=== PATIENT | female | born 1940 | race Caucasian/White ===

== ENCOUNTER 2019-09-30 22:01 | Emergency (ER) | payer MEDICARE, BC ==
[2019-09-30 22:10] VITALS: BP 148/83
[2019-09-30] MEDS ORDERED: Acetaminophen-Codeine 300-30mg TAB PO STA (22:20)
[2019-09-30] MEDS ORDERED: ACET/COD 300 MG/30 MG STARTER PACK 6 TAB BTL PO STA (22:20)
--- NOTE | 2019-09-30 22:51 | XR ---
EXAMINATION TYPE: XR elbow complete LT DATE OF EXAM: 09/30/2019 COMPARISON: NONE HISTORY: Elbow pain TECHNIQUE: 3 views FINDINGS: There is soft tissue swelling over the olecranon process. I see no fracture nor dislocation . There is no sign of elbow joint effusion. Joint spaces are fairly normal. IMPRESSION: Soft tissue swelling. No fracture seen.
--- NOTE | 2019-09-30 23:06 | ED ---
General Adult HPI - General Chief complaint: Extremity Problem,Nontraumatic Stated complaint: Elbow pain Time Seen by Provider: 09/30/19 22:12 Source: patient, RN notes reviewed, old records reviewed Mode of arrival: ambulatory Limitations: no limitations - History of Present Illness Initial comments: 78-year-old female patient presents to ED chief complaint of left elbow pains has been ongoing for approximate 4 days. Patient reports that she put stress on her elbow when she stands up from her wheelchair. Denies any fall or any trauma. Denies any fevers chills. Denies any other complaints. Systemic: Pt denies fatigue, fever/chills, rash. Pt denies weakness, night sweats, weight loss. Neuro: Pt denies headache, visual disturbances, syncope or pre-syncope. HEENT: Pt denies ocular discharge or irritation, otalgia, rhinorrhea, pharyngitis or notable lymphadenopathy. Cardiopulmonary: Pt denies chest pain, SOB, heart palpitations, dyspnea on e xertion. Abdominal/GI: Pt denies abdominal pain, n/v/d. : Pt denies dysuria, burning w/ urination, frequency/urgency. Denies new onset urinary or bowel incontinence. MSK: Pt denies myalgia, loss of strength or function in extremities. Neuro: Pt denies new onset weakness, paresthesias. - Related Data Home Medications Medication Instructions Recorded Confirmed Atenolol 100 mg PO DAILY 09/30/19 09/30/19 Naproxen Sodium [Aleve] 440 mg PO DAILY PRN 09/30/19 09/30/19 Omeprazole Magnesium [PriLOSEC OTC] 20 mg PO DAILY 09/30/19 09/30/19 Terazosin HCl 5 mg PO HS 09/30/19 09/30/19 Allergies Allergy/AdvReac Type Severity Reaction Status Date / Time Penicillins AdvReac Rash/Hives Verified 09/30/19 22:45 Review of Systems ROS Statement: Those systems with pertinent positive or pertinent negative responses have been documented in the HPI. ROS Other: All systems not noted in ROS Statement are negative. Past Medical History Past Medical History: Hypertension History of Any Multi-Drug Resistant Organisms: None Reported Past Surgical History: Appendectomy, Section, Cholecystectomy Past Psychological History: No Psychological Hx Reported Smoking Status: Never smoker Past Alcohol Use History: None Reported Past Drug Use History: None Reported General Exam - General Exam Comments Initial Comments: Constitutional: NAD, AOX3, Pt has pleasant affect. HEENT: NC/AT, trachea midline, neck supple, no lymphadenopathy. Posterior pharynx non erythematous, without exudates. External ears appear normal, without discharge. Mucous membranes moist. Eyes PERRLA, EOM intact. There is no scleral icterus. No pallor noted. Cardiopulmonary: RRR, no murmurs, rubs or gallops, no JVD noted. Lungs CTAB in anterior and posterior caicedo. No peripheral edema. Abdominal exam: Abdomen soft and non-distended. Abdomen non-tender to palpation in all 4 quadrants. Bowel sounds active in LLQ. No hepatosplenomegaly. No ecchymosis Neuro: CN II-XII grossly intact. No nuchal rigidity. No raccon eyes, no morley sign, no hemotympanum. No cervical spinal tenderness. MSK: Left elbow mildly tender to palpation. No swelling, erythema, warmth, skin changes. Neurovascularly intact. No posterior calf tenderness bilaterally, homans sign negative bilaterally. Posterior tibialis and radial pulse +2 bilaterally. Sensation intact in upper and lower extremities. Full active ROM in upper and lower extremities, 5/5 stregnth. Limitations: no limitations Course Vital Signs 09/30/19 22:05 Temperature 97.9 F Pulse Rate 54 L Respiratory 18 Rate Blood Pressure 148/83 O2 Sat by Pulse 96 Oximetry Medical Decision Making - Medical Decision Making 78-year-old female patient presents to ED chief complaint of left elbow pains has been ongoing for approximate 4 days. Patient reports that she put stress on her elbow when she stands up from her wheelchair. Denies any fall or any trauma. Denies any fevers chills. Denies any other complaints. Patient vital signs stable, afebrile. Physical exam displayeed: Left elbow mildly tender to palpation. No swelling, erythema, warmth, skin changes. Neurovascularly intact. Physical exam displayed a small amount of soft tissue swelling. No fracture seen. This elbow clinically does not appear infected. Patient pain well-controlled in ER. Discharged with primary care follow-up and return precautions. Case discussed with Dr. Huang. Disposition Clinical Impression: Elbow pain Disposition: HOME SELF-CARE Condition: Stable Instructions (If sedation given, give patient instructions): Elbow Sprain (ED), Arthralgia (ED) Additional Instructions: Patient to adhere to previously discussed treatment plan and will take medication(s) as directed. Patient to follow up with PCP in 1-2 days. Patient to return to ED if symptoms do not improve. Return to ER if condition worsens. Monitor for redness, warmth, decreased range of motion. Is patient prescribed a controlled substance at d/c from ED?: No Referrals: Nonstaff,Physician [Primary Care Provider] - 1-2 days
[2019-09-30 23:26] VITALS: PULSE 63; RESP 15; TEMP 97.3
== END 2019-09-30 23:18 | disposition home or self-care (01) ==
LOC: EC 22:01
DX: M25.522 Pain in left elbow (principal); I10 Essential (primary) hypertension; Z88.0 Allergy status to penicillin; Z79.899 Other long term (current) drug therapy
CPT/HCPCS: 99284

== ENCOUNTER 2020-01-17 18:47 | Emergency (ER) | payer MEDICARE, BC ==
[2020-01-17 20:35] LABS: Basophils % (A) 0 %; Eosinophils # (A) 0.3 k/uL (0-0.7); Eosinophils % (A) 2 %; HCT 37.5 % (34.0-46.0); HGB 11.9 gm/dL (11.4-16.0); Lymphocytes # (A) 1.2 k/uL (1.0-4.8); Lymphocytes % (A) 9 %; MCH 27.9 pg (25.0-35.0); MCHC 31.7 g/dL (31.0-37.0); MCV 88.1 fL (80.0-100.0); Mean Platelet Volume 8.7; Monocytes # (A) 0.6 k/uL (0-1.0); Monocytes % (A) 4 %; Neutrophils # (A) 10.6 k/uL (1.3-7.7); Neutrophils % (A) 83 %; Platelet Count 222 k/uL (150-450); RBC 4.26 m/uL (3.80-5.40); RDW 15.5 % (11.5-15.5); WBC 12.8 k/uL (3.8-10.6)
--- NOTE | 2020-01-17 20:36 | US ---
EXAMINATION TYPE: US venous doppler duplex LE RT DATE OF EXAM: 01/17/2020 8:21 PM COMPARISON: NONE CLINICAL HISTORY: groin pain. Groin pain x 6.5 hours. Bilateral leg edema. No hx of DVT. Patient does not take blood thinners. SIDE PERFORMED: Right TECHNIQUE: The lower extremity deep venous system is examined utilizing real time linear array sonog tadeo with graded compression, doppler sonography and color-flow sonography. VESSELS IMAGED: Common Femoral Vein Deep Femoral Vein Greater Saphenous Vein * Femoral Vein Popliteal Vein Small Saphenous Vein * Proximal Calf Veins (* superficial vessels) Right Leg: Exam very limited due to large patient body habitus. EIV and proximal calf veins not visu alized. Cannot image popliteal vein in sagittal view due to body habitus. Vessels imaged appear to co mpress and show color flow. Cannot visualize left CFV; left proximal femoral vein shows color flow. IMPRESSION: No evidence of deep vein thrombosis in the right leg.
[2020-01-17 20:45] LABS: ALT 15 U/L (4-34); AST 21 U/L (14-36); African American GFR (CKD) >90 (>60 ml/min/1.73 sqM); Albumin 3.3 g/dL (3.5-5.0); Alkaline Phosphatase 136 U/L (38-126); Anion Gap 8 mmol/L; Blood Urea Nitrogen 18 mg/dL (7-17); Calcium 9.5 mg/dL (8.4-10.2); Carbon Dioxide 27 mmol/L (22-30); Chloride 101 mmol/L (98-107); Glucose 217 mg/dL (74-99); Non-African American GFR(CKD) 87 (>60 ml/min/1.73 sqM); Potassium 4.2 mmol/L (3.5-5.1); Sodium 136 mmol/L (137-145); Total Bilirubin 0.4 mg/dL (0.2-1.3); Total Protein 5.9 g/dL (6.3-8.2)
--- NOTE | 2020-01-17 21:22 | XR ---
EXAMINATION TYPE: XR chest 2V DATE OF EXAM: 01/17/2020 COMPARISON: NONE HISTORY: Leg swelling TECHNIQUE: 2 views FINDINGS: There is no heart failure nor confluent pneumonic infiltrate. Costophrenic angles are clear . Bony thorax is intact. Thoracic aorta is atheromatous. IMPRESSION: No active cardiopulmonary disease. Normal heart.
--- NOTE | 2020-01-17 21:23 | XR ---
EXAMINATION TYPE: XR Hip Complete RT DATE OF EXAM: 01/17/2020 COMPARISON: NONE HISTORY: Hip pain TECHNIQUE: 2 views FINDINGS: I see no fracture nor dislocation. Joint spaces are normal. There is no sign of hip dysplas ia. IMPRESSION: Negative right hip exam.
--- NOTE | 2020-01-17 22:30 | ED ---
Extremity Problem HPI - General Chief complaint: Extremity Problem,Nontraumatic Stated complaint: Rt Leg Pain Time Seen by Provider: 01/17/20 19:01 Source: patient, EMS Mode of arrival: EMS Limitations: physical limitation - History of Present Illness Initial comments: Pleasant, well appearing 79-year-old female presenting for right hip and groin pain since @2PM. Patient states that she try to get off the toilet and she had a right hip groin pain this was around 2 PM. Patient states that she was knees that are [id number] also feel like her knee locked out she denies dislocation she denies any knee pain. 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 Ptietn denies chest pain, SOB. Patient states that since she has been sleeping in the chair she has noted bilateral leg swelling. Patient denies unilateral leg swelling or history of DVT. Patient denies any numbness tingling or loss of sensation, coolness or pallor of the extremity. Denies fevers. Patient denies any abdominal pain or pain or falls. When patient cannot ambulate well family gave patient Tylenol No. 3 and called EMS for transportation to the emergency department. Patient states upon arrival she had no pain, and "feels fine now" no complaints. - Related Data Home Medications Medication Instructions Recorded Confirmed Atenolol 100 mg PO DAILY 09/30/19 09/30/19 Cyclobenzaprine [Flexeril] 10 mg PO TID PRN 09/30/19 09/30/19 Naproxen Sodium [Aleve] 440 mg PO DAILY PRN 09/30/19 09/30/19 Omeprazole Magnesium [PriLOSEC OTC] 20 mg PO DAILY 09/30/19 09/30/19 Terazosin HCl 5 mg PO HS 09/30/19 09/30/19 Previous Rx's Medication Instructions Recorded Cephalexin [Keflex] 500 mg PO Q6HR 7 Days #28 cap 01/17/20 Sulfamethox-Tmp 800-160Mg [Bactrim 1 tab PO Q12HR 7 Days #14 tab 01/17/20 DS 800-160 mg] Allergies Allergy/AdvReac Type Severity Reaction Status Date / Time Penicillins AdvReac Rash/Hives Verified 01/17/20 19:05 Review of Systems ROS Statement: Those systems with pertinent positive or pertinent negative responses have been documented in the HPI. ROS Other: All systems not noted in ROS Statement are negative. Past Medical History Past Medical History: Hypertension History of Any Multi-Drug Resistant Organisms: None Reported Past Surgical History: Appendectomy, Section, Cholecystectomy Past Psychological History: No Psychological Hx Reported Smoking Status: Never smoker Past Alcohol Use History: None Reported Past Drug Use History: None Reported General Exam - General Exam Comments Initial Comments: General: The patient is awake and alert, in no distress Eye: +3 mm pupils are equal, round and reactive to light, extra-ocular movements are intact. No nystagmus. There is normal conjunctiva bilaterally. No signs of icterus. Ears, nose, mouth and throat: There are moist mucous membranes and no oral lesions. Neck: The neck is supple, there is no tenderness or JVD. Cardiovascular: There is a regular rate and rhythm. No murmur, rub or gallop is appreciated. Respiratory: Lungs are clear to auscultation, respirations are non-labored, br eath sounds are equal. No wheezes, stridor, rales, or rhonchi. Gastrointestinal: Soft, non-distended, non-tender abdomen without masses or organomegaly noted. There is no rebound or guarding present. Musculoskeletal: Normal ROM, no tenderness. Strength 5/5 grossly. Sensation intact. Radial and DP pulses equal bilaterally 2+. Neurological: A&O x 3. CN II-XII intact grossly, There are no obvious motor or sensory deficits. Coordination appears grossly intact. Speech is normal. Skin: Skin is warm and dry and no rashes or lesions are noted. bilateral leg swelling, no pitting edema. Groin inspected after lifting pannus, tehre is no rashes, no palpable hernia, no pain to palpation +2 femoral. Mild anterior right leg swelling warmth, surrounding small break in skin. Psychiatric: Cooperative, appropriate mood & affect, normal judgment. Limitations: physical limitation Course Vital Signs 01/17/20 01/17/20 01/17/20 18:58 19:34 23:55 Temperature 97.3 F L 97.7 F Pulse Rate 82 86 94 Respiratory 16 17 18 Rate Blood Pressure 164/71 147/66 136/68 O2 Sat by Pulse 94 L 96 96 Oximetry Medical Decision Making - Medical Decision Making 79-year-old female presenting today for chief complaint of right hip pain patien t was unable to get up from the toilet patient states she feels this is due to her having bilateral bad knees. Patient states she has had bilateral leg swelling since she has been sleeping in a chair for the past 2-3 months. Patient has no pitting edema however bilateral lower extremity swelling. Patient is mild hypoalbuminemia on laboratory studies. As well as mild leukocytosis. Patient on physical examination had a very mild right lower leg anterior cellulitis no crepitus to palpation. No recent antibiotic use. Patient states this was not one of her main complaints. Patient neurovascularly intact, No obvious DVT on US, no unilateral leg swelling. BNP WNL. CXR no vascular congestion. VS stable patient appears well. Ptietn afebrile does not appears toxic. X-ray hip revealed no acute abnormalities. Discussed admission for inability to ambulate and cellulitis with attending we contacted admitting provider Dr. Thompson who recommended discharge. Patient family beside as well as patient are agreeable to admission [facility] strict return parameters. Transferred home via EMS. - Lab Data Result diagrams: 01/17/20 19:52 01/17/20 19:52 Lab Results 01/17/20 01/17/20 01/17/20 Range/Units 19:52 19:52 19:52 WBC 12.8 H (3.8-10.6) k/uL RBC 4.26 (3.80-5.40) m/uL Hgb 11.9 (11.4-16.0) gm/dL Hct 37.5 (34.0-46.0) % MCV 88.1 (80.0-100.0) fL MCH 27.9 (25.0-35.0) pg MCHC 31.7 (31.0-37.0) g/dL RDW 15.5 (11.5-15.5) % Plt Count 222 (150-450) k/uL Neutrophils % 83 % Lymphocytes % 9 % Monocytes % 4 % Eosinophils % 2 % Basophils % 0 % Neutrophils # 10.6 H (1.3-7.7) k/uL Lymphocytes # 1.2 (1.0-4.8) k/uL Monocytes # 0.6 (0-1.0) k/uL Eosinophils # 0.3 (0-0.7) k/uL Basophils # 0.0 (0-0.2) k/uL Sodium 136 L (137-145) mmol/L Potassium 4.2 (3.5-5.1) mmol/L Chloride 101 (98-107) mmol/L Carbon Dioxide 27 (22-30) mmol/L Anion Gap 8 mmol/L BUN 18 H (7-17) mg/dL Creatinine 0.60 (0.52-1.04) mg/dL Est GFR (CKD-EPI)AfAm >90 (>60 ml/min/1.73 sqM) Est GFR (CKD-EPI)NonAf 87 (>60 ml/min/1.73 sqM) Glucose 217 H (74-99) mg/dL Calcium 9.5 (8.4-10.2) mg/dL Total Bilirubin 0.4 (0.2-1.3) mg/dL AST 21 (14-36) U/L ALT 15 (4-34) U/L Alkaline Phosphatase 136 H (38-126) U/L NT-Pro-B Natriuret Pep 182 pg/mL Total Protein 5.9 L (6.3-8.2) g/dL Albumin 3.3 L (3.5-5.0) g/dL Urine Color Urine Appearance (Clear) Urine pH (5.0-8.0) Ur Specific [place] (1.001-1.035) Urine Protein (Negative) Urine Glucose (UA) (Negative) Urine Ketones (Negative) Urine Blood (Negative) Urine Nitrite (Negative) Urine Bilirubin (Negative) Urine Urobilinogen (<2.0) mg/dL Ur Leukocyte Esterase (Negative) Urine RBC (0-5) /hpf Urine WBC (0-5) /hpf Ur Squamous Epith Cells (0-4) /hpf Urine Bacteria (None) /hpf Urine Mucus (None) /hpf 01/17/20 Range/Units 22:05 WBC (3.8-10.6) k/uL RBC (3.80-5.40) m/uL Hgb (11.4-16.0) gm/dL Hct (34.0-46.0) % MCV (80.0-100.0) fL MCH (25.0-35.0) pg MCHC (31.0-37.0) g/dL RDW (11.5-15.5) % Plt Count (150-450) k/uL Neutrophils % % Lymphocytes % % Monocytes % % Eosinophils % % Basophils % % Neutrophils # (1.3-7.7) k/uL Lymphocytes # (1.0-4.8) k/uL Monocytes # (0-1.0) k/uL Eosinophils # (0-0.7) k/uL Basophils # (0-0.2) k/uL Sodium (137-145) mmol/L Potassium (3.5-5.1) mmol/L Chloride (98-107) mmol/L Carbon Dioxide (22-30) mmol/L Anion Gap mmol/L BUN (7-17) mg/dL Creatinine (0.52-1.04) mg/dL Est GFR (CKD-EPI)AfAm (>60 ml/min/1.73 sqM) Est GFR (CKD-EPI)NonAf (>60 ml/min/1.73 sqM) Glucose (74-99) mg/dL Calcium (8.4-10.2) mg/dL Total Bilirubin (0.2-1.3) mg/dL AST (14-36) U/L ALT (4-34) U/L Alkaline Phosphatase (38-126) U/L NT-Pro-B Natriuret Pep pg/mL Total Protein (6.3-8.2) g/dL Albumin (3.5-5.0) g/dL Urine Color Yellow Urine Appearance Slightly Cloudy H (Clear) Urine pH 6.0 (5.0-8.0) Ur Specific [place] 1.010 (1.001-1.035) Urine Protein Negative (Negative) Urine Glucose (UA) Negative (Negative) Urine Ketones Negative (Negative) Urine Blood Negative (Negative) Urine Nitrite Negative (Negative) Urine Bilirubin Negative (Negative) Urine Urobilinogen 0.2 (<2.0) mg/dL Ur Leukocyte Esterase Negative (Negative) Urine RBC 2 (0-5) /hpf Urine WBC 3 (0-5) /hpf Ur Squamous Epith Cells 1 (0-4) /hpf Urine Bacteria Few H (None) /hpf Urine Mucus Rare H (None) /hpf Disposition Clinical Impression: Right leg pain, Chronic pain of right knee, Cellulitis, Leg swelling Disposition: HOME SELF-CARE Condition: Good Instructions (If sedation given, give patient instructions): Cellulitis (ED), Leg Edema (ED), Hip Pain (ED) Additional Instructions: Please use medication as discussed. Please follow-up with family doctor in the next 2 days. Please return to emergency room if the symptoms increase or worsen or for any other concerns, fevers, increasing redness.. Prescriptions: Sulfamethox-Tmp 800-160Mg [Bactrim DS 800-160 mg] 1 tab PO Q12HR 7 Days #14 tab Cephalexin [Keflex] 500 mg PO Q6HR 7 Days #28 cap Is patient prescribed a controlled substance at d/c from ED?: No Referrals: Nonstaff,Physician [Primary Care Provider] - 1-2 days Time of Disposition: 23:01
[2020-01-17 22:49] LABS: Bacteria,Urine Few /hpf; Mucus,Urine Rare /hpf; RBC,Urine 2 /hpf (0-5); Squamous Epithelial Cell,Urine 1 /hpf (0-4); WBC,Urine 3 /hpf (0-5)
[2020-01-17 22:51] LABS: Appearance,Urine Slightly Cloudy (Clear); Bilirubin,Urine Negative (Negative); Blood,Urine Negative (Negative); Color,Urine Yellow; Glucose,Urine (UA) Negative (Negative); Ketones,Urine Negative (Negative); Protein,Urine Negative (Negative); Urobilinogen,Urine 0.2 mg/dL (<2.0)
[2020-01-17 22:52] LABS: Leukocyte Esterase,Urine Negative (Negative); Nitrite,Urine Negative (Negative)
[2020-01-17] MEDS ORDERED: cefTRIAXone IN SWFI 1,000 MG/10 ML SYRINGE IVP STA (23:39)
[2020-01-17 23:57] VITALS: BP 136/68; PULSE 94; RESP 18; TEMP 97.7
== END 2020-01-17 23:55 | disposition home or self-care (01) ==
LOC: EC 18:47
DX: L03.115 Cellulitis of right lower limb (principal); G89.29 Other chronic pain; M25.561 Pain in right knee; E88.09 Other disorders of plasma-protein metabolism, not elsewhere classified; D72.829 Elevated white blood cell count, unspecified; M17.0 Bilateral primary osteoarthritis of knee; M25.551 Pain in right hip; M79.89 Other specified soft tissue disorders; I10 Essential (primary) hypertension; R10.31 Right lower quadrant pain; Z88.0 Allergy status to penicillin; Z79.899 Other long term (current) drug therapy; Z90.49 Acquired absence of other specified parts of digestive tract; Z53.8 Procedure and treatment not carried out for other reasons
CPT/HCPCS: 36415; 83880; 80053; 85025; 81001; 73502; 71046; 93971; 99284; 96374; J0696

== ENCOUNTER 2020-03-06 13:47 | Inpatient (IN) | payer MEDICARE, BC ==
[2020-03-06] MEDS ORDERED: SODIUM CHLORIDE 0.9% 500 ML 500 ML IV STA (14:01)
[2020-03-06] MEDS ORDERED: SODIUM CHLORIDE 0.9% 1,000 ML IV STA (14:01)
--- NOTE | 2020-03-06 14:41 | XR ---
EXAMINATION TYPE: XR chest 1V portable DATE OF EXAM: 03/06/2020 COMPARISON: 01/17/2020 INDICATION: Dyspnea TECHNIQUE: Single frontal view of the chest is obtained. FINDINGS: The heart size is normal. The pulmonary vasculature is prominent. Infiltrate is through the right mid and lower lung field. Correlate for volume overload and early pul monary edema. Right lower lobe infiltrate with pneumonia is considered less likely. IMPRESSION: 1. Diffuse increased pulmonary vascular markings more focal in the right lower lobe. Correlate for vo lume overload.
[2020-03-06 14:45] LABS: Anisocytosis Slight; Basophils % (A) 0 %; Eosinophils % (A) 0 %; HCT 34.6 % (34.0-46.0); HGB 10.8 gm/dL (11.4-16.0); Hypochromasia Slight; Lymphocytes % (A) 6 %; MCH 27.7 pg (25.0-35.0); MCHC 31.3 g/dL (31.0-37.0); MCV 88.4 fL (80.0-100.0); Mean Platelet Volume 9.4; Monocytes # (A) 0.6 k/uL (0-1.0); Monocytes % (A) 4 %; Neutrophils # (A) 13.6 k/uL (1.3-7.7); Neutrophils % (A) 88 %; Platelet Count 152 k/uL (150-450); RBC 3.92 m/uL (3.80-5.40); RDW 17.1 % (11.5-15.5); WBC 15.4 k/uL (3.8-10.6)
[2020-03-06 14:54] LABS: ALT 21 U/L (4-34); AST 23 U/L (14-36); African American GFR (CKD) >90 (>60 ml/min/1.73 sqM); Albumin 3.3 g/dL (3.5-5.0); Alkaline Phosphatase 101 U/L (38-126); Anion Gap 7 mmol/L; Blood Urea Nitrogen 23 mg/dL (7-17); Calcium 8.7 mg/dL (8.4-10.2); Carbon Dioxide 26 mmol/L (22-30); Chloride 89 mmol/L (98-107); Creatine Kinase 61 U/L (30-135); Glucose 224 mg/dL (74-99); Magnesium 2.1 mg/dL (1.6-2.3); Non-African American GFR(CKD) 85 (>60 ml/min/1.73 sqM); Potassium 5.3 mmol/L (3.5-5.1); Sodium 122 mmol/L (137-145); Total Bilirubin 0.6 mg/dL (0.2-1.3); Total Protein 5.9 g/dL (6.3-8.2)
[2020-03-06 14:55] LABS: INR 1.1 (<1.2); Partial Thromboplastin Time 23.6 sec (22.0-30.0); Prothrombin Time 11.5 sec (9.0-12.0)
--- NOTE | 2020-03-06 15:05 | ED ---
SOB HPI - General Chief Complaint: Shortness of Breath Stated Complaint: MARSHA Time Seen by Provider: 03/06/20 14:01 Source: patient, EMS, RN notes reviewed, old records reviewed Mode of arrival: EMS Limitations: no limitations - History of Present Illness Initial Comments: This is a 79-year-old female who was brought in by EMS because of some shortness of breath or cough for last several days patient had been on antibiotics without relief. No reports of fevers chills nausea vomiting sweats. No reports of other infectious exposures. No chest pain reported the patient is reported have lower extremity edema. The patient himself is a poor historian MD Complaint: shortness of breath, cough - Related Data Home Medications Medication Instructions Recorded Confirmed Atenolol 100 mg PO DAILY 09/30/19 03/06/20 Terazosin HCl 5 mg PO HS@1900 09/30/19 03/06/20 Albuterol Inhaler [Ventolin Hfa 2 puff INHALATION RT-QID PRN 03/06/20 03/06/20 Inhaler] Albuterol Nebulized [Ventolin 2.5 mg INHALATION RT-QID 03/06/20 03/06/20 Nebulized] Aspirin EC [Ecotrin Low Dose] 81 mg PO DAILY 03/06/20 03/06/20 Multivitamins, Thera [Multivitamin 1 tab PO DAILY 03/06/20 03/06/20 (formulary)] Naproxen Sodium [Aleve] 440 mg PO BID 03/06/20 03/06/20 Omeprazole Magnesium [PriLOSEC OTC] 20 mg PO DAILY 03/06/20 03/06/20 Vitamin E Acetate [Vitamin E] 200 unit PO DAILY 03/06/20 03/06/20 methylPREDNISolone [Medrol Dose See Taper PO DIRECTED 03/06/20 03/06/20 Pack] Allergies Allergy/AdvReac Type Severity Reaction Status Date / Time Penicillins AdvReac Rash/Hives Verified 03/06/20 16:31 Review of Systems ROS Statement: Those systems with pertinent positive or pertinent negative responses have been documented in the HPI. ROS Other: All systems not noted in ROS Statement are negative. Past Medical History Past Medical History: Hypertension History of Any Multi-Drug Resistant Organisms: None Reported Past Surgical History: Appendectomy, Section, Cholecystectomy Past Psychological History: No Psychological Hx Reported Smoking Status: Never smoker Past Alcohol Use History: None Reported Past Drug Use History: None Reported General Exam - General Exam Comments Initial Comments: This is a well-developed obese female who is awake and alert but somewhat lethargic Limitations: no limitations General appearance: alert, in no apparent distress Head exam: Present: atraumatic, normocephalic, normal inspection Eye exam: Present: normal appearance, PERRL, EOMI. Absent: scleral icterus, conjunctival injection, periorbital swelling ENT exam: Present: mucous membranes dry Neck exam: Present: normal inspection, full ROM, other (No stridor JVD or bru its). Absent: tenderness, meningismus, lymphadenopathy Respiratory exam: Present: decreased breath sounds. Absent: respiratory distress, wheezes, rales, rhonchi, stridor Cardiovascular Exam: Present: bradycardia, normal heart sounds. Absent: systo lic murmur, diastolic murmur, rubs, gallop, clicks GI/Abdominal exam: Present: soft, normal bowel sounds. Absent: distended, tenderness, guarding, rebound, rigid Extremities exam: Present: full ROM, normal capillary refill, pedal edema, other (Stasis changes). Absent: tenderness, joint swelling, calf tenderness Back exam: Present: normal inspection Neurological exam: Present: alert, oriented X3, CN II-XII intact Psychiatric exam: Present: normal affect, normal mood Skin exam: Present: warm, dry, intact, normal color. Absent: rash Course Vital Signs 03/06/20 03/06/20 03/06/20 13:51 14:30 15:09 Temperature 96.0 F L Pulse Rate 35 L 33 L 40 L Respiratory 18 18 22 Rate Blood Pressure 141/84 97/72 118/88 O2 Sat by Pulse 98 95 93 L Oximetry 03/06/20 16:00 Temperature Pulse Rate 48 L Respiratory 18 Rate Blood Pressure 100/52 O2 Sat by Pulse 95 Oximetry - Reevaluation(s) Reevaluation #1: 03/06/20 17:15 I did reevaluate the patient on multiple occasions. Patient did have a declining her blood pressure or pulse rate remained the same. Aeration for beta saray toxicity. Reevaluation #2: 03/06/20 17:16 I did discuss the case with both Dr. KASSANDRA Esquivel and Dr. Castañeda. Patient be admitted ICU placed on a dopamine drip at 5 mics. Mild dehydration. Also for the pneumonia vancomycin and Levaquin. Procedures - Central Line Placement Right IJ Consent Obtained: emergent situation Patient Placed on Monitor/Pulse Ox: Yes MD Prep: mask, gown, gloves, other (P PE) Central Line Prep: Povidone-Iodine 1%, sterile drapes applied Local Anesthesia Used: Lidocaine 1% Ultrasound Used for Placement: Yes Central Line Lumen Inserted: triple Bloods Obtained for Lab: No (RA drawn) Central Line Position: good blood return, all ports aspirated, flushed, capped, sutured in place with 3-0 nylon Dressing Applied: Tegaderm Post Procedure X-Ray: tip of catheter in good position Patient Tolerated Procedure: well Complications: none Medical Decision Making - Medical Decision Making I did discuss the case with multiple physicians including Dr. Elsi Castañeda and Dr. Esquivel. Central venous access is obtained to the right internal jugular. Patient maintained her pressure and pulse on the current regimen. - Lab Data Result diagrams: 03/06/20 14:15 03/06/20 14:15 Lab Results 03/06/20 03/06/20 03/06/20 Range/Units 14:15 14:15 14:15 WBC 15.4 H (3.8-10.6) k/uL RBC 3.92 (3.80-5.40) m/uL Hgb 10.8 L (11.4-16.0) gm/dL Hct 34.6 (34.0-46.0) % MCV 88.4 (80.0-100.0) fL MCH 27.7 (25.0-35.0) pg MCHC 31.3 (31.0-37.0) g/dL RDW 17.1 H (11.5-15.5) % Plt Count 152 (150-450) k/uL Neutrophils % 88 % Lymphocytes % 6 % Monocytes % 4 % Eosinophils % 0 % Basophils % 0 % Neutrophils # 13.6 H (1.3-7.7) k/uL Lymphocytes # 1.0 (1.0-4.8) k/uL Monocytes # 0.6 (0-1.0) k/uL Eosinophils # 0.0 (0-0.7) k/uL Basophils # 0.0 (0-0.2) k/uL Hypochromasia Slight Anisocytosis Slight PT 11.5 (9.0-12.0) sec INR 1.1 (<1.2) APTT 23.6 (22.0-30.0) sec Sodium 122 L (137-145) mmol/L Potassium 5.3 H (3.5-5.1) mmol/L Chloride 89 L (98-107) mmol/L Carbon Dioxide 26 (22-30) mmol/L Anion Gap 7 mmol/L BUN 23 H (7-17) mg/dL Creatinine 0.63 (0.52-1.04) mg/dL Est GFR (CKD-EPI)AfAm >90 (>60 ml/min/1.73 sqM) Est GFR (CKD-EPI)NonAf 85 (>60 ml/min/1.73 sqM) Glucose 224 H (74-99) mg/dL Plasma Lactic Acid Guido (0.7-2.0) mmol/L Calcium 8.7 (8.4-10.2) mg/dL Magnesium 2.1 (1.6-2.3) mg/dL Total Bilirubin 0.6 (0.2-1.3) mg/dL AST 23 (14-36) U/L ALT 21 (4-34) U/L Alkaline Phosphatase 101 (38-126) U/L Creatine Kinase 61 (30-135) U/L Troponin I (0.000-0.034) ng/mL NT-Pro-B Natriuret Pep pg/mL Total Protein 5.9 L (6.3-8.2) g/dL Albumin 3.3 L (3.5-5.0) g/dL TSH (0.465-4.680) mIU/L Coronavirus (PCR) (Not Detectd) Influenza Type A RNA (Not Detectd) Influenza Type B (PCR) (Not Detectd) 03/06/20 03/06/20 03/06/20 Range/Units 14:15 14:15 14:15 WBC (3.8-10.6) k/uL RBC (3.80-5.40) m/uL Hgb (11.4-16.0) gm/dL Hct (34.0-46.0) % MCV (80.0-100.0) fL MCH (25.0-35.0) pg MCHC (31.0-37.0) g/dL RDW (11.5-15.5) % Plt Count (150-450) k/uL Neutrophils % % Lymphocytes % % Monocytes % % Eosinophils % % Basophils % % Neutrophils # (1.3-7.7) k/uL Lymphocytes # (1.0-4.8) k/uL Monocytes # (0-1.0) k/uL Eosinophils # (0-0.7) k/uL Basophils # (0-0.2) k/uL Hypochromasia Anisocytosis PT (9.0-12.0) sec INR (<1.2) APTT (22.0-30.0) sec Sodium (137-145) mmol/L Potassium (3.5-5.1) mmol/L Chloride (98-107) mmol/L Carbon Dioxide (22-30) mmol/L Anion Gap mmol/L BUN (7-17) mg/dL Creatinine (0.52-1.04) mg/dL Est GFR (CKD-EPI)AfAm (>60 ml/min/1.73 sqM) Est GFR (CKD-EPI)NonAf (>60 ml/min/1.73 sqM) Glucose (74-99) mg/dL Plasma Lactic Acid Guido 1.5 (0.7-2.0) mmol/L Calcium (8.4-10.2) mg/dL Magnesium (1.6-2.3) mg/dL Total Bilirubin (0.2-1.3) mg/dL AST (14-36) U/L ALT (4-34) U/L Alkaline Phosphatase (38-126) U/L Creatine Kinase (30-135) U/L Troponin I <0.012 (0.000-0.034) ng/mL NT-Pro-B Natriuret Pep 747 pg/mL Total Protein (6.3-8.2) g/dL Albumin (3.5-5.0) g/dL TSH (0.465-4.680) mIU/L Coronavirus (PCR) (Not Detectd) Influenza Type A RNA (Not Detectd) Influenza Type B (PCR) (Not Detectd) 03/06/20 03/06/20 Range/Units 14:15 15:40 WBC (3.8-10.6) k/uL RBC (3.80-5.40) m/uL Hgb (11.4-16.0) gm/dL Hct (34.0-46.0) % MCV (80.0-100.0) fL MCH (25.0-35.0) pg MCHC (31.0-37.0) g/dL RDW (11.5-15.5) % Plt Count (150-450) k/uL Neutrophils % % Lymphocytes % % Monocytes % % Eosinophils % % Basophils % % Neutrophils # (1.3-7.7) k/uL Lymphocytes # (1.0-4.8) k/uL Monocytes # (0-1.0) k/uL Eosinophils # (0-0.7) k/uL Basophils # (0-0.2) k/uL Hypochromasia Anisocytosis PT (9.0-12.0) sec INR (<1.2) APTT (22.0-30.0) sec Sodium (137-145) mmol/L Potassium (3.5-5.1) mmol/L Chloride (98-107) mmol/L Carbon Dioxide (22-30) mmol/L Anion Gap mmol/L BUN (7-17) mg/dL Creatinine (0.52-1.04) mg/dL Est GFR (CKD-EPI)AfAm (>60 ml/min/1.73 sqM) Est GFR (CKD-EPI)NonAf (>60 ml/min/1.73 sqM) Glucose (74-99) mg/dL Plasma Lactic Acid Guido (0.7-2.0) mmol/L Calcium (8.4-10.2) mg/dL Magnesium (1.6-2.3) mg/dL Total Bilirubin (0.2-1.3) mg/dL AST (14-36) U/L ALT (4-34) U/L Alkaline Phosphatase (38-126) U/L Creatine Kinase (30-135) U/L Troponin I (0.000-0.034) ng/mL NT-Pro-B Natriuret Pep pg/mL Total Protein (6.3-8.2) g/dL Albumin (3.5-5.0) g/dL TSH 3.570 (0.465-4.680) mIU/L Coronavirus (PCR) Not Detected (Not Detectd) Influenza Type A RNA Not Detected (Not Detectd) Influenza Type B (PCR) Not Detected (Not Detectd) - EKG Data -: EKG Interpreted by Me (Junctional bradycardia rate of 36 QRS 82 QT since QTC 590/462 low-voltage Q) - Radiology Data Radiology results: report reviewed (I did review the imaging and report evidence of right lower lobe infiltrate evidence of pulmonary vascular congestion), image reviewed Critical Care Time Critical Care Time: Yes Critical Care Time: 49 minutes of critical care time which includes initial presentation with history physical labs x-rays multiple reevaluation of the patient. PPE was used by me on all examinations. Says include discussion with paramedics. Limited information was available. Discussed with multiple physicians review of old charting was available admission orders and documentation of the above Disposition Clinical Impression: Right lower lobe pneumonia, Bradycardia, Beta saray toxicity, Morbid obesity Disposition: ADMITTED IP TO THIS [facility] Condition: Fair Referrals: Nonstaff,Physician [Primary Care Provider] - 1-2 days
[2020-03-06] MEDS ORDERED: ATROPINE SULFATE 0.1 MG/ML 10ML SYRINGE IV STA (15:33)
[2020-03-06] MEDS ORDERED: DOPamine DRIP 800 MG in DEXTROSE/WATER 1 250ML.BAG IV ONE (15:45)
[2020-03-06] MEDS ORDERED: cefTRIAXone IN SWFI 1,000 MG/10 ML SYRINGE IVP STA (16:09)
[2020-03-06] MEDS ORDERED: ACETAMINOPHEN TAB 325 MG TAB PO PRN (17:20)
[2020-03-06] MEDS ORDERED: NALOXONE 0.4 MG/ML 1 ML VIAL IV PRN (17:20)
[2020-03-06] MEDS ORDERED: LEVOFLOXACIN 750MG-D5W PMX 750 MG in DEXTROSE/WATER 1 150ML.BAG IVPB STA (17:25)
[2020-03-06] MEDS ORDERED: VANCOMYCIN IV PER PHARMACY 1 EACH MISC MISCELLANE PRN (17:25)
--- NOTE | 2020-03-06 17:38 | XR ---
EXAMINATION TYPE: XR chest 1V [facility] DATE OF EXAM: 03/06/2020 COMPARISON: 03/06/2020, earlier today HISTORY: 79 year-old female line placement TECHNIQUE: Single frontal view of the chest is obtained. FINDINGS: Right CVC tip seen extending to the right atrium. Distal aspect is not seen due to the degree of unde rpenetration. Heart moderately enlarged. Patchy and confluent airspace opacity perihilar regions and mid and lower lungs, right greater than left. Suspect underlying effusions as well. IMPRESSION: 1. Underpenetrated exam. Distal aspect of the right-sided CVC not well seen but it appears to enter t he right atrium. 2. Otherwise, continued cardiomegaly and minimal lower lung airspace disease, right greater than left , possible pulmonary edema or multifocal pneumonia. Clinically correlate.
[2020-03-06 18:54] LABS: ABG Base Excess -1.5 mmol/L; ABG HCO3 27 mmol/L (21-25); ABG PCO2 70 mmHg (35-45); ABG PO2 79 mmHg (83-108); ABG TCO2 29 mmol/L (19-24); Allen Test Performed? Yes
[2020-03-06 18:56] LABS: Glucose,Whole Blood 211 mg/dL (75-99)
[2020-03-06] MEDS ORDERED: VANCOMYCIN 2,500 MG in SODIUM CHLORIDE 0.9% 500 ML 500 ML IVPB ONE (19:00)
[2020-03-06] MEDS ORDERED: SUCCINYLCHOLINE CHLORIDE VIAL 200 MG/10 ML VIAL IV ONE (19:11)
[2020-03-06] MEDS ORDERED: PROPOFOL 10 MG/ML 20 ML VIAL IV ONE (19:11)
[2020-03-06] MEDS: SODIUM CHLORIDE 0.9% 1,000 ML IV SCH (19:22)
[2020-03-06] MEDS: PROPOFOL 1,000 MG in EMPTY BAG 1 BAG IV SCH ×2 (19:30→20:15)
--- NOTE | 2020-03-06 19:47 | XR ---
EXAMINATION TYPE: XR chest 1V portable DATE OF EXAM: 03/06/2020 Comparison: 03/06/2020 Clinical History: 79-year-old female Tube placement Findings: ET tube is satisfactory, tip just below the level of the clavicular heads. The exam is underpenetrate d due to large patient body habitus and the distal aspect of the NG tube is not seen. It appears to e xtend below the hemidiaphragm. Right IJ CVC tip within the right atrium. Heart remains enlarged with diffuse interstitial opacity and right greater the left mid and lower lung opacities. Impression: 1. Satisfactory ET tube. 2. Underpenetrated exam. Distal aspect of the NG tube is not well delineated. Suspect that it crosses below the diaphragm. 3. Otherwise, stable exam with right greater than left mid and lower lung consolidation and diffuse i nterstitial density,, likely pulmonary edema.
[2020-03-06 19:50] LABS: ABG Base Excess -1.8 mmol/L; ABG HCO3 26 mmol/L (21-25); ABG Oxygen Saturation 96.3 % (94-97); ABG PCO2 64 mmHg (35-45); ABG PH 7.22 (7.35-7.45); ABG PO2 121 mmHg (83-108); ABG TCO2 28 mmol/L (19-24); Allen Test Performed? Yes
[2020-03-06 19:53] LABS: ABG PH 7.19 (7.35-7.45)
[2020-03-06] MEDS: DOXAZOSIN 4 MG TAB PO SCH (20:13)
[2020-03-06] MEDS: ALBUTEROL HFA INHALER INHALATION PRN (20:20)
[2020-03-06] MEDS ORDERED: NAPROXEN 250 MG TAB PO SCH (21:00)
[2020-03-06] MEDS ORDERED: ENOXAPARIN 100 MG/ML SYRINGE SQ STA (21:38)
[2020-03-06] MEDS: NOREPINEPHRINE 8 MG in SODIUM CHLORIDE 0.9% 250 ML IV SCH (21:38)
[2020-03-06] MEDS: CHLORHEXIDINE GLUCONATE 15 ML CUP MUCOUS MEM SCH (22:06)
[2020-03-06 22:33] LABS: Appearance,Urine Clear (Clear); Bilirubin,Urine Negative (Negative); Blood,Urine Moderate (Negative); Color,Urine Colorless; Glucose,Urine (UA) Negative (Negative); Hyaline Casts,Urine 1 /lpf (0-2); Ketones,Urine Negative (Negative); Leukocyte Esterase,Urine Negative (Negative); Nitrite,Urine Negative (Negative); Protein,Urine Negative (Negative); RBC,Urine 1 /hpf (0-5); Specific Gravity,Urine 1.002 (1.001-1.035); Urobilinogen,Urine <2.0 mg/dL (<2.0); WBC,Urine <1 /hpf (0-5)
[2020-03-06 22:54] LABS: Creatinine,Urine Random 4.1 mg/dL
[2020-03-07 00:08] LABS: Glucose,Whole Blood 138 mg/dL (75-99)
[2020-03-07] MEDS: INSULIN ASPART (NovoLOG) 100 UNIT/ML VIAL SQ SCH ×4 (00:13→17:11)
[2020-03-07] MEDS: NOREPINEPHRINE 8 MG in SODIUM CHLORIDE 0.9% 250 ML IV SCH ×2 (00:34→13:37)
[2020-03-07] MEDS: PROPOFOL 1,000 MG in EMPTY BAG 1 BAG IV SCH ×8 (00:49→21:44)
[2020-03-07 04:32] LABS: Anisocytosis Slight; Basophils % (A) 0 %; Eosinophils # (A) 0.1 k/uL (0-0.7); Eosinophils % (A) 0 %; HCT 35.4 % (34.0-46.0); HGB 11.2 gm/dL (11.4-16.0); Hypochromasia Slight; Lymphocytes # (A) 1.1 k/uL (1.0-4.8); Lymphocytes % (A) 7 %; MCH 27.6 pg (25.0-35.0); MCHC 31.6 g/dL (31.0-37.0); MCV 87.2 fL (80.0-100.0); Mean Platelet Volume 8.7; Monocytes # (A) 0.9 k/uL (0-1.0); Monocytes % (A) 5 %; Neutrophils % (A) 86 %; Platelet Count 198 k/uL (150-450); RBC 4.06 m/uL (3.80-5.40); RDW 17.1 % (11.5-15.5); WBC 16.2 k/uL (3.8-10.6)
[2020-03-07 04:42] LABS: African American GFR (CKD) >90 (>60 ml/min/1.73 sqM); Anion Gap 6 mmol/L; Blood Urea Nitrogen 21 mg/dL (7-17); Calcium 8.8 mg/dL (8.4-10.2); Carbon Dioxide 26 mmol/L (22-30); Chloride 95 mmol/L (98-107); Glucose 114 mg/dL (74-99); Non-African American GFR(CKD) 84 (>60 ml/min/1.73 sqM); Potassium 4.8 mmol/L (3.5-5.1); Sodium 127 mmol/L (137-145)
[2020-03-07] MEDS ORDERED: DOPamine DRIP 800 MG in WATER FOR INJECTION 1 250ML.BAG IV SCH (05:00)
[2020-03-07 06:03] LABS: Glucose,Whole Blood 123 mg/dL (75-99)
[2020-03-07] MEDS: DOPamine DRIP 800 MG in WATER FOR INJECTION 1 250ML.BAG IV SCH (07:04)
[2020-03-07 08:00] LABS: ABG Base Excess 1.7 mmol/L; ABG HCO3 26 mmol/L (21-25); ABG Oxygen Saturation 96.5 % (94-97); ABG PCO2 38 mmHg (35-45); ABG PH 7.45 (7.35-7.45); ABG PO2 101 mmHg (83-108); ABG TCO2 27 mmol/L (19-24)
[2020-03-07 08:02] LABS: Allen Test Performed? no
--- NOTE | 2020-03-07 08:02 | XR ---
EXAMINATION TYPE: XR chest 1V portable DATE OF EXAM: 03/07/2020 COMPARISON: 40 07/18/2020 INDICATION: Tube placement TECHNIQUE: Single frontal view of the chest is obtained. FINDINGS: The heart size is normal. The pulmonary vasculature is slightly prominent. There is mild increased lung markings greater into the right lower lobe. Overall, findings are improv ing over the interval Endotracheal tube and nasogastric tube are stable in position. Right central venous catheter is stabl e with the tip in the right atrium. IMPRESSION: 1. Improving bilateral lung infiltrates. 2. Lines and catheters discussed above.
[2020-03-07] MEDS: ALBUTEROL HFA INHALER INHALATION PRN ×3 (08:07→15:35)
[2020-03-07] MEDS: MULTIVITAMINS, THERA 1 EACH TAB PO SCH (08:22)
[2020-03-07] MEDS: PANTOPRAZOLE 40 MG TABLET PO SCH (08:22)
[2020-03-07] MEDS: CHLORHEXIDINE GLUCONATE 15 ML CUP MUCOUS MEM SCH ×2 (08:22→20:29)
[2020-03-07] MEDS: ASPIRIN 81 MG PO SCH (08:22)
[2020-03-07] MEDS: FUROSEMIDE 10 MG/ML 4 ML VIAL IV SCH ×2 (08:23→17:10)
--- NOTE | 2020-03-07 08:37 | CONS ---
CONSULTATION REASON FOR CONSULTATION: Bradycardia. Mrs. Aria Carrillo is an 79-year-old lady who came through the emergency room. Apparently she was brought in by EMS with shortness of breath and cough for a few days, was on antibiotics and steroids without much relief. After arrival, she was found to be bradycardic in the high 30s and low 40s with underlying atrial fibrillation. She also complained of some lower extremity edema. She had no chest pain, but had extreme weakness. She has a history of hypertension and COPD, uses inhalers, takes atenolol 100 mg daily and terazosin 5 mg daily. After the discussion with me, I suggested a dopamine drip, hospitalization in the ICU and also a septic workup. After patient came to the ICU, she became very acidotic, had difficulty breathing and was then intubated. She is now on a ventilator. She is assisting the vent minimally. Her heart rates are in the mid 50s, atrial fib is the rhythm, which is probably new. She may have had what seems to be an upper respiratory tract infection/bronchitis or pneumonia which progressively worsened. Her initial tests for COVID and influenza A and B are negative. She is on a ventilator at this time. PAST MEDICAL HISTORY: Hypertension, history of cholecystectomy, COPD. ALLERGIES: PENICILLIN. MEDICATIONS: Medications include Aleve, omeprazole, vitamin supplements, Medrol Dosepak, recent course of antibiotics, details unclear, atenolol 100 mg daily, terazosin 5 mg daily, aspirin 81 mg daily. Patient is currently on antibiotics, IV fluids and also on some Levophed. Her septic workup so far has not revealed any significant abnormalities. I have initiated dopamine at 5 mcg and now I decreased it to 3 mcg. Patient's serology was negative for coronavirus, influenza A and B. PHYSICAL EXAMINATION: On examination, blood pressure is about 120/60, pulse rate is 54, irregular. HEENT: Unremarkable. Fundus was not examined. NECK: Supple. I cannot appreciate JVD. Heart exam reveals S1, S2 with irregular rate and rhythm, short systolic murmur. Lungs reveal ventilated assisted breath sounds. Abdomen is soft. Lower extremities reveal 1+ edema, diminished pulses. Central nervous system assessment was not performed. LABORATORY DATA: Laboratory data suggests that the white count is elevated, but this could also be due to the steroids. Her renal function is normal. Sodium is low. TSH level is normal. Blood cultures are not back yet. IMPRESSION: 1. Bradycardia, atrial fibrillation probably influenced by 100 mg of atenolol and some underlying sick sinus syndrome as well. 2. Rule out sepsis. 3. Respiratory failure with possible hypercapnia and acidosis on a ventilator. 4. Cannot exclude some diastolic heart failure. RECOMMENDATIONS: I am recommending that we decrease the dopamine to 3 mcg and wean off the Levophed when possible. Urine output is very good. I am recommending an echocardiogram to assess LV function. Septic workup is in progress. No aggressive intervention from a cardiac standpoint is advised. We will await the findings on echo. Thank you very much for the consult. MMODL / IJN: [id number] /
[2020-03-07] MEDS: LEVOFLOXACIN 500MG-D5W PMX 500 MG in DEXTROSE/WATER 1 100ML.BAG IVPB SCH (09:47)
[2020-03-07] MEDS: VITAMIN E ACETATE 200 UNIT PO SCH (10:32)
--- NOTE | 2020-03-07 11:07 | P.HPIM ---
History of Present Illness 79-year-old female came present in with complaints of shortness of breath and cough for patient doesn't have any fevers. I'm unable to get any history from the patient most of the history is often from the nursing staff and medical records. Patient doesn't appear to have any history of congestive heart failure I don't have any echocardiogram available echocardiogram was ordered yesterday. Patient came in bradycardic found to have a junctional rhythm and patient is on atenolol which was discontinued she was significantly hypotensive and bradycardic atenolol was discontinued patient was started on dopamine. Patient was started on IV fluids yesterday. Patient chest x-ray also looks like pulmonary edema can be secondary to decrease exposure because of her morbid obesity. Patient later went into respiratory failure what appears to be mostly hypercapnic respiratory failure from a her obesity and obesity hypoventilation syndrome. Patient may have a competent of bronchitis patient the was started on levofloxacin is also on vancomycin although suspicion for severe sepsis is low patient is being tested for covid 19 possibility of that is low as well. Patient was subsequently intubated. Patient has diminished breath sounds no significant wheezing. Patient's BNP is not elevated I'm unable to assess JVD as patient is isolated because of Covid 19. Patient is presently on norepinephrine as well which is being weaned off at this time. Patient was started on IV Lasix by pulmonology. Review of Systems Unable to obtain due to her clinical condition Past Medical History Past Medical History: Hypertension History of Any Multi-Drug Resistant Organisms: None Reported Past Surgical History: Appendectomy, Section, Cholecystectomy Past Psychological History: No Psychological Hx Reported Smoking Status: Never smoker Past Alcohol Use History: None Reported Past Drug Use History: None Reported Medications and Allergies Home Medications Medication Instructions Recorded Confirmed Type Atenolol 100 mg PO DAILY 09/30/19 03/06/20 History Terazosin HCl 5 mg PO HS@1900 09/30/19 03/06/20 History Albuterol Inhaler [Ventolin Hfa 2 puff INHALATION RT-QID PRN 03/06/20 03/06/20 History Inhaler] Albuterol Nebulized [Ventolin 2.5 mg INHALATION RT-QID 03/06/20 03/06/20 History Nebulized] Aspirin EC [Ecotrin Low Dose] 81 mg PO DAILY 03/06/20 03/06/20 History Multivitamins, Thera [Multivitamin 1 tab PO DAILY 03/06/20 03/06/20 History (formulary)] Naproxen Sodium [Aleve] 440 mg PO BID 03/06/20 03/06/20 History Omeprazole Magnesium [PriLOSEC OTC] 20 mg PO DAILY 03/06/20 03/06/20 History Vitamin E Acetate [Vitamin E] 200 unit PO DAILY 03/06/20 03/06/20 History methylPREDNISolone [Medrol Dose See Taper PO DIRECTED 03/06/20 03/06/20 History Pack] Allergies Allergy/AdvReac Type Severity Reaction Status Date / Time Penicillins AdvReac Rash/Hives Verified 03/06/20 16:31 Physical Exam Vitals: Vital Signs Temp Pulse Resp BP Pulse Ox 03/07/20 08:45 48 L 26 H 120/57 96 03/07/20 08:30 55 L 20 141/82 96 03/07/20 08:15 55 L 20 120/59 95 03/07/20 08:00 98.8 F 48 L 20 114/50 95 03/07/20 07:45 46 L 20 109/56 95 03/07/20 07:30 43 L 20 103/58 95 03/07/20 07:15 48 L 20 104/52 95 03/07/20 07:00 51 L 26 H 121/59 95 03/07/20 06:45 47 L 26 H 113/52 95 03/07/20 06:30 46 L 26 H 109/58 95 03/07/20 06:15 45 L 26 H 120/47 94 L 03/07/20 06:00 56 L 26 H 130/59 94 L 03/07/20 05:45 48 L 26 H 118/52 96 03/07/20 05:30 43 L 26 H 115/53 95 03/07/20 05:15 48 L 26 H 118/45 95 03/07/20 05:00 39 L 26 H 100/44 95 03/07/20 04:45 46 L 26 H 100/44 95 03/07/20 04:30 45 L 26 H 105/50 95 03/07/20 04:15 52 L 26 H 93 L 03/07/20 04:00 98.5 F 50 L 26 H 110/52 95 03/07/20 03:00 56 L 26 H 110/53 97 03/07/20 02:00 39 L 26 H 122/71 96 03/07/20 01:00 47 L 26 H 100/48 96 03/07/20 00:00 96.1 F L 52 L 26 H 96 03/06/20 23:00 65 26 H 101/57 94 L 03/06/20 22:00 55 L 26 H 132/92 92 L 03/06/20 21:00 51 L 26 H 130/73 93 L 03/06/20 20:10 48 L 8 L 127/76 94 L 03/06/20 20:00 61 16 95 03/06/20 19:50 73 20 128/89 92 L 03/06/20 19:40 62 20 127/77 97 03/06/20 19:30 62 20 99 03/06/20 19:20 64 20 113/64 98 03/06/20 19:10 52 L 20 84/61 94 L 03/06/20 19:00 48 L 11 L 99/55 87 L 03/06/20 18:50 52 L 17 103/59 92 L 03/06/20 17:30 96.8 F L 52 L 16 100/60 95 03/06/20 16:00 48 L 18 100/52 95 03/06/20 15:09 40 L 22 118/88 93 L 03/06/20 14:30 33 L 18 97/72 95 03/06/20 13:51 96.0 F L 35 L 18 141/84 98 Intake and Output 03/06/20 03/07/20 03/07/20 22:59 06:59 14:59 Intake Total 656.124 772.648 200.557 Output Total 700 1875 350 Balance -43.876 -1102.352 -149.443 Intake: IV 650 400 50 Sodium Chloride 0.9% 1, 150 400 50 000 ml @ 50 mls/hr IV . Q20H [facility] Rx#:[id number] Vancomycin 2,500 mg In 500 Sodium Chloride 0.9% 500 ml 500 ml @ 167 mls/hr IVPB Q18H [facility] Rx#: [id number] Intake, IV Titration 6.124 372.648 150.557 Amount Norepinephrine 8 mg In 76.714 50.557 Sodium Chloride 0.9% 250 ml @ 0.05 MCG/KG/MIN 13. 166 mls/hr IV .[id number] [facility] Rx#:[id number] Propofol 1,000 mg In 6.124 295.934 100 Empty Bag 1 bag @ Titrate IV .Q0M [facility] Rx#: [id number] Output: Urine 700 1875 350 Other: Voiding Method Indwelling Catheter Indwelling Catheter Indwelling Catheter Weight 136.078 kg 172 kg 172 kg ABP, PAP, CO, CI - Last 8 Hours Arterial Blood Pressure 112/49 Arterial Blood Pressure 98/44 Arterial Blood Pressure 145/63 Arterial Blood Pressure 105/46 Arterial Blood Pressure 103/47 Arterial Blood Pressure 96/43 Arterial Blood Pressure 100/43 Arterial Blood Pressure 101/44 Arterial Blood Pressure 124/53 Arterial Blood Pressure 117/54 Arterial Blood Pressure 115/48 Arterial Blood Pressure 121/51 Arterial Blood Pressure 134/59 Arterial Blood Pressure 115/51 Arterial Blood Pressure 123/50 Arterial Blood Pressure 118/53 Arterial Blood Pressure 107/42 Arterial Blood Pressure 97/63 Arterial Blood Pressure 129/61 Arterial Blood Pressure 105/43 Arterial Blood Pressure 114/49 PHYSICAL EXAMINATION: GENERAL: Intubated sedated morbidly obese HEENT: Pupils are round and equally reacting to light. EOMI. No scleral icterus. No conjunctival pallor. Normocephalic, atraumatic. No pharyngeal erythema. No thyromegaly. CARDIOVASCULAR: S1 and S2 present. No murmurs, rubs, or gallops. PULMONARY: Diminished breath sounds bilaterally ABDOMEN: Soft, nontender, nondistended, normoactive bowel sounds. No palpable organomegaly. MUSCULOSKELETAL: No joint swelling or deformity. EXTREMITIES: No cyanosis, clubbing, or pedal edema. NEUROLOGICAL: Patient is sedated at this time SKIN: No rashes. Note: Because of COVID 19 isolation, some of the history and physical exam findings or indirect and obtained from nursing staff, and other physician examinations to avoid unnecessary contact with the patient. Results CBC & Chem 7: 03/07/20 04:25 03/07/20 04:25 Labs: Abnormal Lab Results - Last 24 Hours (Table) 03/06/20 03/06/20 03/06/20 Range/Units 14:15 14:15 18:46 WBC 15.4 H (3.8-10.6) k/uL Hgb 10.8 L (11.4-16.0) gm/dL RDW 17.1 H (11.5-15.5) % Neutrophils # 13.6 H (1.3-7.7) k/uL ABG pH (7.35-7.45) ABG pCO2 (35-45) mmHg ABG pO2 (83-108) mmHg ABG HCO3 (21-25) mmol/L ABG Total CO2 (19-24) mmol/L ABG O2 Saturation (94-97) % Sodium 122 L (137-145) mmol/L Potassium 5.3 H (3.5-5.1) mmol/L Chloride 89 L (98-107) mmol/L BUN 23 H (7-17) mg/dL Glucose 224 H (74-99) mg/dL POC Glucose (mg/dL) 211 H (75-99) mg/dL Osmolality (280-301) mosm/kg Total Protein 5.9 L (6.3-8.2) g/dL Albumin 3.3 L (3.5-5.0) g/dL Urine Blood (Negative) 03/06/20 03/06/20 03/06/20 Range/Units 18:50 19:46 22:00 WBC (3.8-10.6) k/uL Hgb (11.4-16.0) gm/dL RDW (11.5-15.5) % Neutrophils # (1.3-7.7) k/uL ABG pH 7.19 L* 7.22 L (7.35-7.45) ABG pCO2 70 H 64 H (35-45) mmHg ABG pO2 79 L 121 H (83-108) mmHg ABG HCO3 27 H 26 H (21-25) mmol/L ABG Total CO2 29 H 28 H (19-24) mmol/L ABG O2 Saturation 92.0 L (94-97) % Sodium (137-145) mmol/L Potassium (3.5-5.1) mmol/L Chloride (98-107) mmol/L BUN (7-17) mg/dL Glucose (74-99) mg/dL POC Glucose (mg/dL) (75-99) mg/dL Osmolality (280-301) mosm/kg Total Protein (6.3-8.2) g/dL Albumin (3.5-5.0) g/dL Urine Blood Moderate H (Negative) 03/07/20 03/07/20 03/07/20 Range/Units 00:07 04:25 04:25 WBC 16.2 H (3.8-10.6) k/uL Hgb 11.2 L (11.4-16.0) gm/dL RDW 17.1 H (11.5-15.5) % Neutrophils # 14.0 H (1.3-7.7) k/uL ABG pH (7.35-7.45) ABG pCO2 (35-45) mmHg ABG pO2 (83-108) mmHg ABG HCO3 (21-25) mmol/L ABG Total CO2 (19-24) mmol/L ABG O2 Saturation (94-97) % Sodium 127 L (137-145) mmol/L Potassium (3.5-5.1) mmol/L Chloride 95 L (98-107) mmol/L BUN 21 H (7-17) mg/dL Glucose 114 H (74-99) mg/dL POC Glucose (mg/dL) 138 H (75-99) mg/dL Osmolality (280-301) mosm/kg Total Protein (6.3-8.2) g/dL Albumin (3.5-5.0) g/dL Urine Blood (Negative) 03/07/20 03/07/20 03/07/20 Range/Units 04:25 06:01 07:54 WBC (3.8-10.6) k/uL Hgb (11.4-16.0) gm/dL RDW (11.5-15.5) % Neutrophils # (1.3-7.7) k/uL ABG pH (7.35-7.45) ABG pCO2 (35-45) mmHg ABG pO2 (83-108) mmHg ABG HCO3 26 H (21-25) mmol/L ABG Total CO2 27 H (19-24) mmol/L ABG O2 Saturation (94-97) % Sodium (137-145) mmol/L Potassium (3.5-5.1) mmol/L Chloride (98-107) mmol/L BUN (7-17) mg/dL Glucose (74-99) mg/dL POC Glucose (mg/dL) 123 H (75-99) mg/dL Osmolality 276 L (280-301) mosm/kg Total Protein (6.3-8.2) g/dL Albumin (3.5-5.0) g/dL Urine Blood (Negative) Thrombosis Risk Factor Assmnt - Choose All That Apply Any of the Below Risk Factors Present?: Yes Each Factor Represents 1 point: Medical pt on bed rest, Obesity (BMI >25), Serious lung disease incl. pneumonia (< 1month) Other Risk Factors: Yes Each Risk Factor Represents 2 Points: Central venous access, Patient confined to bed Each Risk Factor Represents 3 Points: Age 75 years or older Thrombosis Risk Factor Assessment Total Risk Factor Score: 10 Thrombosis Risk Factor Assessment Level: High Risk Assessment and Plan Plan: -Acute hypercapnic as well as hypoxic respiratory failure: Most probably patient has some bronchitis associated with morbid obesity and obesity hypoventilation syndrome contributing to her symptoms my suspicion that patient has severe CHF exacerbation is low suspicion for pneumonia is low and suspicion for covid 19 is low. Continue with present antibiotics, respiratory support inhalational treatments. Patient is on ventilatory support -Shock: Medication-induced hypotension patient the is on not dopamine and Levophed, norepinephrine is being weaned off at this time. -Bradycardia: Secondary to atenolol which was held and patient is on dopamine drip at this time echocardiogram will be obtained for suspicion for CHF exacerbation is low her BNP is only 700 but cannot completely rule out diastolic dysfunction because of which are continuing Lasix at this time -Hyponatremia unsure whether patient has hypovolemic or hypovolemic hyponatremia continue with present management we'll recheck the serum sodium tomorrow, patient's sodium is presently 127 compared to 122 on admission -Possible tracheal bronchitis -Hypertension presently hypotensive and if his medications are being held
[2020-03-07 11:49] LABS: Glucose,Whole Blood 153 mg/dL (75-99)
[2020-03-07] MEDS: VANCOMYCIN 2,500 MG in SODIUM CHLORIDE 0.9% 500 ML 500 ML IVPB SCH (12:02)
--- NOTE | 2020-03-07 13:04 | P.CNPUL ---
History of Present Illness Consult date: 03/07/20 Requesting physician: Krissy Calzada Reason for consult: pneumonia, other (Acute hypoxic and hypercapnic respiratory failure) Chief complaint: Mental status change and confusion. History of present illness: This is an 79-year-old female who was brought into the ER yesterday with confusion, mental status change, shortness of breath for the last several days. Apparently the patient was extremely confused and debilitated upon arrival to the ER, and no history could be obtained by anyone. Patient was noted to be short of breath, she was noted to be bradycardic with a junctional rhythm, and she was hypotensive as soon as she arrived to the ER. She was evaluated by Dr. Adan Lynn, he placed a central line and the patient, and she was placed on dopamine. I specifically asked the ER physician whether the patient needs to be intubated and he felt that she looked fine from the pulmonary perspective. He was more concerned about the fact that the patient was bradycardic and hypotens trudy requiring dopamine, norepinephrine, and she required a central line placement. I accepted the patient to be admitted to the ICU, and I was made aware that her chest x-ray showed right lower lobe pneumonia. Of course as far as the patient arrived to the ICU, the nurse taking care of the patient called me right away and she felt that the patient is in impending respiratory failure. ABG on a nonrebreather mask showed a pO2 of 121 pCO2 of 64 pH of 7.22, and the patient was unresponsive to any stimuli. I recommended immediate intubation. Follow-up ABG this morning showed a pO2 of 101 pCO2 of 38 pH of 7.45. Chest x-ray showed evidence of pulmonary edema, underlying right lower lobe pneumonia is not entirely ruled out. Patient was tested for coronal virus and it came back negative PCR. Patient was also noted to have leukocytosis with WBC count of 16.2. And she was noted to be hyponatremic on admission with a sodium of 122 but follow-up sodium this morning is 127. Patient did receive fluid boluses apparently in the ER, and now I'm recommending the diuretics. Chest x-ray showed prominence of the pulmonary vasculature, and the right lower lobe consolidation. With bilateral effusions. Her BNP level was 747, unremarkable Review of Systems ROS unobtainable: due to endotracheal tube, due to mental status Past Medical History Past Medical History: Hypertension History of Any Multi-Drug Resistant Organisms: None Reported Past Surgical History: Appendectomy, Section, Cholecystectomy Past Psychological History: No Psychological Hx Reported Smoking Status: Never smoker Past Alcohol Use History: None Reported Past Drug Use History: None Reported Medications and Allergies Home Medications Medication Instructions Recorded Confirmed Type Atenolol 100 mg PO DAILY 09/30/19 03/06/20 History Terazosin HCl 5 mg PO HS@1900 09/30/19 03/06/20 History Albuterol Inhaler [Ventolin Hfa 2 puff INHALATION RT-QID PRN 03/06/20 03/06/20 History Inhaler] Albuterol Nebulized [Ventolin 2.5 mg INHALATION RT-QID 03/06/20 03/06/20 History Nebulized] Aspirin EC [Ecotrin Low Dose] 81 mg PO DAILY 03/06/20 03/06/20 History Multivitamins, Thera [Multivitamin 1 tab PO DAILY 03/06/20 03/06/20 History (formulary)] Naproxen Sodium [Aleve] 440 mg PO BID 03/06/20 03/06/20 History Omeprazole Magnesium [PriLOSEC OTC] 20 mg PO DAILY 03/06/20 03/06/20 History Vitamin E Acetate [Vitamin E] 200 unit PO DAILY 03/06/20 03/06/20 History methylPREDNISolone [Medrol Dose See Taper PO DIRECTED 03/06/20 03/06/20 History Pack] Allergies Allergy/AdvReac Type Severity Reaction Status Date / Time Penicillins AdvReac Rash/Hives Verified 03/06/20 16:31 Physical Exam Vitals: Vital Signs Temp Pulse Resp BP Pulse Ox 03/07/20 12:15 49 L 26 H 114/57 95 03/07/20 12:00 97.9 F 55 L 26 H 102/45 96 03/07/20 11:45 54 L 26 H 105/54 95 03/07/20 11:30 58 L 26 H 103/52 95 03/07/20 11:15 52 L 26 H 96/44 95 03/07/20 11:00 53 L 27 H 97/50 96 03/07/20 10:45 50 L 26 H 101/44 95 03/07/20 10:30 53 L 26 H 112/55 96 03/07/20 10:15 47 L 26 H 111/61 95 03/07/20 10:00 52 L 26 H 109/60 95 03/07/20 09:45 56 L 26 H 108/59 95 03/07/20 09:30 53 L 26 H 109/55 94 L 03/07/20 09:15 52 L 26 H 113/61 95 03/07/20 09:00 50 L 26 H 119/58 95 03/07/20 08:45 48 L 26 H 120/57 96 03/07/20 08:30 55 L 20 141/82 96 03/07/20 08:15 55 L 20 120/59 95 03/07/20 08:00 98.8 F 48 L 20 114/50 95 03/07/20 07:45 46 L 20 109/56 95 03/07/20 07:30 43 L 20 103/58 95 03/07/20 07:15 48 L 20 104/52 95 03/07/20 07:00 51 L 26 H 121/59 95 03/07/20 06:45 47 L 26 H 113/52 95 03/07/20 06:30 46 L 26 H 109/58 95 03/07/20 06:15 45 L 26 H 120/47 94 L 03/07/20 06:00 56 L 26 H 130/59 94 L 03/07/20 05:45 48 L 26 H 118/52 96 03/07/20 05:30 43 L 26 H 115/53 95 03/07/20 05:15 48 L 26 H 118/45 95 03/07/20 05:00 39 L 26 H 100/44 95 03/07/20 04:45 46 L 26 H 100/44 95 03/07/20 04:30 45 L 26 H 105/50 95 03/07/20 04:15 52 L 26 H 93 L 03/07/20 04:00 98.5 F 50 L 26 H 110/52 95 03/07/20 03:00 56 L 26 H 110/53 97 03/07/20 02:00 39 L 26 H 122/71 96 03/07/20 01:00 47 L 26 H 100/48 96 03/07/20 00:00 96.1 F L 52 L 26 H 96 03/06/20 23:00 65 26 H 101/57 94 L 03/06/20 22:00 55 L 26 H 132/92 92 L 03/06/20 21:00 51 L 26 H 130/73 93 L 03/06/20 20:10 48 L 8 L 127/76 94 L 03/06/20 20:00 61 16 95 03/06/20 19:50 73 20 128/89 92 L 03/06/20 19:40 62 20 127/77 97 03/06/20 19:30 62 20 99 03/06/20 19:20 64 20 113/64 98 03/06/20 19:10 52 L 20 84/61 94 L 03/06/20 19:00 48 L 11 L 99/55 87 L 03/06/20 18:50 52 L 17 103/59 92 L 03/06/20 17:30 96.8 F L 52 L 16 100/60 95 03/06/20 16:00 48 L 18 100/52 95 03/06/20 15:09 40 L 22 118/88 93 L 03/06/20 14:30 33 L 18 97/72 95 03/06/20 13:51 96.0 F L 35 L 18 141/84 98 Intake and Output 03/06/20 03/07/20 03/07/20 22:59 06:59 14:59 Intake Total 656.124 051.488 5628.827 Output Total 700 1875 2525 Balance -43.876 -1102.352 -1276.173 Intake: IV 650 400 800 Sodium Chloride 0.9% 1, 150 400 300 000 ml @ 50 mls/hr IV . Q20H [facility] Rx#:[id number] Vancomycin 2,500 mg In 500 500 Sodium Chloride 0.9% 500 ml 500 ml @ 167 mls/hr IVPB Q18H [facility] Rx#: [id number] Intake, IV Titration 6.124 372.648 388.827 Amount DOPamine DRIP 800 mg In 38.270 Water For Injection 1 250ml.bag @ 3 MCG/KG/MIN 7.654 mls/hr IV .Q24H [facility] Rx#:[id number] Levofloxacin 500Mg-D5w 100 Pmx 500 mg In Dextrose/ Water 1 100ml.bag @ 100 mls/hr IVPB Q24HR [facility] Rx# :[id number] Norepinephrine 8 mg In 76.714 50.557 Sodium Chloride 0.9% 250 ml @ 0.05 MCG/KG/MIN 13. 166 mls/hr IV .[id number] [facility] Rx#:[id number] Propofol 1,000 mg In 6.124 295.934 200 Empty Bag 1 bag @ Titrate IV .Q0M [facility] Rx#: [id number] Other 60 Output: Urine 700 3805 2525 Other: Voiding Method Indwelling Catheter Indwelling Catheter Indwelling Catheter Weight 136.078 kg 172 kg 172 kg ABP, PAP, CO, CI - Last 8 Hours Arterial Blood Pressure 102/45 Arterial Blood Pressure 112/51 Arterial Blood Pressure 107/46 Arterial Blood Pressure 109/50 Arterial Blood Pressure 104/44 Arterial Blood Pressure 105/45 Arterial Blood Pressure 101/45 Arterial Blood Pressure 100/46 Arterial Blood Pressure 97/45 Arterial Blood Pressure 101/48 Arterial Blood Pressure 63/60 Arterial Blood Pressure 78/70 Arterial Blood Pressure 102/46 Arterial Blood Pressure 109/50 Arterial Blood Pressure 112/49 Arterial Blood Pressure 98/44 Arterial Blood Pressure 145/63 Arterial Blood Pressure 105/46 Arterial Blood Pressure 103/47 Arterial Blood Pressure 96/43 Arterial Blood Pressure 100/43 Arterial Blood Pressure 101/44 Arterial Blood Pressure 124/53 Arterial Blood Pressure 117/54 Arterial Blood Pressure 115/48 Arterial Blood Pressure 121/51 Arterial Blood Pressure 134/59 Arterial Blood Pressure 115/51 Arterial Blood Pressure 123/50 Arterial Blood Pressure 118/53 Physical Exam: Revealed an 79-year-old female morbidly obese, on mechanical ventilation. Head: Atraumatic, normocephalic. Endotracheal tube and orogastric tube are intact. HEENT:[Neck is supple.] [No neck masses.] [No thyromegaly.] [No JVD.] PERRLA, EOMI, no icterus, moist mucous membranes. Right internal jugular central line is noted. Chest: [Symmetrical chest expansion, diminished breath sound bilaterally, crackles and rhonchi also noted bilaterally.] Cardiac Exam: [Bradycardic, irregular rhythm, 2/6 systolic murmur thought the precordium. Abdomen: Morbidly obese, significant abdominal wall edema is noted. No tenderness, no rebound, no guarding. Extremities: [No clubbing, diminished pulses bilaterally, and 2+ bipedal edema.. Neurological Exam: Cannot be assessed, patient is sedated, on propofol at 50 mcg/kg/m. Psychiatric: Could not be assessed. Skin: No rashes. Results - Laboratory Findings CBC and BMP: 03/07/20 04:25 03/07/20 04:25 ABG ABG pH 7.45 (7.35-7.45) 03/07/20 07:54 ABG pCO2 38 mmHg (35-45) 03/07/20 07:54 ABG pO2 101 mmHg (83-108) 03/07/20 07:54 ABG O2 Saturation 96.5 % (94-97) 03/07/20 07:54 PT/INR, D-dimer PT 11.5 sec (9.0-12.0) 03/06/20 14:15 INR 1.1 (<1.2) 03/06/20 14:15 Abnormal lab findings: Abnormal Labs 03/06/20 03/06/20 03/06/20 14:15 14:15 18:46 WBC 15.4 H Hgb 10.8 L RDW 17.1 H Neutrophils # 13.6 H ABG pH ABG pCO2 ABG pO2 ABG HCO3 ABG Total CO2 ABG O2 Saturation Sodium 122 L Potassium 5.3 H Chloride 89 L BUN 23 H Glucose 224 H POC Glucose (mg/dL) 211 H Osmolality Total Protein 5.9 L Albumin 3.3 L Urine Blood 03/06/20 03/06/20 03/06/20 18:50 19:46 22:00 WBC Hgb RDW Neutrophils # ABG pH 7.19 L* 7.22 L ABG pCO2 70 H 64 H ABG pO2 79 L 121 H ABG HCO3 27 H 26 H ABG Total CO2 29 H 28 H ABG O2 Saturation 92.0 L Sodium Potassium Chloride BUN Glucose POC Glucose (mg/dL) Osmolality Total Protein Albumin Urine Blood Moderate H 03/07/20 03/07/20 03/07/20 00:07 04:25 04:25 WBC 16.2 H Hgb 11.2 L RDW 17.1 H Neutrophils # 14.0 H ABG pH ABG pCO2 ABG pO2 ABG HCO3 ABG Total CO2 ABG O2 Saturation Sodium 127 L Potassium Chloride 95 L BUN 21 H Glucose 114 H POC Glucose (mg/dL) 138 H Osmolality Total Protein Albumin Urine Blood 03/07/20 03/07/20 03/07/20 04:25 06:01 07:54 WBC Hgb RDW Neutrophils # ABG pH ABG pCO2 ABG pO2 ABG HCO3 26 H ABG Total CO2 27 H ABG O2 Saturation Sodium Potassium Chloride BUN Glucose POC Glucose (mg/dL) 123 H Osmolality 276 L Total Protein Albumin Urine Blood 03/07/20 11:47 WBC Hgb RDW Neutrophils # ABG pH ABG pCO2 ABG pO2 ABG HCO3 ABG Total CO2 ABG O2 Saturation Sodium Potassium Chloride BUN Glucose POC Glucose (mg/dL) 153 H Osmolality Total Protein Albumin Urine Blood - Diagnostic Findings Chest x-ray: image reviewed (As noted in HPI) Assessment and Plan Assessment: Impression: Acute hypoxic and hypercapnic respiratory failure Acute right lower lobe pneumonia, likely healthcare acquired pneumonia. Sepsis and septic shock is strongly suspected. Secondary to pneumonia. Obesity/hypoventilation syndrome. Acute diastolic congestive heart failure Bradycardia, atrial fibrillation, being addressed by cardiology. Morbid obesity. History of hypertension. History of underlying COPD. History of GERD. Negative for covid 19 pneumonitis. Recommendation: Continue ventilatory support. Patient is presently on assist control rate of 26 FiO2 is 60% tidal volume is 400 and PEEP was increased to 10. FiO2 was decreased to 50%. Continue antibiotics, patient is on Levaquin and vancomycin empirically. Continue and titrate norepinephrine accordingly to maintain a mean arterial pressure of 65 or higher. Cut down IV fluid to 50 mL per hour. Gentle diuresis since the patient was given fluid boluses earlier. And now she may have some component of diastolic congestive heart failure. Continue dopamine for profound bradycardia on presentation. Monitor CVP and adjust fluids accordingly. Discontinue Naprosyn. Start enteral feeding via orogastric tube. We'll continue to follow. GI and DVT prophylaxis. Obviously the patient is critically ill. Critical care time is 45 minutes. Time with Patient: Greater than 30
--- NOTE | 2020-03-07 14:04 | ECHOF ---
Referral Reason:possible CHF MEASUREMENTS -------- HEIGHT: 162.6 cm WEIGHT: 171.9 kg BP: RVIDd: 3.3 cm (< 3.3) IVSd: 1.4 cm (0.6 - 1.1) LVIDd: 4.6 cm (3.9 - 5.3) LVPWd: 1.1 cm (0.6 - 1.1) IVSs: 1.8 cm LVIDs: 2.0 cm LVPWs: 1.7 cm Ao Diam: 3.3 cm (2.0 - 3.7) AV Cusp: 1.4 cm (1.5 - 2.6) LA Diam: 4.3 cm (2.7 - 3.8) MV EXCURSION: 13.601 mm (> 18.000) MV EF SLOPE: 141 mm/s (70 - 150) EPSS: 0.6 cm MV E Ronald: 0.90 m/s MV DecT: 192 ms MV A Ronald: 0.26 m/s MV E/A Ratio: 3.44 AV maxP.40 mmHg AV meanP.95 mmHg RAP: 5.00 mmHg RVSP: 23.65 mmHg FINDINGS -------- Sinus rhythm. This was a technically difficult study with suboptimal views. The left ventricular size is normal. There is mild concentric left ventricular hypertrophy. Overa ll left ventricular systolic function is normal with, an EF between 55 - 60 %. The right ventricle is mildly enlarged. The left atrium is mildly dilated. The right atrial size is normal. Lumason used There is mild aortic valve sclerosis. There is mild aortic stenosis present. Peak/mean gradient a cross the Aortic Valve is 24.40mmHg / 12.95mmHg. Mild mitral annular calcification present. Mild mitral regurgitation is present. The tricuspid valve appears structurally normal. Mild tricuspid regurgitation present. Right vent ricular systolic pressure is normal at < 35 mmHg. The pulmonic valve was not well visualized. Trace/mild (physiologic) pulmonic regurgitation. The aortic root size is normal. IVC Not well visulized. There is no pericardial effusion. CONCLUSIONS -------- 1. This was a technically difficult study with suboptimal views. 2. There is mild concentric left ventricular hypertrophy. 3. Overall left ventricular systolic function is normal with, an EF between 55 - 60 %. 4. The right ventricle is mildly enlarged. 5. The left atrium is mildly dilated. 6. Lumason used 7. There is mild aortic valve sclerosis. 8. There is mild aortic stenosis present. 9. Peak/mean gradient across the Aortic Valve is 24.40mmHg / 12.95mmHg. 10. Mild mitral annular calcification present. 11. Mild mitral regurgitation is present. 12. Mild tricuspid regurgitation present. 13. Trace/mild (physiologic) pulmonic regurgitation. DIRECTOR OF OUTPATIENT SERVICES: Patricia Gibbs RDCS
[2020-03-07 16:36] LABS: Glucose,Whole Blood 135 mg/dL (75-99)
[2020-03-07] MEDS: HEPARIN SODIUM,PORCINE 5,000 UNIT/ML 1 ML VIAL SQ SCH (17:10)
[2020-03-07] MEDS: DOXAZOSIN 4 MG TAB PO SCH (18:34)
[2020-03-07] MEDS: SODIUM CHLORIDE 0.9% 1,000 ML IV SCH (19:21)
[2020-03-08] MEDS: INSULIN ASPART (NovoLOG) 100 UNIT/ML VIAL SQ SCH ×5 (00:17→23:41)
[2020-03-08] MEDS: PROPOFOL 1,000 MG in EMPTY BAG 1 BAG IV SCH ×10 (00:17→22:12)
[2020-03-08] MEDS: HEPARIN SODIUM,PORCINE 5,000 UNIT/ML 1 ML VIAL SQ SCH ×4 (00:18→23:40)
[2020-03-08] MEDS: FUROSEMIDE 10 MG/ML 4 ML VIAL IV SCH ×4 (00:19→23:42)
[2020-03-08 05:13] LABS: Anisocytosis Slight; Basophils % (A) 0 %; Eosinophils % (A) 0 %; HCT 36.5 % (34.0-46.0); HGB 11.6 gm/dL (11.4-16.0); Hypochromasia Slight; Lymphocytes % (A) 8 %; MCH 27.6 pg (25.0-35.0); MCHC 31.8 g/dL (31.0-37.0); Mean Platelet Volume 8.9; Monocytes # (A) 0.8 k/uL (0-1.0); Monocytes % (A) 7 %; Neutrophils # (A) 10.6 k/uL (1.3-7.7); Neutrophils % (A) 83 %; Platelet Count 192 k/uL (150-450); RDW 17.5 % (11.5-15.5); WBC 12.8 k/uL (3.8-10.6)
[2020-03-08 05:27] LABS: African American GFR (CKD) >90 (>60 ml/min/1.73 sqM); Anion Gap 5 mmol/L; Blood Urea Nitrogen 19 mg/dL (7-17); Calcium 8.8 mg/dL (8.4-10.2); Carbon Dioxide 31 mmol/L (22-30); Chloride 99 mmol/L (98-107); Glucose 97 mg/dL (74-99); Non-African American GFR(CKD) 83 (>60 ml/min/1.73 sqM); Potassium 3.4 mmol/L (3.5-5.1); Sodium 135 mmol/L (137-145)
[2020-03-08] MEDS ORDERED: Potassium Replacement Protocol 1 EACH MISC MISCELLANE PRN (05:56)
[2020-03-08] MEDS: VANCOMYCIN 2,500 MG in SODIUM CHLORIDE 0.9% 500 ML 500 ML IVPB SCH (06:02)
[2020-03-08] MEDS: POTASSIUM BICARBONATE/CIT AC 20 MEQ TABLET.EFF NG-TUBE SCH ×4 (06:03→22:20)
[2020-03-08 06:22] LABS: Glucose,Whole Blood 99 mg/dL (75-99)
--- NOTE | 2020-03-08 06:52 | XR ---
EXAMINATION TYPE: XR chest 1V portable DATE OF EXAM: 03/08/2020 CLINICAL HISTORY: Difficulty breathing progress study. TECHNIQUE: Single AP portable semiupright view of the chest is obtained. COMPARISON: Chest x-ray from one day earlier and older studies. FINDINGS: Stable endotracheal and orogastric tubes along with right internal jugular central venous catheter. Cardiac silhouette size stable and mildly enlarged with central vascular congestion and bib asilar opacities silhouetting both hemidiaphragms. Osseous structures are intact. Suboptimal study du e to portable technique and patient's large body habitus. Atherosclerotic aorta are again seen. IMPRESSION: Correlate for CHF exacerbation and there is cardiomegaly with central vascular congestion and probable small bilateral pleural effusions. Associated bibasilar atelectasis and/or infiltrate i s seen. No significant change from most recent x-ray.
[2020-03-08 06:54] LABS: Glucose,Whole Blood 115 mg/dL (75-99)
[2020-03-08] MEDS: ALBUTEROL HFA INHALER INHALATION PRN ×4 (07:21→19:19)
[2020-03-08 07:27] LABS: ABG HCO3 32 mmol/L (21-25); ABG Oxygen Saturation 96.7 % (94-97); ABG PCO2 42 mmHg (35-45); ABG PH 7.48 (7.35-7.45); ABG PO2 112 mmHg (83-108); ABG TCO2 33 mmol/L (19-24)
[2020-03-08 07:58] LABS: Allen Test Performed? no
--- NOTE | 2020-03-08 08:47 | PN ---
PROGRESS NOTE Mrs. Carrillo is in atrial fib slow ventricular rate. This lady has respiratory failure. She is on a vent at this time. I did not do a detailed evaluation. Blood pressure is acceptable. Patient is on Levophed. Heart rate is in the mid 40s, atrial fib. I would recommend that we continue to avoid rate lowering agents. No other aggressive intervention. If the patient deteriorates in any way from a cardiac standpoint, we will be happy to re-evaluate the patient. Thank you very much for the consult. [id number] / IJN: [id number] /
[2020-03-08] MEDS: DOPamine DRIP 800 MG in WATER FOR INJECTION 1 250ML.BAG IV SCH ×2 (09:18→13:19)
[2020-03-08] MEDS: PANTOPRAZOLE 40 MG TABLET PO SCH (09:19)
[2020-03-08] MEDS: MULTIVITAMINS, THERA 1 EACH TAB PO SCH (09:19)
[2020-03-08] MEDS: CHLORHEXIDINE GLUCONATE 15 ML CUP MUCOUS MEM SCH ×2 (09:19→19:50)
[2020-03-08] MEDS: ASPIRIN 81 MG PO SCH (09:20)
[2020-03-08] MEDS: LEVOFLOXACIN 500MG-D5W PMX 500 MG in DEXTROSE/WATER 1 100ML.BAG IVPB SCH (09:21)
[2020-03-08] MEDS: VITAMIN E ACETATE 200 UNIT PO SCH (09:48)
--- NOTE | 2020-03-08 11:24 | P.PN ---
Subjective 79-year-old female came present in with complaints of shortness of breath and cough for patient doesn't have any fevers. I'm unable to get any history from the patient most of the history is often from the nursing staff and medical records. Patient doesn't appear to have any history of congestive heart failure I don't have any echocardiogram available echocardiogram was ordered yesterday. Patient came in bradycardic found to have a junctional rhythm and patient is on atenolol which was discontinued she was significantly hypotensive and bra dycardic atenolol was discontinued patient was started on dopamine. Patient was started on IV fluids yesterday. Patient chest x-ray also looks like pulmonary edema can be secondary to decrease exposure because of her morbid obesity. Patient later went into respiratory failure what appears to be mostly hypercapnic respiratory failure from a her obesity and obesity hypoventilation syndrome. Patient may have a competent of bronchitis patient the was started on levofloxacin is also on vancomycin although suspicion for severe sepsis is low patient is being tested for covid 19 possibility of that is low as well. Patient was subsequently intubated. Patient has diminished breath sounds no significant wheezing. Patient's BNP is not elevated I'm unable to assess JVD as patient is isolated because of Covid 19. Patient is presently on norepinephrine as well which is being weaned off at this time. Patient was started on IV Lasix by pulmonology. 03/08/2020 Patient remains on the ventilatory support remains on not to pressors but her labs appear to have been improving patient serum sodium improved with Lasix appears to have some diastolic dysfunction. Patient is also being treated for right lower lobe pneumonia because of the infiltrate in the right lower lung bases. Patient is being treated like healthcare associated pneumonia. Patient is presently on vancomycin and levofloxacin. Patient remains to have significant pulmonary vascular congestion bilateral pleural effusions Review of systems: Unable to obtain because of her clinical condition All inpatient medications were reviewed and appropriate changes in these medications as dictated in the interval history and assessment and plan. Objective - Vital Signs Vital signs: Vital Signs Temp 97.7 F 03/08/20 08:00 Pulse 55 L 03/08/20 09:45 Resp 21 03/08/20 09:45 BP 111/57 03/07/20 14:45 Pulse Ox 96 03/08/20 09:45 Intake & Output 03/07/20 03/08/20 03/08/20 18:59 06:59 18:59 Intake Total 4414.842 0964.874 1170.564 Output Total 5325 6650 750 Balance -3333.321 -4990.126 420.564 Weight 172 kg 160.2 kg Intake: IV 1100 833 669 Normal Saline Pressure 66 18 Bag Sodium Chloride 0.9% 1, 600 600 150 000 ml @ 50 mls/hr IV . Q20H JEF Rx#:[id number] Vancomycin 2,500 mg In 500 167 501 Sodium Chloride 0.9% 500 ml 500 ml @ 167 mls/hr IVPB Q18H JEF Rx#: [id number] Intake, IV Titration 781.679 486.874 401.564 Amount DOPamine DRIP 800 mg In 84.194 7.654 200.79 Water For Injection 1 250ml.bag @ 3 MCG/KG/MIN 7.654 mls/hr IV .Q24H JEF Rx#:[id number] Levofloxacin 500Mg-D5w 100 100 Pmx 500 mg In Dextrose/ Water 1 100ml.bag @ 100 mls/hr IVPB Q24HR JEF Rx# :[id number] Norepinephrine 8 mg In 98.829 179.22 Sodium Chloride 0.9% 250 ml @ 0.05 MCG/KG/MIN 13. 166 mls/hr IV .[id number] JEF Rx#:[id number] Propofol 1,000 mg In 498.656 300 100.774 Empty Bag 1 bag @ Titrate IV .Q0M JEF Rx#: [id number] Tube Feeding 20 220 70 Other 90 120 30 Output: Urine 5325 6650 750 Other: Voiding Method Indwelling Catheter Indwelling Catheter ABP, PAP, CO, CI - Last Documented Arterial Blood Pressure 117/49 - Exam PHYSICAL EXAMINATION: GENERAL: Intubated sedated morbidly obese HEENT: Pupils are round and equally reacting to light. EOMI. No scleral icterus. No conjunctival pallor. Normocephalic, atraumatic. No pharyngeal erythema. No thyromegaly. CARDIOVASCULAR: S1 and S2 present. No murmurs, rubs, or gallops. PULMONARY: Diminished breath sounds bilaterally ABDOMEN: Soft, nontender, nondistended, normoactive bowel sounds. No palpable organomegaly. MUSCULOSKELETAL: No joint swelling or deformity. EXTREMITIES: No cyanosis, clubbing, or pedal edema. NEUROLOGICAL: Patient is sedated at this time SKIN: No rashes. - Labs CBC & Chem 7: 03/08/20 05:00 03/08/20 05:00 Labs: Abnormal Lab Results - Last 24 Hours (Table) 03/07/20 03/07/20 03/08/20 Range/Units 11:47 16:35 05:00 WBC 12.8 H (3.8-10.6) k/uL RDW 17.5 H (11.5-15.5) % Neutrophils # 10.6 H (1.3-7.7) k/uL ABG pH (7.35-7.45) ABG pO2 (83-108) mmHg ABG HCO3 (21-25) mmol/L ABG Total CO2 (19-24) mmol/L Sodium (137-145) mmol/L Potassium (3.5-5.1) mmol/L Carbon Dioxide (22-30) mmol/L BUN (7-17) mg/dL POC Glucose (mg/dL) 153 H 135 H (75-99) mg/dL 03/08/20 03/08/20 03/08/20 Range/Units 05:00 06:33 07:21 WBC (3.8-10.6) k/uL RDW (11.5-15.5) % Neutrophils # (1.3-7.7) k/uL ABG pH 7.48 H (7.35-7.45) ABG pO2 112 H (83-108) mmHg ABG HCO3 32 H (21-25) mmol/L ABG Total CO2 33 H (19-24) mmol/L Sodium 135 L (137-145) mmol/L Potassium 3.4 L (3.5-5.1) mmol/L Carbon Dioxide 31 H (22-30) mmol/L BUN 19 H (7-17) mg/dL POC Glucose (mg/dL) 115 H (75-99) mg/dL Microbiology - Last 24 Hours (Table) 03/06/20 14:40 Blood Culture - Preliminary Blood No Growth after 24 hours Assessment and Plan Plan: -Acute hypercapnic as well as hypoxic respiratory failure: Most probably patient has severe bronchitis bronchitis associated with morbid obesity and obesity hypoventilation syndrome contributing to her symptoms my suspicion that patient has severe CHF exacerbation patient is being treated for right lower lobe pneumonia as per pulmonology but my suspicion is low for that, low and suspicion for covid 19 is low. Continue with present antibiotics, respiratory support inhalational treatments. Patient is on ventilatory support -Shock: Medication-induced hypotension patient the is on not dopamine and Levophed, norepinephrine is being weaned off at this time. -Bradycardia: Secondary to atenolol which was held and patient is on dopamine drip at this time echocardiogram will be obtained for suspicion for CHF exacerbation is low her BNP is only 700 but cannot completely rule out diastolic dysfunction because of which are continuing Lasix at this time -Hyponatremia hypervolemic hyponatremia improving with Lasix probably secondary to chronic diastolic dysfunction with acute exacerbation -Chronic diastolic dysfunction with acute exacerbation: Continue with Lasix. Echocardiogram showed normal ejection fraction -Possible tracheal bronchitis -Hypertension presently hypotensive and if his medications are being held
[2020-03-08 12:10] LABS: Glucose,Whole Blood 138 mg/dL (75-99)
--- NOTE | 2020-03-08 12:45 | P.PN ---
Subjective Progress Note Date: 03/08/20 Principal diagnosis: Acute hypoxic and hypercapnic respiratory failure secondary to right lower lobe pneumonia and septic shock This is an 79-year-old female who was brought into the ER yesterday with confusion, mental status change, shortness of breath for the last several days. Apparently the patient was extremely confused and debilitated upon arrival to the ER, and no history could be obtained by anyone. Patient was noted to be short of breath, she was noted to be bradycardic with a junctional rhythm, and she was hypotensive as soon as she arrived to the ER. She was evaluated by Dr. Adan Lynn, he placed a central line and the patient, and she was placed on dopamine. I specifically asked the ER physician whether the patient needs to be intubated and he felt that she looked fine from the pulmonary perspective. He was more concerned about the fact that the patient was bradycardic and hypotensive requiring dopamine, norepinephrine, and she required a central line placement. I accepted the patient to be admitted to the ICU, and I was made aware that her chest x-ray showed right lower lobe pneumonia. Of course as far as the patient arrived to the ICU, the nurse taking care of the patient called me right away and she felt that the patient is in impending respiratory failure. ABG on a nonrebreather mask showed a pO2 of 121 pCO2 of 64 pH of 7.22, and the patient was unresponsive to any stimuli. I recommended immediate intubation. Follow-up ABG this morning showed a pO2 of 101 pCO2 of 38 pH of 7.45. Chest x-ray showed evidence of pulmonary edema, underlying right lower lobe pneumonia is not entirely ruled out. Patient was tested for coronal virus and it came back negative PCR. Patient was also noted to have leukocytosis with WBC count of 16.2. And she was noted to be hyponatremic on admission with a sodium of 122 but follow-up sodium this morning is 127. Patient did receive fluid boluses apparently in the ER, and now I'm recommending the diuretics. Chest x-ray showed prominence of the pulmonary vasculature, and the right lower lobe consolidation. With bilateral effusions. Her BNP level was 747, unremarkable Patient was reevaluated today on 03/08/20, patient remains intubated and mechanically ventilated. Her ventilator settings are assist control rate of 26 FiO2 of 50% PEEP of 10 and tidal volume is 400. Peak airway pressure is 29 rectal pressure is 20. Patient is on multiple drips including dopamine at 3 mcg/kg/m, and I increased it to 5 mcg/kg/m. She was on norepinephrine which I will discontinue presently at 0.05 mcg/kg/m. A is also on the prevent at 45 mcg/kg/m. No other drips. Patient remains on antibiotics in the form of vancomycin and Levaquin. Enteral feeding is well tolerated. Chest x-ray showed evidence of central vascular congestion, and possibly small bilateral pleural effusions with bibasilar atelectasis, slight improvement noted compared to admission chest x-ray. Continues to have significant consolidation in the right lower lobe ABG today showed a pO2 of 112 pCO2 of 42 pH of 7.48. Basic metabolic profile is normal potassium is 3.4. CBC is relatively normal. Coronal virus screening was negative on admission. BNP level was basically normal on admission. Patient is sedated, and seems to be in no distress. Objective - Vital Signs Vital signs: Vital Signs Temp 97.7 F 03/08/20 08:00 Pulse 55 L 03/08/20 09:45 Resp 21 03/08/20 09:45 BP 111/57 03/07/20 14:45 Pulse Ox 96 03/08/20 09:45 Intake & Output 03/07/20 03/08/20 03/08/20 18:59 06:59 18:59 Intake Total 2389.091 5427.874 1458.564 Output Total 5325 6650 2790 Balance -3333.321 -4990.126 -1331.436 Weight 172 kg 160.2 kg Intake: IV 1100 833 837 Normal Saline Pressure 66 36 Bag Sodium Chloride 0.9% 1, 600 600 300 000 ml @ 50 mls/hr IV . Q20H JEF Rx#:[id number] Vancomycin 2,500 mg In 500 167 501 Sodium Chloride 0.9% 500 ml 500 ml @ 167 mls/hr IVPB Q18H JEF Rx#: [id number] Intake, IV Titration 781.679 486.874 401.564 Amount DOPamine DRIP 800 mg In 84.194 7.654 200.79 Water For Injection 1 250ml.bag @ 3 MCG/KG/MIN 7.654 mls/hr IV .Q24H JEF Rx#:[id number] Levofloxacin 500Mg-D5w 100 100 Pmx 500 mg In Dextrose/ Water 1 100ml.bag @ 100 mls/hr IVPB Q24HR JEF Rx# :[id number] Norepinephrine 8 mg In 98.829 179.22 Sodium Chloride 0.9% 250 ml @ 0.05 MCG/KG/MIN 13. 166 mls/hr IV .[id number] JEF Rx#:[id number] Propofol 1,000 mg In 498.656 300 100.774 Empty Bag 1 bag @ Titrate IV .Q0M JEF Rx#: [id number] Tube Feeding 20 220 160 Other 90 120 60 Output: Urine 5325 6650 2790 Other: Voiding Method Indwelling Catheter Indwelling Catheter ABP, PAP, CO, CI - Last Documented Arterial Blood Pressure 117/49 - Exam Physical Exam: Revealed an 79-year-old female morbidly obese, on mechanical ventilation. Head: Atraumatic, normocephalic. Endotracheal tube and orogastric tube are intact. HEENT:[Neck is supple.] [No neck masses.] [No thyromegaly.] [No JVD.] PERRLA, EOMI, no icterus, moist mucous membranes. Right internal jugular central line is noted. Chest: [Symmetrical chest expansion, diminished breath sound bilaterally, crackles and rhonchi also noted bilaterally.] Cardiac Exam: [Bradycardic, irregular rhythm, 2/6 systolic murmur thought the precordium. Abdomen: Morbidly obese, significant abdominal wall edema is noted. No tenderness, no rebound, no guarding. Extremities: [No clubbing, diminished pulses bilaterally, and 2+ bipedal edema.. Neurological Exam: Cannot be assessed, patient is sedated, on propofol at 50 mcg/kg/m. Psychiatric: Could not be assessed. Skin: No rashes. - Labs CBC & Chem 7: 03/08/20 05:00 03/08/20 12:05 Labs: Abnormal Lab Results - Last 24 Hours (Table) 03/07/20 03/08/20 03/08/20 Range/Units 16:35 05:00 05:00 WBC 12.8 H (3.8-10.6) k/uL RDW 17.5 H (11.5-15.5) % Neutrophils # 10.6 H (1.3-7.7) k/uL ABG pH (7.35-7.45) ABG pO2 (83-108) mmHg ABG HCO3 (21-25) mmol/L ABG Total CO2 (19-24) mmol/L Sodium 135 L (137-145) mmol/L Potassium 3.4 L (3.5-5.1) mmol/L Carbon Dioxide 31 H (22-30) mmol/L BUN 19 H (7-17) mg/dL POC Glucose (mg/dL) 135 H (75-99) mg/dL 03/08/20 03/08/20 03/08/20 Range/Units 06:33 07:21 12:08 WBC (3.8-10.6) k/uL RDW (11.5-15.5) % Neutrophils # (1.3-7.7) k/uL ABG pH 7.48 H (7.35-7.45) ABG pO2 112 H (83-108) mmHg ABG HCO3 32 H (21-25) mmol/L ABG Total CO2 33 H (19-24) mmol/L Sodium (137-145) mmol/L Potassium (3.5-5.1) mmol/L Carbon Dioxide (22-30) mmol/L BUN (7-17) mg/dL POC Glucose (mg/dL) 115 H 138 H (75-99) mg/dL Microbiology - Last 24 Hours (Table) 03/06/20 14:40 Blood Culture - Preliminary Blood No Growth after 24 hours Assessment and Plan Assessment: Impression: Acute hypoxic and hypercapnic respiratory failure Acute right lower lobe pneumonia, likely healthcare acquired pneumonia. Sepsis and septic shock is strongly suspected. Secondary to pneumonia. Requiring norepinephrine which I will likely discontinue today. Obesity/hypoventilation syndrome. Acute diastolic congestive heart failure Bradycardia, atrial fibrillation, being addressed by cardiology. Morbid obesity. History of hypertension. History of underlying COPD. History of GERD. Negative for covid 19 pneumonitis. Recommendation: Continue ventilatory support. FiO2 was decreased down to 45%. Continue antibiotics, patient is on Levaquin and vancomycin empirically. Cultures so far are nondiagnostic including blood cultures. Continue and titrate norepinephrine, possibly discontinue today, and continue dopamine. Conservative IV fluid management Gentle diuresis since the patient was given fluid boluses earlier. And now she may have some component of diastolic congestive heart failure. Continue Lasix. Continue dopamine for profound bradycardia on presentation. Increase dose to 5 mcg/kg/m. Monitor CVP and adjust fluids accordingly. Continue enteral feeding and hopefully reach goal We'll continue to follow. GI and DVT prophylaxis. Remains critically ill, critical care time is 35 minutes Time with Patient: Greater than 30
[2020-03-08] MEDS: POTASSIUM CHLORIDE ER 20 MEQ TAB.ER PO SCH ×3 (15:01→17:59)
[2020-03-08 17:50] LABS: Glucose,Whole Blood 137 mg/dL (75-99)
[2020-03-08] MEDS: SODIUM CHLORIDE 0.9% 1,000 ML IV SCH (19:01)
[2020-03-08] MEDS: NOREPINEPHRINE 8 MG in SODIUM CHLORIDE 0.9% 250 ML IV SCH (19:48)
[2020-03-08] MEDS ORDERED: VANCOMYCIN TROUGH DUE 1 EACH MISC MISCELLANE ONE (23:00)
[2020-03-08 23:35] LABS: Glucose,Whole Blood 165 mg/dL (75-99)
[2020-03-09] MEDS: VANCOMYCIN 2,500 MG in SODIUM CHLORIDE 0.9% 500 ML 500 ML IVPB SCH (00:11)
[2020-03-09] MEDS: PROPOFOL 1,000 MG in EMPTY BAG 1 BAG IV SCH ×10 (01:25→23:48)
[2020-03-09 05:16] LABS: Anisocytosis Slight; Basophils % (A) 0 %; Eosinophils % (A) 0 %; HCT 37.2 % (34.0-46.0); HGB 11.8 gm/dL (11.4-16.0); Hypochromasia Slight; Lymphocytes # (A) 0.9 k/uL (1.0-4.8); Lymphocytes % (A) 9 %; MCH 27.6 pg (25.0-35.0); MCHC 31.8 g/dL (31.0-37.0); MCV 86.9 fL (80.0-100.0); Monocytes # (A) 0.6 k/uL (0-1.0); Monocytes % (A) 6 %; Neutrophils # (A) 8.8 k/uL (1.3-7.7); Neutrophils % (A) 83 %; Platelet Count 164 k/uL (150-450); RBC 4.28 m/uL (3.80-5.40); RDW 17.5 % (11.5-15.5); WBC 10.6 k/uL (3.8-10.6)
[2020-03-09 05:24] LABS: African American GFR (CKD) >90 (>60 ml/min/1.73 sqM); Anion Gap 3 mmol/L; Blood Urea Nitrogen 17 mg/dL (7-17); Calcium 8.6 mg/dL (8.4-10.2); Carbon Dioxide 34 mmol/L (22-30); Chloride 98 mmol/L (98-107); Glucose 166 mg/dL (74-99); Non-African American GFR(CKD) 85 (>60 ml/min/1.73 sqM); Potassium 3.6 mmol/L (3.5-5.1); Sodium 135 mmol/L (137-145)
[2020-03-09 05:48] LABS: Glucose,Whole Blood 179 mg/dL (75-99)
[2020-03-09] MEDS: INSULIN ASPART (NovoLOG) 100 UNIT/ML VIAL SQ SCH ×3 (05:53→18:24)
[2020-03-09 05:54] LABS: Glucose,Whole Blood 155 mg/dL (75-99)
[2020-03-09] MEDS: SODIUM CHLORIDE 0.9% 1,000 ML IV SCH (05:55)
[2020-03-09] MEDS ORDERED: POTASSIUM BICARBONATE/CIT AC 20 MEQ TABLET.EFF NG-TUBE SCH ×2 (06:00→14:00)
--- NOTE | 2020-03-09 06:55 | XR ---
EXAMINATION TYPE: XR chest 1V portable DATE OF EXAM: 03/09/2020 HISTORY: Tube placement. REFERENCE: Previous study dated 03/08/2020. FINDINGS: The patient is ET tube and NG tube remain in place. ET tube has advanced and is now approxi mately 2.4 cm from the mark. There is worsening bibasilar airspace disease. There are worsening effusions. Heart size is obscured. There is mild vascular congestion. IMPRESSION: 1. ADVANCEMENT OF THE PATIENT IS ET TUBE. IT IS NOW 2.4 CM IN THE MARK. 2. CONTINUING BIBASILAR AIRSPACE DISEASE AND BILATERAL EFFUSIONS.
[2020-03-09 06:56] LABS: ABG Base Excess 12.4 mmol/L; ABG HCO3 35 mmol/L (21-25); ABG PCO2 44 mmHg (35-45); ABG PH 7.51 (7.35-7.45); ABG PO2 109 mmHg (83-108); ABG TCO2 37 mmol/L (19-24)
[2020-03-09] MEDS: ALBUTEROL HFA INHALER INHALATION PRN ×3 (07:32→20:02)
[2020-03-09] MEDS: DOPamine DRIP 800 MG in WATER FOR INJECTION 1 250ML.BAG IV SCH (09:00)
[2020-03-09] MEDS: FUROSEMIDE 10 MG/ML 4 ML VIAL IV SCH ×3 (09:01→23:46)
[2020-03-09] MEDS: HEPARIN SODIUM,PORCINE 5,000 UNIT/ML 1 ML VIAL SQ SCH ×3 (09:02→23:46)
[2020-03-09] MEDS: LEVOFLOXACIN 500MG-D5W PMX 500 MG in DEXTROSE/WATER 1 100ML.BAG IVPB SCH (09:03)
[2020-03-09] MEDS: ASPIRIN 81 MG PO SCH (09:04)
[2020-03-09] MEDS: MULTIVITAMINS, THERA 1 EACH TAB PO SCH (09:04)
[2020-03-09] MEDS: CHLORHEXIDINE GLUCONATE 15 ML CUP MUCOUS MEM SCH ×2 (09:04→20:22)
[2020-03-09] MEDS: PANTOPRAZOLE 40 MG TABLET PO SCH (09:04)
[2020-03-09] MEDS: VITAMIN E ACETATE 200 UNIT PO SCH (09:06)
[2020-03-09] MEDS: 0.9% NACL WITH KCL 40 MEQ/L 1,000 ML IV SCH (11:25)
[2020-03-09 11:39] LABS: Glucose,Whole Blood 169 mg/dL (75-99)
--- NOTE | 2020-03-09 12:53 | P.PN ---
Subjective Progress Note Date: 03/09/20 Principal diagnosis: Acute hypoxic and hypercapnic respiratory failure secondary to right lower lobe pneumonia and septic shock This is an 79-year-old female who was brought into the ER yesterday with confusion, mental status change, shortness of breath for the last several days. Apparently the patient was extremely confused and debilitated upon arrival to the ER, and no history could be obtained by anyone. Patient was noted to be short of breath, she was noted to be bradycardic with a junctional rhythm, and she was hypotensive as soon as she arrived to the ER. She was evaluated by Dr. Adan Lynn, he placed a central line and the patient, and she was placed on dopamine. I specifically asked the ER physician whether the patient needs to be intubated and he felt that she looked fine from the pulmonary perspective. He was more concerned about the fact that the patient was bradycardic and hypotensive requiring dopamine, norepinephrine, and she required a central line placement. I accepted the patient to be admitted to the ICU, and I was made aware that her chest x-ray showed right lower lobe pneumonia. Of course as far as the patient arrived to the ICU, the nurse taking care of the patient called me right away and she felt that the patient is in impending respiratory failure. ABG on a nonrebreather mask showed a pO2 of 121 pCO2 of 64 pH of 7.22, and the patient was unresponsive to any stimuli. I recommended immediate intubation. Follow-up ABG this morning showed a pO2 of 101 pCO2 of 38 pH of 7.45. Chest x-ray showed evidence of pulmonary edema, underlying right lower lobe pneumonia is not entirely ruled out. Patient was tested for coronal virus and it came back negative PCR. Patient was also noted to have leukocytosis with WBC count of 16.2. And she was noted to be hyponatremic on admission with a sodium of 122 but follow-up sodium this morning is 127. Patient did receive fluid boluses apparently in the ER, and now I'm recommending the diuretics. Chest x-ray showed prominence of the pulmonary vasculature, and the right lower lobe consolidation. With bilateral effusions. Her BNP level was 747, unremarkable Patient was reevaluated today on 03/08/20, patient remains intubated and mechanically ventilated. Her ventilator settings are assist control rate of 26 FiO2 of 50% PEEP of 10 and tidal volume is 400. Peak airway pressure is 29 rectal pressure is 20. Patient is on multiple drips including dopamine at 3 mcg/kg/m, and I increased it to 5 mcg/kg/m. She was on norepinephrine which I will discontinue presently at 0.05 mcg/kg/m. A is also on the prevent at 45 mcg/kg/m. No other drips. Patient remains on antibiotics in the form of vancomycin and Levaquin. Enteral feeding is well tolerated. Chest x-ray showed evidence of central vascular congestion, and possibly small bilateral pleural effusions with bibasilar atelectasis, slight improvement noted compared to admission chest x-ray. Continues to have significant consolidation in the right lower lobe ABG today showed a pO2 of 112 pCO2 of 42 pH of 7.48. Basic metabolic profile is normal potassium is 3.4. CBC is relatively normal. Coronal virus screening was negative on admission. BNP level was basically normal on admission. Patient is sedated, and seems to be in no distress. Reevaluated today on 03/09/20, remains in the ICU, on mechanical ventilation. Her chest x-ray is showing some improvement in her right lower lobe consolidation. And overall improvement in her fluid status. Patient remains on Lasix at 40 mg IV push every 8 hours. Chest x-ray is showing improvement in her ABG today showed a pO2 of 109 pCO2 of 44 pH of 7.51 and this is on 45% FiO2 and PEEP of 10. Her ventilator settings are assist control rate of 26 tidal volume is 400 FiO2 is 40% and PEEP is 10. Patient remains on dopamine at 5 mcg/kg/m, remains on propofol at 40 mcg/kg/m, and she is not requiring any pressors at present except dopamine. And it is mostly a renal perfusion dose. Her IV fluids remains at 50 mL per hour, and 40 mEq potassium was added to the IV fluid. Patient came back negative for covid 19.blood cultures so far are negative in the last 48 hours.WBC count today 10.6,basic metabolic profile is basically normal.and ABG was noted. Already. Objective - Vital Signs Vital signs: Vital Signs Temp 97.8 F 03/09/20 08:00 Pulse 78 03/09/20 11:45 Resp 26 H 03/09/20 11:45 BP 99/50 03/09/20 11:45 Pulse Ox 98 03/09/20 11:45 Intake & Output 03/08/20 03/09/20 03/09/20 18:59 06:59 18:59 Intake Total 2290.189 2491.370 1027.091 Output Total 5890 3700 1150 Balance -3599.811 -1208.630 -122.909 Weight 157.2 kg 157.2 kg Intake: IV 1173 1173 255 Normal Saline Pressure 72 72 30 Bag Sodium Chloride 0.9% 1, 600 600 225 000 ml @ 50 mls/hr IV . Q20H [facility] Rx#:[id number] Vancomycin 2,500 mg In 501 501 Sodium Chloride 0.9% 500 ml 500 ml @ 167 mls/hr IVPB Q18H [facility]EF Rx#: [id number] Intake, IV Titration 667.189 498.370 480.091 Amount 0.9% NaCl with KCl 40 Meq 25 /l 1,000 ml @ 50 mls/hr IV .Q20H [facility] Rx#: [id number] DOPamine DRIP 800 mg In 252.031 250 Water For Injection 1 250ml.bag @ 3 MCG/KG/MIN 7.654 mls/hr IV .Q24H [facility] Rx#:[id number] Levofloxacin 500Mg-D5w 100 100 Pmx 500 mg In Dextrose/ Water 1 100ml.bag @ 100 mls/hr IVPB Q24HR [facility] Rx# :[id number] Norepinephrine 8 mg In 78.780 43.488 Sodium Chloride 0.9% 250 ml @ 0.05 MCG/KG/MIN 13. 166 mls/hr IV .[id number] [facility]EF Rx#:[id number] Propofol 1,000 mg In 236.378 454.882 105.091 Empty Bag 1 bag @ Titrate IV .Q0M JEF Rx#: [id number] Tube Feeding 360 700 262 Other 90 120 30 Output: Urine 5890 3700 1150 Other: Voiding Method Indwelling Catheter Indwelling Catheter Indwelling Catheter ABP, PAP, CO, CI - Last Documented Arterial Blood Pressure 130/62 - Exam Physical Exam: Revealed an 79-year-old female morbidly obese, on mechanical ventilation. Head: Atraumatic, normocephalic. Endotracheal tube and orogastric tube are intact. HEENT:[Neck is supple.] [No neck masses.] [No thyromegaly.] [No JVD.] PERRLA, EOMI, no icterus, moist mucous membranes. Right internal jugular central line is noted. Chest: [Symmetrical chest expansion, diminished breath sound bilaterally, crackles and rhonchi also noted bilaterally.] Cardiac Exam: [Bradycardic, irregular rhythm, 2/6 systolic murmur thought the precordium. Abdomen: Morbidly obese, significant abdominal wall edema is noted. No tenderness, no rebound, no guarding. Extremities: [No clubbing, diminished pulses bilaterally, and 2+ bipedal edema.. Neurological Exam: Cannot be assessed, patient is sedated, on propofol at 40 mcg/kg/m. Psychiatric: Could not be assessed. Skin: No rashes. - Labs CBC & Chem 7: 03/09/20 05:05 03/09/20 11:35 Labs: Abnormal Lab Results - Last 24 Hours (Table) 03/08/20 03/08/20 03/09/20 Range/Units 17:49 23:33 05:05 RDW 17.5 H (11.5-15.5) % Neutrophils # 8.8 H (1.3-7.7) k/uL Lymphocytes # 0.9 L (1.0-4.8) k/uL ABG pH (7.35-7.45) ABG pO2 (83-108) mmHg ABG HCO3 (21-25) mmol/L ABG Total CO2 (19-24) mmol/L Sodium (137-145) mmol/L Carbon Dioxide (22-30) mmol/L Glucose (74-99) mg/dL POC Glucose (mg/dL) 137 H 165 H (75-99) mg/dL 03/09/20 03/09/20 03/09/20 Range/Units 05:05 05:47 05:53 RDW (11.5-15.5) % Neutrophils # (1.3-7.7) k/uL Lymphocytes # (1.0-4.8) k/uL ABG pH (7.35-7.45) ABG pO2 (83-108) mmHg ABG HCO3 (21-25) mmol/L ABG Total CO2 (19-24) mmol/L Sodium 135 L (137-145) mmol/L Carbon Dioxide 34 H (22-30) mmol/L Glucose 166 H (74-99) mg/dL POC Glucose (mg/dL) 179 H 155 H (75-99) mg/dL 03/09/20 03/09/20 Range/Units 06:50 11:37 RDW (11.5-15.5) % Neutrophils # (1.3-7.7) k/uL Lymphocytes # (1.0-4.8) k/uL ABG pH 7.51 H (7.35-7.45) ABG pO2 109 H (83-108) mmHg ABG HCO3 35 H (21-25) mmol/L ABG Total CO2 37 H (19-24) mmol/L Sodium (137-145) mmol/L Carbon Dioxide (22-30) mmol/L Glucose (74-99) mg/dL POC Glucose (mg/dL) 169 H (75-99) mg/dL Microbiology - Last 24 Hours (Table) 03/06/20 14:40 Blood Culture - Preliminary Blood No Growth after 48 hours Assessment and Plan Assessment: Impression: Acute hypoxic and hypercapnic respiratory failure Acute right lower lobe pneumonia, likely healthcare acquired pneumonia. Sepsis and septic shock is strongly suspected. Secondary to pneumonia. off norepinephrine. Obesity/hypoventilation syndrome. Acute diastolic congestive heart failure Bradycardia, atrial fibrillation, being addressed by cardiology. Morbid obesity. History of hypertension. History of underlying COPD. History of GERD. Negative for covid 19 pneumonitis. Recommendation: Continue ventilatory support. FiO2 was decreased down to 40%, PEEP remains at 10 for now. Continue antibiotics, patient is on Levaquin and vancomycin empirically. Cultures so far are nondiagnostic including blood cultures. continue dopamine at 5 mcg/kg/m Conservative IV fluid management continue diuretics. continue to monitor CVP. Continue enteral feeding We'll continue to follow. GI and DVT prophylaxis. Remains critically ill, critical care time is 32 minutes Time with Patient: Greater than 30
[2020-03-09 18:05] LABS: Glucose,Whole Blood 193 mg/dL (75-99)
[2020-03-09] MEDS: SENNOSIDES 8.6 MG TAB PO SCH (20:22)
[2020-03-09] MEDS: DOCUSATE ORAL SOLN 100 MG/10 ML CUP PO SCH (20:22)
[2020-03-09] MEDS: VANCOMYCIN 2,250 MG in SODIUM CHLORIDE 0.9% 500 ML 500 ML IVPB SCH (23:45)
[2020-03-10] MEDS: DOPamine DRIP 800 MG in WATER FOR INJECTION 1 250ML.BAG IV SCH (00:27)
[2020-03-10 00:48] LABS: Glucose,Whole Blood 160 mg/dL (75-99)
[2020-03-10] MEDS: INSULIN ASPART (NovoLOG) 100 UNIT/ML VIAL SQ SCH ×4 (00:50→17:36)
[2020-03-10] MEDS: NOREPINEPHRINE 8 MG in SODIUM CHLORIDE 0.9% 250 ML IV SCH ×2 (02:18→03:34)
[2020-03-10] MEDS: 0.9% NACL WITH KCL 40 MEQ/L 1,000 ML IV SCH ×2 (04:56→23:55)
[2020-03-10] MEDS: PROPOFOL 1,000 MG in EMPTY BAG 1 BAG IV SCH ×3 (04:56→08:59)
[2020-03-10 04:58] LABS: Anisocytosis Slight; Basophils % (A) 0 %; Eosinophils # (A) 0.1 k/uL (0-0.7); Eosinophils % (A) 1 %; HCT 34.8 % (34.0-46.0); HGB 11.1 gm/dL (11.4-16.0); Hypochromasia Moderate; Lymphocytes # (A) 1.1 k/uL (1.0-4.8); Lymphocytes % (A) 11 %; MCH 27.8 pg (25.0-35.0); MCV 86.8 fL (80.0-100.0); Mean Platelet Volume 8.9; Monocytes # (A) 0.6 k/uL (0-1.0); Monocytes % (A) 6 %; Neutrophils # (A) 8.2 k/uL (1.3-7.7); Neutrophils % (A) 80 %; Platelet Count 174 k/uL (150-450); RBC 4.01 m/uL (3.80-5.40); RDW 17.3 % (11.5-15.5); WBC 10.3 k/uL (3.8-10.6)
[2020-03-10 05:09] LABS: African American GFR (CKD) >90 (>60 ml/min/1.73 sqM); Anion Gap 4 mmol/L; Blood Urea Nitrogen 18 mg/dL (7-17); Calcium 8.4 mg/dL (8.4-10.2); Carbon Dioxide 32 mmol/L (22-30); Chloride 98 mmol/L (98-107); Glucose 157 mg/dL (74-99); Non-African American GFR(CKD) 86 (>60 ml/min/1.73 sqM); Sodium 134 mmol/L (137-145)
[2020-03-10 06:00] LABS: Glucose,Whole Blood 145 mg/dL (75-99)
--- NOTE | 2020-03-10 06:48 | CDI ---
Documentation Clarification Form Date: 03/10/2020 06:31:26 AM From: Gabriela Wong RN, CCDS Admit Date: 03/06/2020 05:20:00 PM Patient Name: Aria Carrillo Visit Number: [id number] ATTENTION: The Clinical Documentation Specialists (CDI) and [facility] Coding Staff appreciate your assistance in clarifying documentation. Please respond to the clarification below the line at the bottom and electronically sign. The CDI & [facility] Coding staff will review the response and follow-up if needed. Please note: Queries are made part of the Legal Health Record. If you have any questions, please contact the author of this message via ITS. Dr. Edgar Castañeda Healthcare associated Pneumonia was documented in your notes and requires further specificity. History/Risk Factors: Morbid Obesity, Confusion and debilitation and lethargy on admission Clinical Indicators: 03/07- 03/09 Pulmonary Progress note: "Acute hypoxic and hypercapnic respiratory failure Acute right lower lobe pneumonia, likely healthcare acquired pneumonia." 03/08 H&P and Attending Progress Notes: "Acute hypercapnic as well as hypoxic respiratory failure: Most probably patient has severe bronchitis bronchitis associated with morbid obesity and obesity hypoventilation syndrome contributing to her symptoms my suspicion that patient has severe CHF exacerbation patient is being treated for right lower lobe pneumonia as per pulmonology but my suspicion is low for that, low and suspicion for Covid 19 is low." 03/10/20214 Vital signs: HR 84, RR 26, B/P 108/50, Spo2 97% on 45% FIO2 MV 03/06 - 03/10 WBC: 15.4/16.2/12.8/10.6/10.3 03/06 - 03/10 Left shift: 13.6/14/10.6/8.8/8.2 03/09 CXR: "CONTINUING BIBASILAR AIRSPACE DISEASE AND BILATERAL EFFUSIONS." 03/09 Pulmonary Lung/Breathing assessment: Chest: [Symmetrical chest expansion, diminished breath sound bilaterally, crackles and rhonchi also noted bilaterally." Treatment: Antibiotics: Vanco 2,250 mg IVP Q 24 hrs, Levaquin 500 mg IVPB Q 24 hrs O2: 3L NC to Venti mask to Mechanical Vent current FIO2 has been weaned down to Breathing TX: Ventolin HFA 2 Puffs INH QID In order to capture the severity of condition, please clarify if the condition signifies and you are treating for: Aspiration Pneumonia, identify if: Due to solids or liquids Bacterial Pneumonia, specify causal organism (if known) Gram Negative Pneumonia Due to Strep ?Due to Staph ?Due to E. coli ?Other bacteria (please specify) Other, please specify Unable to determine (Last Revision: February 2018) MTDD
--- NOTE | 2020-03-10 06:57 | XR ---
EXAMINATION TYPE: XR chest 1V portable DATE OF EXAM: 03/10/2020 HISTORY: Tube placement. REFERENCE: Previous study dated 03/09/2020. FINDINGS: The patient's ET tube and NG tube remain in place, unchanged in appearance. There is worsening bibasilar airspace disease. There are small, bilateral effusions. Heart size upper limits of normal. IMPRESSION: WORSENING BIBASILAR AIRSPACE DISEASE.
--- NOTE | 2020-03-10 07:29 | CDI ---
Documentation Clarification Form Date: 03/10/2020 06:49:54 AM From: Gabriela Wong RN, CCDS Admit Date: 03/06/2020 05:20:00 PM Patient Name: Aria Carrillo Visit Number: [id number] ATTENTION: The Clinical Documentation Specialists (CDI) and [facility] Coding Staff appreciate your assistance in clarifying documentation. Please respond to the clarification below the line at the bottom and electronically sign. The CDI & [facility] Coding staff will review the response and follow-up if needed. Please note: Queries are made part of the Legal Health Record. If you have any questions, please contact the author of this message via ITS. Dr. Edgar Castañeda Altered Mental Status was documented in the Consult and progress notes and requires further specificity. History/Risk Factors: Patient was confused and lethargic upon admission and unable to provide Hx. Currently sedated and on Mechanical ventilation Clinical Indicators: 03/07-03/09 Pulmonary Consult and Progress Note: "Mental status change and confusion. History of present illness: This is an 79-year-old female who was brought into the ER yesterday with confusion, mental status change, shortness of breath for the last several days. Acute hypoxic and hypercapnic respiratory failure. Acute right lower lobe pneumonia, likely healthcare acquired pneumonia. Sepsis and septic shock is strongly suspected, secondary to pneumonia. Obesity/hypoventilation syndrome. Acute diastolic congestive heart failure Bradycardia, atrial fibrillation, being addressed by cardiology." 03/06-03/10 Labs: WBC 10.8/11.2/11.6/11.8/11.1, Neutrophils 13.6/14/10.6/8.8/8.2, NA+ 122/127/135, Glucose 224/114/97/166/157 03/06 CXR:"Diffuse increased pulmonary vascular markings more focal in the right lower lobe. Correlate for volume overload." Treatment: 03/06 1L 0.9% NS IVF Bolus IV Vanco 2,250gm IVPB Q 24 hrs Levaquin 500 mg IVPB Q 24 hrs Lasix 40 mg IVP Q 8 hrs 0.9% NS w/ 40meq KCL @ 50 cc/ hr Levophed Gtt titrate for B/P In your professional opinion, please clarify the etiology of the Altered Mental Status, if known. Metabolic Encephalopathy (specify Underlying Medical Illness) Other condition (please specify) Unable to determine (Last Revision: February 2018) MTDD
[2020-03-10 08:04] LABS: ABG Base Excess 11.5 mmol/L; ABG HCO3 35 mmol/L (21-25); ABG Oxygen Saturation 97.4 % (94-97); ABG PCO2 47 mmHg (35-45); ABG PH 7.48 (7.35-7.45); ABG PO2 122 mmHg (83-108); ABG TCO2 36 mmol/L (19-24); Allen Test Performed? Yes
[2020-03-10] MEDS: DOCUSATE ORAL SOLN 100 MG/10 ML CUP PO SCH ×2 (08:56→21:46)
[2020-03-10] MEDS: LEVOFLOXACIN 500MG-D5W PMX 500 MG in DEXTROSE/WATER 1 100ML.BAG IVPB SCH (08:56)
[2020-03-10] MEDS: ASPIRIN 81 MG PO SCH (08:57)
[2020-03-10] MEDS: FUROSEMIDE 10 MG/ML 4 ML VIAL IV SCH ×3 (08:57→23:52)
[2020-03-10] MEDS: MULTIVITAMINS, THERA 1 EACH TAB PO SCH (08:57)
[2020-03-10] MEDS: SENNOSIDES 8.6 MG TAB PO SCH ×2 (08:57→21:46)
[2020-03-10] MEDS: HEPARIN SODIUM,PORCINE 5,000 UNIT/ML 1 ML VIAL SQ SCH ×3 (08:57→23:52)
[2020-03-10] MEDS: CHLORHEXIDINE GLUCONATE 15 ML CUP MUCOUS MEM SCH (08:57)
[2020-03-10] MEDS: PANTOPRAZOLE 40 MG TABLET PO SCH (08:57)
[2020-03-10] MEDS: VITAMIN E ACETATE 200 UNIT PO SCH (09:00)
[2020-03-10 11:45] LABS: Glucose,Whole Blood 172 mg/dL (75-99)
[2020-03-10 11:48] LABS: ABG Base Excess 11.4 mmol/L; ABG HCO3 35 mmol/L (21-25); ABG Oxygen Saturation 96.1 % (94-97); ABG PCO2 46 mmHg (35-45); ABG PH 7.49 (7.35-7.45); ABG PO2 93 mmHg (83-108); ABG TCO2 36 mmol/L (19-24); Allen Test Performed? Yes
--- NOTE | 2020-03-10 12:21 | P.PN ---
Subjective Progress Note Date: 03/10/20 Principal diagnosis: Acute hypoxic and hypercapnic respiratory failure secondary to right lower lobe pneumonia and septic shock This is an 79-year-old female who was brought into the ER yesterday with confusion, mental status change, shortness of breath for the last several days. Apparently the patient was extremely confused and debilitated upon arrival to the ER, and no history could be obtained by anyone. Patient was noted to be short of breath, she was noted to be bradycardic with a junctional rhythm, and she was hypotensive as soon as she arrived to the ER. She was evaluated by Dr. Adan Lynn, he placed a central line and the patient, and she was placed on dopamine. I specifically asked the ER physician whether the patient needs to be intubated and he felt that she looked fine from the pulmonary perspective. He was more concerned about the fact that the patient was bradycardic and hypotensive requiring dopamine, norepinephrine, and she required a central line placement. I accepted the patient to be admitted to the ICU, and I was made aware that her chest x-ray showed right lower lobe pneumonia. Of course as far as the patient arrived to the ICU, the nurse taking care of the patient called me right away and she felt that the patient is in impending respiratory failure. ABG on a nonrebreather mask showed a pO2 of 121 pCO2 of 64 pH of 7.22, and the patient was unresponsive to any stimuli. I recommended immediate intubation. Follow-up ABG this morning showed a pO2 of 101 pCO2 of 38 pH of 7.45. Chest x-ray showed evidence of pulmonary edema, underlying right lower lobe pneumonia is not entirely ruled out. Patient was tested for coronal virus and it came back negative PCR. Patient was also noted to have leukocytosis with WBC count of 16.2. And she was noted to be hyponatremic on admission with a sodium of 122 but follow-up sodium this morning is 127. Patient did receive fluid boluses apparently in the ER, and now I'm recommending the diuretics. Chest x-ray showed prominence of the pulmonary vasculature, and the right lower lobe consolidation. With bilateral effusions. Her BNP level was 747, unremarkable Patient was reevaluated today on 03/08/20, patient remains intubated and mechanically ventilated. Her ventilator settings are assist control rate of 26 FiO2 of 50% PEEP of 10 and tidal volume is 400. Peak airway pressure is 29 rectal pressure is 20. Patient is on multiple drips including dopamine at 3 mcg/kg/m, and I increased it to 5 mcg/kg/m. She was on norepinephrine which I will discontinue presently at 0.05 mcg/kg/m. A is also on the prevent at 45 mcg/kg/m. No other drips. Patient remains on antibiotics in the form of vancomycin and Levaquin. Enteral feeding is well tolerated. Chest x-ray showed evidence of central vascular congestion, and possibly small bilateral pleural effusions with bibasilar atelectasis, slight improvement noted compared to admission chest x-ray. Continues to have significant consolidation in the right lower lobe ABG today showed a pO2 of 112 pCO2 of 42 pH of 7.48. Basic metabolic profile is normal potassium is 3.4. CBC is relatively normal. Coronal virus screening was negative on admission. BNP level was basically normal on admission. Patient is sedated, and seems to be in no distress. Reevaluated today on 03/09/20, remains in the ICU, on mechanical ventilation. Her chest x-ray is showing some improvement in her right lower lobe consolidation. And overall improvement in her fluid status. Patient remains on Lasix at 40 mg IV push every 8 hours. Chest x-ray is showing improvement in her ABG today showed a pO2 of 109 pCO2 of 44 pH of 7.51 and this is on 45% FiO2 and PEEP of 10. Her ventilator settings are assist control rate of 26 tidal volume is 400 FiO2 is 40% and PEEP is 10. Patient remains on dopamine at 5 mcg/kg/m, remains on propofol at 40 mcg/kg/m, and she is not requiring any pressors at present except dopamine. And it is mostly a renal perfusion dose. Her IV fluids remains at 50 mL per hour, and 40 mEq potassium was added to the IV fluid. Patient came back negative for covid 19.blood cultures so far are negative in the last 48 hours.WBC count today 10.6,basic metabolic profile is basically normal.and ABG was noted. Already. Reevaluated today on 03/10/20, patient remains in the ICU, on mechanical ventilation, sedated with propofol and she remains on dopamine which I cut it down to 2.5 mcg/kg/m. Chest x-ray is showing improvement in her overall pneumonic process and her fluid status seems to be improving her ABG is showing improvement with a pO2 of 122 pCO2 of 47 pH of 7.48. Her ventilator settings at present are assist control rate of 26 tidal volume is 400 FiO2 is 45% and I cut it down to 35%, PEEP is at 10. CVP is at 12, patient has been diuresing significantly over the last few days, and she is -4 L since admission. CBC is relatively normal. Basic metabolic profile is relatively normal. Patient was given a trial of sedation interruption, proceeded to weaning trial with pressure support and CPAP. ABG on CPAP showed a pO2 of 93 pCO2 of 46 and pH of 7.49. Hence we'll likely recommend extubating the patient to a nasal cannula, and to maintain BiPAP at bedside. Objective - Vital Signs Vital signs: Vital Signs Temp 98.4 F 03/10/20 08:00 Pulse 100 03/10/20 10:00 Resp 13 03/10/20 10:00 BP 99/50 03/09/20 11:45 Pulse Ox 96 03/10/20 12:00 Intake & Output 03/09/20 03/10/20 03/10/20 18:59 06:59 18:59 Intake Total 2093.295 2735.386 600.839 Output Total 4050 4950 350 Balance -1956.705 -2214.614 250.839 Weight 157.2 kg 148.7 kg 148.7 kg Intake: IV 437 1273 272 0.9% NaCl with KCl 40 Meq 550 150 /l 1,000 ml @ 50 mls/hr IV .Q20H [facility] Rx#: [id number] Levofloxacin 500Mg-D5w 100 Pmx 500 mg In Dextrose/ Water 1 100ml.bag @ 100 mls/hr IVPB Q24HR [facility] Rx# :[id number] Normal Saline Pressure 72 72 12 Bag Sodium Chloride 0.9% 1, 365 150 10 000 ml @ 50 mls/hr IV . Q20H [facility] Rx#:[id number] Vancomycin 2,500 mg In 501 Sodium Chloride 0.9% 500 ml 500 ml @ 167 mls/hr IVPB Q18H [facility] Rx#: [id number] Intake, IV Titration 933.295 524.386 139.839 Amount 0.9% NaCl with KCl 40 Meq 375 50 /l 1,000 ml @ 50 mls/hr IV .Q20H [facility] Rx#: [id number] DOPamine DRIP 800 mg In 250 255.652 33.593 Water For Injection 1 250ml.bag @ 3 MCG/KG/MIN 7.654 mls/hr IV .Q24H [facility] Rx#:[id number] Levofloxacin 500Mg-D5w 100 Pmx 500 mg In Dextrose/ Water 1 100ml.bag @ 100 mls/hr IVPB Q24HR [facility] Rx# :[id number] Norepinephrine 8 mg In 16.105 Sodium Chloride 0.9% 250 ml @ 0.05 MCG/KG/MIN 13. 166 mls/hr IV .[id number] [facility] Rx#:[id number] Propofol 1,000 mg In 208.295 202.629 106.246 Empty Bag 1 bag @ Titrate IV .Q0M [facility] Rx#: [id number] Tube Feeding 633 848 159 Other 90 90 30 Output: Urine 4050 4950 350 Other: Voiding Method Indwelling Catheter Indwelling Catheter Indwelling Catheter ABP, PAP, CO, CI - Last Documented Arterial Blood Pressure 103/49 - Exam Physical Exam: Revealed an 79-year-old female morbidly obese, on mechanical ventilation. Head: Atraumatic, normocephalic. Endotracheal tube and orogastric tube are intact. HEENT:[Neck is supple.] [No neck masses.] [No thyromegaly.] [No JVD.] PERRLA, EOMI, no icterus, moist mucous membranes. Right internal jugular central line is noted. Chest: [Symmetrical chest expansion, diminished breath sound bilaterally, crackles and rhonchi also noted bilaterally.] Cardiac Exam: [Bradycardic, irregular rhythm, 2/6 systolic murmur thought the precordium. Abdomen: Morbidly obese, significant abdominal wall edema is noted. No tenderness, no rebound, no guarding. Extremities: [No clubbing, diminished pulses bilaterally, and 2+ bipedal edema.. Neurological Exam: Cannot be assessed, patient is sedated, Psychiatric: Could not be assessed. Skin: No rashes. - Labs CBC & Chem 7: 03/10/20 04:45 03/10/20 04:45 Labs: Abnormal Lab Results - Last 24 Hours (Table) 03/09/20 03/10/20 03/10/20 Range/Units 18:03 00:47 04:45 Hgb 11.1 L (11.4-16.0) gm/dL RDW 17.3 H (11.5-15.5) % Neutrophils # 8.2 H (1.3-7.7) k/uL ABG pH (7.35-7.45) ABG pCO2 (35-45) mmHg ABG pO2 (83-108) mmHg ABG HCO3 (21-25) mmol/L ABG Total CO2 (19-24) mmol/L ABG O2 Saturation (94-97) % Sodium (137-145) mmol/L Carbon Dioxide (22-30) mmol/L BUN (7-17) mg/dL Glucose (74-99) mg/dL POC Glucose (mg/dL) 193 H 160 H (75-99) mg/dL 03/10/20 03/10/20 03/10/20 Range/Units 04:45 05:58 08:02 Hgb (11.4-16.0) gm/dL RDW (11.5-15.5) % Neutrophils # (1.3-7.7) k/uL ABG pH 7.48 H (7.35-7.45) ABG pCO2 47 H (35-45) mmHg ABG pO2 122 H (83-108) mmHg ABG HCO3 35 H (21-25) mmol/L ABG Total CO2 36 H (19-24) mmol/L ABG O2 Saturation 97.4 H (94-97) % Sodium 134 L (137-145) mmol/L Carbon Dioxide 32 H (22-30) mmol/L BUN 18 H (7-17) mg/dL Glucose 157 H (74-99) mg/dL POC Glucose (mg/dL) 145 H (75-99) mg/dL 03/10/20 03/10/20 Range/Units 11:36 11:43 Hgb (11.4-16.0) gm/dL RDW (11.5-15.5) % Neutrophils # (1.3-7.7) k/uL ABG pH 7.49 H (7.35-7.45) ABG pCO2 46 H (35-45) mmHg ABG pO2 (83-108) mmHg ABG HCO3 35 H (21-25) mmol/L ABG Total CO2 36 H (19-24) mmol/L ABG O2 Saturation (94-97) % Sodium (137-145) mmol/L Carbon Dioxide (22-30) mmol/L BUN (7-17) mg/dL Glucose (74-99) mg/dL POC Glucose (mg/dL) 172 H (75-99) mg/dL Microbiology - Last 24 Hours (Table) 03/06/20 14:40 Blood Culture - Preliminary Blood No Growth after 72 hours Assessment and Plan Assessment: Impression: Acute hypoxic and hypercapnic respiratory failure Acute right lower lobe pneumonia, exact etiology of the pneumonia is not clear, could be aspiration, could be healthcare acquired pneumonia, could be community- acquired pneumonia, I cannot be certain. And it is unknown. And definitely cannot tell if this is aspiration of solids or liquids could be either or. If it is truly aspiration pneumonia. Cultures of blood have been nondiagnostic. Sepsis and septic shock is strongly suspected. Resolved.. Obesity/hypoventilation syndrome., If the patient is to be extubated, she will need BiPAP at bedside. Acute diastolic congestive heart failure is strongly suspected, patient improved mostly with diuretics. Bradycardia, atrial fibrillation, remains on dopamine at 2.5 mcg/kg/m, and I may discontinue dopamine in the next 24 hours. Patient is off norepinephrine. Morbid obesity. History of hypertension. History of underlying COPD. History of GERD. Negative for covid 19 pneumonitis. Recommendation: Continue ventilatory support. May consider a trial of weaning with a pressure support and CPAP and determine whether the patient could be extubated today. Continue empiric antibiotics. continue dopamine, the dose was cut down to 2.5 mcg/kg/m, was mostly given for profound bradycardia on presentation. Conservative IV fluid management continue diuretics. continue to monitor CVP. Continue enteral feeding We'll continue to follow. GI and DVT prophylaxis. Remains critically ill, critical care time is 34 minutes Time with Patient: Greater than 30
[2020-03-10 17:22] LABS: Glucose,Whole Blood 138 mg/dL (75-99)
--- NOTE | 2020-03-10 23:14 | P.PN ---
Subjective Progress Note Date: 03/09/20 Principal diagnosis: Acute hypoxic respiratory failure Ms. Carrillo is a 79-year-old female with a past medical history of hypertension brought into the hospital by EMS secondary to shortness of breath after she was on antibiotics at home without relief. In the ER patient was extremely confused and debilitated, found to be bradycardic and hypotensive. Patient was started on dopamine and norepinephrine after placement of central line. And she was transferred to ICU. In the ICU patient went into respiratory failure for which she had to be intubated. Chest x-ray was positive for right lower lobe pneumonia. Patient's labs at the time of admission showed leukocytosis with white count of 15.4, sodium at 122, potassium 5.3. Creatinine was 0.63. She w as checked for coronavirus, influenza a and B that have been negative. Patient's blood culture from 03/06/2020- so far. On 03/09/2020 -patient is in the ICU. She is intubated and mechanically ventilat ed. Patient's norepinephrine was discontinued yesterday and she has maintaining her blood pressure without pressor support. She continues to be on vancomycin and levofloxacin. Patient's labs from this morning white count of 10.6 hemoglobin 11.8. Sodium improved to 135. Potassium at 3.7 and creatinine is stable at 0.63. Patient's chest x-ray from this morning showing by basilar airspace disease and bilateral effusions that is slightly worsening. Active Medications Acetaminophen (Tylenol Tab) 650 mg PO Q4HR PRN PRN Reason: Fever and/or Mild Pain Albuterol Sulfate (Ventolin Hfa Inhaler) 2 puff INHALATION RT-QID PRN PRN Reason: Shortness Of Breath Last Admin: 03/09/20 15:28 Dose: 2 puff Documented by: Aspirin (Aspirin) 81 mg PO DAILY [facility] Last Admin: 03/09/20 09:04 Dose: 81 mg Documented by: Chlorhexidine Gluconate (Peridex) 15 ml MUCOUS MEM BID [facility] Last Admin: 03/09/20 09:04 Dose: 15 ml Documented by: Docusate Sodium (Colace Oral Soln) 100 mg PO BID [facility] Furosemide (Lasix) 40 mg IV Q8HR [facility] Last Admin: 03/09/20 16:35 Dose: 40 mg Documented by: Heparin Sodium (Porcine) (Heparin) 5,000 unit SQ Q8HR [facility] Last Admin: 03/09/20 16:33 Dose: 5,000 unit Documented by: Norepinephrine Bitartrate 8 mg (/ Sodium Chloride) 258 mls @ 13.166 mls/hr IV .[id number] [facility]; Protocol Last Titration: 03/09/20 06:40 Dose: 0 mcg/kg/min, 0 mls/hr Documented by: Propofol 1,000 mg/ IV Solution 100 mls @ 0 mls/hr IV .Q0M [facility]; Protocol Last Admin: 03/09/20 16:42 Dose: 40 mcg/kg/min, 38.448 mls/hr Documented by: Dopamine HCl/Dextrose 800 mg/ (IV Solution) 250 mls @ 7.654 mls/hr IV .Q24H [facility] Last Admin: 03/09/20 09:00 Dose: 5 mcg/kg/min, 12.757 mls/hr Documented by: Levofloxacin 500 mg/ IV (Solution) 100 mls @ 100 mls/hr IVPB Q24HR [facility] Last Admin: 03/09/20 09:03 Dose: 100 mls/hr Documented by: Vancomycin HCl 2,250 mg/ (Sodium Chloride) 500 mls @ 167 mls/hr IVPB Q24H [facility] Potassium Chloride/Sodium Chloride (Ns-Kcl 40 Meq/L Iv Solution) 1,000 mls @ 50 mls/hr IV .Q20H [facility] Last Admin: 03/09/20 11:25 Dose: 50 mls/hr Documented by: Insulin Aspart (Novolog) 0 unit SQ Q6H [facility]; Protocol Last Admin: 03/09/20 12:21 Dose: 2 unit Documented by: Miscellaneous Information (Potassium Per Protocol) 1 each MISCELLANE DAILY PRN; Protocol PRN Reason: Per Protocol Multivitamins (Theragran) 1 each PO DAILY [facility] Last Admin: 03/09/20 09:04 Dose: 1 each Documented by: Naloxone HCl (Narcan) 0.2 mg IV Q2M PRN PRN Reason: Opioid Reversal Non-Formulary Medication (Vitamin E Acetate [Vitamin E]) 200 unit PO DAILY [facility] Last Admin: 03/09/20 09:06 Dose: Not Given Documented by: Pantoprazole Sodium (Protonix) 40 mg PO DAILY [facility] Last Admin: 03/09/20 09:04 Dose: 40 mg Documented by: Rik (Senokot) 8.6 mg PO BID [facility] Objective - Vital Signs Vital signs: Vital Signs Temp 97.8 F 03/09/20 08:00 Pulse 78 03/09/20 11:45 Resp 26 H 03/09/20 11:45 BP 99/50 03/09/20 11:45 Pulse Ox 98 03/09/20 11:45 Intake & Output 03/08/20 03/09/20 03/09/20 18:59 06:59 18:59 Intake Total 2290.189 2491.370 1027.091 Output Total 5890 3700 1150 Balance -3599.811 -1208.630 -122.909 Weight 157.2 kg 157.2 kg Intake: IV 1173 1173 255 Normal Saline Pressure 72 72 30 Bag Sodium Chloride 0.9% 1, 600 600 225 000 ml @ 50 mls/hr IV . Q20H [facility] Rx#:[id number] Vancomycin 2,500 mg In 501 501 Sodium Chloride 0.9% 500 ml 500 ml @ 167 mls/hr IVPB Q18H [facility] Rx#: [id number] Intake, IV Titration 667.189 498.370 480.091 Amount 0.9% NaCl with KCl 40 Meq 25 /l 1,000 ml @ 50 mls/hr IV .Q20H [facility] Rx#: [id number] DOPamine DRIP 800 mg In 252.031 250 Water For Injection 1 250ml.bag @ 3 MCG/KG/MIN 7.654 mls/hr IV .Q24H [facility] Rx#:[id number] Levofloxacin 500Mg-D5w 100 100 Pmx 500 mg In Dextrose/ Water 1 100ml.bag @ 100 mls/hr IVPB Q24HR [facility] Rx# :[id number] Norepinephrine 8 mg In 78.780 43.488 Sodium Chloride 0.9% 250 ml @ 0.05 MCG/KG/MIN 13. 166 mls/hr IV .[id number] [facility] Rx#:[id number] Propofol 1,000 mg In 236.378 454.882 105.091 Empty Bag 1 bag @ Titrate IV .Q0M [facility] Rx#: [id number] Tube Feeding 360 700 262 Other 90 120 30 Output: Urine 5890 3700 1150 Other: Voiding Method Indwelling Catheter Indwelling Catheter Indwelling Catheter ABP, PAP, CO, CI - Last Documented Arterial Blood Pressure 130/62 - Exam PHYSICAL EXAMINATION: GENERAL: Elderly female intubated sedated. She is morbidly obese HEENT: ET tube and OG tube in place. CARDIOVASCULAR: Bradycardia. +Systolic murmur PULMONARY: Diminished breath sounds bilaterally along with crackles the bases bilaterally ABDOMEN: Soft. Thick abdominal wall with edema. MUSCULOSKELETAL: No joint swelling or deformity. EXTREMITIES: Pitting pedal edema bilaterally NEUROLOGICAL: Patient is sedated at this time Note: Because of COVID 19 isolation, some of the history and physical exam findings are indirect and obtained from nursing staff, and other physician examinations to avoid unnecessary contact with the patient. - Labs CBC & Chem 7: 03/09/20 05:05 03/09/20 18:10 Labs: Abnormal Lab Results - Last 24 Hours (Table) 03/08/20 03/08/20 03/09/20 Range/Units 17:49 23:33 05:05 RDW 17.5 H (11.5-15.5) % Neutrophils # 8.8 H (1.3-7.7) k/uL Lymphocytes # 0.9 L (1.0-4.8) k/uL ABG pH (7.35-7.45) ABG pO2 (83-108) mmHg ABG HCO3 (21-25) mmol/L ABG Total CO2 (19-24) mmol/L Sodium (137-145) mmol/L Carbon Dioxide (22-30) mmol/L Glucose (74-99) mg/dL POC Glucose (mg/dL) 137 H 165 H (75-99) mg/dL 03/09/20 03/09/20 03/09/20 Range/Units 05:05 05:47 05:53 RDW (11.5-15.5) % Neutrophils # (1.3-7.7) k/uL Lymphocytes # (1.0-4.8) k/uL ABG pH (7.35-7.45) ABG pO2 (83-108) mmHg ABG HCO3 (21-25) mmol/L ABG Total CO2 (19-24) mmol/L Sodium 135 L (137-145) mmol/L Carbon Dioxide 34 H (22-30) mmol/L Glucose 166 H (74-99) mg/dL POC Glucose (mg/dL) 179 H 155 H (75-99) mg/dL 03/09/20 03/09/20 Range/Units 06:50 11:37 RDW (11.5-15.5) % Neutrophils # (1.3-7.7) k/uL Lymphocytes # (1.0-4.8) k/uL ABG pH 7.51 H (7.35-7.45) ABG pO2 109 H (83-108) mmHg ABG HCO3 35 H (21-25) mmol/L ABG Total CO2 37 H (19-24) mmol/L Sodium (137-145) mmol/L Carbon Dioxide (22-30) mmol/L Glucose (74-99) mg/dL POC Glucose (mg/dL) 169 H (75-99) mg/dL Microbiology - Last 24 Hours (Table) 03/06/20 14:40 Blood Culture - Preliminary Blood No Growth after 48 hours Assessment and Plan Assessment: ASSESSMENT Acute hypoxic hypercapnic respiratory failure Right lower lobe pneumonia-differentials healthcare acquired pneumonia, Covid 19 pneumonia Bradycardia Acute diastolic congestive heart failure Septic shock Hypovolemic hyponatremia Morbid obesity History of GERD History of hypertension PLAN: Patient to be continued on mechanical ventilation. Continue antibiotics in the form of vancomycin and levofloxacin. Patient has been tested negative for coronavirus. Please avoid all beta-blockers as the patient is still bradycardic. Patient sodium is trending up and today it is at 135. We will continue with IV Lasix. Continue with GI DVT prophylaxis. Overall prognosis is guarded. Further recommendations to follow depending on the progress of the patient.
--- NOTE | 2020-03-10 23:14 | P.PN ---
Subjective Progress Note Date: 03/10/20 Principal diagnosis: Acute hypoxic respiratory failure Ms. Carrillo is a 79-year-old female with a past medical history of hypertension brought into the hospital by EMS secondary to shortness of breath after she was on antibiotics at home without relief. In the ER patient was extremely confused and debilitated, found to be bradycardic and hypotensive. Patient was started on dopamine and norepinephrine after placement of central line. And she was transferred to ICU. In the ICU patient went into respiratory failure for which she had to be intubated. Chest x-ray was positive for right lower lobe pneumonia. Patient's labs at the time of admission showed leukocytosis with white count of 15.4, sodium at 122, potassium 5.3. Creatinine was 0.63. She wa s checked for coronavirus, influenza a and B that have been negative. Patient's blood culture from 03/06/2020- so far. On 03/09/2020 -patient is in the ICU. She is intubated and mechanically ventilated. Patient's norepinephrine was discontinued yesterday and she has maintaining her blood pressure without pressor support. She continues to be on vancomycin and levofloxacin. Patient's labs from this morning white count of 10.6 hemoglobin 11.8. Sodium improved to 135. Potassium at 3.7 and creatinine is stable at 0.63. Patient's chest x-ray from this morning showing by basilar airspace disease and bilateral effusions that is slightly worsening. On 03/10/2020 - patient has been successfully extubated. But she still remains in the ICU. As per the nursing staff report patient was having generalized weakness and feels fatigued. She still continues to be on 10 L of oxygen saturating around 95%. Her blood pressure has been running around 1 teens by 40s to 50s. She has been continued on levofloxacin and Zosyn. Active Medications Acetaminophen (Tylenol Tab) 650 mg PO Q4HR PRN PRN Reason: Fever and/or Mild Pain Albuterol Sulfate (Ventolin Hfa Inhaler) 2 puff INHALATION RT-QID PRN PRN Reason: Shortness Of Breath Last Admin: 03/09/20 20:02 Dose: 2 puff Documented by: Aspirin (Aspirin) 81 mg PO DAILY [facility] Last Admin: 03/10/20 08:57 Dose: 81 mg Documented by: Docusate Sodium (Colace Oral Soln) 100 mg PO BID [facility] Last Admin: 03/10/20 08:56 Dose: 100 mg Documented by: Furosemide (Lasix) 40 mg IV Q8HR [facility] Last Admin: 03/10/20 15:33 Dose: 40 mg Documented by: Heparin Sodium (Porcine) (Heparin) 5,000 unit SQ Q8HR [facility] Last Admin: 03/10/20 15:33 Dose: 5,000 unit Documented by: Norepinephrine Bitartrate 8 mg (/ Sodium Chloride) 258 mls @ 13.166 mls/hr IV .[id number] [facility]; Protocol Last Titration: 03/10/20 06:57 Dose: 0 mcg/kg/min, 0 mls/hr Documented by: Dopamine HCl/Dextrose 800 mg/ (IV Solution) 250 mls @ 7.654 mls/hr IV .Q24H [facility] Last Infusion: 03/10/20 16:15 Dose: 2.5 mcg/kg/min, 6.379 mls/hr Documented by: Levofloxacin 500 mg/ IV (Solution) 100 mls @ 100 mls/hr IVPB Q24HR [facility] Last Admin: 03/10/20 08:56 Dose: 100 mls/hr Documented by: Vancomycin HCl 2,250 mg/ (Sodium Chloride) 500 mls @ 167 mls/hr IVPB Q24H [facility] Last Admin: 03/09/20 23:45 Dose: 167 mls/hr Documented by: Potassium Chloride/Sodium Chloride (Ns-Kcl 40 Meq/L Iv Solution) 1,000 mls @ 50 mls/hr IV .Q20H [facility] Last Admin: 03/10/20 04:56 Dose: 50 mls/hr Documented by: Insulin Aspart (Novolog) 0 unit SQ Q6H [facility]; Protocol Last Admin: 03/10/20 17:36 Dose: Not Given Documented by: Miscellaneous Information (Potassium Per Protocol) 1 each MISCELLANE DAILY PRN; Protocol PRN Reason: Per Protocol Multivitamins (Theragran) 1 each PO DAILY [facility] Last Admin: 03/10/20 08:57 Dose: 1 each Documented by: Naloxone HCl (Narcan) 0.2 mg IV Q2M PRN PRN Reason: Opioid Reversal Pantoprazole Sodium (Protonix) 40 mg PO DAILY [facility] Last Admin: 03/10/20 08:57 Dose: 40 mg Documented by: Rik Winnot) 8.6 mg PO BID [facility] Last Admin: 03/10/20 08:57 Dose: 8.6 mg Documented by: Objective - Vital Signs Vital signs: Vital Signs Temp 98.2 F 03/10/20 12:00 Pulse 88 03/10/20 13:30 Resp 17 03/10/20 13:30 BP 99/50 03/09/20 11:45 Pulse Ox 96 03/10/20 13:30 Intake & Output 03/09/20 03/10/20 03/10/20 18:59 06:59 18:59 Intake Total 2093.295 2735.386 600.839 Output Total 4050 4950 350 Balance -0716.705 -2214.614 250.839 Weight 157.2 kg 148.7 kg 148.7 kg Intake: IV 437 1273 272 0.9% NaCl with KCl 40 Meq 550 150 /l 1,000 ml @ 50 mls/hr IV .Q20H [facility] Rx#: [id number] Levofloxacin 500Mg-D5w 100 Pmx 500 mg In Dextrose/ Water 1 100ml.bag @ 100 mls/hr IVPB Q24HR [facility] Rx# :[id number] Normal Saline Pressure 72 72 12 Bag Sodium Chloride 0.9% 1, 365 150 10 000 ml @ 50 mls/hr IV . Q20H [facility] Rx#:[id number] Vancomycin 2,500 mg In 501 Sodium Chloride 0.9% 500 ml 500 ml @ 167 mls/hr IVPB Q18H [facility] Rx#: [id number] Intake, IV Titration 933.295 524.386 139.839 Amount 0.9% NaCl with KCl 40 Meq 375 50 /l 1,000 ml @ 50 mls/hr IV .Q20H [facility] Rx#: [id number] DOPamine DRIP 800 mg In 250 255.652 33.593 Water For Injection 1 250ml.bag @ 3 MCG/KG/MIN 7.654 mls/hr IV .Q24H [facility] Rx#:[id number] Levofloxacin 500Mg-D5w 100 Pmx 500 mg In Dextrose/ Water 1 100ml.bag @ 100 mls/hr IVPB Q24HR [facility] Rx# :[id number] Norepinephrine 8 mg In 16.105 Sodium Chloride 0.9% 250 ml @ 0.05 MCG/KG/MIN 13. 166 mls/hr IV .[id number] [facility] Rx#:[id number] Propofol 1,000 mg In 208.295 202.629 106.246 Empty Bag 1 bag @ Titrate IV .Q0M [facility] Rx#: [id number] Tube Feeding 633 848 159 Other 90 90 30 Output: Urine 4050 4950 350 Other: Voiding Method Indwelling Catheter Indwelling Catheter Indwelling Catheter ABP, PAP, CO, CI - Last Documented Arterial Blood Pressure 106/48 - Exam PHYSICAL EXAM : GENERAL: Elderly female intubated sedated. She is morbidly obese HEENT: ET tube and OG tube in place. CARDIOVASCULAR: Bradycardia. +Systolic murmur PULMONARY: Diminished breath sounds bilaterally along with crackles the bases bilaterally ABDOMEN: Soft. Thick abdominal wall with edema. MUSCULOSKELETAL: No joint swelling or deformity. EXTREMITIES: Pitting pedal edema bilaterally NEUROLOGICAL: Patient is sedated at this time Note: Because of [place] [id number] isolation, some of the history and physical exam findings are indirect and obtained from nursing staff, and other physician examinations to avoid unnecessary contact with the patient. - Labs CBC & Chem 7: 03/10/20 04:45 03/10/20 04:45 Labs: Abnormal Lab Results - Last 24 Hours (Table) 03/09/20 03/10/20 03/10/20 Range/Units 18:03 00:47 04:45 Hgb 11.1 L (11.4-16.0) gm/dL RDW 17.3 H (11.5-15.5) % Neutrophils # 8.2 H (1.3-7.7) k/uL ABG pH (7.35-7.45) ABG pCO2 (35-45) mmHg ABG pO2 (83-108) mmHg ABG HCO3 (21-25) mmol/L ABG Total CO2 (19-24) mmol/L ABG O2 Saturation (94-97) % Sodium (137-145) mmol/L Carbon Dioxide (22-30) mmol/L BUN (7-17) mg/dL Glucose (74-99) mg/dL POC Glucose (mg/dL) 193 H 160 H (75-99) mg/dL 03/10/20 03/10/20 03/10/20 Range/Units 04:45 05:58 08:02 Hgb (11.4-16.0) gm/dL RDW (11.5-15.5) % Neutrophils # (1.3-7.7) k/uL ABG pH 7.48 H (7.35-7.45) ABG pCO2 47 H (35-45) mmHg ABG pO2 122 H (83-108) mmHg ABG HCO3 35 H (21-25) mmol/L ABG Total CO2 36 H (19-24) mmol/L ABG O2 Saturation 97.4 H (94-97) % Sodium 134 L (137-145) mmol/L Carbon Dioxide 32 H (22-30) mmol/L BUN 18 H (7-17) mg/dL Glucose 157 H (74-99) mg/dL POC Glucose (mg/dL) 145 H (75-99) mg/dL 03/10/20 03/10/20 Range/Units 11:36 11:43 Hgb (11.4-16.0) gm/dL RDW (11.5-15.5) % Neutrophils # (1.3-7.7) k/uL ABG pH 7.49 H (7.35-7.45) ABG pCO2 46 H (35-45) mmHg ABG pO2 (83-108) mmHg ABG HCO3 35 H (21-25) mmol/L ABG Total CO2 36 H (19-24) mmol/L ABG O2 Saturation (94-97) % Sodium (137-145) mmol/L Carbon Dioxide (22-30) mmol/L BUN (7-17) mg/dL Glucose (74-99) mg/dL POC Glucose (mg/dL) 172 H (75-99) mg/dL Microbiology - Last 24 Hours (Table) 03/06/20 14:40 Blood Culture - Preliminary Blood No Growth after 72 hours Assessment and Plan Assessment: ASSESSMENT Acute hypoxic hypercapnic respiratory failure - s/p extubation today Right lower lobe pneumonia-differentials healthcare acquired pneumonia, Covid 19 pneumonia Bradycardia Acute diastolic congestive heart failure Septic shock Hypovolemic hyponatremia Morbid obesity History of GERD History of hypertension PLAN: Patient has been successfully extubated. She still remains on 2 L of oxygen via nasal cannula saturating around 95%. To avoid all beta blockers as the patient is still bradycardic. Patient's labs reviewed and CBC within acceptable limits no new changes. Electrolytes are also within normal limits. Antibiotics in the form of vancomycin and levofloxacin. Patient had significant urinary output, will be continuing IV Lasix. Overall prognosis is guarded. Further recommendations to follow depending on the progress of the patient.
[2020-03-10] MEDS: VANCOMYCIN 2,250 MG in SODIUM CHLORIDE 0.9% 500 ML 500 ML IVPB SCH (23:52)
[2020-03-11 00:30] LABS: Glucose,Whole Blood 130 mg/dL (75-99)
[2020-03-11] MEDS: INSULIN ASPART (NovoLOG) 100 UNIT/ML VIAL SQ SCH ×4 (00:55→18:38)
[2020-03-11] MEDS: DOPamine DRIP 800 MG in WATER FOR INJECTION 1 250ML.BAG IV SCH (04:09)
[2020-03-11 04:41] LABS: Anisocytosis Slight; Basophils % (A) 0 %; Eosinophils # (A) 0.1 k/uL (0-0.7); Eosinophils % (A) 1 %; HCT 35.1 % (34.0-46.0); HGB 10.8 gm/dL (11.4-16.0); Hypochromasia Moderate; Lymphocytes # (A) 1.1 k/uL (1.0-4.8); Lymphocytes % (A) 9 %; MCH 26.9 pg (25.0-35.0); MCHC 30.7 g/dL (31.0-37.0); MCV 87.6 fL (80.0-100.0); Mean Platelet Volume 10.2; Monocytes # (A) 0.6 k/uL (0-1.0); Monocytes % (A) 5 %; Neutrophils # (A) 9.9 k/uL (1.3-7.7); Neutrophils % (A) 82 %; Platelet Count 147 k/uL (150-450); RDW 17.2 % (11.5-15.5); WBC 12.1 k/uL (3.8-10.6)
[2020-03-11 04:51] LABS: African American GFR (CKD) >90 (>60 ml/min/1.73 sqM); Anion Gap 4 mmol/L; Blood Urea Nitrogen 16 mg/dL (7-17); Calcium 8.6 mg/dL (8.4-10.2); Carbon Dioxide 34 mmol/L (22-30); Chloride 99 mmol/L (98-107); Glucose 131 mg/dL (74-99); Non-African American GFR(CKD) 83 (>60 ml/min/1.73 sqM); Potassium 3.7 mmol/L (3.5-5.1); Sodium 137 mmol/L (137-145)
[2020-03-11] MEDS ORDERED: POTASSIUM CHLORIDE 20 MEQ in WATER FOR INJECTION 1 100ML.BAG IVPB ONE (06:00)
[2020-03-11 06:25] LABS: Glucose,Whole Blood 131 mg/dL (75-99)
--- NOTE | 2020-03-11 07:33 | XR ---
EXAMINATION TYPE: XR chest 1V portable DATE OF EXAM: 03/11/2020 HISTORY: Shortness of breath. COMPARISON: None. TECHNIQUE: Single view of the chest is submitted. FINDINGS: Endotracheal tube and NG tube have been removed. Right IJ central venous line unchanged in position. Pulmonary venous congestion with perihilar and basilar infiltrates and/or atelectasis and pleural eff usions persist. Underlying infiltrates of other etiology not excluded. Correlate clinically and progr ess studies are advised. The heart is stable. Hilar and mediastinal structures are within normal limits. Degenerative changes are seen of the dorsal spine. IMPRESSION: 1. Pulmonary venous congestion with perihilar and basilar infiltrates and/or atelectasis and pleural effusions persist. Underlying infiltrates of other etiology not excluded. Correlate clinically and p rogress studies are advised.
[2020-03-11] MEDS: LEVOFLOXACIN 500MG-D5W PMX 500 MG in DEXTROSE/WATER 1 100ML.BAG IVPB SCH (08:14)
[2020-03-11] MEDS: SENNOSIDES 8.6 MG TAB PO SCH ×2 (08:15→19:50)
[2020-03-11] MEDS: DOCUSATE ORAL SOLN 100 MG/10 ML CUP PO SCH ×2 (08:15→19:50)
[2020-03-11] MEDS: MULTIVITAMINS, THERA 1 EACH TAB PO SCH (08:15)
[2020-03-11] MEDS: FUROSEMIDE 10 MG/ML 4 ML VIAL IV SCH ×3 (08:15→23:31)
[2020-03-11] MEDS: HEPARIN SODIUM,PORCINE 5,000 UNIT/ML 1 ML VIAL SQ SCH ×3 (08:15→23:31)
[2020-03-11] MEDS: ASPIRIN 81 MG PO SCH (08:15)
[2020-03-11] MEDS: PANTOPRAZOLE 40 MG TABLET PO SCH (08:15)
--- NOTE | 2020-03-11 09:18 | CDI ---
Documentation Clarification Form 2nd Request Date: 03/10/2020 06:31:26 AM From: Gabriela Wnog RN, CCDS Admit Date: 03/06/2020 05:20:00 PM Patient Name: Aria Carrillo Visit Number: [id number] ATTENTION: The Clinical Documentation Specialists (CDI) and [facility] Coding Staff appreciate your assistance in clarifying documentation. Please respond to the clarification below the line at the bottom and electronically sign. The CDI & [facility] Coding staff will review the response and follow-up if needed. Please note: Queries are made part of the Legal Health Record. If you have any questions, please contact the author of this message via ITS. Dr. Edgar Castañeda Healthcare associated Pneumonia was documented in your notes and requires further specificity. History/Risk Factors: Morbid Obesity, Confusion and debilitation and lethargy on admission Clinical Indicators: 03/07- 03/09 Pulmonary Progress note: "Acute hypoxic and hypercapnic respiratory failure Acute right lower lobe pneumonia, likely healthcare acquired pneumonia." 03/08 H&P and Attending Progress Notes: "Acute hypercapnic as well as hypoxic respiratory failure: Most probably patient has severe bronchitis bronchitis associated with morbid obesity and obesity hypoventilation syndrome contributing to her symptoms my suspicion that patient has severe CHF exacerbation patient is being treated for right lower lobe pneumonia as per pulmonology but my suspicion is low for that, low and suspicion for Covid 19 is low." 03/10/20214 Vital signs: HR 84, RR 26, B/P 108/50, Spo2 97% on 45% FIO2 MV 03/06 - 03/10 WBC: 15.4/16.2/12.8/10.6/10.3 03/06 - 03/10 Left shift: 13.6/14/10.6/8.8/8.2 03/09 CXR: "CONTINUING BIBASILAR AIRSPACE DISEASE AND BILATERAL EFFUSIONS." 03/09 Pulmonary Lung/Breathing assessment: Chest: [Symmetrical chest expansion, diminished breath sound bilaterally, crackles and rhonchi also noted bilaterally." Treatment: Antibiotics: Vanco 2,250 mg IVP Q 24 hrs, Levaquin 500 mg IVPB Q 24 hrs O2: 3L NC to Venti mask to Mechanical Vent current FIO2 has been weaned down to Breathing TX: Ventolin HFA 2 Puffs INH QID In order to capture the severity of condition, please clarify if the condition signifies and you are treating for: Aspiration Pneumonia, identify if: Due to solids or liquids Bacterial Pneumonia, specify causal organism (if known) Gram Negative Pneumonia Due to Strep Due to Staph Due to E. coli Other bacteria (please specify) Other, please specify Unable to determine (Last Revision: February 2018) MTDD
--- NOTE | 2020-03-11 09:19 | CDI ---
Documentation Clarification Form 2nd Request Date: 03/10/2020 06:49:54 AM From: Gabriela Wong RN, CCDS Admit Date: 03/06/2020 05:20:00 PM Patient Name: Aria Carrillo Visit Number: [id number] ATTENTION: The Clinical Documentation Specialists (CDI) and [facility] Coding Staff appreciate your assistance in clarifying documentation. Please respond to the clarification below the line at the bottom and electronically sign. The CDI & [facility] Coding staff will review the response and follow-up if needed. Please note: Queries are made part of the Legal Health Record. If you have any questions, please contact the author of this message via ITS. Dr. Edgar Castañeda Altered Mental Status was documented in the Consult and progress notes and requires further specificity. History/Risk Factors: Patient was confused and lethargic upon admission and unable to provide Hx. Currently sedated and on Mechanical ventilation Clinical Indicators: 03/07-03/09 Pulmonary Consult and Progress Note: "Mental status change and confusion. History of present illness: This is an 79-year-old female who was brought into the ER yesterday with confusion, mental status change, shortness of breath for the last several days. Acute hypoxic and hypercapnic respiratory failure. Acute right lower lobe pneumonia, likely healthcare acquired pneumonia. Sepsis and septic shock is strongly suspected, secondary to pneumonia. Obesity/hypoventilation syndrome. Acute diastolic congestive heart failure Bradycardia, atrial fibrillation, being addressed by cardiology." 03/06-03/10 Labs: WBC 10.8/11.2/11.6/11.8/11.1, Neutrophils 13.6/14/10.6/8.8/8.2, NA+ 122/127/135, Glucose 224/114/97/166/157 03/06 CXR:"Diffuse increased pulmonary vascular markings more focal in the right lower lobe. Correlate for volume overload." Treatment: 03/06 1L 0.9% NS IVF Bolus IV Vanco 2,250gm IVPB Q 24 hrs Levaquin 500 mg IVPB Q 24 hrs Lasix 40 mg IVP Q 8 hrs 0.9% NS w/ 40meq KCL @ 50 cc/ hr Levophed Gtt titrate for B/P In your professional opinion, please clarify the etiology of the Altered Mental Status, if known. Metabolic Encephalopathy (specify Underlying Medical Illness) Other condition (please specify) Unable to determine (Last Revision: February 2018) MTDD
[2020-03-11 11:43] LABS: Glucose,Whole Blood 123 mg/dL (75-99)
--- NOTE | 2020-03-11 13:17 | P.PN ---
Subjective Progress Note Date: 03/11/20 On 03/11/2020 patient seen in follow-up in the intensive care unit, she is awake, but confused, generally weak, she was extubated yesterday on 03/10/2020 and she is currently on 3 L of oxygen with a pulse ox of 94%, hemodynamically stable, she is afebrile. Today's chest x-ray was reviewed showing pulmonary venous congestion with perihilar and basilar infiltrates and atelectasis and pleural effusions. Blood culture showed no growth, no sputum culture was sent, urinalysis was negative for any sediment infection, coronavirus was not detected, influenza screen was negative, patient was treated with a combination of levaquin and vancomycin for possibility of underlying infection, however the source is not clear, although there is a possibility of pulmonary infection. His blood work has been reviewed showing white blood cell, 12.1, hemoglobin of 10.8, serum sodium is 137, potassium is 3.7, chloride is 99, CO2 34, B1 of 16 creatinine was 0.69. Patient remains on dopamine which was initially started for bradycardia and hypotension, patient is currently with a heart rate in the 80s and 90s, dopamine remains in place down to 3 mics per kilo per minute, and patient is on IV Lasix of 40 mg every 8 hours. Objective - Vital Signs Vital signs: Vital Signs Temp 97.6 F 03/11/20 04:00 Pulse 92 03/11/20 12:00 Resp 15 03/11/20 12:00 BP 99/50 03/09/20 11:45 Pulse Ox 94 L 03/11/20 12:00 Intake & Output 03/10/20 03/11/20 03/11/20 18:59 06:59 18:59 Intake Total 8565.474 8212.827 272.006 Output Total 3200 4000 2850 Balance -6202.261 -3562.173 -6877.994 Weight 148.7 kg 149.6 kg Intake: IV 749 1170 156 0.9% NaCl with KCl 40 Meq 600 600 150 /l 1,000 ml @ 50 mls/hr IV .Q20H [facility] Rx#: [id number] Levofloxacin 500Mg-D5w 100 Pmx 500 mg In Dextrose/ Water 1 100ml.bag @ 100 mls/hr IVPB Q24HR [facility] Rx# :[id number] Normal Saline Pressure 39 69 6 Bag Sodium Chloride 0.9% 1, 10 000 ml @ 50 mls/hr IV . Q20H [facility] Rx#:[id number] Vancomycin 2,250 mg In 501 Sodium Chloride 0.9% 500 ml 500 ml @ 167 mls/hr IVPB Q24H [facility] Rx#: [id number] Intake, IV Titration 189.739 87.827 116.006 Amount DOPamine DRIP 800 mg In 83.344 87.827 16.006 Water For Injection 1 250ml.bag @ 3 MCG/KG/MIN 7.654 mls/hr IV .Q24H [facility] Rx#:[id number] Levofloxacin 500Mg-D5w 100 Pmx 500 mg In Dextrose/ Water 1 100ml.bag @ 100 mls/hr IVPB Q24HR [facility] Rx# :[id number] Propofol 1,000 mg In 106.395 Empty Bag 1 bag @ Titrate IV .Q0M [facility] Rx#: [id number] Tube Feeding 159 Other 30 Output: Urine 3200 4000 2850 Other: Voiding Method Indwelling Catheter Indwelling Catheter Indwelling Catheter ABP, PAP, CO, CI - Last Documented Arterial Blood Pressure 110/54 - Exam GENERAL EXAM: Alert, generally weak, and confused, white female, on 3 L of oxygen comfortable in no apparent distress. HEAD: Normocephalic/atraumatic. EYES: Normal reaction of pupils, equal size. Conjunctiva pink, sclera white. NOSE: Clear with pink turbinates. THROAT: No erythema or exudates. NECK: No masses, no JVD, no thyroid enlargement, no adenopathy. CHEST: No chest wall deformity. Symmetrical expansion. LUNGS: Equal air entry with bibasilar crackles, but no wheezes CVS: Regular rate and rhythm, normal S1 and S2, no gallops, positive systolic murmur ABDOMEN: Soft, nontender. No hepatosplenomegaly, normal bowel sounds, no guarding or rigidity. EXTREMITIES: No clubbing, no edema, no cyanosis, 2+ pulses and upper and lower extremities. MUSCULOSKELETAL: Muscle strength and tone normal. SPINE: No scoliosis or deformity SKIN: No rashes CENTRAL NERVOUS SYSTEM: Alert and oriented -1. No focal deficits, tone is normal in all 4 extremities. PSYCHIATRIC: Alert and oriented -1. Appropriate affect. Intact judgment and insight. - Labs CBC & Chem 7: 03/11/20 04:30 03/11/20 04:30 Labs: Abnormal Lab Results - Last 24 Hours (Table) 03/10/20 03/11/20 03/11/20 Range/Units 17:20 00:28 04:30 WBC 12.1 H (3.8-10.6) k/uL Hgb 10.8 L (11.4-16.0) gm/dL MCHC 30.7 L (31.0-37.0) g/dL RDW 17.2 H (11.5-15.5) % Plt Count 147 L (150-450) k/uL Neutrophils # 9.9 H (1.3-7.7) k/uL Carbon Dioxide (22-30) mmol/L Glucose (74-99) mg/dL POC Glucose (mg/dL) 138 H 130 H (75-99) mg/dL 03/11/20 03/11/20 03/11/20 Range/Units 04:30 06:23 11:42 WBC (3.8-10.6) k/uL Hgb (11.4-16.0) gm/dL MCHC (31.0-37.0) g/dL RDW (11.5-15.5) % Plt Count (150-450) k/uL Neutrophils # (1.3-7.7) k/uL Carbon Dioxide 34 H (22-30) mmol/L Glucose 131 H (74-99) mg/dL POC Glucose (mg/dL) 131 H 123 H (75-99) mg/dL Microbiology - Last 24 Hours (Table) 03/06/20 14:40 Blood Culture - Preliminary Blood No Growth after 96 hours Assessment and Plan Plan: Assessment: Acute hypoxic and hypercapnic respiratory failure, requiring intubation on 03/06/2020, and patient was successfully extubated on 03/10/2020 Acute right lower lobe pneumonia, exact etiology of the pneumonia is not clear, could be aspiration, could be healthcare acquired pneumonia, could be community- acquired pneumonia, I cannot be certain. And it is unknown. And definitely cannot tell if this is aspiration of solids or liquids could be either or. If it is truly aspiration pneumonia. Cultures of blood have been nondiagnostic. Sepsis and septic shock is strongly suspected. Resolved.. Obesity/hypoventilation syndrome., If the patient is to be extubated, she will need BiPAP at bedside. Acute diastolic congestive heart failure is strongly suspected, patient improved mostly with diuretics. Bradycardia, atrial fibrillation, remains on dopamine at 2.5 mcg/kg/m, and I may discontinue dopamine in the next 24 hours. Patient is off norepinephrine. Morbid obesity. History of hypertension. History of underlying COPD. History of GERD. Negative for covid 19 pneumonitis. Plan: Continue current antibiotics, vancomycin has been discontinued, patient continues on Levaquin, blood cultures have shown no growth, vital signs are s table, patient is afebrile, remains on small dose of dopamine. Continue with the diuretics, today's chest x-ray has been reviewed still showing means of fluid volume overload. Acute intake and output, daily labs, electrolytes and renal profile, follow-up chest x-ray in the morning, increase activity as tolerated, maintain aspiration precautions I performed a history & physical examination of the patient and discussed their management with my nurse practitioner, Joana Rodríguez. I reviewed the nurse practitioner's note and agree with the documented findings and plan of care. Lung sounds are positive for diminished breath sounds with bibasilar crackles. The findings and the impression was discussed with the patient. I attest to the documentation by the nurse practitioner. Time with Patient: Less than 30
[2020-03-11 17:22] LABS: Glucose,Whole Blood 156 mg/dL (75-99)
--- NOTE | 2020-03-11 20:12 | P.PN ---
Subjective Progress Note Date: 03/11/20 Principal diagnosis: Acute hypoxic respiratory failure Ms. Carrillo is a 79-year-old female with a past medical history of hypertension brought into the hospital by EMS secondary to shortness of breath after she was on antibiotics at home without relief. In the ER patient was extremely confused and debilitated, found to be bradycardic and hypotensive. Patient was started on dopamine and norepinephrine after placement of central line. And she was transferred to ICU. In the ICU patient went into respiratory failure for which she had to be intubated. Chest x-ray was positive for right lower lobe pneumonia. Patient's labs at the time of admission showed leukocytosis with white count of 15.4, sodium at 122, potassium 5.3. Creatinine was 0.63. She wa s checked for coronavirus, influenza a and B that have been negative. Patient's blood culture from 03/06/2020- so far. On 03/09/2020 -patient is in the ICU. She is intubated and mechanically ventilated. Patient's norepinephrine was discontinued yesterday and she has maintaining her blood pressure without pressor support. She continues to be on vancomycin and levofloxacin. Patient's labs from this morning white count of 10.6 hemoglobin 11.8. Sodium improved to 135. Potassium at 3.7 and creatinine is stable at 0.63. Patient's chest x-ray from this morning showing by basilar airspace disease and bilateral effusions that is slightly worsening. On 03/10/2020 - patient has been successfully extubated. But she still remains in the ICU. As per the nursing staff report patient was having generalized weakness and feels fatigued. She still continues to be on 10 L of oxygen saturating around 95%. Her blood pressure has been running around 1 teens by 40s to 50s. She has been continued on levofloxacin and Zosyn. On 03/11/2020 - Patient has been successfully extubated yesterday. She is on 3 L of oxygen via nasal cannula and saturating in low 90s. Patient's vitals are reviewed and the blood pressure is within normal limits. Chest x-ray showing pulmonary venous congestion with perihilar and basilar infiltrates and atelectasis along with mild pleural effusion. Blood cultures have been negative so far. Patient's labs have been reviewed. As per the nursing staff report, patient has been having a lot of urinary output. She has a Strauss's catheter in place. Active Medications Acetaminophen (Tylenol Tab) 650 mg PO Q4HR PRN PRN Reason: Fever and/or Mild Pain Albuterol Sulfate (Ventolin Hfa Inhaler) 2 puff INHALATION RT-QID PRN PRN Reason: Shortness Of Breath Last Admin: 03/09/20 20:02 Dose: 2 puff Documented by: Aspirin (Aspirin) 81 mg PO DAILY [facility] Last Admin: 03/11/20 08:15 Dose: 81 mg Documented by: Docusate Sodium (Colace Oral Soln) 100 mg PO BID [facility] Last Admin: 03/11/20 19:50 Dose: 100 mg Documented by: Furosemide (Lasix) 40 mg IV Q8HR [facility] Last Admin: 03/11/20 16:49 Dose: 40 mg Documented by: Heparin Sodium (Porcine) (Heparin) 5,000 unit SQ Q8HR [facility] Last Admin: 03/11/20 16:49 Dose: 5,000 unit Documented by: Dopamine HCl/Dextrose 800 mg/ (IV Solution) 250 mls @ 7.654 mls/hr IV .Q24H [facility] Last Infusion: 03/11/20 16:00 Dose: 0 mcg/kg/min, 0 mls/hr Documented by: Levofloxacin 500 mg/ IV (Solution) 100 mls @ 100 mls/hr IVPB Q24HR [facility] Stop: 03/14/20 09:01 Last Admin: 03/11/20 08:14 Dose: 100 mls/hr Documented by: Potassium Chloride/Sodium Chloride (Ns-Kcl 40 Meq/L Iv Solution) 1,000 mls @ 50 mls/hr IV .Q20H [facility] Last Admin: 03/10/20 23:55 Dose: 50 mls/hr Documented by: Insulin Aspart (Novolog) 0 unit SQ Q6H [facility]; Protocol Last Admin: 03/11/20 18:38 Dose: 2 unit Documented by: Miscellaneous Information (Potassium Per Protocol) 1 each MISCELLANE DAILY PRN; Protocol PRN Reason: Per Protocol Multivitamins (Theragran) 1 each PO DAILY [facility] Last Admin: 03/11/20 08:15 Dose: 1 each Documented by: Naloxone HCl (Narcan) 0.2 mg IV Q2M PRN PRN Reason: Opioid Reversal Pantoprazole Sodium (Protonix) 40 mg PO DAILY [facility] Last Admin: 03/11/20 08:15 Dose: 40 mg Documented by: Rik (Javedokot) 8.6 mg PO BID [facility] Last Admin: 03/11/20 19:50 Dose: 8.6 mg Documented by: Objective - Vital Signs Vital signs: Vital Signs Temp 98.3 F 03/11/20 16:30 Pulse 79 03/11/20 19:00 Resp 16 03/11/20 19:00 BP 133/75 03/11/20 19:00 Pulse Ox 95 03/11/20 19:00 Intake & Output 03/11/20 03/11/20 03/12/20 06:59 18:59 06:59 Intake Total 1257.827 376.599 50 Output Total 4000 4350 Balance -2742.173 -3973.401 50 Weight 149.6 kg Intake: IV 1170 256 50 0.9% NaCl with KCl 40 Meq 600 250 50 /l 1,000 ml @ 50 mls/hr IV .Q20H [facility] Rx#: [id number] Normal Saline Pressure 69 6 Bag Vancomycin 2,250 mg In 501 Sodium Chloride 0.9% 500 ml 500 ml @ 167 mls/hr IVPB Q24H [facility] Rx#: [id number] Intake, IV Titration 87.827 120.599 Amount DOPamine DRIP 800 mg In 87.827 20.599 Water For Injection 1 250ml.bag @ 3 MCG/KG/MIN 7.654 mls/hr IV .Q24H [facility] Rx#:[id number] Levofloxacin 500Mg-D5w 100 Pmx 500 mg In Dextrose/ Water 1 100ml.bag @ 100 mls/hr IVPB Q24HR [facility] Rx# :[id number] Output: Urine 4000 4350 Other: Voiding Method Indwelling Catheter Indwelling Catheter ABP, PAP, CO, CI - Last Documented Arterial Blood Pressure 130/58 - Exam PHYSICAL EXAM : GENERAL: She is morbidly obese sitting up in a chair by the bed side. HEENT: ET tube and OG tube in place. CARDIOVASCULAR: Bradycardia. +Systolic murmur PULMONARY: Diminished breath sounds bilaterally along with crackles the bases bilaterally ABDOMEN: Soft. Thick abdominal wall with edema. MUSCULOSKELETAL: No joint swelling or deformity. EXTREMITIES: Pitting pedal edema bilaterally Note: Because of COVID 19 isolation, some of the history and physical exam findings are indirect and obtained from nursing staff, and other physician examinations to avoid unnecessary contact with the patient. - Labs CBC & Chem 7: 03/11/20 04:30 03/11/20 04:30 Labs: Abnormal Lab Results - Last 24 Hours (Table) 03/11/20 03/11/20 03/11/20 Range/Units 00:28 04:30 04:30 WBC 12.1 H (3.8-10.6) k/uL Hgb 10.8 L (11.4-16.0) gm/dL MCHC 30.7 L (31.0-37.0) g/dL RDW 17.2 H (11.5-15.5) % Plt Count 147 L (150-450) k/uL Neutrophils # 9.9 H (1.3-7.7) k/uL Carbon Dioxide 34 H (22-30) mmol/L Glucose 131 H (74-99) mg/dL POC Glucose (mg/dL) 130 H (75-99) mg/dL 03/11/20 03/11/20 03/11/20 Range/Units 06:23 11:42 17:21 WBC (3.8-10.6) k/uL Hgb (11.4-16.0) gm/dL MCHC (31.0-37.0) g/dL RDW (11.5-15.5) % Plt Count (150-450) k/uL Neutrophils # (1.3-7.7) k/uL Carbon Dioxide (22-30) mmol/L Glucose (74-99) mg/dL POC Glucose (mg/dL) 131 H 123 H 156 H (75-99) mg/dL Microbiology - Last 24 Hours (Table) 03/06/20 14:40 Blood Culture - Preliminary Blood No Growth after 120 hours Assessment and Plan Assessment: ASSESSMENT Acute hypoxic hypercapnic respiratory failure - s/p extubation yesterday Right lower lobe pneumonia-differentials healthcare acquired pneumonia, Covid 19 pneumonia Bradycardia Acute diastolic congestive heart failure Septic shock Hypovolemic hyponatremia Morbid obesity History of GERD History of hypertension PLAN: Patient has been successfully extubated yesterday . She still remains on 3 L of oxygen via nasal cannula saturating around 95%. To avoid all beta blockers as the patient is still bradycardic. Antibiotics in the form of vancomycin and levofloxacin. Patient had significant urinary output, will be continuing IV Lasix. Overall prognosis is guarded. Further recommendations to follow depending on the progress of the patient.
[2020-03-11] MEDS: 0.9% NACL WITH KCL 40 MEQ/L 1,000 ML IV SCH (22:43)
[2020-03-11 23:38] LABS: Glucose,Whole Blood 131 mg/dL (75-99)
[2020-03-12] MEDS: INSULIN ASPART (NovoLOG) 100 UNIT/ML VIAL SQ SCH ×4 (02:59→17:34)
[2020-03-12 04:36] LABS: Anisocytosis Slight; Basophils % (A) 0 %; Eosinophils # (A) 0.1 k/uL (0-0.7); Eosinophils % (A) 0 %; HCT 35.2 % (34.0-46.0); HGB 10.8 gm/dL (11.4-16.0); Hypochromasia Moderate; Lymphocytes # (A) 1.2 k/uL (1.0-4.8); Lymphocytes % (A) 11 %; MCH 26.9 pg (25.0-35.0); MCHC 30.5 g/dL (31.0-37.0); MCV 88.1 fL (80.0-100.0); Mean Platelet Volume 8.3; Monocytes # (A) 0.8 k/uL (0-1.0); Monocytes % (A) 8 %; Neutrophils # (A) 7.8 k/uL (1.3-7.7); Neutrophils % (A) 76 %; Platelet Count 150 k/uL (150-450); RDW 16.9 % (11.5-15.5); WBC 10.3 k/uL (3.8-10.6)
[2020-03-12 04:53] LABS: Calcium 9.1 mg/dL (8.4-10.2); Potassium 3.7 mmol/L (3.5-5.1)
[2020-03-12] MEDS ORDERED: POTASSIUM CHLORIDE 20 MEQ in WATER FOR INJECTION 1 100ML.BAG IVPB STA (05:41)
[2020-03-12 06:03] LABS: Glucose,Whole Blood 108 mg/dL (75-99)
--- NOTE | 2020-03-12 07:14 | XR ---
EXAMINATION TYPE: XR chest 1V portable DATE OF EXAM: 03/12/2020 COMPARISON: 03/11/2020 HISTORY: Shortness of breath FINDINGS: There are bilateral pleural effusions with cardiomegaly and bibasilar infiltrate. There is a diffuse interstitial pattern. Central line stable tip overlying the right atrium. Atherosclerotic change aor ta. No sizable pneumothorax. Lung apices not included on the exam. Prominence of the hilum bilaterall y, underlying mass or adenopathy in the differential diagnosis. IMPRESSION: 1. Correlate for CHF otherwise consider pneumonia. Bilateral hilar enlargement stable.
[2020-03-12] MEDS: HEPARIN SODIUM,PORCINE 5,000 UNIT/ML 1 ML VIAL SQ SCH ×2 (09:16→17:24)
[2020-03-12] MEDS: ASPIRIN 81 MG PO SCH (09:16)
[2020-03-12] MEDS: PANTOPRAZOLE 40 MG TABLET PO SCH (09:16)
[2020-03-12] MEDS: FUROSEMIDE 10 MG/ML 4 ML VIAL IV SCH ×2 (09:16→17:23)
[2020-03-12] MEDS: SENNOSIDES 8.6 MG TAB PO SCH ×2 (09:16→20:16)
[2020-03-12] MEDS: MULTIVITAMINS, THERA 1 EACH TAB PO SCH (09:16)
[2020-03-12] MEDS: DOCUSATE ORAL SOLN 100 MG/10 ML CUP PO SCH ×3 (09:17→20:25)
[2020-03-12] MEDS: LEVOFLOXACIN 500MG-D5W PMX 500 MG in DEXTROSE/WATER 1 100ML.BAG IVPB SCH (09:24)
--- NOTE | 2020-03-12 12:14 | P.PN ---
Subjective Progress Note Date: 03/12/20 On 03/11/2020 patient seen in follow-up in the intensive care unit, she is awake, but confused, generally weak, she was extubated yesterday on 03/10/2020 and she is currently on 3 L of oxygen with a pulse ox of 94%, hemodynamically stable, she is afebrile. Today's chest x-ray was reviewed showing pulmonary venous congestion with perihilar and basilar infiltrates and atelectasis and pleural effusions. Blood culture showed no growth, no sputum culture was sent, urinalysis was negative for any sediment infection, coronavirus was not detected, influenza screen was negative, patient was treated with a combination of levaquin and vancomycin for possibility of underlying infection, however the source is not clear, although there is a possibility of pulmonary infection. His blood work has been reviewed showing white blood cell, 12.1, hemoglobin of 10.8, serum sodium is 137, potassium is 3.7, chloride is 99, CO2 34, B1 of 16 creatinine was 0.69. Patient remains on dopamine which was initially started for bradycardia and hypotension, patient is currently with a heart rate in the 80s and 90s, dopamine remains in place down to 3 mics per kilo per minute, and patient is on IV Lasix of 40 mg every 8 hours. On 03/12/2020 patient seen in follow-up in the intensive care unit, she is resting in bed, she is currently on 5 L of oxygen, and her pulse oximetry 94%, hemodynamically she is stable, afebrile, she does have an extremely weak cough, and there is audible congestion. Patient has been nothing by mouth in view of possibility of aspiration, and she is supposed to be reevaluated by speech t herapy today. Yesterday patient apparently was aphonic, and quite weak, with a week congested cough. She may need modified barium swallow, but according to the speech therapy her voice quality is stronger on today's exam, however the recommendations to keep the patient nothing by mouth right now. Today's follow- up chest x-ray shows bilateral hilar enlargement and diffuse interstitial prominence. He remains on IV Lasix at 40 mg every 8 hours, and she has produced copious amounts of urine, and she is in -7100 mL fluid balance over the last 24 hours. Fluid volume status is improving, she is breathing easier, maintenance IV fluids are 0.9 normal saline with 40 of potassium chloride at a rate of 50 ML per hour which we can cut back to 10 ML per hour or Hep-Lock the patient, dopamine has been off since 1599 yesterday. Objective - Vital Signs Vital signs: Vital Signs Temp 97.6 F 03/12/20 12:00 Pulse 81 03/12/20 12:00 Resp 26 H 03/12/20 12:00 BP 106/55 03/12/20 12:00 Pulse Ox 94 L 03/12/20 12:00 Intake & Output 03/11/20 03/12/20 03/12/20 18:59 06:59 18:59 Intake Total 376.599 616 296 Output Total 4350 3750 2220 Balance -3973.401 -6902 -9231 Weight 143 kg 143 kg Intake: IV 256 616 296 0.9% NaCl with KCl 40 Meq 250 550 260 /l 1,000 ml @ 50 mls/hr IV .Q20H [facility] Rx#: [id number] Normal Saline Pressure 6 66 36 Bag Intake, IV Titration 120.599 Amount DOPamine DRIP 800 mg In 20.599 Water For Injection 1 250ml.bag @ 3 MCG/KG/MIN 7.654 mls/hr IV .Q24H [facility] Rx#:[id number] Levofloxacin 500Mg-D5w 100 Pmx 500 mg In Dextrose/ Water 1 100ml.bag @ 100 mls/hr IVPB Q24HR [facility] Rx# :[id number] Output: Urine 4350 3750 2220 Other: Voiding Method Indwelling Catheter Indwelling Catheter Indwelling Catheter ABP, PAP, CO, CI - Last Documented Arterial Blood Pressure 118/61 - Exam GENERAL EXAM: Alert, generally weak, and confused, white female, on 5 L of oxygen comfortable in no apparent distress. Patient has a weak congested cough HEAD: Normocephalic/atraumatic. EYES: Normal reaction of pupils, equal size. Conjunctiva pink, sclera white. NOSE: Clear with pink turbinates. THROAT: No erythema or exudates. NECK: No masses, no JVD, no thyroid enlargement, no adenopathy. CHEST: No chest wall deformity. Symmetrical expansion. LUNGS: Equal air entry with bibasilar crackles, but no wheezes CVS: Regular rate and rhythm, normal S1 and S2, no gallops, positive systolic murmur ABDOMEN: Soft, nontender. No hepatosplenomegaly, normal bowel sounds, no guarding or rigidity. EXTREMITIES: No clubbing, no edema, no cyanosis, 2+ pulses and upper and lower extremities. MUSCULOSKELETAL: Muscle strength and tone normal. SPINE: No scoliosis or deformity SKIN: No rashes CENTRAL NERVOUS SYSTEM: Alert and oriented -1. No focal deficits, tone is normal in all 4 extremities. PSYCHIATRIC: Alert and oriented -1. Appropriate affect. Intact judgment and insight. - Labs CBC & Chem 7: 03/12/20 03:55 03/12/20 03:55 Labs: Abnormal Lab Results - Last 24 Hours (Table) 03/11/20 03/11/20 03/12/20 Range/Units 17:21 23:36 03:55 Hgb 10.8 L (11.4-16.0) gm/dL MCHC 30.5 L (31.0-37.0) g/dL RDW 16.9 H (11.5-15.5) % Neutrophils # 7.8 H (1.3-7.7) k/uL Carbon Dioxide (22-30) mmol/L Glucose (74-99) mg/dL POC Glucose (mg/dL) 156 H 131 H (75-99) mg/dL 03/12/20 03/12/20 Range/Units 03:55 06:02 Hgb (11.4-16.0) gm/dL MCHC (31.0-37.0) g/dL RDW (11.5-15.5) % Neutrophils # (1.3-7.7) k/uL Carbon Dioxide 33 H (22-30) mmol/L Glucose 119 H (74-99) mg/dL POC Glucose (mg/dL) 108 H (75-99) mg/dL Microbiology - Last 24 Hours (Table) 03/06/20 14:40 Blood Culture - Preliminary Blood No Growth after 120 hours Assessment and Plan Plan: Assessment: #1. Acute hypoxic and hypercapnic respiratory failure, requiring intubation on 03/06/2020, and patient was successfully extubated on 03/10/2020 #2. Acute right lower lobe pneumonia, exact etiology of the pneumonia is not clear, could be aspiration, could be healthcare acquired pneumonia, could be community-acquired pneumonia, I cannot be certain. And it is unknown. And definitely cannot tell if this is aspiration of solids or liquids could be either or. If it is truly aspiration pneumonia. Cultures of blood have been nondiagnostic. #3. Sepsis and septic shock is strongly suspected. Resolved. #4. Obesity/hypoventilation syndrome. #5. Acute diastolic congestive heart failure is strongly suspected, patient imp roved mostly with diuretics. #6. Bradycardia, atrial fibrillation, remains on dopamine at 2.5 mcg/kg/m, and I may discontinue dopamine in the next 24 hours. Patient is off norepinephrine. #7. Morbid obesity. #8. History of hypertension. #9. History of underlying COPD. #10. History of GERD. #11. Negative for covid 19 pneumonitis. Plan: Continue current antibiotics, patient has been reevaluated by speech therapy for dysphonia, and possibility of aspiration. Her voice: He is stronger today however she still remains a risk for silent aspiration, she may need modified barium swallow in another 24 hours. Maintain aspiration precautions, keep patient nothing by mouth, cut back to IV fluids to 10 ML per hour, continue with IV diuretics for another 24 hours, repeat electrolytes and renal profile in the morning, follow-up chest x-ray, dopamine has been weaned off, and patient is no longer bradycardic, she's been afebrile. Head of bed up 30, GI and DVT prophylaxis. A continued to be monitored in the intensive care unit, will follow I performed a history & physical examination of the patient and discussed their management with my nurse practitioner, Joana Rodríguez. I reviewed the nurse practitioner's note and agree with the documented findings and plan of care. Lung sounds are positive for diminished breath sounds with bibasilar crackles. The findings and the impression was discussed with the patient. I attest to the documentation by the nurse practitioner. Time with Patient: Less than 30
[2020-03-12 12:17] LABS: Glucose,Whole Blood 145 mg/dL (75-99)
[2020-03-12 12:36] LABS: Glucose,Whole Blood 150 mg/dL (75-99)
[2020-03-12 17:33] LABS: Glucose,Whole Blood 125 mg/dL (75-99)
--- NOTE | 2020-03-12 17:48 | P.PN ---
Subjective Ms. Carrillo is a 79-year-old female with a past medical history of hypertension brought into the hospital by EMS secondary to shortness of breath after she was on antibiotics at home without relief. In the ER patient was extremely confused and debilitated, found to be bradycardic and hypotensive. Patient was started on dopamine and norepinephrine after placement of central line. And she was transferred to ICU. In the ICU patient went into respiratory failure for which she had to be intubated. Chest x-ray was positive for right lower lobe pneumonia. Patient's labs at the time of admission showed leukocytosis with white count of 15.4, sodium at 122, potassium 5.3. Creatinine was 0.63. She was checked for coronavirus, influenza a and B that have been negative. Patient's blood culture from 03/06/2020- so far. On 03/09/2020 -patient is in the ICU. She is intubated and mechanically ventilated. Patient's norepinephrine was discontinued yesterday and she has maintaining her blood pressure without pressor support. She continues to be on vancomycin and levofloxacin. Patient's labs from this morning white count of 10.6 hemoglobin 11.8. Sodium improved to 135. Potassium at 3.7 and creatinine is stable at 0.63. Patient's chest x-ray from this morning showing by basilar airspace disease and bilateral effusions that is slightly worsening. On 03/10/2020 - patient has been successfully extubated. But she still remains in the ICU. As per the nursing staff report patient was having generalized weakness and feels fatigued. She still continues to be on 10 L of oxygen saturating around 95%. Her blood pressure has been running around 1 teens by 40s to 50s. She has been continued on levofloxacin and Zosyn. On 03/11/2020 - Patient has been successfully extubated yesterday. She is on 3 L of oxygen via nasal cannula and saturating in low 90s. Patient's vitals are reviewed and the blood pressure is within normal limits. Chest x-ray showing pulmonary venous congestion with perihilar and basilar infiltrates and atelectas is along with mild pleural effusion. Blood cultures have been negative so far. Patient's labs have been reviewed. As per the nursing staff report, patient has been having a lot of urinary output. She has a Strauss's catheter in place. 03/12/2020 Patient remains in the ICU, she was admitted on 03/07/24 hypotension and bradycardia, sewn after that she was placed on pressors and found to have septic shock secondary to right pneumonia, mostly community acquired pneumonia with superimposed acute diastolic heart failure. Patient was recently extubated and currently she is saturating at 90 on BiPAP with oxygen via nasal cannula She has atrial fibrillation with bradycardia which is resolved and her dopamine drip was stopped now. She is lying in bed, quite not in respiratory distress. The so vitals are stable. And lassitude and CBC, BMP were unremarkable Patient is planned to have a swallow evaluation Review of systems CONSTITUTIONAL: No fever, no malaise, no fatigue. HEENT: No recent visual problems or hearing problems. Denied any sore throat. GASTROINTESTINAL: No diarrhea, no nausea, no vomiting, no abdominal pain. Normoactive bowel sounds. NEUROLOGICAL: No headaches, no weakness, no numbness. HEMATOLOGICAL: Denies any bleeding or petechiae. GENITOURINARY: Denies any burning micturition, frequency, or urgency. MUSCULOSKELETAL/RHEUMATOLOGICAL: Denies any joint pain, swelling, or any muscle pain. ENDOCRINE: Denies any polyuria or polydipsia. Active Medications Generic Name Dose Route Start Last Admin Trade Name Freq PRN Reason Stop Dose Admin Acetaminophen 650 mg 03/06/20 17:20 Tylenol Tab PO Q4HR PRN Fever and/or Mild Pain Albuterol Sulfate 2 puff 03/06/20 17:26 03/09/20 20:02 Ventolin Hfa Inhaler INHALATION 2 puff RT-QID PRN Administration Shortness Of Breath Aspirin 81 mg 03/07/20 09:00 03/12/20 09:16 Aspirin PO 81 mg DAILY JEF Administration Docusate Sodium 100 mg 03/09/20 21:00 03/12/20 09:17 Colace Oral Soln PO 100 mg BID JEF Administration Furosemide 40 mg 03/07/20 08:00 03/12/20 17:23 Lasix IV 40 mg Q8HR JEF Administration Heparin Sodium (Porcine) 5,000 unit 03/07/20 16:00 03/12/20 17:24 Heparin SQ 5,000 unit Q8HR JEF Administration Dopamine HCl/Dextrose 800 mg/ 250 mls @ 7.654 mls/hr 03/07/20 07:00 03/11/20 16:00 IV Solution IV 0 mcg/kg/min .Q24H JEF 0 mls/hr Infusion 3 MCG/KG/MIN Levofloxacin 500 mg/ IV 100 mls @ 100 mls/hr 03/07/20 09:00 03/12/20 09:24 Solution IVPB 03/14/20 09:01 100 mls/hr Q24HR JEF Administration Insulin Aspart 0 unit 03/07/20 00:00 03/12/20 17:34 Novolog SQ Not Given Q6H JEF Protocol Miscellaneous Information 1 each 03/08/20 05:56 Potassium Per Protocol MISCELLANE DAILY PRN Per Protocol Protocol Multivitamins 1 each 03/07/20 09:00 03/12/20 09:16 Theragran PO 1 each DAILY JEF Administration Naloxone HCl 0.2 mg 03/06/20 17:20 Narcan IV Q2M PRN Opioid Reversal Pantoprazole Sodium 40 mg 03/07/20 09:00 03/12/20 09:16 Protonix PO 40 mg DAILY JEF Administration Senna 8.6 mg 03/09/20 21:00 03/12/20 09:16 Senokot PO 8.6 mg BID JEF Administration Objective - Vital Signs Vital signs: Vital Signs Temp 98 F 03/12/20 16:00 Pulse 93 03/12/20 17:00 Resp 23 03/12/20 17:00 BP 114/59 03/12/20 17:00 Pulse Ox 94 L 03/12/20 17:00 Intake & Output 03/11/20 03/12/20 03/12/20 18:59 06:59 18:59 Intake Total 376.599 616 376 Output Total 0960 2280 4775 Balance -3973.401 -7390 -8473 Weight 143 kg 143 kg Intake: IV 256 616 376 0.9% NaCl with KCl 40 Meq 250 550 310 /l 1,000 ml @ 50 mls/hr IV .Q20H JEF Rx#: [id number] Normal Saline Pressure 6 66 66 Bag Intake, IV Titration 120.599 Amount DOPamine DRIP 800 mg In 20.599 Water For Injection 1 250ml.bag @ 3 MCG/KG/MIN 7.654 mls/hr IV .Q24H JEF Rx#:[id number] Levofloxacin 500Mg-D5w 100 Pmx 500 mg In Dextrose/ Water 1 100ml.bag @ 100 mls/hr IVPB Q24HR [facility] Rx# :[id number] Output: Urine 4358 9321 0145 Other: Voiding Method Indwelling Catheter Indwelling Catheter Indwelling Catheter ABP, PAP, CO, CI - Last Documented Arterial Blood Pressure 135/64 - Exam GENERAL: The patient is alert and oriented x3, not in any acute distress. Well developed, well nourished. HEENT: Pupils are round and equally reacting to light. EOMI. No scleral icterus. No conjunctival pallor. Normocephalic, atraumatic. No pharyngeal erythema. No thyromegaly. CARDIOVASCULAR: S1 and S2 present. No murmurs, rubs, or gallops. PULMONARY: Chest is clear to auscultation, no wheezing or crackles. ABDOMEN: Soft, nontender, nondistended, normoactive bowel sounds. No palpable organomegaly. MUSCULOSKELETAL: No joint swelling or deformity. EXTREMITIES: No cyanosis, clubbing, or pedal edema. NEUROLOGICAL: Gross neurological examination did not reveal any focal deficits. SKIN: No rashes. no petechiae. - Labs CBC & Chem 7: 03/12/20 03:55 03/12/20 03:55 Labs: Abnormal Lab Results - Last 24 Hours (Table) 03/11/20 03/12/20 03/12/20 Range/Units 23:36 03:55 03:55 Hgb 10.8 L (11.4-16.0) gm/dL MCHC 30.5 L (31.0-37.0) g/dL RDW 16.9 H (11.5-15.5) % Neutrophils # 7.8 H (1.3-7.7) k/uL Carbon Dioxide 33 H (22-30) mmol/L Glucose 119 H (74-99) mg/dL POC Glucose (mg/dL) 131 H (75-99) mg/dL 03/12/20 03/12/20 03/12/20 Range/Units 06:02 12:15 12:34 Hgb (11.4-16.0) gm/dL MCHC (31.0-37.0) g/dL RDW (11.5-15.5) % Neutrophils # (1.3-7.7) k/uL Carbon Dioxide (22-30) mmol/L Glucose (74-99) mg/dL POC Glucose (mg/dL) 108 H 145 H 150 H (75-99) mg/dL 03/12/20 Range/Units 17:32 Hgb (11.4-16.0) gm/dL MCHC (31.0-37.0) g/dL RDW (11.5-15.5) % Neutrophils # (1.3-7.7) k/uL Carbon Dioxide (22-30) mmol/L Glucose (74-99) mg/dL POC Glucose (mg/dL) 125 H (75-99) mg/dL Microbiology - Last 24 Hours (Table) 03/06/20 14:40 Blood Culture - Final Blood No Growth after 144 hours Assessment and Plan Assessment: Acute hypoxic hypercapnic respiratory failure - s/p extubation Right lower lobe pneumonia-differentials healthcare acquired pneumonia Bradycardia, improved Acute diastolic congestive heart failure Septic shock . Improved Hypovolemic hyponatremia. Improved Morbid obesity History of GERD History of hypertension Plan: This is a pleasant 7 years old female who presents with pneumonia. Continue with Levaquin, continue with gentle hydration, patient plans for swallow evaluation given her prolonged intubation. Also she is on Lasix intravenously. Labs and medication were reviewed.. Continue same treatment. Continue with symptomatic treatment. Resume home medication. Monitor lytes and vitals. DVT and GI prophylaxis. Further recommendations of the clinical course of the patient DVT prophylaxis: Subcutaneous heparin GI Prophylaxis: Ppi
[2020-03-12] MEDS: ALBUTEROL HFA INHALER INHALATION PRN (21:16)
[2020-03-13] MEDS: FUROSEMIDE 10 MG/ML 4 ML VIAL IV SCH ×3 (00:04→20:11)
[2020-03-13] MEDS: HEPARIN SODIUM,PORCINE 5,000 UNIT/ML 1 ML VIAL SQ SCH ×4 (00:04→23:58)
[2020-03-13 00:05] LABS: Glucose,Whole Blood 146 mg/dL (75-99)
[2020-03-13] MEDS: INSULIN ASPART (NovoLOG) 100 UNIT/ML VIAL SQ SCH ×5 (00:05→18:09)
[2020-03-13] MEDS: DOPamine DRIP 800 MG in WATER FOR INJECTION 1 250ML.BAG IV SCH (03:08)
[2020-03-13 05:00] LABS: Calcium 9.2 mg/dL (8.4-10.2); Potassium 3.5 mmol/L (3.5-5.1)
[2020-03-13 05:01] LABS: Anisocytosis Slight; Basophils % (A) 0 %; Eosinophils # (A) 0.1 k/uL (0-0.7); Eosinophils % (A) 0 %; HCT 35.9 % (34.0-46.0); HGB 11.2 gm/dL (11.4-16.0); Hypochromasia Moderate; Lymphocytes # (A) 1.4 k/uL (1.0-4.8); Lymphocytes % (A) 11 %; MCH 27.4 pg (25.0-35.0); MCHC 31.3 g/dL (31.0-37.0); MCV 87.4 fL (80.0-100.0); Mean Platelet Volume 8.3; Monocytes % (A) 8 %; Neutrophils # (A) 9.5 k/uL (1.3-7.7); Neutrophils % (A) 76 %; Platelet Count 165 k/uL (150-450); RBC 4.11 m/uL (3.80-5.40); RDW 16.8 % (11.5-15.5); WBC 12.5 k/uL (3.8-10.6)
[2020-03-13] MEDS: POTASSIUM CHLORIDE 20 MEQ in WATER FOR INJECTION 1 100ML.BAG IVPB SCH ×3 (05:45→12:04)
[2020-03-13 05:50] LABS: Glucose,Whole Blood 106 mg/dL (75-99)
--- NOTE | 2020-03-13 07:55 | XR ---
EXAMINATION TYPE: XR chest 1V portable DATE OF EXAM: 03/13/2020 COMPARISON: 03/12/2020 INDICATION: Short of breath TECHNIQUE: Single frontal view of the chest is obtained. FINDINGS: The heart size is normal. The pulmonary vasculature is normal. Right perihilar and bibasilar infiltrates are present. Findings are slightly worsened over the interv al. Right central venous catheter is present with the tip somewhat indistinct but appears to be within th e right atrium. IMPRESSION: 1. Bibasilar infiltrates slightly worsening over the interval.
[2020-03-13] MEDS: LEVOFLOXACIN 500MG-D5W PMX 500 MG in DEXTROSE/WATER 1 100ML.BAG IVPB SCH (09:04)
[2020-03-13] MEDS: MULTIVITAMINS, THERA 1 EACH TAB PO SCH (09:04)
[2020-03-13] MEDS: SENNOSIDES 8.6 MG TAB PO SCH ×2 (09:04→20:11)
[2020-03-13] MEDS: PANTOPRAZOLE 40 MG TABLET PO SCH (09:04)
[2020-03-13] MEDS: ASPIRIN 81 MG PO SCH (09:04)
[2020-03-13] MEDS: DOCUSATE ORAL SOLN 100 MG/10 ML CUP PO SCH ×2 (09:04→20:11)
[2020-03-13 11:44] LABS: Glucose,Whole Blood 140 mg/dL (75-99)
--- NOTE | 2020-03-13 15:53 | PN ---
PROGRESS NOTE PULMONARY/CRITICAL CARE PROGRESS NOTE: DATE OF SERVICE: 03/13/2020 This is an 79-year-old female who was admitted on March 06 for hypoxemic respiratory failure. The patient required intubation on March 06 and was successfully extubated on March 10. She developed a right lower lobe pneumonia of unclear etiology. Her COVID- 19 status was negative. Anyway, the patient is doing reasonably well. In addition to the above, she was thought to have sepsis with septic shock, obesity/hypoventilation syndrome, diastolic CHF, bradycardia, atrial fibrillation, morbid obesity, hypertension, COPD, GERD, among other medical issues. Currently, the patient is in normal sinus rhythm with a rate of 81. She is getting O2 of 4 L with a 93% saturation and a saline IV at KVO. She is going to have a swallow study today as she has not been able to the eat much. The patient will go to medical- surgical floor with telemetry. Will decrease the Lasix down to 40 q.12 and also will discontinue the Levaquin today after the dose today. The patient, otherwise is doing about the same. Current vital signs are reviewed. Temperature is 98.7, heart rate 87, respiratory rate 21, blood pressure 115/65 mean 81, 4 L saturation 96%. Appears in no acute distress. HEENT: Examination is grossly unremarkable. NECK: Supple. Full range of motion. No adenopathy. Nasal prongs in place. CARDIOVASCULAR: Examination reveals regular rhythm and rate. Heart sounds are distant. Heart rate 87. S1, S2 normal. LUNGS: Reveal a few scattered rhonchi. Breath sounds equal. No crackles. ABDOMEN: Soft, bowel sounds are noted. EXTREMITIES: Intact. Minimal edema. SKIN: Without rash. NEUROLOGIC: Examination is brief but nonfocal. She is a bit lethargic. She does move all 4 extremities. Microbiology is negative. LABS: Reviewed. White count 12.5, hemoglobin 11.2, hematocrit 35.9, platelet count 165,000. Sodium 136, potassium 3.5, chloride 96, CO2 is 34, anion gap is 6. BUN and creatinine were 18 and 0.84. Chest x-ray today shows some bibasilar infiltrates, slightly worse. MEDICATIONS: Reviewed. She is currently on Tylenol, aspirin, Colace, Lasix, heparin subcu, insulin, Levaquin, multivitamins, Narcan, Protonix, potassium replacement, and Senokot. ASSESSMENT: 1. Acute hypoxemic and hypercapnic respiratory failure, requiring intubation on March 06 and successful extubation on March 10. 2. Bibasilar pneumonia, of unclear etiology. Culture data is thus far negative. COVID-19 status was negative. 3. Sepsis and septic shock, resolved. 4. Obesity/hypoventilation syndrome. 5. Acute diastolic congestive heart failure. 6. Bradycardia. 7. History of atrial fibrillation. 8. Morbid obesity. 9. History of hypertension. 10.History of underlying chronic obstructive pulmonary disease. 11.Gastroesophageal reflux disease. PLAN: The patient is doing reasonably well. Will see if we cannot get her transferred out to the medical-surgical floor with telemetry. She will have a swallow evaluation today. We decreased the Lasix dose of 40 mg q.12 hours. After today's Levaquin dose, that will be discontinued as well. All cultures are negative. Additional recommendations and suggestions are forthcoming. MMODL / IJN: [id number] /
--- NOTE | 2020-03-13 18:06 | P.PN ---
Subjective Ms. Carrillo is a 79-year-old female with a past medical history of hypertension brought into the hospital by EMS secondary to shortness of breath after she was on antibiotics at home without relief. In the ER patient was extremely confused and debilitated, found to be bradycardic and hypotensive. Patient was started on dopamine and norepinephrine after placement of central line. And she was transferred to ICU. In the ICU patient went into respiratory failure for which she had to be intubated. Chest x-ray was positive for right lower lobe pneumonia. Patient's labs at the time of admission showed leukocytosis with white count of 15.4, sodium at 122, potassium 5.3. Creatinine was 0.63. She was checked for coronavirus, influenza a and B that have been negative. Patient's blood culture from 03/06/2020- so far. On 03/09/2020 -patient is in the ICU. She is intubated and mechanically ventilated. Patient's norepinephrine was discontinued yesterday and she has maintaining her blood pressure without pressor support. She continues to be on vancomycin and levofloxacin. Patient's labs from this morning white count of 10.6 hemoglobin 11.8. Sodium improved to 135. Potassium at 3.7 and creatinine is stable at 0.63. Patient's chest x-ray from this morning showing by basilar airspace disease and bilateral effusions that is slightly worsening. On 03/10/2020 - patient has been successfully extubated. But she still remains in the ICU. As per the nursing staff report patient was having generalized weakness and feels fatigued. She still continues to be on 10 L of oxygen saturating around 95%. Her blood pressure has been running around 1 teens by 40s to 50s. She has been continued on levofloxacin and Zosyn. On 03/11/2020 - Patient has been successfully extubated yesterday. She is on 3 L of oxygen via nasal cannula and saturating in low 90s. Patient's vitals are reviewed and the blood pressure is within normal limits. Chest x-ray showing pulmonary venous congestion with perihilar and basilar infiltrates and atelectas is along with mild pleural effusion. Blood cultures have been negative so far. Patient's labs have been reviewed. As per the nursing staff report, patient has been having a lot of urinary output. She has a Strauss's catheter in place. 03/12/2020 Patient remains in the ICU, she was admitted on 03/07/24 hypotension and bradycardia, sewn after that she was placed on pressors and found to have septic shock secondary to right pneumonia, mostly community acquired pneumonia with superimposed acute diastolic heart failure. Patient was recently extubated and currently she is saturating at 90 on BiPAP with oxygen via nasal cannula She has atrial fibrillation with bradycardia which is resolved and her dopamine drip was stopped now. She is lying in bed, quite not in respiratory distress. The so vitals are stable. And lassitude and CBC, BMP were unremarkable Patient is planned to have a swallow evaluation 03/13/2020 Patient is in the ICU she is very pleasant and joking at times with the staff. Her speak is a little bit tough for her. Also she has some diminished breath sounds on auscultation. She remains on IV Lasix twice daily and she is nothing by mouth so we keep the Strauss for now. Patient is supposed to get barium swallow test today however it was postponed till tomorrow. Her oxygen is at 4 L/m today slightly better than yesterday and she saturating 95%. Afebrile. WBC is 12.5 K, sodium 136. He remains on IV Lasix but lowered at twice daily and lower the dose of Levaquin to 250 mg daily by pulmonary team for chest x-ray showing bilateral lower infiltrates, slightly worsened Patient is currently pending placement to [facility] floor with telemetry. Review of systems CONSTITUTIONAL: No fever, no malaise, no fatigue. HEENT: No recent visual problems or hearing problems. Denied any sore throat. GASTROINTESTINAL: No diarrhea, no nausea, no vomiting, no abdominal pain. Normoactive bowel sounds. NEUROLOGICAL: No headaches, no weakness, no numbness. HEMATOLOGICAL: Denies any bleeding or petechiae. GENITOURINARY: Denies any burning micturition, frequency, or urgency. MUSCULOSKELETAL/RHEUMATOLOGICAL: Denies any joint pain, swelling, or any muscle pain. ENDOCRINE: Denies any polyuria or polydipsia. Active Medications Generic Name Dose Route Start Last Admin Trade Name Freq PRN Reason Stop Dose Admin Acetaminophen 650 mg 03/06/20 17:20 Tylenol Tab PO Q4HR PRN Fever and/or Mild Pain Aspirin 81 mg 03/07/20 09:00 03/13/20 09:04 Aspirin PO 81 mg DAILY JEF Administration Docusate Sodium 100 mg 03/09/20 21:00 03/13/20 09:04 Colace Oral Soln PO 100 mg BID JEF Administration Furosemide 40 mg 03/13/20 09:00 03/13/20 09:05 Lasix IV 40 mg BID JEF Administration Heparin Sodium (Porcine) 5,000 unit 03/07/20 16:00 03/13/20 09:05 Heparin SQ 5,000 unit Q8HR JEF Administration Levofloxacin/Dextrose 250 mg/ 50 mls @ 50 mls/hr 03/14/20 09:00 IV Solution IVPB 03/14/20 09:01 Q24HR JEF Insulin Aspart 0 unit 03/07/20 00:00 03/13/20 12:02 Novolog SQ 1 unit Q6H JEF Administration Protocol Miscellaneous Information 1 each 03/08/20 05:56 Potassium Per Protocol MISCELLANE DAILY PRN Per Protocol Protocol Multivitamins 1 each 03/07/20 09:00 03/13/20 09:04 Theragran PO 1 each DAILY JEF Administration Naloxone HCl 0.2 mg 03/06/20 17:20 Narcan IV Q2M PRN Opioid Reversal Pantoprazole Sodium 40 mg 03/07/20 09:00 03/13/20 09:04 Protonix PO 40 mg DAILY JEF Administration Senna 8.6 mg 03/09/20 21:00 03/13/20 09:04 Senokot PO 8.6 mg BID JEF Administration Objective - Vital Signs Vital signs: Vital Signs Temp 98.7 F 03/13/20 14:00 Pulse 78 03/13/20 15:00 Resp 21 03/13/20 15:00 BP 112/85 03/13/20 15:00 Pulse Ox 95 03/13/20 15:16 Intake & Output 03/12/20 03/13/20 03/13/20 18:59 06:59 18:59 Intake Total 392 292 334 Output Total 7345 8674 2451 Balance -6867 -4009 -3964 Weight 143 kg 138.3 kg Intake: IV 392 192 134 0.9% NaCl with KCl 40 Meq 320 120 10 /l 1,000 ml @ 50 mls/hr IV .Q20H JEF Rx#: [id number] Levofloxacin 500Mg-D5w 100 Pmx 500 mg In Dextrose/ Water 1 100ml.bag @ 100 mls/hr IVPB Q24HR [facility] Rx# :[id number] Normal Saline Pressure 72 72 24 Bag Intake, IV Titration 100 200 Amount Potassium Chloride 20 meq 100 200 In Water For Injection 1 100ml.bag @ 50 mls/hr IVPB Q2H [facility] Rx#: [id number] Output: Urine 4045 3360 2750 Other: Voiding Method Indwelling Catheter Indwelling Catheter Indwelling Catheter ABP, PAP, CO, CI - Last Documented Arterial Blood Pressure 102/56 - Exam GENERAL: The patient is alert and oriented x3, not in any acute distress. Well developed, well nourished. HEENT: Pupils are round and equally reacting to light. EOMI. No scleral icterus. No conjunctival pallor. Normocephalic, atraumatic. No pharyngeal erythema. No thyromegaly. CARDIOVASCULAR: S1 and S2 present. No murmurs, rubs, or gallops. PULMONARY: Chest is clear to auscultation, no wheezing or crackles. ABDOMEN: Soft, nontender, nondistended, normoactive bowel sounds. No palpable organomegaly. MUSCULOSKELETAL: No joint swelling or deformity. EXTREMITIES: No cyanosis, clubbing, or pedal edema. NEUROLOGICAL: Gross neurological examination did not reveal any focal deficits. SKIN: No rashes. no petechiae. - Labs CBC & Chem 7: 03/13/20 04:20 03/13/20 15:54 Labs: Abnormal Lab Results - Last 24 Hours (Table) 03/13/20 03/13/20 03/13/20 Range/Units 00:04 04:20 04:20 WBC 12.5 H (3.8-10.6) k/uL Hgb 11.2 L (11.4-16.0) gm/dL RDW 16.8 H (11.5-15.5) % Neutrophils # 9.5 H (1.3-7.7) k/uL Sodium 136 L (137-145) mmol/L Chloride 96 L (98-107) mmol/L Carbon Dioxide 34 H (22-30) mmol/L BUN 18 H (7-17) mg/dL Glucose 121 H (74-99) mg/dL POC Glucose (mg/dL) 146 H (75-99) mg/dL 03/13/20 03/13/20 Range/Units 05:49 11:42 WBC (3.8-10.6) k/uL Hgb (11.4-16.0) gm/dL RDW (11.5-15.5) % Neutrophils # (1.3-7.7) k/uL Sodium (137-145) mmol/L Chloride (98-107) mmol/L Carbon Dioxide (22-30) mmol/L BUN (7-17) mg/dL Glucose (74-99) mg/dL POC Glucose (mg/dL) 106 H 140 H (75-99) mg/dL Microbiology - Last 24 Hours (Table) 03/06/20 14:40 Blood Culture - Final Blood No Growth after 144 hours Assessment and Plan Assessment: Acute hypoxic hypercapnic respiratory failure - s/p extubation Right lower lobe pneumonia-differentials healthcare vs community acquired pneumonia Bradycardia, improved Acute diastolic congestive heart failure Septic shock . Improved Hypovolemic hyponatremia. Improved Morbid obesity History of GERD History of hypertension Plan: This is a pleasant 7 years old female who presents with pneumonia. Continue with Levaquin, patient plans for swallow evaluation given her prolonged intubation. Also she is on Lasix intravenously. Labs and medication were reviewed.. Continue same treatment. Continue with symptomatic treatment. Resume home medication. Monitor lytes and vitals. DVT and GI prophylaxis. Further recommendations of the clinical course of the patient DVT prophylaxis: Subcutaneous heparin GI Prophylaxis: Ppi
[2020-03-13 18:09] LABS: Glucose,Whole Blood 117 mg/dL (75-99)
[2020-03-14 00:15] LABS: Glucose,Whole Blood 128 mg/dL (75-99)
[2020-03-14] MEDS: INSULIN ASPART (NovoLOG) 100 UNIT/ML VIAL SQ SCH ×5 (01:23→21:12)
[2020-03-14 06:30] LABS: Glucose,Whole Blood 123 mg/dL (75-99)
[2020-03-14 08:37] LABS: Calcium 9.2 mg/dL (8.4-10.2); Potassium 3.5 mmol/L (3.5-5.1)
[2020-03-14 08:39] LABS: Anisocytosis Slight; Basophils % (A) 0 %; Eosinophils % (A) 0 %; HCT 35.7 % (34.0-46.0); HGB 11.3 gm/dL (11.4-16.0); Hypochromasia Slight; Lymphocytes # (A) 1.4 k/uL (1.0-4.8); Lymphocytes % (A) 10 %; MCH 27.5 pg (25.0-35.0); MCHC 31.6 g/dL (31.0-37.0); Mean Platelet Volume 8.4; Monocytes # (A) 1.1 k/uL (0-1.0); Monocytes % (A) 8 %; Neutrophils % (A) 79 %; Platelet Count 182 k/uL (150-450); RDW 16.6 % (11.5-15.5)
[2020-03-14] MEDS: HEPARIN SODIUM,PORCINE 5,000 UNIT/ML 1 ML VIAL SQ SCH (08:41)
[2020-03-14] MEDS: MULTIVITAMINS, THERA 1 EACH TAB PO SCH (08:41)
[2020-03-14] MEDS: FUROSEMIDE 10 MG/ML 4 ML VIAL IV SCH ×2 (08:41→21:12)
[2020-03-14] MEDS: DOCUSATE ORAL SOLN 100 MG/10 ML CUP PO SCH ×2 (08:41→21:12)
[2020-03-14] MEDS: SENNOSIDES 8.6 MG TAB PO SCH ×2 (08:41→21:12)
[2020-03-14] MEDS: PANTOPRAZOLE 40 MG TABLET PO SCH (08:41)
[2020-03-14] MEDS: ASPIRIN 81 MG PO SCH (08:41)
[2020-03-14] MEDS ORDERED: LEVOFLOXACIN 250MG-D5W PMX 250 MG in DEXTROSE/WATER 1 50ML.BAG IVPB SCH (09:00)
--- NOTE | 2020-03-14 10:19 | FL ---
COMPARISON: NONE DATE OF EXAM: 03/14/2020 HISTORY: Dysphasia A number of thin and thick substances were ingested under the care of the department of speech pathol ogy. There is delayed initiation of the swelling mechanism. There is penetration and aspiration upo n ingestion of thin barium. Transient penetration with nectar. 1 minute and 38 seconds of fluoroscopy provided. IMPRESSION: 1. Aspiration see above
--- NOTE | 2020-03-14 10:45 | P.PN ---
Subjective Progress Note Date: 03/14/20 Principal diagnosis: On 03/11/2020 patient seen in follow-up in the intensive care unit, she is awake, but confused, generally weak, she was extubated yesterday on 03/10/2020 and she is currently on 3 L of oxygen with a pulse ox of 94%, hemodynamically stable, she is afebrile. Today's chest x-ray was reviewed showing pulmonary venous congestion with perihilar and basilar infiltrates and atelectasis and pleural effusions. Blood culture showed no growth, no sputum culture was sent, urinalysis was negative for any sediment infection, coronavirus was not detected, influenza screen was negative, patient was treated with a combination of levaquin and vancomycin for possibility of underlying infection, however the source is not clear, although there is a possibility of pulmonary infection. His blood work has been reviewed showing white blood cell, 12.1, hemoglobin of 10.8, serum sodium is 137, potassium is 3.7, chloride is 99, CO2 34, B1 of 16 creatinine was 0.69. Patient remains on dopamine which was initially started for bradycardia and hypotension, patient is currently with a heart rate in the 80s and 90s, dopamine remains in place down to 3 mics per kilo per minute, and patient is on IV Lasix of 40 mg every 8 hours. On 03/12/2020 patient seen in follow-up in the intensive care unit, she is resting in bed, she is currently on 5 L of oxygen, and her pulse oximetry 94%, hemodynamically she is stable, afebrile, she does have an extremely weak cough, and there is audible congestion. Patient has been nothing by mouth in view of possibility of aspiration, and she is supposed to be reevaluated by speech therapy today. Yesterday patient apparently was aphonic, and quite weak, with a week congested cough. She may need modified barium swallow, but according to the speech therapy her voice quality is stronger on today's exam, however the recommendations to keep the patient nothing by mouth right now. Today's follow- up chest x-ray shows bilateral hilar enlargement and diffuse interstitial prominence. He remains on IV Lasix at 40 mg every 8 hours, and she has produced copious amounts of urine, and she is in -7100 mL fluid balance over the last 24 hours. Fluid volume status is improving, she is breathing easier, maintenance IV fluids are 0.9 normal saline with 40 of potassium chloride at a rate of 50 ML per hour which we can cut back to 10 ML per hour or Hep-Lock the patient, dopamine has been off since 1600 yesterday. On 03/13/2020 the patient was seen in follow-up on the medical surgical unit with Dr. López. She is sitting up in bed in no acute distress. Denies pain, or increased shortness of breath. She is currently on 4 L nasal cannula with oxygen saturation 92%. She remains afebrile. Hemodynamically stable. WBC 14.0, hemoglobin 11.3, BUN 22, creatinine 0.81. No chest x-ray completed today. Patient is awaiting swallow study, remains NPO. She has a negative fluid balance of greater than 3 L in the last 24 hours. Remains on IV Lasix 40 mg twice daily. Objective - Vital Signs Vital signs: Vital Signs Temp 98.9 F 03/14/20 09:12 Pulse 93 03/14/20 09:12 Resp 18 03/14/20 09:12 BP 130/82 03/14/20 09:12 Pulse Ox 92 L 03/14/20 09:12 Intake & Output 03/13/20 03/14/20 03/14/20 18:59 06:59 18:59 Intake Total 334 Output Total 3000 1000 Balance -2666 -1000 Intake: IV 134 0.9% NaCl with KCl 40 Meq 10 /l 1,000 ml @ 50 mls/hr IV .Q20H JEF Rx#: [id number] Levofloxacin 500Mg-D5w 100 Pmx 500 mg In Dextrose/ Water 1 100ml.bag @ 100 mls/hr IVPB Q24HR JEF Rx# :[id number] Normal Saline Pressure 24 Bag Intake, IV Titration 200 Amount Potassium Chloride 20 meq 200 In Water For Injection 1 100ml.bag @ 50 mls/hr IVPB Q2H JEF Rx#: [id number] Output: Urine 3000 1000 Other: Voiding Method Indwelling Catheter Indwelling Catheter Indwelling Catheter ABP, PAP, CO, CI - Last Documented Arterial Blood Pressure 102/56 - Constitutional Constitutional Comment(s): Sitting up in bed, appears comfortable General appearance: Present: cooperative, morbidly obese, no acute distress - Respiratory Details: Lungs sounds diminished with scattered rhonchi present. Respirations even, nonlabored. Currently on 4 L nasal cannula with oxygen saturation 92%. Strong loose productive cough. - Cardiovascular Details: S1, S2 present. Irregular rate and rhythm, atrial fibrillation on telemetry with heart rate 95. Palpable peripheral pulses bilaterally. Bilateral lower extremity 2+ edema present. No calf pain or tenderness noted. - Gastrointestinal Gastrointestinal Comment(s): Abdomen soft, nontender, nondistended, obese. No organomegaly present. Active bowel sounds present 4 quadrants. Currently nothing by mouth for swallow study. - Genitourinary Genitourinary Comment(s): Strauss present draining clear, yellow urine - Integumentary Integumentary Comment(s): Skin is warm and dry with evidence of good perfusion - Neurologic Neurologic: Present: CNII-XII intact - Musculoskeletal Musculoskeletal: Present: generalized weakness, strength equal bilaterally - Psychiatric Psychiatric: Present: A&O x's 3, appropriate affect - Allied health notes Allied health notes reviewed: nursing - Labs CBC & Chem 7: 03/14/20 07:28 03/14/20 07:28 Labs: Abnormal Lab Results - Last 24 Hours (Table) 03/13/20 03/13/20 03/14/20 Range/Units 11:42 18:08 00:13 WBC (3.8-10.6) k/uL Hgb (11.4-16.0) gm/dL RDW (11.5-15.5) % Neutrophils # (1.3-7.7) k/uL Monocytes # (0-1.0) k/uL Sodium (137-145) mmol/L Chloride (98-107) mmol/L BUN (7-17) mg/dL Glucose (74-99) mg/dL POC Glucose (mg/dL) 140 H 117 H 128 H (75-99) mg/dL 03/14/20 03/14/20 03/14/20 Range/Units 06:26 07:28 07:28 WBC 14.0 H (3.8-10.6) k/uL Hgb 11.3 L (11.4-16.0) gm/dL RDW 16.6 H (11.5-15.5) % Neutrophils # 11.0 H (1.3-7.7) k/uL Monocytes # 1.1 H (0-1.0) k/uL Sodium 136 L (137-145) mmol/L Chloride 94 L (98-107) mmol/L BUN 22 H (7-17) mg/dL Glucose 118 H (74-99) mg/dL POC Glucose (mg/dL) 123 H (75-99) mg/dL Assessment and Plan Assessment: #1. Acute hypoxic and hypercapnic respiratory failure, requiring intubation on 03/06/2020, and patient was successfully extubated on 03/10/2020 #2. Acute right lower lobe pneumonia, exact etiology of the pneumonia is not clear, could be aspiration, could be healthcare acquired pneumonia, could be community-acquired pneumonia, I cannot be certain. And it is unknown. And definitely cannot tell if this is aspiration of solids or liquids could be either or, if it is truly aspiration pneumonia. Cultures of blood have been nondiagnostic. #3. Sepsis and septic shock is strongly suspected. Resolved. #4. Obesity/hypoventilation syndrome. #5. Acute diastolic congestive heart failure is strongly suspected, patient improved mostly with diuretics. #6. Bradycardia, atrial fibrillation. Currently controlled atrial fibrillation #7. Morbid obesity. #8. History of hypertension. #9. History of underlying COPD. #10. History of GERD. #11. Negative for covid 19 pneumonitis. Plan: Wean O2 as tolerated Swallow study to be completed today, diet should be increased based on those results. Maintain aspiration precautions Continue IV diuretics Will follow daily BMP GI/DVT prophylaxis A. fib management per cardiology. Possible need for anticoagulation per cardiology recommendations Stable from a pulmonary standpoint We'll continue to monitor I, the cosigning physician, performed a history & physical examination of the patient. Lungs sounds are diminished with scattered rhonchi bilaterally. Maintaining good O2 saturations in the 90s on 4 L nasal cannula. I discussed the assessment and plan of care with my nurse practitioner, Patricia Azul. I attest to the above note as dictated by her. Time with Patient: Greater than 30
[2020-03-14 11:58] LABS: Glucose,Whole Blood 157 mg/dL (75-99)
--- NOTE | 2020-03-14 13:17 | P.PN ---
Subjective Ms. Carrillo is a 79-year-old female with a past medical history of hypertension brought into the hospital by EMS secondary to shortness of breath after she was on antibiotics at home without relief. In the ER patient was extremely confused and debilitated, found to be bradycardic and hypotensive. Patient was started on dopamine and norepinephrine after placement of central line. And she was transferred to ICU. In the ICU patient went into respiratory failure for which she had to be intubated. Chest x-ray was positive for right lower lobe pneumonia. Patient's labs at the time of admission showed leukocytosis with white count of 15.4, sodium at 122, potassium 5.3. Creatinine was 0.63. She was checked for coronavirus, influenza a and B that have been negative. Patient's blood culture from 03/06/2020- so far. On 03/09/2020 -patient is in the ICU. She is intubated and mechanically ventilated. Patient's norepinephrine was discontinued yesterday and she has maintaining her blood pressure without pressor support. She continues to be on vancomycin and levofloxacin. Patient's labs from this morning white count of 10.6 hemoglobin 11.8. Sodium improved to 135. Potassium at 3.7 and creatinine is stable at 0.63. Patient's chest x-ray from this morning showing by basilar airspace disease and bilateral effusions that is slightly worsening. On 03/10/2020 - patient has been successfully extubated. But she still remains in the ICU. As per the nursing staff report patient was having generalized weakness and feels fatigued. She still continues to be on 10 L of oxygen saturating around 95%. Her blood pressure has been running around 1 teens by 40s to 50s. She has been continued on levofloxacin and Zosyn. On 03/11/2020 - Patient has been successfully extubated yesterday. She is on 3 L of oxygen via nasal cannula and saturating in low 90s. Patient's vitals are reviewed and the blood pressure is within normal limits. Chest x-ray showing pulmonary venous congestion with perihilar and basilar infiltrates and atelectas is along with mild pleural effusion. Blood cultures have been negative so far. Patient's labs have been reviewed. As per the nursing staff report, patient has been having a lot of urinary output. She has a Strauss's catheter in place. 03/12/2020 Patient remains in the ICU, she was admitted on 03/07/24 hypotension and bradycardia, sewn after that she was placed on pressors and found to have septic shock secondary to right pneumonia, mostly community acquired pneumonia with superimposed acute diastolic heart failure. Patient was recently extubated and currently she is saturating at 90 on BiPAP with oxygen via nasal cannula She has atrial fibrillation with bradycardia which is resolved and her dopamine drip was stopped now. She is lying in bed, quite not in respiratory distress. The so vitals are stable. And lassitude and CBC, BMP were unremarkable Patient is planned to have a swallow evaluation 03/13/2020 Patient is in the ICU she is very pleasant and joking at times with the staff. Her speak is a little bit tough for her. Also she has some diminished breath sounds on auscultation. She remains on IV Lasix twice daily and she is nothing by mouth so we keep the Strauss for now. Patient is supposed to get barium swallow test today however it was postponed till tomorrow. Her oxygen is at 4 L/m today slightly better than yesterday and she saturating 95%. Afebrile. WBC is 12.5 K, sodium 136. He remains on IV Lasix but lowered at twice daily and lower the dose of Levaquin to 250 mg daily by pulmonary team for chest x-ray showing bilateral lower infiltrates, slightly worsened Patient is currently pending placement to [facility] floor with telemetry. 03/14/2020 Patient was transferred to the general medical floor today. She is lying in bed not in distress. Breathing quietly. She saturating 91% on 5 L oxygen. Nasal cannula and she is afebrile. WBC is 14 K hemoglobin 11.3. Sodium 136, creatinine 0.8, sugar control. C. He is off antibiotics which were stopped by pulmonary team. oronavirus not detected. Extremities on Lasix 40 mg twice daily for CHF, also she is not on antibiotics Patient could not pass this follow-up evaluation which showed aspiration. Cardiology are on the case. Currently patient is on Lasix Physical therapy recommended subacute rehab, social work consult Review of systems CONSTITUTIONAL: No fever, no malaise, no fatigue. HEENT: No recent visual problems or hearing problems. Denied any sore throat. GASTROINTESTINAL: No diarrhea, no nausea, no vomiting, no abdominal pain. Normoactive bowel sounds. NEUROLOGICAL: No headaches, no weakness, no numbness. HEMATOLOGICAL: Denies any bleeding or petechiae. GENITOURINARY: Denies any burning micturition, frequency, or urgency. MUSCULOSKELETAL/RHEUMATOLOGICAL: Denies any joint pain, swelling, or any muscle pain. ENDOCRINE: Denies any polyuria or polydipsia. Active Medications Generic Name Dose Route Start Last Admin Trade Name Freq PRN Reason Stop Dose Admin Acetaminophen 650 mg 03/06/20 17:20 Tylenol Tab PO Q4HR PRN Fever and/or Mild Pain Aspirin 81 mg 03/07/20 09:00 03/14/20 08:41 Aspirin PO 81 mg DAILY JEF Administration Docusate Sodium 100 mg 03/09/20 21:00 03/14/20 08:41 Colace Oral Soln PO 100 mg BID JEF Administration Furosemide 40 mg 03/13/20 09:00 03/14/20 08:41 Lasix IV 40 mg BID JEF Administration Heparin Sodium (Porcine) 5,000 unit 03/07/20 16:00 03/14/20 08:41 Heparin SQ 5,000 unit Q8HR JEF Administration Insulin Aspart 0 unit 03/07/20 00:00 03/14/20 12:03 Novolog SQ 2 unit Q6H JEF Administration Protocol Miscellaneous Information 1 each 03/08/20 05:56 Potassium Per Protocol MISCELLANE DAILY PRN Per Protocol Protocol Multivitamins 1 each 03/07/20 09:00 03/14/20 08:41 Theragran PO 1 each DAILY JEF Administration Naloxone HCl 0.2 mg 03/06/20 17:20 Narcan IV Q2M PRN Opioid Reversal Pantoprazole Sodium 40 mg 03/07/20 09:00 03/14/20 08:41 Protonix PO 40 mg DAILY JEF Administration Senna 8.6 mg 03/09/20 21:00 03/14/20 08:41 Senokot PO 8.6 mg BID JEF Administration Objective - Vital Signs Vital signs: Vital Signs Temp 98.3 F 03/14/20 11:33 Pulse 92 03/14/20 11:33 Resp 18 03/14/20 11:33 BP 123/80 03/14/20 11:33 Pulse Ox 91 L 03/14/20 11:33 Intake & Output 03/13/20 03/14/20 03/14/20 18:59 06:59 18:59 Intake Total 334 Output Total 3000 1000 Balance -4746 -1000 Intake: IV 134 0.9% NaCl with KCl 40 Meq 10 /l 1,000 ml @ 50 mls/hr IV .Q20H JEF Rx#: [id number] Levofloxacin 500Mg-D5w 100 Pmx 500 mg In Dextrose/ Water 1 100ml.bag @ 100 mls/hr IVPB Q24HR JEF Rx# :[id number] Normal Saline Pressure 24 Bag Intake, IV Titration 200 Amount Potassium Chloride 20 meq 200 In Water For Injection 1 100ml.bag @ 50 mls/hr IVPB Q2H JEF Rx#: [id number] Output: Urine 3000 1000 Other: Voiding Method Indwelling Catheter Indwelling Catheter Indwelling Catheter ABP, PAP, CO, CI - Last Documented Arterial Blood Pressure 102/56 - Exam -GENERAL: The patient is alert and oriented x3, she is obese and generally weak HEENT: Pupils are round and equally reacting to light. EOMI. No scleral icterus. No conjunctival pallor. Normocephalic, atraumatic. No pharyngeal erythema. No thyromegaly. CARDIOVASCULAR: S1 and S2 present. No murmurs, rubs, or gallops. PULMONARY: Chest is clear to auscultation, no wheezing or crackles. ABDOMEN: Soft, nontender, nondistended, normoactive bowel sounds. No palpable organomegaly. MUSCULOSKELETAL: No joint swelling or deformity. EXTREMITIES: No cyanosis, clubbing, or pedal edema. NEUROLOGICAL: Gross neurological examination did not reveal any focal deficits. SKIN: No rashes. no petechiae. - Labs CBC & Chem 7: 03/14/20 07:28 03/14/20 07:28 Labs: Abnormal Lab Results - Last 24 Hours (Table) 03/13/20 03/14/20 03/14/20 Range/Units 18:08 00:13 06:26 WBC (3.8-10.6) k/uL Hgb (11.4-16.0) gm/dL RDW (11.5-15.5) % Neutrophils # (1.3-7.7) k/uL Monocytes # (0-1.0) k/uL Sodium (137-145) mmol/L Chloride (98-107) mmol/L BUN (7-17) mg/dL Glucose (74-99) mg/dL POC Glucose (mg/dL) 117 H 128 H 123 H (75-99) mg/dL 03/14/20 03/14/20 03/14/20 Range/Units 07:28 07:28 11:57 WBC 14.0 H (3.8-10.6) k/uL Hgb 11.3 L (11.4-16.0) gm/dL RDW 16.6 H (11.5-15.5) % Neutrophils # 11.0 H (1.3-7.7) k/uL Monocytes # 1.1 H (0-1.0) k/uL Sodium 136 L (137-145) mmol/L Chloride 94 L (98-107) mmol/L BUN 22 H (7-17) mg/dL Glucose 118 H (74-99) mg/dL POC Glucose (mg/dL) 157 H (75-99) mg/dL Assessment and Plan Assessment: Acute hypoxic hypercapnic respiratory failure - s/p extubation Right lower lobe pneumonia-differentials healthcare vs community acquired pneumonia Bradycardia, improved Acute diastolic congestive heart failure Septic shock . Improved Hypovolemic hyponatremia. Improved Morbid obesity History of GERD History of hypertension Plan: This is a pleasant 81 years old female who presents with pneumonia. He also has CHF and A. fib. Continue with modified diet for aspiration difficulty . Also she is on Lasix intravenously. And Lovenox for her history of A. fib, cardiology on the case and they can decide about anticoagulation. From erythema also following it is closely, patient is off antibiotics. drug department worker consult for possible placement to subacute rehab Labs and medication were reviewed.. Continue same treatment. Continue with symptomatic treatment. Resume home medication. Monitor lytes and vitals. DVT and GI prophylaxis. Further recommendations of the clinical course of the patient DVT prophylaxis: Subcutaneou Lovenox GI Prophylaxis: Ppi
[2020-03-14 17:03] LABS: Glucose,Whole Blood 177 mg/dL (75-99)
[2020-03-14 20:31] LABS: Glucose,Whole Blood 157 mg/dL (75-99)
[2020-03-14] MEDS: APIXABAN 2.5 MG TABLET PO SCH (21:12)
[2020-03-15 07:03] LABS: Glucose,Whole Blood 135 mg/dL (75-99)
[2020-03-15] MEDS: APIXABAN 2.5 MG TABLET PO SCH (07:18)
[2020-03-15] MEDS: FUROSEMIDE 10 MG/ML 4 ML VIAL IV SCH (07:18)
[2020-03-15] MEDS: PANTOPRAZOLE 40 MG TABLET PO SCH (07:18)
[2020-03-15] MEDS: INSULIN ASPART (NovoLOG) 100 UNIT/ML VIAL SQ SCH ×2 (07:18→12:10)
[2020-03-15] MEDS: MULTIVITAMINS, THERA 1 EACH TAB PO SCH (07:18)
[2020-03-15] MEDS: ASPIRIN 81 MG PO SCH (07:18)
[2020-03-15] MEDS: DOCUSATE ORAL SOLN 100 MG/10 ML CUP PO SCH (07:18)
[2020-03-15] MEDS: SENNOSIDES 8.6 MG TAB PO SCH (07:18)
[2020-03-15 07:44] VITALS: RESP 18
[2020-03-15 09:04] LABS: Anisocytosis Slight; Basophils % (A) 0 %; Eosinophils % (A) 0 %; HCT 38.9 % (34.0-46.0); HGB 12.1 gm/dL (11.4-16.0); Hypochromasia Slight; Lymphocytes # (A) 1.2 k/uL (1.0-4.8); Lymphocytes % (A) 7 %; MCH 27.2 pg (25.0-35.0); MCHC 31.1 g/dL (31.0-37.0); MCV 87.6 fL (80.0-100.0); Mean Platelet Volume 7.9; Monocytes % (A) 6 %; Neutrophils # (A) 14.3 k/uL (1.3-7.7); Neutrophils % (A) 84 %; Platelet Count 215 k/uL (150-450); RBC 4.44 m/uL (3.80-5.40); RDW 16.5 % (11.5-15.5); WBC 17.1 k/uL (3.8-10.6)
--- NOTE | 2020-03-15 11:11 | P.PN ---
Subjective Progress Note Date: 03/15/20 Principal diagnosis: On 03/11/2020 patient seen in follow-up in the intensive care unit, she is awake, but confused, generally weak, she was extubated yesterday on 03/10/2020 and she is currently on 3 L of oxygen with a pulse ox of 94%, hemodynamically stable, she is afebrile. Today's chest x-ray was reviewed showing pulmonary venous congestion with perihilar and basilar infiltrates and atelectasis and pleural effusions. Blood culture showed no growth, no sputum culture was sent, urinalysis was negative for any sediment infection, coronavirus was not detected, influenza screen was negative, patient was treated with a combination of levaquin and vancomycin for possibility of underlying infection, however the source is not clear, although there is a possibility of pulmonary infection. His blood work has been reviewed showing white blood cell, 12.1, hemoglobin of 10.8, serum sodium is 137, potassium is 3.7, chloride is 99, CO2 34, B1 of 16 creatinine was 0.69. Patient remains on dopamine which was initially started for bradycardia and hypotension, patient is currently with a heart rate in the 80s and 90s, dopamine remains in place down to 3 mics per kilo per minute, and patient is on IV Lasix of 40 mg every 8 hours. On 03/12/2020 patient seen in follow-up in the intensive care unit, she is resting in bed, she is currently on 5 L of oxygen, and her pulse oximetry 94%, hemodynamically she is stable, afebrile, she does have an extremely weak cough, and there is audible congestion. Patient has been nothing by mouth in view of possibility of aspiration, and she is supposed to be reevaluated by speech therapy today. Yesterday patient apparently was aphonic, and quite weak, with a week congested cough. She may need modified barium swallow, but according to the speech therapy her voice quality is stronger on today's exam, however the recommendations to keep the patient nothing by mouth right now. Today's follow- up chest x-ray shows bilateral hilar enlargement and diffuse interstitial prominence. He remains on IV Lasix at 40 mg every 8 hours, and she has produced copious amounts of urine, and she is in -7100 mL fluid balance over the last 24 hours. Fluid volume status is improving, she is breathing easier, maintenance IV fluids are 0.9 normal saline with 40 of potassium chloride at a rate of 50 ML per hour which we can cut back to 10 ML per hour or Hep-Lock the patient, dopamine has been off since 1600 yesterday. On 03/14/2020 the patient was seen in follow-up on the medical surgical unit with Dr. López. She is sitting up in bed in no acute distress. Denies pain, or increased shortness of breath. She is currently on 4 L nasal cannula with oxygen saturation 92%. She remains afebrile. Hemodynamically stable. WBC 14.0, hemoglobin 11.3, BUN 22, creatinine 0.81. No chest x-ray completed today. Patient is awaiting swallow study, remains NPO. She has a negative fluid balance of greater than 3 L in the last 24 hours. Remains on IV Lasix 40 mg twice daily. On 03/15/2020 patient is seen in follow-up medical surgical unit with Dr. López. She sitting up in bed in no acute distress looking better every day. She denies any pain or increased shortness of breath. She is currently on 4 L nasal cannula with oxygen saturation 93%. Remains afebrile, hemodynamically stable. White blood cell count 17.1. No x-ray today. Remains on Lasix 40 mg IV twice daily. Has been tolerating dysphasia 3 diet with nectar thick liquids. Fluid balance -1400 mL in the last 24 hours. No new concerns. Wants to go home. Objective - Vital Signs Vital signs: Vital Signs Temp 97.7 F 03/15/20 07:00 Pulse 92 03/15/20 07:00 Resp 18 03/15/20 07:00 BP 126/71 03/15/20 07:00 Pulse Ox 93 L 03/15/20 07:00 Intake & Output 03/14/20 03/15/20 03/15/20 18:59 06:59 18:59 Intake Total 500 Output Total 600 1300 Balance -600 -800 Weight 139.5 kg Intake: Oral 500 Output: Urine 600 1300 Uretheral (Strauss) 1300 Other: Voiding Method Indwelling Catheter Indwelling Catheter Indwelling Catheter ABP, PAP, CO, CI - Last Documented Arterial Blood Pressure 102/56 - Constitutional Constitutional Comment(s): Sitting up in bed, appears comfortable General appearance: Present: cooperative, morbidly obese, no acute distress - Respiratory Details: Lungs sounds diminished bilaterally. Respirations even, nonlabored. Currently on 4 L nasal cannula with oxygen saturation 93%. Strong loose productive cough. - Cardiovascular Details: S1, S2 present. Irregular rate and rhythm, atrial fibrillation on telemetry with heart rate 103. Palpable peripheral pulses bilaterally. Bilateral lower extremity 2+ edema present. No calf pain or tenderness noted. - Gastrointestinal Gastrointestinal Comment(s): Abdomen soft, nontender, nondistended, obese. No organomegaly present. Active bowel sounds present 4 quadrants. Tolerating diet. - Genitourinary Genitourinary Comment(s): Strauss present draining clear, yellow urine - Integumentary Integumentary Comment(s): Skin is warm and dry with evidence of good perfusion - Neurologic Neurologic: Present: CNII-XII intact - Musculoskeletal Musculoskeletal: Present: generalized weakness, strength equal bilaterally - Psychiatric Psychiatric: Present: A&O x's 3, appropriate affect, intact judgment & insight - Allied health notes Allied health notes reviewed: nursing - Labs CBC & Chem 7: 03/15/20 08:33 03/14/20 07:28 Labs: Abnormal Lab Results - Last 24 Hours (Table) 03/14/20 03/14/20 03/14/20 Range/Units 11:57 17:02 20:29 WBC (3.8-10.6) k/uL RDW (11.5-15.5) % Neutrophils # (1.3-7.7) k/uL POC Glucose (mg/dL) 157 H 177 H 157 H (75-99) mg/dL 03/15/20 03/15/20 Range/Units 07:02 08:33 WBC 17.1 H (3.8-10.6) k/uL RDW 16.5 H (11.5-15.5) % Neutrophils # 14.3 H (1.3-7.7) k/uL POC Glucose (mg/dL) 135 H (75-99) mg/dL Assessment and Plan Assessment: #1. Acute hypoxic and hypercapnic respiratory failure, requiring intubation on 03/06/2020, and patient was successfully extubated on 03/10/2020 #2. Acute right lower lobe pneumonia, exact etiology of the pneumonia is not clear, could be aspiration, could be healthcare acquired pneumonia, could be community-acquired pneumonia, I cannot be certain. And it is unknown. And definitely cannot tell if this is aspiration of solids or liquids could be either or, if it is truly aspiration pneumonia. Cultures of blood have been nondiagnostic. #3. Sepsis and septic shock is strongly suspected. Resolved. #4. Obesity/hypoventilation syndrome. #5. Acute diastolic congestive heart failure is strongly suspected, patient improved mostly with diuretics. #6. Bradycardia, atrial fibrillation. Currently controlled atrial fibrillation #7. Morbid obesity. #8. History of hypertension. #9. History of underlying COPD. #10. History of GERD. #11. Negative for covid 19 pneumonitis. Plan: Wean O2 as tolerated Maintain aspiration precautions Continue IV diuretics GI/DVT prophylaxis A. fib management per cardiology. Stable from a pulmonary standpoint May be discharged rehab when okay with services We'll continue to monitor I, the cosigning physician, performed a history & physical examination of the patient. Lungs sounds are diminished bilaterally. Maintaining good O2 saturations in the 90s on 4 L nasal cannula. I discussed the assessment and antonina n of care with my nurse practitioner, Patricia Azul. I attest to the above note as dictated by her. Time with Patient: Greater than 30
[2020-03-15 11:12] VITALS: BMI 52.7
[2020-03-15 11:29] VITALS: BP 119/77; PULSE 96; TEMP 97.8
[2020-03-15 11:51] LABS: Glucose,Whole Blood 186 mg/dL (75-99)
--- NOTE | 2020-03-15 12:32 | P.DS ---
Providers Date of admission: 03/06/20 17:20 Expected date of discharge: 03/15/20 Attending physician: Morris Andersen Consults: 03/06/20 17:20 Consult Physician Routine Consulting Provider: Edgar Castañeda Consult Reason/Comments: ICU management Do you want consulting provider notified?: Already Contacted Consult Physician Stat Consulting Provider: Aleksandr Esquivel Consult Reason/Comments: Junctional bradycardia Do you want consulting provider notified?: Already Contacted Primary care physician: Physician Nonstaff Hospital Course: Final diagnosis Acute hypoxic hypercapnic respiratory failure - s/p extubation Right lower lobe pneumonia-differentials healthcare vs community acquired pneumonia Bradycardia, improved Acute diastolic congestive heart failure Septic shock . Improved Hypovolemic hyponatremia. Improved Morbid obesity History of GERD History of hypertension Discharge disposition Patient is being discharged in a stable condition with guarded prognosis to [facility] for continued PT/OT therapy. Patient will need to follow-up with primary care provider in the outpatient setting. Total time taken is 35 minutes. History of present illness This is an 79-year-old female who was recently admitted with shortness of breath and failed outpatient antibiotic therapy and was being closely monitored. Patient was also found to be extremely confused and debilitated and was also found to be bradycardic and hypotensive and patient was placed on pressors. Patient was in the ICU for some time for close monitoring due to respiratory failure requiring intubation. Pulmonary was following closely. Patient did have Covid 19 along with influenza testing that were all negative. Patient was treated adequately with IV antibiotics in the form of Levaquin and vancomycin and has completed the course of antibiotic therapy. Patient continues to have an indwelling Strauss catheter due to extensive weakness and diuretic therapy with the inability to get up to the commode or bathroom yet. Continue with the Strauss catheter until activity as tolerated is increased. Patient's breathing has improved and is currently on nasal cannula tolerating well. Patient was seen and evaluated with a modified barium swallow suggesting her diet be dysphagia 3 chopped with nectar thickened liquids and to maintain strict aspiration precautions along with no use of straws and supervision during meals and is to continue with his diet at this time. She continues to be quite weak requiring physical therapy and will be transferred to [facility] today for continued PT/OT therapy. Currently no reports of chest pain, shortness of breath, or palpitations. Patient is afebrile. No reports of nausea or vomiting and patient is tolerating diet. Guarded prognosis. On exam vital signs are stable. Temp is 97.8F, pulse is 96, respirations are 18, blood pressure is 119/77, oxygen saturation is 95% on 4 L via nasal cannula. Cardio S1, S2 are present. Respiratory shows diminished breath sounds at the bases with a few scattered rhonchi noted. Abdomen is soft and nontender. Nervous system shows moderate diffuse weakness. Please refer to medication reconciliation sheet for a list of medications. Patient Condition at Discharge: Stable Plan - Discharge Summary New Discharge Prescriptions: New Docusate Oral Soln [Colace Oral Soln] 100 mg PO BID ml Apixaban [Eliquis] 2.5 mg PO BID tablet Furosemide [Lasix] 40 mg PO BID #60 tablet INSULIN ASPART (NovoLOG) [NovoLOG (formulary)] 0 unit SQ ACHS vial Pantoprazole [Protonix] 40 mg PO DAILY tablet.dr Stanley [Senokot] 8.6 mg PO BID tab Acetaminophen Tab [Tylenol] 650 mg PO Q4HR PRN tab PRN Reason: Fever And/Or Mild Pain Continue Aspirin EC [Ecotrin Low Dose] 81 mg PO DAILY Vitamin E Acetate [Vitamin E] 200 unit PO DAILY Multivitamins, Thera [Multivitamin (formulary)] 1 tab PO DAILY Albuterol Inhaler [Ventolin Hfa Inhaler] 2 puff INHALATION RT-QID PRN PRN Reason: Shortness Of Breath Discontinued Terazosin HCl 5 mg PO HS@1900 Atenolol 100 mg PO DAILY Omeprazole Magnesium [PriLOSEC OTC] 20 mg PO DAILY Naproxen Sodium [Aleve] 440 mg PO BID Albuterol Nebulized [Ventolin Nebulized] 2.5 mg INHALATION RT-QID methylPREDNISolone [Medrol Dose Pack] See Taper PO DIRECTED Discharge Medication List Albuterol Inhaler [Ventolin Hfa Inhaler] 2 puff INHALATION RT-QID PRN 03/06/20 [History] Aspirin EC [Ecotrin Low Dose] 81 mg PO DAILY 03/06/20 [History] Multivitamins, Thera [Multivitamin (formulary)] 1 tab PO DAILY 03/06/20 [History] Vitamin E Acetate [Vitamin E] 200 unit PO DAILY 03/06/20 [History] Acetaminophen Tab [Tylenol] 650 mg PO Q4HR PRN tab 03/15/20 [Rx] Apixaban [Eliquis] 2.5 mg PO BID tablet 03/15/20 [Rx] Docusate Oral Soln [Colace Oral Soln] 100 mg PO BID ml 03/15/20 [Rx] Furosemide [Lasix] 40 mg PO BID #60 tablet 03/15/20 [Rx] INSULIN ASPART (NovoLOG) [NovoLOG (formulary)] 0 unit SQ ACHS vial 03/15/20 [Rx] Pantoprazole [Protonix] 40 mg PO DAILY tablet. 03/15/20 [Rx] Sennosides [Senokot] 8.6 mg PO BID tab 03/15/20 [Rx] Follow up Appointment(s)/Referral(s): Nonstaff,Physician [Primary Care Provider] - 1-2 days Akash Engle MD [REFERRING] - Ambulatory/Diagnostic Orders: Basic Metabolic Panel [LAB.AMB] Time Frame: 3 Days, Location: None Selected Complete Blood Count w/diff [LAB.AMB] Time Frame: 3 Days, Location: None Ada ected Activity/Diet/Wound Care/Special Instructions: Patient is going to [employer] Activity as tolerated Continue current diet of dysphagia 3 chopped with nectar thickened liquids and maintain aspiration precautions also no straws Repeat labs in 2-3 days Continue with [place] at this time until activity as tolerated and able to get up to the bedside commode or bathroom Discharge Disposition: TRANSFER TO SNF/ECF
== END 2020-03-15 14:17 | DRG 871 ==
LOC: EC 13:47 → 2SICU 17:20 → 4SSUR 03-13 23:16
PROVIDERS: ADMIT Internal Medicine; ATTEND Internal Medicine
PROC: 0BH18EZ Insertion of Endotracheal Airway into Trachea, Via Natural or Artificial Opening Endoscopic (ICD-10-PCS; principal; 2020-03-06)
PROC: 02HV33Z Insertion of Infusion Device into Superior Vena Cava, Percutaneous Approach (ICD-10-PCS; principal; 2020-03-06)
PROC: 5A1945Z Respiratory Ventilation, 24-96 Consecutive Hours (ICD-10-PCS; principal; 2020-03-06)
DX: A41.9 Sepsis, unspecified organism (principal); G93.41 Metabolic encephalopathy; I50.31 Acute diastolic (congestive) heart failure; J96.01 Acute respiratory failure with hypoxia; J96.02 Acute respiratory failure with hypercapnia; R65.21 Severe sepsis with septic shock; J18.9 Pneumonia, unspecified organism; E66.2 Morbid (severe) obesity with alveolar hypoventilation; Z68.43 Body mass index [BMI] 50.0-59.9, adult; E87.1 Hypo-osmolality and hyponatremia; E87.2 Acidosis; J44.0 Chronic obstructive pulmonary disease with (acute) lower respiratory infection; J98.11 Atelectasis; Z20.828 Contact with and (suspected) exposure to other viral communicable diseases; E86.1 Hypovolemia; I11.0 Hypertensive heart disease with heart failure; I48.91 Unspecified atrial fibrillation; I49.5 Sick sinus syndrome; K21.9 Gastro-esophageal reflux disease without esophagitis; R47.02 Dysphasia; T44.7X5A Adverse effect of beta-adrenoreceptor antagonists, initial encounter; I95.2 Hypotension due to drugs; Z79.82 Long term (current) use of aspirin; Z79.899 Other long term (current) drug therapy; Z90.49 Acquired absence of other specified parts of digestive tract; Z88.0 Allergy status to penicillin; Y95 Nosocomial condition
CPT/HCPCS: 36415; 36556; 36600; 71045; 74230; 80048; 80053; 80202; 81001; 82550; 82570; 82805; 83605; 83735; 83880; 83930; 83935; 84132; 84300; 84443; 84484; 85025; 85610; 85730; 87040; 87502; 87635; 93005; 93306; 94002; 94003; 94640; 94660; 96361; 96365; 96366; 96375; 99291

== ENCOUNTER 2023-04-25 12:28 | Emergency (ER) | payer OTHER, BC ==
[2023-04-25 12:38] VITALS: RESP 18; TEMP 97.8
--- NOTE | 2023-04-25 13:31 | ED ---
General Adult HPI - General Chief complaint: Fall Stated complaint: Fall/blood thinners Time Seen by Provider: 04/25/23 12:59 Source: patient, EMS Mode of arrival: EMS Limitations: no limitations - History of Present Illness Initial comments: Dictation was produced using [employer] dictation software. please excuse any grammatical, word or spelling errors. Chief Complaint: 82-year-old female presents emergency department after fall History of Present Illness: She is 82-year-old female she tried to stand up when she did not lock or wheelchair. They will chart when rolling forward causing her to fall on outstretched hand. Patient caught herself. She takes in a coagulation medication. She did not hit her head. No loss of consciousness. She does not have any complaints. The ROS documented in this emergency department record has been reviewed and confirmed by me. Those systems with pertinent positive or negative responses have been documented in the HPI. All other systems are other negative and/or noncontributory. - Related Data Home Medications Medication Instructions Recorded Confirmed Albuterol Inhaler [Ventolin Hfa 2 puff INHALATION RT-QID PRN 03/06/20 03/06/20 Inhaler] Aspirin EC [Ecotrin Low Dose] 81 mg PO DAILY 03/06/20 03/06/20 Multivitamins, Thera [Multivitamin 1 tab PO DAILY 03/06/20 03/06/20 (formulary)] Vitamin E (Dl,Tocopheryl Acet) 200 unit PO DAILY 03/06/20 03/06/20 [Vitamin E] Previous Rx's Medication Instructions Recorded Acetaminophen Tab [Tylenol] 650 mg PO Q4HR PRN tab 03/15/20 Apixaban [Eliquis] 2.5 mg PO BID tablet 03/15/20 Docusate Oral Soln [Colace Oral 100 mg PO BID ml 03/15/20 Soln] Furosemide [Lasix] 40 mg PO BID #60 tablet 03/15/20 INSULIN ASPART (NovoLOG) [NovoLOG 0 unit SQ ACHS vial 03/15/20 (formulary)] Pantoprazole [Protonix] 40 mg PO DAILY tablet. 03/15/20 Sennosides [Senokot] 8.6 mg PO BID tab 03/15/20 Allergies Allergy/AdvReac Type Severity Reaction Status Date / Time Penicillins AdvReac Rash/Hives Verified 04/25/23 12:38 Review of Systems ROS Statement: Those systems with pertinent positive or pertinent negative responses have been documented in the HPI. ROS Other: All systems not noted in ROS Statement are negative. Past Medical History Past Medical History: Hypertension History of Any Multi-Drug Resistant Organisms: None Reported Past Surgical History: Appendectomy, Section, Cholecystectomy Past Psychological History: No Psychological Hx Reported Smoking Status: Former smoker Past Alcohol Use History: None Reported Past Drug Use History: None Reported General Exam - General Exam Comments Initial Comments: PHYSICAL EXAM: General Impression: Alert and oriented x3, not in acute distress HEENT: Normocephalic atraumatic, extra-ocular movements intact, pupils equal and reactive to light bilaterally, mucous membranes moist. Cardiovascular: Heart regular rate and rhythm Chest: Able to complete full sentences, no retractions, no tachypnea Abdomen: abdomen soft, non-tender, non-distended, no organomegaly Musculoskeletal: Pulses present and equal in all extremities, no peripheral edema Motor: no focal deficits noted Neurological: CN II-XII grossly intact, no focal motor or sensory deficits noted Skin: Intact with no visualized rashes Psych: Normal affect and mood Limitations: no limitations Course Vital Signs 04/25/23 12:29 Temperature 97.8 F Pulse Rate 72 Respiratory 18 Rate Blood Pressure 151/77 O2 Sat by Pulse 96 Oximetry Medical Decision Making - Medical Decision Making Was pt. sent in by a medical professional or institution (, PA, CLINICAL TRAINING SPECIALIST, urgent care, hospital, or fpc...) When possible be specific @ -No Did you speak to anyone other than the patient for history (EMS, parent, family, police, friend...)? What history was obtained from this source @ -No Did you review nursing and triage notes (agree or disagree)? Why? @ -I reviewed and agree with nursing and triage notes Were old charts reviewed (outside hosp., previous admission, EMS record, old EKG, old radiological studies, urgent care reports/EKG's, fpc records)? Report findings @ -No old charts were reviewed Differential Diagnosis (chest pain, altered mental status, abdominal pain women, abdominal pain men, vaginal bleeding, musculoskeletal, weakness, fever, dyspnea, syncope, headache, dizziness, GI bleed, back pain, seizure, CVA, palpatations, mental health)? @ -not applicable EKG interpreted by me (3pts min.). @ -None done X-rays interpreted by me (1pt min.). @ -None done CT interpreted by me (1pt min.). @ -CT scan of the brain is unremarkable U/S interpreted by me (1pt. min.). @ -None done What testing was considered but not performed or refused? (CT, X-rays, U/S, labs)? Why? @ -None What meds were considered but not given or refused? Why? @ -None Did you discuss the management of the patient with other professionals (professionals i.e. , PA, CLINICAL TRAINING SPECIALIST, lab, RT, psych nurse, high school social studies teacher, accountant helper, teacher, information systems security officer, case management specialist)? Give summary @ -No Was smoking cessation discussed for >3mins.? @ -No Was critical care preformed (if so, how long)? @ -No Were there social determinants of health that impacted care today? How? (Homelessness, low income, unemployed, alcoholism, drug addiction, transportation, low edu. Level, literacy, decrease access to med. care, long-term, rehab)? @ -No Was there de-escalation of care discussed even if they declined (Discuss DNR or withdrawal of care, Hospice)? DNR status @ -No What co-morbidities impacted this encounter? (DM, HTN, Smoking, COPD, CAD, Cancer, CVA, ARF, Chemo, Hep., AIDS, mental health diagnosis, sleep apnea, morbid obesity)? @ -History of anticoagulation use Was patient admitted / discharged? Hospital course, mention meds given and route, prescriptions, significant lab abnormalities, going to OR and other pertinent info. @ -82-year-old female presents after fall. Patient has no complaints. She does take an evaluation medications. CT brain is unremarkable. Patient discharged Undiagnosed new problem with uncertain prognosis? @ -No Drug Therapy requiring intensive monitoring for toxicity (Heparin, Nitro, Insulin, Cardizem)? @ -No Were any procedures done? @ -No Diagnosis/symptom? Acute, or Chronic, or Acute on Chronic? Uncomplicated (without systemic symptoms) or Complicated (systemic symptoms)? @ -1. Fall Side effects of treatment? @ -No Exacerbation, Progression, or Severe Exacerbation? @ -No Poses a threat to life or bodily function? How? (Chest pain, USA, LA, pneumonia, PE, COPD, DKA, ARF, appy, cholecystitis, CVA, Diverticulitis, Homicidal, Suicidal, threat to staff... and all critical care pts) @ -No Disposition Clinical Impression: Fall Disposition: HOME SELF-CARE Condition: Good Instructions (If sedation given, give patient instructions): Fall Prevention for Older Adults (ED) Is patient prescribed a controlled substance at d/c from ED?: No Referrals: Mckinley Sheets MD [Primary Care Provider] - 1-2 days Time of Disposition: 14:14
--- NOTE | 2023-04-25 14:04 | CT ---
EXAMINATION TYPE: CT brain wo con CT DLP: 1099.8 mGycm, Automated exposure control for dose reduction was used. DATE OF EXAM: 04/25/2023 1:52 PM COMPARISON: None. CLINICAL INDICATION:Female, 82 years old with history of fall, FALL, ON THINNERS TECHNIQUE: Brain: Axial CT images of the brain were obtained with coronal and sagittal reformats created and rev iewed. Contrast used: None. Oral contrast used: None. FINDINGS: Brain: Extra-axial spaces: No abnormal extra-axial fluid collections. Ventricular system: Dilatation in proportion to cerebral atrophy. Cerebral parenchyma: Cerebral atrophy. No acute intraparenchymal hemorrhage or mass effect. The chavarria -white junction is well differentiated. Scattered hypoattenuating areas are seen within the white mat ter. Cerebellum: Unremarkable. Mass effect: No evidence of midline shift. Intracranial vasculature: Atherosclerotic calcifications of the intracranial vessels. Soft tissues: Normal. Calvarium/osseous structures: No depressed skull fracture. Paranasal sinuses and mastoid air cells: Mild scattered paranasal sinus disease. Visualized orbits: Bilateral aphakia IMPRESSION: 1. No acute intracranial process. 2. Nonspecific white matter changes, likely secondary to chronic small vessel ischemic disease.
[2023-04-25 14:53] VITALS: BP 162/96; PULSE 84
== END 2023-04-25 14:52 | disposition home or self-care (01) ==
LOC: EC 12:28
DX: Z04.3 Encounter for examination and observation following other accident (principal); I10 Essential (primary) hypertension; Z87.891 Personal history of nicotine dependence; Z79.82 Long term (current) use of aspirin; Z88.0 Allergy status to penicillin; W18.30XA Fall on same level, unspecified, initial encounter
CPT/HCPCS: 70450; 99284

== ENCOUNTER 2024-11-13 14:28 | Inpatient (IN) | payer MEDICARE, BC ==
--- NOTE | 2024-11-13 14:52 | ED ---
General Adult HPI - General Chief complaint: Shortness of Breath Stated complaint: MARSHA Time Seen by Provider: 11/13/24 14:30 Source: patient, EMS, RN notes reviewed Mode of arrival: EMS Limitations: no limitations - History of Present Illness Initial comments: Patient is a pleasant 83-year-old female presenting to the emergency department presenting with difficulty in breathing. Symptoms have been present for a couple of weeks now. Patient does have cough that is nonproductive however feels she has congestion in her chest. No fevers. Patient has leg swelling however that is chronic and unchanged. - Related Data Home Medications Medication Instructions Recorded Confirmed Albuterol Inhaler [Ventolin Hfa 2 puff INHALATION RT-QID PRN 03/06/20 03/06/20 Inhaler] Aspirin EC [Ecotrin Low Dose] 81 mg PO DAILY 03/06/20 03/06/20 Multivitamins, Thera [Multivitamin 1 tab PO DAILY 03/06/20 03/06/20 (formulary)] Vitamin E (Dl,Tocopheryl Acet) 200 unit PO DAILY 03/06/20 03/06/20 [Vitamin E] Previous Rx's Medication Instructions Recorded Acetaminophen Tab [Tylenol] 650 mg PO Q4HR PRN tab 03/15/20 Apixaban [Eliquis] 2.5 mg PO BID tablet 03/15/20 Docusate Oral Soln [Colace Oral 100 mg PO BID ml 03/15/20 Soln] Furosemide [Lasix] 40 mg PO BID #60 tablet 03/15/20 INSULIN ASPART (NovoLOG) [NovoLOG 0 unit SQ ACHS vial 03/15/20 (formulary)] Pantoprazole [Protonix] 40 mg PO DAILY tablet. 03/15/20 Sennosides [Senokot] 8.6 mg PO BID tab 03/15/20 Allergies Allergy/AdvReac Type Severity Reaction Status Date / Time Penicillins AdvReac Rash/Hives Verified 11/13/24 14:41 Review of Systems ROS Statement: Those systems with pertinent positive or pertinent negative responses have been documented in the HPI. ROS Other: All systems not noted in ROS Statement are negative. Constitutional: Denies: fever Eyes: Denies: eye pain ENT: Denies: ear pain Respiratory: Reports: as per HPI, dyspnea Cardiovascular: Denies: chest pain Endocrine: Reports: fatigue Gastrointestinal: Denies: abdominal pain Musculoskeletal: Denies: back pain Past Medical History Past Medical History: Hypertension History of Any Multi-Drug Resistant Organisms: None Reported Past Surgical History: Appendectomy, Section, Cholecystectomy Past Psychological History: No Psychological Hx Reported Smoking Status: Former smoker Past Alcohol Use History: None Reported Past Drug Use History: None Reported General Exam Limitations: no limitations General appearance: alert, in no apparent distress Head exam: Present: normocephalic Eye exam: Present: normal appearance Neck exam: Present: normal inspection Respiratory exam: Present: respiratory distress, rales Cardiovascular Exam: Present: irregular rhythm GI/Abdominal exam: Present: soft. Absent: tenderness Extremities exam: Present: pedal edema. Absent: calf tenderness Neurological exam: Present: alert Psychiatric exam: Present: normal affect, normal mood Skin exam: Present: normal color Course Vital Signs 11/13/24 11/13/24 11/13/24 14:39 16:01 16:27 Temperature 98.6 F 98.3 F Pulse Rate 92 87 84 Respiratory 22 20 20 Rate Blood Pressure 125/75 130/83 135/83 O2 Sat by Pulse 89 L 88 L 90 L Oximetry EKG Findings - EKG Results: EKG: interpreted by ERMD, normal axis, normal QRS, normal ST/T EKG shows: atrial fibrillation Medical Decision Making - Medical Decision Making Was pt. sent in by a medical professional or institution (JEN Reagan, HIGH [employer]CHO[employer] LANGUAGE TEACHER, urgent care, hospital, or intermediate...) When possible be specific @ -No Did you speak to anyone other than the patient for history (EMS, parent, family, police, friend...)? What history was obtained from this source @ -Family arrives later and states patient has not been previously diagnosed with COVID-19 infection Did you review nursing and triage notes (agree or disagree)? Why? @ -I reviewed and agree with nursing and triage notes Were old charts reviewed (outside hosp., previous admission, EMS record, old EKG, old radiological studies, urgent care reports/EKG's, intermediate records)? Report findings @ -No old charts were reviewed Differential Diagnosis (chest pain, altered mental status, abdominal pain women, abdominal pain men, vaginal bleeding, weakness, fever, dyspnea, syncope, headache, dizziness, GI bleed, back pain, seizure, CVA, palpatations, mental health, musculoskeletal)? @ -Differential Dyspnea: Coronary syndrome, arrhythmia, tamponade, asthma, COPD, pulmonary embolism, pneumonia, pneumothorax, pulmonary effusion, anaphylaxis, diabetic ketoacidosis, flailed chest, pulmonary contusion, diaphragmatic rupture, anemia, neuromuscular, this is not meant to be an all-inclusive list. EKG interpreted by me (3pts min.). @ -As above X-rays interpreted by me (1pt min.). @ -Chest x-ray shows diffuse fluffy infiltrates CT interpreted by me (1pt min.). @ -None done U/S interpreted by me (1pt. min.). @ -None done What testing was considered but not performed or refused? (CT, X-rays, U/S, labs)? Why? @ -None What meds were considered but not given or refused? Why? @ -None Did you discuss the management of the patient with other professionals (professionals i.e. , PA, HIGH SCHO[employer] LANGUAGE TEACHER, lab, RT, psych nurse, social and human services assistant, grain ii farmworker, teacher, helicopter officer, upper caser)? Give summary @ -Case discussed with Dr. Barahona who will admit covering Dr. Renae. Dr. Dumont also notified with pulmonary Was smoking cessation discussed for >3mins.? @ -No Was critical care preformed (if so, how long)? @ -31 minutes critical care time Were there social determinants of health that impacted care today? How? (Homelessness, low income, unemployed, alcoholism, drug addiction, transportation, low edu. Level, literacy, decrease access to med. care, fdc, rehab)? @ -No Was there de-escalation of care discussed even if they declined (Discuss DNR or withdrawal of care, Hospice)? DNR status @ -No What co-morbidities impacted this encounter? (DM, HTN, Smoking, COPD, CAD, Cancer, CVA, ARF, Chemo, Hep., AIDS, mental health diagnosis, sleep apnea, morbid obesity)? @ -None Was patient admitted / discharged? Hospital course, mention meds given and route, prescriptions, significant lab abnormalities, going to OR and other pertinent info. @ -Patient presents with dyspnea. Chest x-ray with fluffy infiltrates. COVID- 19 test positive. Patient is hypoxic. Patient improved with oxygen. Patient will be admitted with pulmonary consult, admission orders written. Patient reevaluated and updated. Undiagnosed new problem with uncertain prognosis? @ -No Drug Therapy requiring intensive monitoring for toxicity (Heparin, Nitro, Insulin, Cardizem)? @ -No Were any procedures done? @ -No Diagnosis/symptom? @ -COVID-19 Acute, or Chronic, or Acute on Chronic? @ -Acute Uncomplicated (without systemic symptoms) or Complicated (systemic symptoms)? @ -Complicated with hypoxia Side effects of treatment? @ -No Exacerbation, Progression, or Severe Exacerbation? @ -No Poses a threat to life or bodily function? How? (Chest pain, USA, VT, pneumonia, PE, COPD, DKA, ARF, appy, cholecystitis, CVA, Diverticulitis, Homicidal, Suicidal, threat to staff... and all critical care pts) @ -Threat to pulmonary function - Lab Data Result diagrams: 11/13/24 15:09 11/13/24 15:09 Lab Results 11/13/24 11/13/24 11/13/24 Range/Units 15:09 15:09 15:09 WBC 7.7 (3.8-10.6) k/uL RBC 3.94 (3.80-5.40) m/uL Hgb 11.7 (11.4-16.0) gm/dL Hct 35.9 (34.0-46.0) % MCV 91.2 (80.0-100.0) fL MCH 29.6 (25.0-35.0) pg MCHC 32.5 (31.0-37.0) g/dL RDW 16.6 H (11.5-15.5) % Plt Count 168 (150-450) k/uL MPV 8.5 Neutrophils % 86 % Lymphocytes % 9 % Monocytes % 4 % Eosinophils % 0 % Basophils % 0 % Neutrophils # 6.5 (1.3-7.7) k/uL Lymphocytes # 0.7 L (1.0-4.8) k/uL Monocytes # 0.3 (0-1.0) k/uL Eosinophils # 0.0 (0-0.7) k/uL Basophils # 0.0 (0-0.2) k/uL Hypochromasia Slight Anisocytosis Slight PT 11.4 (10.0-12.5) sec INR 1.0 (<1.2) APTT 26.4 (22.0-30.0) sec Sodium 130 L (137-145) mmol/L Potassium 5.0 (3.5-5.1) mmol/L Chloride 97 L (98-107) mmol/L Carbon Dioxide 22 (22-30) mmol/L Anion Gap 11 mmol/L BUN 32 H (7-17) mg/dL Creatinine 1.02 (0.52-1.04) mg/dL Est GFR (CKD-EPI)AfAm 59 (>60 ml/min/1.73 sqM) Est GFR (CKD-EPI)NonAf 51 (>60 ml/min/1.73 sqM) Glucose 312 H (74-99) mg/dL Plasma Lactic Acid Guido (0.7-2.0) mmol/L Calcium 8.2 L (8.4-10.2) mg/dL Magnesium 1.9 (1.6-2.3) mg/dL Total Bilirubin 1.0 (0.2-1.3) mg/dL AST 48 H (14-36) U/L ALT 22 (4-34) U/L Alkaline Phosphatase 109 (38-126) U/L Troponin I (0.000-0.034) ng/mL NT-Pro-B Natriuret Pep 700 pg/mL Total Protein 5.6 L (6.3-8.2) g/dL Albumin 3.0 L (3.5-5.0) g/dL TSH 2.410 (0.465-4.680) mIU/L Influenza Type A (PCR) (Not Detectd) Influenza Type B (PCR) (Not Detectd) RSV (PCR) (Not Detectd) SARS-CoV-2 (PCR) (Not Detectd) 11/13/24 11/13/24 11/13/24 Range/Units 15:09 15:09 15:09 WBC (3.8-10.6) k/uL RBC (3.80-5.40) m/uL Hgb (11.4-16.0) gm/dL Hct (34.0-46.0) % MCV (80.0-100.0) fL MCH (25.0-35.0) pg MCHC (31.0-37.0) g/dL RDW (11.5-15.5) % Plt Count (150-450) k/uL MPV Neutrophils % % Lymphocytes % % Monocytes % % Eosinophils % % Basophils % % Neutrophils # (1.3-7.7) k/uL Lymphocytes # (1.0-4.8) k/uL Monocytes # (0-1.0) k/uL Eosinophils # (0-0.7) k/uL Basophils # (0-0.2) k/uL Hypochromasia Anisocytosis PT (10.0-12.5) sec INR (<1.2) APTT (22.0-30.0) sec Sodium (137-145) mmol/L Potassium (3.5-5.1) mmol/L Chloride (98-107) mmol/L Carbon Dioxide (22-30) mmol/L Anion Gap mmol/L BUN (7-17) mg/dL Creatinine (0.52-1.04) mg/dL Est GFR (CKD-EPI)AfAm (>60 ml/min/1.73 sqM) Est GFR (CKD-EPI)NonAf (>60 ml/min/1.73 sqM) Glucose (74-99) mg/dL Plasma Lactic Acid Guido 3.3 H* (0.7-2.0) mmol/L Calcium (8.4-10.2) mg/dL Magnesium (1.6-2.3) mg/dL Total Bilirubin (0.2-1.3) mg/dL AST (14-36) U/L ALT (4-34) U/L Alkaline Phosphatase (38-126) U/L Troponin I <0.012 (0.000-0.034) ng/mL NT-Pro-B Natriuret Pep pg/mL Total Protein (6.3-8.2) g/dL Albumin (3.5-5.0) g/dL TSH (0.465-4.680) mIU/L Influenza Type A (PCR) Not Detected (Not Detectd) Influenza Type B (PCR) Not Detected (Not Detectd) RSV (PCR) Not Detected (Not Detectd) SARS-CoV-2 (PCR) Detected A (Not Detectd) Disposition Clinical Impression: COVID-19 Disposition: ADMITTED IP TO THIS HOSP Condition: Serious Is patient prescribed a controlled substance at d/c from ED?: No Referrals: Mckinley Sheets MD [Primary Care Provider] - 1-2 days Time of Disposition: 16:58
[2024-11-13 15:30] LABS: ALT 22 U/L (4-34); AST 48 U/L (14-36); African American GFR (CKD) 59 (>60 ml/min/1.73 sqM); Alkaline Phosphatase 109 U/L (38-126); Anion Gap 11 mmol/L; Blood Urea Nitrogen 32 mg/dL (7-17); Calcium 8.2 mg/dL (8.4-10.2); Carbon Dioxide 22 mmol/L (22-30); Chloride 97 mmol/L (98-107); Glucose 312 mg/dL (74-99); Magnesium 1.9 mg/dL (1.6-2.3); Non-African American GFR(CKD) 51 (>60 ml/min/1.73 sqM); Sodium 130 mmol/L (137-145); Total Protein 5.6 g/dL (6.3-8.2)
[2024-11-13 15:33] LABS: Partial Thromboplastin Time 26.4 sec (22.0-30.0); Prothrombin Time 11.4 sec (10.0-12.5)
[2024-11-13 15:37] LABS: Anisocytosis Slight; Basophils % (A) 0 %; Eosinophils % (A) 0 %; HCT 35.9 % (34.0-46.0); HGB 11.7 gm/dL (11.4-16.0); Hypochromasia Slight; Lymphocytes # (A) 0.7 k/uL (1.0-4.8); Lymphocytes % (A) 9 %; MCH 29.6 pg (25.0-35.0); MCHC 32.5 g/dL (31.0-37.0); MCV 91.2 fL (80.0-100.0); Mean Platelet Volume 8.5; Monocytes # (A) 0.3 k/uL (0-1.0); Monocytes % (A) 4 %; Neutrophils # (A) 6.5 k/uL (1.3-7.7); Neutrophils % (A) 86 %; Platelet Count 168 k/uL (150-450); RBC 3.94 m/uL (3.80-5.40); RDW 16.6 % (11.5-15.5); WBC 7.7 k/uL (3.8-10.6)
[2024-11-13 15:39] LABS: NT-Pro-B-Type Natriuretic Pept 700 pg/mL
--- NOTE | 2024-11-13 15:55 | XR ---
2 view chest HISTORY: Difficulty breathing COMPARISON: 03/13/2020 TECHNIQUE: PA and lateral views chest obtained. FINDINGS: There is moderate multifocal airspace consolidation bilaterally, left greater than right. The pulmona ry vasculature appears congested. There are probable small pleural effusions. There is no pneumothorax. IMPRESSION: Marked acute cardiopulmonary disease likely CHF. Clinical correlation recommended. [facility], , 11/13/2024 3:52 PM
[2024-11-13] MEDS ORDERED: IPRATROPIUM-ALBUTEROL 3 ML NEB INHALATION PRN (17:02)
[2024-11-13] MEDS ORDERED: ACETAMINOPHEN TAB 325 MG TAB PO PRN (17:02)
[2024-11-13] MEDS ORDERED: NALOXONE 0.4 MG/ML 1 ML VIAL IVP PRN (17:02)
[2024-11-13] MEDS: DEXAMETHASONE SOD PHOSPHATE 10 MG/ML 1 ML VIAL IVP SCH (17:32)
[2024-11-13 17:36] LABS: T4, Free (Free Thyroxine) 1.84 ng/dL (0.78-2.19)
[2024-11-13] MEDS: CHOLECALCIFEROL 125 MCG (5000 IU) TABLET PO SCH (18:05)
[2024-11-13] MEDS ORDERED: DEXTROSE 50% SYRINGE 50 ML IVP PRN ×2 (20:34)
[2024-11-13] MEDS: ASCORBIC ACID 500 MG TAB PO SCH (20:58)
[2024-11-13] MEDS: APIXABAN 5 MG TAB PO SCH (20:58)
[2024-11-13] MEDS: ATORVASTATIN 20 MG TAB PO SCH (20:58)
[2024-11-13 21:06] LABS: Glucose,Whole Blood 246 mg/dL (70-110)
[2024-11-13] MEDS: INSULIN ASPART (NovoLOG) 100 UNIT/ML VIAL SQ SCH (21:07)
[2024-11-13] MEDS: ALBUTEROL HFA INHALER INHALATION SCH (21:28)
[2024-11-14] MEDS: IPRATROPIUM-ALBUTEROL 3 ML NEB INHALATION SCH (00:17)
[2024-11-14] MEDS: ALBUTEROL HFA INHALER INHALATION PRN (00:34)
--- NOTE | 2024-11-14 05:31 | P.CNPUL ---
History of Present Illness Consult date: 11/14/24 Requesting physician: Carlos Cancino Reason for consult: other (COVID-pneumonia) Chief complaint: Shortness of breath History of present illness: Patient is a 83-year-old female with past medical history significant for hypertension, hyperlipidemia, diabetes mellitus, heart failure, obesity, among other things. She is currently confused and a poor historian. 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 She is hypoxic. Per the ER documentation, patient has been progressively more short of breath over the last one-two weeks. She has had a congested nonproductive cough. She did test positive for COVID on arrival. Chest x-ray showing diffuse multifocal infiltrates consistent with COVID-pneumonia. Afebrile. CBC: WBC count 7.7, hemoglobin 11.7, hematocrit 35.9, platelets 168. CMP: Sodium 130, potassium 5, chloride 97, serum bicarb 22, BUN 32, creatinine 1.02, glucose 312. Lactic 3.3 and down to 1.8. Troponin less than 0.012. NT proBNP only 700. EKG: Atrial fibrillation with controlled ventricular response, rate 84 bpm, no obvious acute ischemic changes. Patient is currently being evaluated on the medical floor. She is on 15 L high flow. SpO2 ranging from 84 to 88%. Has a persistent congested cough. No significant sputum production. She is currently on Decadron. Chronically anticoagulated on Eliquis. Her oxygen needs have increased markedly over the last 12 to 24 hours. We are going to try this patient on Airvo. Review of Systems Constitutional: Denies chills, Denies fever, Denies poor appetite, Denies weight gain, Denies weight loss Ears, nose, mouth and throat: Reports headache, Reports nasal congestion, Reports post-nasal drip, Reports sore throat, Denies nasal discharge, Denies sinus pain, Denies sinus pressure Cardiovascular: Reports leg edema, Reports orthopnea, Denies chest pain, Denies palpitations, Denies paroxysmal nocturnal dyspnea, Denies syncope Respiratory: Reports congestion, Reports cough, Reports dyspnea, Reports wheezing, Denies cough with sputum, Denies hemoptysis Gastrointestinal: Denies abdominal pain, Denies diarrhea, Denies nausea, Denies vomiting Genitourinary: Denies dysuria Musculoskeletal: Denies limitation of motion Integumentary: Denies rash Neurological: Reports confusion, Denies seizures, Denies syncope Psychiatric: Denies anxiety, Denies depression Past Medical History Past Medical History: Hypertension Additional Past Medical History / Comment(s): Short term memory loss, PNA. History of Any Multi-Drug Resistant Organisms: None Reported Past Surgical History: Appendectomy, Section, Cholecystectomy Past Psychological History: No Psychological Hx Reported Smoking Status: Former smoker Past Alcohol Use History: None Reported Past Drug Use History: None Reported Medications and Allergies Home Medications Medication Instructions Recorded Confirmed Type Aspirin EC [Ecotrin Low Dose] 81 mg PO DAILY 03/06/20 11/13/24 History Apixaban [Eliquis] 2.5 mg PO BID tablet 03/15/20 11/13/24 Rx Furosemide [Lasix] 40 mg PO BID #60 tablet 03/15/20 11/13/24 Rx Atorvastatin [Lipitor] 20 mg PO HS 11/13/24 11/13/24 History Cholecalciferol [Vitamin D3 (25 25 mcg PO DAILY 11/13/24 11/13/24 History Mcg = 1000 Iu)] Cyanocobalamin (Vitamin B-12) 1,000 mcg PO DAILY 11/13/24 11/13/24 History [Vitamin B-12] Doxycycline Hyclate 100 mg PO BID 11/13/24 11/13/24 History Fluconazole [Diflucan] 100 mg PO DAILY 11/13/24 11/13/24 History Multivit-Min/Iron/Folic/Lutein 1 tab PO DAILY 11/13/24 11/13/24 History [Centrum Silver Women Tablet] Naproxen Sodium [Aleve] 440 mg PO HS 11/13/24 11/13/24 History Potassium Chloride ER [K-Dur 20] 20 meq PO DAILY 11/13/24 11/13/24 History Semaglutide [Ozempic] 1 mg SQ MO 11/13/24 11/13/24 History Vitamin E Acetate [Vitamin E] 134 mg PO DAILY 11/13/24 11/13/24 History glipiZIDE [glipiZIDE ER] 10 mg PO DAILY 11/13/24 11/13/24 History metOLazone [Zaroxolyn] 2.5 mg PO DIRECTED 11/13/24 11/13/24 History Allergies Allergy/AdvReac Type Severity Reaction Status Date / Time Penicillins AdvReac Rash/Hives Verified 11/13/24 17:48 Physical Exam Vitals: Vital Signs Temp Pulse Resp BP Pulse Ox 11/14/24 02:56 92 L 11/14/24 01:08 93 L 11/13/24 19:10 98.3 F 75 20 138/84 90 L 11/13/24 16:27 98.3 F 84 20 135/83 90 L 11/13/24 16:01 87 20 130/83 88 L 11/13/24 14:39 98.6 F 92 22 125/75 89 L Intake and Output 11/13/24 11/13/24 11/14/24 14:59 22:59 06:59 Other: Voiding Method External Catheter Weight 136.078 kg 136.078 kg GENERAL EXAM: Alert, morbidly obese 83-year-old female, will follow commands, has a harsh congested nonproductive cough, on 15 L high flow nasal cannula, fairly comfortable in no apparent distress. HEAD: Normocephalic and atraumatic EYES: Normal reaction of pupils, equal size. NOSE: Clear with pink turbinates. THROAT: No erythema or exudates. NECK: No masses, no JVD. CHEST: No chest wall deformity. LUNGS: Equal air entry with diffuse rhonchi and crackles, on 15 L high flow nasal cannula, hypoxic with an SpO2 ranging from 84 to 88%. No conversational dyspnea or accessory muscle use.. CVS: S1 and S2 normal with no audible murmur, irregular rhythm. No extra heart sounds ABDOMEN: No hepatosplenomegaly, active bowel sounds, no guarding or rigidity. SPINE: No scoliosis or deformity SKIN: No rashes CENTRAL NERVOUS SYSTEM: No focal deficits, tone is normal in all 4 extremities. EXTREMITIES: There is bilateral lower extremity 2+ edema. No clubbing, or cyanosis. Peripheral pulses are intact. Results - Laboratory Findings CBC and BMP: 11/13/24 15:09 11/13/24 15:09 PT/INR, D-dimer PT 11.4 sec (10.0-12.5) 11/13/24 15:09 INR 1.0 (<1.2) 11/13/24 15:09 Abnormal lab findings: Abnormal Labs 11/13/24 11/13/24 11/13/24 15:09 15:09 15:09 RDW 16.6 H Lymphocytes # 0.7 L Sodium 130 L Chloride 97 L BUN 32 H Glucose 312 H POC Glucose (mg/dL) Plasma Lactic Acid Guido 3.3 H* Calcium 8.2 L AST 48 H Total Protein 5.6 L Albumin 3.0 L SARS-CoV-2 (PCR) 11/13/24 11/13/24 11/13/24 15:09 19:21 21:04 RDW Lymphocytes # Sodium Chloride BUN Glucose POC Glucose (mg/dL) 246 H Plasma Lactic Acid Guido 2.3 H* Calcium AST Total Protein Albumin SARS-CoV-2 (PCR) Detected A - Diagnostic Findings Chest x-ray: image reviewed Assessment and Plan Assessment: Acute COVID infection , Acute hypoxemic respiratory failure, currently on 15 L high flow nasal cannula. chest x-ray showing multifocal infiltrates, left greater than right, possible small pleural effusions; suspect COVID-pneumonia, the possibility of superimpos ed bacterial pneumonia is not completely excluded. Chronic atrial fibrillation, currently anticoagulated on Eliquis History of heart failure with preserved ejection fraction Hypertension History of hyperlipidemia Diabetes mellitus type 2 Morbid obesity, with a BMI 58.6 kg/m Plan: Patient's medications, labs, chest x-ray reviewed Marked increased oxygen demand over the last 12-24 hours [place] patient to AIRVO, maintain SpO2 92% or greater Continue IVP Decadron Patient may be candidate for baricitinib Empirically cover patient with antibiotics Check procalcitonin level Start Lasix 40 mg BID Obtain echocardiogram Eliquis has been resumed We will continue to follow I have personally seen and examined the patient, performed the documentation and the assessment and plan as written. Number of minutes spent on the visit:20 On 11/14/2024, the patient is being seen in joint evaluation along with the nurse practitioner. This evaluation was done more than 30 minutes. This is an elderly 83-year-old female patient who was hospitalized for worsening shortness of breath and the patient tested positive for COVID-19 infection. The patient is currently on Airvo at 60 L with an FiO2 of 90%. There has been progressive worsening in oxygenation and based on that, the patient was transitioned from 15 L to an Airvo system. LDH level is up to 90. CRP is 22.6 and a D-dimer is at 0.8. Chest x-ray from today shows coarse interstitial and perihilar and basilar pulmonary infiltrates greater on the left with slight interval improvement. The patient is currently on Decadron. The patient is on empiric antibiotic coverage with a combination of Rocephin and Zithromax. D-dimer is at 0.8. Renal function is stable. Noted the patient denies having any prior COVID-19 infections. She states that she has received vaccination. Comorbidities include chronic A-fib maintained on anticoagulation with Eliquis, heart failure with preserved LV function, hypertension hyperlipidemia diabetes mellitus type 2. She is also morbidly obese. Time with Patient: Greater than 30
[2024-11-14 06:14] LABS: Glucose,Whole Blood 196 mg/dL (70-110)
[2024-11-14] MEDS: glipiZIDE 5 MG TAB PO SCH (06:23)
--- NOTE | 2024-11-14 08:07 | XR ---
EXAMINATION TYPE: XR chest 1V portable DATE OF EXAM: 11/14/2024 6:52 AM COMPARISON: 11/13/2024 CLINICAL INDICATION: Female, 83 years old with history of multifocal infiltrates, TECHNIQUE: Single frontal view of the chest is obtained. FINDINGS: Coarse infiltrates perihilar and basilar regions greater on the left with slight interval i mprovement. Correlate for atypical pneumonia. The cardiac silhouette size is within normal limits. The osseous structures are intact. IMPRESSION: Coarse infiltrates perihilar and basilar regions greater on the left with slight interva l improvement. Correlate for atypical pneumonia. [facility], , 11/14/2024 8:04 AM
[2024-11-14] MEDS: FAMOTIDINE 20 MG TAB PO SCH (08:14)
[2024-11-14] MEDS: MULTIVITAMINS, THERA 1 EACH TAB PO SCH (08:14)
[2024-11-14] MEDS: FUROSEMIDE 40 MG TAB PO SCH (08:14)
[2024-11-14] MEDS: ASPIRIN 81 MG PO SCH (08:14)
[2024-11-14] MEDS: CYANOCOBALAMIN 500 MCG TAB PO SCH (08:14)
[2024-11-14] MEDS ORDERED: FUROSEMIDE 40 MG TAB PO SCH (09:00)
--- NOTE | 2024-11-14 11:38 | CA ---
Transthoracic Echo Report Name: Aria Carrillo Age: 83 Gender: F : 1940 Exam Date: 11/14/2024 07:51 Exam Location: [facility] Ht (in): 60 Wt (lb): 300 Ordering Physician: Peter Hammond Attending/Referring Phys: Outside Cutter Hand Rossy Bass RDCS Procedure CPT: Indications: evaluate LV function Cardiac Hx: Technical Quality: Technically difficult study Contrast 1: Definity Total Dose (mL): 1 Contrast 2: Total Dose (mL): MEASUREMENTS (Male / Female) Normal Values 2D ECHO LV Diastolic Diameter PLAX 5.2 cm 4.2 - 5.9 / 3.9 - 5.3 cm LV Systolic Diameter PLAX 3.7 cm IVS Diastolic Thickness 0.9 cm 0.6 - 1.0 / 0.6 - 0.9 cm LVPW Diastolic Thickness 1.0 cm 0.6 - 1.0 / 0.6 - 0.9 cm LV Relative Wall Thickness 0.4 LVOT Diameter 2.0 cm LV Diastolic Volume MOD BP 122.3 cm??? 67 - 155 / 56 - 104 cm??? LV Systolic Volume MOD BP 41.6 cm??? 22 - 58 / 19 - 49 cm??? LV Ejection Fraction MOD BP 66.0 % >= 55 % LV Cardiac Index MOD BP 2356.8 cm???/min???m??? LV Diastolic Volume MOD 4C 131.3 cm??? LV Systolic Volume MOD 4C 44.2 cm??? LV Ejection Fraction MOD 4C 66.3 % LV Cardiac Index MOD 4C 2543.8 cm???/min???m??? LV Diastolic Length 4C 6.9 cm LV Systolic Length 4C 5.3 cm LV Diastolic Volume MOD 2C 109.0 cm??? LV Systolic Volume MOD 2C 37.1 cm??? LV Ejection Fraction MOD 2C 65.9 % LV Cardiac Index MOD 2C 2099.3 cm???/min???m??? LV Diastolic Length 2C 6.6 cm LV Systolic Length 2C 5.6 cm Ascending Aorta Diameter 3.7 cm M-MODE LV Diastolic Diameter MM 5.9 cm 4.2 - 5.9 / 3.9 - 5.3 cm LV Systolic Diameter MM 4.0 cm LV Cardiac Index MM Teich 3003.3 cm???/min???m??? IVS Diastolic Thickness MM 1.1 cm 0.6 - 1.0 / 0.6 - 0.9 cm LVPW Diastolic Thickness MM 1.5 cm 0.6 - 1.0 / 0.6 - 0.9 cm LV Relative Wall Thickness MM 0.4 0.24 - 0.42 / 0.22 - 0.42 LV Mass Index MM 142.0 g/m??? 49 - 115 / 43 - 95 g/m??? DOPPLER AV Peak Velocity 270.1 cm/s AV Peak Gradient 29.2 mmHg AV Mean Velocity 194.2 cm/s AV Mean Gradient 16.4 mmHg AV Velocity Time Integral 57.7 cm LVOT Peak Velocity 92.9 cm/s LVOT Peak Gradient 3.5 mmHg LVOT Velocity Time Integral 20.8 cm LVOT Stroke Volume 64.6 cm??? LVOT Stroke Volume Index 29.1 ml/m??? LVOT Cardiac Index 1885.4 cm???/min???m??? AV Area Cont Eq vti 1.1 cm??? AV Area Cont Eq pk 1.1 cm??? MV Peak Velocity 135.7 cm/s MV Peak Gradient 7.4 mmHg MV Mean Velocity 75.6 cm/s MV Mean Gradient 2.8 mmHg MV Velocity Time Integral 24.5 cm TR Peak Velocity 229.3 cm/s TR Peak Gradient 21.0 mmHg Right Atrial Pressure 20.0 mmHg Pulmonary Artery Systolic Pressu 41.0 mmHg Right Ventricular Systolic Press 41.0 mmHg PV Peak Velocity 81.8 cm/s PV Peak Gradient 2.7 mmHg FINDINGS Left Ventricle Left ventricular ejection fraction is estimated at 50 % with beat to beat variability. Severely increased left ventricular mass. Mildly increased septal wall thickness. Mildly increased posterior wall thickness. Mildly decreased midwall fractional shortening. Moderately increased left ventricular diastolic diameter. Moderately increased left ventricular diastolic volume. Mildly increased left ventricular relative wall thickness. Right Ventricle Right ventricle not well visualized. Mild pulmonary hypertension. Right Atrium Right atrial dilatation. Left Atrium Moderately increased left atrial area. Mitral Valve Mitral valve thickened. Mitral annular calcification. No evidence for mitral valve prolapse. Mild mitral stenosis. Trace mitral regurgitation. Aortic Valve Aortic valve not well visualized. Diffuse thickening of the aortic valve cusps with reduced excursion. Mild aortic stenosis, may be underestimate due to poor image quality. Mild aortic regurgitation. Tricuspid Valve Structurally normal tricuspid valve. No tricuspid stenosis. Mild tricuspid regurgitation. Pulmonic Valve Structurally normal pulmonic valve. No pulmonic stenosis. No pulmonic regurgitation. Pericardium No pericardial effusion. Aorta Normal size aortic root and proximal ascending aorta. CONCLUSIONS Normal LV function Mild aortic regurgitation Previewed by: Dr. Scooter Das MD (Electronically Signed) Final Date: 14 November 2024 11:37
[2024-11-14 11:43] LABS: Glucose,Whole Blood 177 mg/dL (70-110)
[2024-11-14] MEDS: AZITHROMYCIN 500 MG in SODIUM CHLORIDE 0.9% 250 ML IVPB SCH (12:27)
[2024-11-14 13:04] LABS: C Reactive Protein 22.6 mg/dL (0.00-0.80)
[2024-11-14 16:28] LABS: Glucose,Whole Blood 175 mg/dL (70-110)
--- NOTE | 2024-11-14 19:04 | P.HPIM ---
History of Present Illness H&P Date: 11/14/24 Chief Complaint: Short of breath Pleasant 83-year-old patient follows with visiting physicians. For 2 weeks patient been having a cough. Little sputum. Not short of breath. No fever no chills. Decreased appetite tired rundown. Patient has visiting [facility] care 21/06. Does use a walker. Chronic medical conditions include atrial fibrillation, previous [place], CHF d iastolic dysfunction, GERD, osteoarthritis. Patient tested positive for COVID in the ER. Pulse ox was 89% on 4 L. This morning is on Airvo. Review of systems: GEN.: Weak tired decreased appetite EYES: None HEENT: None NECK: None RESPIRATORY: [As above CARDIOVASCULAR: None GASTROINTESTINAL: None GENITOURINARY: None MUSCULOSKELETAL: Joint pains LYMPHATICS: None HEMATOLOGICAL: None PSYCHIATRY: None NEUROLOGICAL: Does use a walker Social history: Lives alone. Has 21/06 care with visiting [facility]. No smoking. Physical examination: VITAL SIGNS: 98.6, 92, 22, 125 x 75, 99% on 4 L upon presentation GENERAL: [BMI 58.6, reclining bed awake short of breath. EYES: Pupils equal. Conjunctiva giovani l. HEENT: External appearance of nose and ears normal, oral cavity grossly normal. NECK: JVD not raised; masses not palpable. HEART: First and second heart sounds are normal; no edema. LUNGS accessory muscles are working. Not able to speak in full sentences. Diminished breath sounds. Prolonged expiration wheezing]. ABDOMEN: Soft, nontender, liver spleen not palpable, no masses palpable. PSYCH: Alert and oriented x3; mood and affect with anxious l. MUSCULOSKELETAL:No Clubbing/cyanosis;muscles-grossly intact. OA NEUROLOGICAL: Cranial nerves grossly intact; no facial asymmetry, power and sensation grossly intact. LYMPHATICS: No lymph nodes palpable in the axilla and neck INVESTIGATIONS, reviewed in the clinical context: November 13, 2024: White count 7.7 hemoglobin 11.7 platelets 168 sodium 130 potassium 5 BUN 32 creatinine 1.02 blood glucose 3.2 Lactic acid 3.3, 2.3 TSH 2.4 Free T41.84 Influenza type A, type B, RSV, COVID-19: Detected EKG tracing personally reviewed by me-atrial fibrillation. Rate 84 Chest x-ray film personally reviewed by me-bilateral infiltrates 2D echocardiogram: EF 50%. Severely increased left ventricular mass. Increased left ventricular diastolic diameter. Assessment plan: -Acute COVID-19 pneumonitis causing severe hypoxic respiratory failure Dexamethasone 6 mg twice daily. Patient is already on Eliquis -Acute hypoxic respiratory failure secondary to COVID-19: Patient on Airvo this morning. -Chronic congestive heart failure from diastolic dysfunction EF 55 to 60% Lasix 40 mg twice daily -Persistent atrial fibrillation, rate controlled Eliquis. Telemetry. -Hyponatremia, possibly some volume deficit due to decreased oral intake IV fluids. -Morbid obesity BMI 58.6 Ozempic. -Primary osteoarthritis multiple joints Aleve for 40 mg nightly -Hyperlipidemia Lipitor 20 mg nightly -Diabetes mellitus type 2, chronically on oral hypoglycemic, uncontrolled with steroids Glipizide. Add Levemir 14 units SQ nightly. Follow Accu-Cheks sliding scale. -Full code Patient on IV antibiotics per pulmonary. Cannot rule out bacterial pneumonia. Discussed with patient. Past Medical History Past Medical History: Hypertension Additional Past Medical History / Comment(s): Short term memory loss, PNA. History of Any Multi-Drug Resistant Organisms: None Reported Past Surgical History: Appendectomy, Section, Cholecystectomy Past Psychological History: No Psychological Hx Reported Smoking Status: Former smoker Past Alcohol Use History: None Reported Past Drug Use History: None Reported Medications and Allergies Home Medications Medication Instructions Recorded Confirmed Type Aspirin EC [Ecotrin Low Dose] 81 mg PO DAILY 03/06/20 11/13/24 History Apixaban [Eliquis] 2.5 mg PO BID tablet 03/15/20 11/13/24 Rx Furosemide [Lasix] 40 mg PO BID #60 tablet 03/15/20 11/13/24 Rx Atorvastatin [Lipitor] 20 mg PO HS 11/13/24 11/13/24 History Cholecalciferol [Vitamin D3 (25 25 mcg PO DAILY 11/13/24 11/13/24 History Mcg = 1000 Iu)] Cyanocobalamin (Vitamin B-12) 1,000 mcg PO DAILY 11/13/24 11/13/24 History [Vitamin B-12] Doxycycline Hyclate 100 mg PO BID 11/13/24 11/13/24 History Fluconazole [Diflucan] 100 mg PO DAILY 11/13/24 11/13/24 History Multivit-Min/Iron/Folic/Lutein 1 tab PO DAILY 11/13/24 11/13/24 History [Centrum Silver Women Tablet] Naproxen Sodium [Aleve] 440 mg PO HS 11/13/24 11/13/24 History Potassium Chloride ER [K-Dur 20] 20 meq PO DAILY 11/13/24 11/13/24 History Semaglutide [Ozempic] 1 mg SQ MO 11/13/24 11/13/24 History Vitamin E Acetate [Vitamin E] 134 mg PO DAILY 11/13/24 11/13/24 History glipiZIDE [glipiZIDE ER] 10 mg PO DAILY 11/13/24 11/13/24 History metOLazone [Zaroxolyn] 2.5 mg PO DIRECTED 11/13/24 11/13/24 History Allergies Allergy/AdvReac Type Severity Reaction Status Date / Time Penicillins AdvReac Rash/Hives Verified 11/13/24 17:48 Physical Exam Vitals: Vital Signs Temp Pulse Pulse Resp BP BP Pulse Ox 11/14/24 08:41 11/14/24 08:12 97.6 F 80 24 156/80 95 11/14/24 05:48 84 22 123/80 93 L 11/14/24 04:42 95 11/14/24 03:56 91 L 11/14/24 02:56 92 L 11/14/24 01:08 93 L 11/14/24 00:05 97.8 F 86 24 154/81 87 L 11/13/24 19:10 98.3 F 75 20 138/84 90 L 11/13/24 16:27 98.3 F 84 20 135/83 90 L 11/13/24 16:01 87 20 130/83 88 L 11/13/24 14:39 98.6 F 92 22 125/75 89 L FiO2 11/14/24 08:41 94 11/14/24 08:12 11/14/24 05:48 91 11/14/24 04:42 11/14/24 03:56 94 11/14/24 02:56 11/14/24 01:08 11/14/24 00:05 11/13/24 19:10 11/13/24 16:27 11/13/24 16:01 11/13/24 14:39 Intake and Output 11/13/24 11/14/24 11/14/24 22:59 06:59 14:59 Other: Voiding Method External Catheter # Bowel Movements 1 Weight 136.078 kg Results CBC & Chem 7: 11/13/24 15:09 11/13/24 15:09 Labs: Abnormal Lab Results - Last 24 Hours (Table) 11/13/24 11/13/24 11/13/24 Range/Units 15:09 15:09 15:09 RDW 16.6 H (11.5-15.5) % Lymphocytes # 0.7 L (1.0-4.8) k/uL D-Dimer (<0.60) mg/L FEU Sodium 130 L (137-145) mmol/L Chloride 97 L (98-107) mmol/L BUN 32 H (7-17) mg/dL Glucose 312 H (74-99) mg/dL POC Glucose (mg/dL) (70-110) mg/dL Plasma Lactic Acid Guido 3.3 H* (0.7-2.0) mmol/L Calcium 8.2 L (8.4-10.2) mg/dL AST 48 H (14-36) U/L Total Protein 5.6 L (6.3-8.2) g/dL Albumin 3.0 L (3.5-5.0) g/dL SARS-CoV-2 (PCR) (Not Detectd) 11/13/24 11/13/24 11/13/24 Range/Units 15:09 19:21 21:04 RDW (11.5-15.5) % Lymphocytes # (1.0-4.8) k/uL D-Dimer (<0.60) mg/L FEU Sodium (137-145) mmol/L Chloride (98-107) mmol/L BUN (7-17) mg/dL Glucose (74-99) mg/dL POC Glucose (mg/dL) 246 H (70-110) mg/dL Plasma Lactic Acid Guido 2.3 H* (0.7-2.0) mmol/L Calcium (8.4-10.2) mg/dL AST (14-36) U/L Total Protein (6.3-8.2) g/dL Albumin (3.5-5.0) g/dL SARS-CoV-2 (PCR) Detected A (Not Detectd) 11/14/24 11/14/24 Range/Units 06:12 07:14 RDW (11.5-15.5) % Lymphocytes # (1.0-4.8) k/uL D-Dimer 0.80 H (<0.60) mg/L FEU Sodium (137-145) mmol/L Chloride (98-107) mmol/L BUN (7-17) mg/dL Glucose (74-99) mg/dL POC Glucose (mg/dL) 196 H (70-110) mg/dL Plasma Lactic Acid Guido (0.7-2.0) mmol/L Calcium (8.4-10.2) mg/dL AST (14-36) U/L Total Protein (6.3-8.2) g/dL Albumin (3.5-5.0) g/dL SARS-CoV-2 (PCR) (Not Detectd)
[2024-11-14 20:21] LABS: Glucose,Whole Blood 160 mg/dL (70-110)
[2024-11-14] MEDS: NAPROXEN 250 MG TAB PO SCH (20:38)
[2024-11-14] MEDS: DEXAMETHASONE SOD PHOSPHATE 10 MG/ML 1 ML VIAL IVP SCH (20:38)
[2024-11-14] MEDS: INSULIN DETEMIR (LEVEMIR) 100 UNIT/ML SYR SQ SCH (20:39)
[2024-11-15 06:03] LABS: Glucose,Whole Blood 147 mg/dL (70-110)
[2024-11-15 07:43] LABS: African American GFR (CKD) 60 (>60 ml/min/1.73 sqM); Anion Gap 5 mmol/L; Blood Urea Nitrogen 28 mg/dL (7-17); Calcium 9.2 mg/dL (8.4-10.2); Carbon Dioxide 30 mmol/L (22-30); Chloride 101 mmol/L (98-107); Glucose 134 mg/dL (74-99); Non-African American GFR(CKD) 52 (>60 ml/min/1.73 sqM); Potassium 4.3 mmol/L (3.5-5.1); Sodium 136 mmol/L (137-145)
[2024-11-15 11:12] LABS: Glucose,Whole Blood 122 mg/dL (70-110)
[2024-11-15 16:10] LABS: Glucose,Whole Blood 187 mg/dL (70-110)
--- NOTE | 2024-11-15 16:30 | P.PN ---
Subjective Progress Note Date: 11/15/24 Patient is a 83-year-old female with past medical history significant for hypertension, hyperlipidemia, diabetes mellitus, heart failure, obesity, among other things. She is currently confused and a poor historian. 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 She is hypoxic. Per the ER documentation, patient has been progressively more short of breath over the last one-two weeks. She has had a congested nonproductive cough. She did test positive for COVID on arrival. Chest x-ray showing diffuse multifocal infiltrates consistent with COVID-pneumonia. Afebrile. CBC: WBC count 7.7, hemoglobin 11.7, hematocrit 35.9, platelets 168. CMP: Sodium 130, potassium 5, chloride 97, serum bicarb 22, BUN 32, creatinine 1.02, glucose 312. Lactic 3.3 and down to 1.8. Troponin less than 0.012. NT proBNP only 700. EKG: Atrial fibrillation with controlled ventricular response, rate 84 bpm, no obvious acute ischemic changes. Patient is currently being evaluated on the medical floor. She is on 15 L high flow. SpO2 ranging from 84 to 88%. Has a persistent congested cough. No significant sputum production. She is currently on Decadron. Chronically anticoagulated on Eliquis. Her oxygen needs have increased markedly over the last 12 to 24 hours. We are going to try this patient on Airvo. On 11/15/2024, the patient is being seen for a follow-up. This morning, she is calm and comfortable. Denies having any significant shortness of breath. Nevertheless, she is still hypoxic and she remains on Airvo with a flow of 60 L with an FiO2 of 90%. The patient remains on Decadron 6 mg IV twice daily. She is on Ventolin HFA 4 times a day and she is also on empiric antibiotic coverage with a combination of Rocephin and Zithromax. She remains on Levemir insulin 14 units at bedtime and NovoLog sliding scale coverage. She remains on long-term anticoagulation with Eliquis 5 mg p.o. twice a day. No altered mentation. No nausea or vomiting. No diarrhea. Sodium levels at 136, BUN 28 with a creatinine of 1.0. Procalcitonin level is at 0.2. D-dimer is at 0.8. Her serum LDH level was 290. Objective - Vital Signs Vital signs: Vital Signs Temp 97.6 F 11/15/24 08:30 Pulse 91 11/15/24 08:30 Resp 20 11/15/24 08:30 BP 151/80 11/15/24 08:30 Pulse Ox 94 L 11/15/24 08:30 FiO2 90 11/15/24 08:48 Intake & Output 11/14/24 11/15/24 11/15/24 18:59 06:59 18:59 Intake Total 110 Output Total 1000 Balance -1000 110 Weight 139 kg Intake: Oral 110 Output: Urine 1000 Other: Voiding Method External Catheter External Catheter External Catheter # Voids 1 - Exam GENERAL EXAM: Alert, morbidly obese 83-year-old female, will follow commands, has a harsh congested nonproductive cough, on Airvo at 60 L with an FiO2 of 90% HEAD: Normocephalic and atraumatic EYES: Normal reaction of pupils, equal size. NOSE: Clear with pink turbinates. THROAT: No erythema or exudates. NECK: No masses, no JVD. CHEST: No chest wall deformity. LUNGS: Equal air entry with diffuse rhonchi and crackles,. No conversational dyspnea or accessory muscle use.. CVS: S1 and S2 normal with no audible murmur, irregular rhythm. No extra heart sounds ABDOMEN: No hepatosplenomegaly, active bowel sounds, no guarding or rigidity. SPINE: No scoliosis or deformity SKIN: No rashes CENTRAL NERVOUS SYSTEM: No focal deficits, tone is normal in all 4 extremities. EXTREMITIES: There is bilateral lower extremity 2+ edema. No clubbing, or cyanosis. Peripheral pulses are intact. - Labs CBC & Chem 7: 11/13/24 15:09 11/15/24 06:13 Labs: Abnormal Lab Results - Last 24 Hours (Table) 11/13/24 11/14/24 11/14/24 Range/Units 15:09 07:14 11:42 Sodium (137-145) mmol/L BUN (7-17) mg/dL Glucose (74-99) mg/dL POC Glucose (mg/dL) 177 H (70-110) mg/dL Lactate Dehydrogenase 290 H (120-246) U/L C-Reactive Protein 22.60 H (0.00-0.80) mg/dL Free T3 pg/mL 1.70 L (2.30-4.20) pg/mL 11/14/24 11/14/24 11/15/24 Range/Units 16:23 20:19 06:01 Sodium (137-145) mmol/L BUN (7-17) mg/dL Glucose (74-99) mg/dL POC Glucose (mg/dL) 175 H 160 H 147 H (70-110) mg/dL Lactate Dehydrogenase (120-246) U/L C-Reactive Protein (0.00-0.80) mg/dL Free T3 pg/mL (2.30-4.20) pg/mL 11/15/24 11/15/24 Range/Units 06:13 11:11 Sodium 136 L (137-145) mmol/L BUN 28 H (7-17) mg/dL Glucose 134 H (74-99) mg/dL POC Glucose (mg/dL) 122 H (70-110) mg/dL Lactate Dehydrogenase (120-246) U/L C-Reactive Protein (0.00-0.80) mg/dL Free T3 pg/mL (2.30-4.20) pg/mL Microbiology - Last 24 Hours (Table) 11/14/24 06:40 Gram Stain - Preliminary Sputum Sputum Culture - Preliminary Assessment and Plan Assessment: Acute COVID infection , Acute hypoxemic respiratory failure, currently on Airvo at 60 L and FiO2 of 90% and the chest x-ray showing multifocal infiltrates, left greater than right, possible small pleural effusions; suspect COVID-pneumonia, the possibility of superimposed bacterial pneumonia is not completely excluded. Although this is considered to be less likely and the patient has a low procalcitonin level. D- dimer is also low. Chronic atrial fibrillation, currently anticoagulated on Eliquis History of heart failure with preserved ejection fraction Hypertension History of hyperlipidemia Diabetes mellitus type 2 Morbid obesity, with a BMI 58.6 kg/m Plan: Continue AIRVO, maintain SpO2 92% or greater, currently on 6 L and FiO2 of 90% Continue IVP Decadron Patient may be candidate for baricitinib, noted the patient's symptoms have been going on for more than 10 days Empirically antibiotic coverage can be discontinued Check procalcitonin level is not elevated Continue Lasix 40 mg BID Obtain echocardiogram was within normal limits Eliquis has been resumed Repeat chest x-ray in the morning We will continue to follow
--- NOTE | 2024-11-15 20:00 | P.PN ---
Progress Note - Text Progress Note Date: 11/15/24 Chief Complaint: Short of breath Pleasant 83-year-old patient follows with visiting physicians. For 2 weeks patient been having a cough. Little sputum. Not short of breath. No fever no chills. Decreased appetite tired rundown. [facility] Does use a walker. Chronic medical conditions include atrial fibrillation, previous ME, CHF diastolic dysfunction, GERD, osteoarthritis. Patient tested positive for COVID in the ER. Pulse ox was 89% on 4 L. This morning is on Airvo. November 15: Seen earlier this afternoon. On Airvo 60%. Told the patient she would be better off sitting in the chair and use incentive spirometry. Patient dentures not fitting well. Hence we will order a ground diet. No sputum production. Procalcitonin 0.2. DC antibiotics. Continue with oxygen, steroids, Active Medications Acetaminophen (Acetaminophen Tab 325 Mg Tab) 650 mg PO Q4HR PRN PRN Reason: Mild Pain or Fever > 100.5 Albuterol Sulfate (Albuterol Hfa Inhaler) 2 puff INHALATION RT-QID [facility] Last Admin: 11/15/24 15:59 Dose: 2 puff Albuterol Sulfate (Albuterol Hfa Inhaler) 2 puff INHALATION RT-Q2H PRN PRN Reason: Shortness Of Breath Last Admin: 11/14/24 00:34 Dose: 2 puff Apixaban (Apixaban 5 Mg Tab) 5 mg PO BID [facility]; Protocol Last Admin: 11/15/24 08:34 Dose: 5 mg Ascorbic Acid (Ascorbic Acid 500 Mg Tab) 500 mg PO BID [facility] Last Admin: 11/15/24 08:42 Dose: 500 mg Aspirin (Aspirin 81 Mg) 81 mg PO DAILY [facility] Last Admin: 11/15/24 08:34 Dose: 81 mg Atorvastatin Calcium (Atorvastatin 20 Mg Tab) [address] [facility] Last Admin: 11/14/24 20:38 Dose: 20 mg Buspirone HCl (Buspirone Hcl 5 Mg Tab) 7.5 mg PO BID [facility] Cholecalciferol (Cholecalciferol 125 Mcg (5000 Iu) Tablet) 125 mcg PO DAILY [facility] Last Admin: 11/15/24 08:34 Dose: 125 mcg Cyanocobalamin (Cyanocobalamin 500 Mcg Tab) 1,000 mcg PO DAILY [facility] Last Admin: 11/15/24 08:34 Dose: 1,000 mcg Dexamethasone Sodium Phosphate (Dexamethasone Sod Phosphate 10 Mg/Ml 1 Ml Vial) 6 mg IVP BID [facility] Last Admin: 11/15/24 08:33 Dose: 6 mg Dextrose/Water (Dextrose 50% Syringe 50 Ml) 25 ml IVP PER PROTOCOL PRN; Protocol PRN Reason: Hypoglycemia Dextrose/Water (Dextrose 50% Syringe 50 Ml) 50 ml IVP PER PROTOCOL PRN; Protoc ol PRN Reason: Hypoglycemia Famotidine (Famotidine 20 Mg Tab) 20 mg PO DAILY [facility] Last Admin: 11/15/24 08:34 Dose: 20 mg Furosemide (Furosemide 40 Mg Tab) 40 mg PO BID@0900,1600 [facility] Last Admin: 11/15/24 15:23 Dose: 40 mg Glipizide (Glipizide 5 Mg Tab) 5 mg PO AC-BID [facility] Last Admin: 11/15/24 17:12 Dose: 5 mg Insulin Aspart (Insulin Aspart (Novolog) 100 Unit/Ml Vial) 0 unit SQ ACHS [facility]; Protocol Last Admin: 11/15/24 17:12 Dose: 2 unit Insulin Detemir (Insulin Detemir (Levemir) 100 Unit/Ml Syr) 14 unit SQ HS [facility] Last Admin: 11/14/24 20:39 Dose: 14 unit Multivitamins (Multivitamins, Thera 1 Each Tab) 1 each PO DAILY [facility] Last Admin: 11/15/24 08:34 Dose: 1 each Naloxone HCl (Naloxone 0.4 Mg/Ml 1 Ml Vial) 0.2 mg IVP Q2M PRN PRN Reason: Opioid Reversal Naproxen (Naproxen 250 Mg Tab) 250 mg PO HS [facility] Last Admin: 11/14/24 20:38 Dose: 250 mg Semaglutide [Ozempic (] 1 Mg/0.75 Ml Each) 1 mg SQ MO [facility] Social history: Lives alone. Has 21/06 care with visiting [facility]. No smoking. Physical examination: VITAL SIGNS: 97.6, 82, 18, 152/91, 96% on Airvo 60% GENERAL: [BMI 58.6, reclining bed awake short of breath. EYES: Pupils equal. Conjunctiva giovani l. HEENT: External appearance of nose and ears normal, oral cavity grossly normal., Hard of hearing NECK: JVD not raised; masses not palpable. HEART: First and second heart sounds are normal; no edema. LUNGS accessory muscles are working. Not able to speak in full sentences. Diminished breath sounds. Prolonged expiration wheezing]. ABDOMEN: Soft, nontender, liver spleen not palpable, no masses palpable. PSYCH: Alert and oriented x3; mood and affect with anxious l. MUSCULOSKELETAL:No Clubbing/cyanosis;muscles-grossly intact. OA INVESTIGATIONS, reviewed in the clinical context: November 15: Sodium 136 potassium 4.3 procalcitonin 0.2 November 13, 2024: White count 7.7 hemoglobin 11.7 platelets 168 sodium 130 potassium 5 BUN 32 creatinine 1.02 blood glucose 3.2 Lactic acid 3.3, 2.3 TSH 2.4 Free T41.84 Influenza type A, type B, RSV, COVID-19: Detected EKG tracing personally reviewed by me-atrial fibrillation. Rate 84 Chest x-ray film personally reviewed by me-bilateral infiltrates 2D echocardiogram: EF 50%. Severely increased left ventricular mass. Increased left ventricular diastolic diameter. Assessment plan: -Acute COVID-19 pneumonitis causing severe hypoxic respiratory failure: Slow to respond Dexamethasone 6 mg twice daily. Patient is already on Eliquis -Acute hypoxic respiratory failure secondary to COVID-19:: Slow to respond On Airvo 60% -Doubt pneumonia. Procalcitonin 0.2. DC antibiotics -Chronic congestive heart failure from diastolic dysfunction EF 55 to 60% Lasix 40 mg twice daily -Persistent atrial fibrillation, rate controlled Eliquis. Telemetry. -Hyponatremia, possibly some volume deficit due to decreased oral intake IV fluids. -Morbid obesity BMI 58.6 Ozempic. -Primary osteoarthritis multiple joints Aleve for 40 mg nightly -Hyperlipidemia Lipitor 20 mg nightly -Diabetes mellitus type 2, chronically on oral hypoglycemic, uncontrolled with steroids Glipizide. Levemir 14 units SQ nightly. Follow Accu-Cheks sliding scale. -Full code DC antibiotics. Requested the patient to be up in the chair with assistance. Incentive spirometry. Other medication to continue. Past Medical History Past Medical History: Hypertension Additional Past Medical History / Comment(s): Short term memory loss, PNA. History of Any Multi-Drug Resistant Organisms: None Reported Past Surgical History: Appendectomy, Section, Cholecystectomy Past Psychological History: No Psychological Hx Reported Smoking Status: Former smoker Past Alcohol Use History: None Reported Past Drug Use History: None Reported
[2024-11-15 20:34] LABS: Glucose,Whole Blood 184 mg/dL (70-110)
[2024-11-15] MEDS: busPIRone HCl 5 MG TAB PO SCH (21:15)
[2024-11-16 06:25] LABS: Glucose,Whole Blood 163 mg/dL (70-110)
--- NOTE | 2024-11-16 10:57 | XR ---
EXAMINATION TYPE: XR chest 1V DATE OF EXAM: 11/16/2024 COMPARISON: 11/14/2024 CLINICAL INDICATION: Female, 83 years old with history of COVID-19 pneumonia; TECHNIQUE: Single frontal view of the chest is obtained. FINDINGS: Coarse bilateral infiltrates persist without significant interval change. The cardiac silh ouette size is within normal limits. The osseous structures are intact. IMPRESSION: Stable features of pneumonia [facility] Bartolo Gutierres, , 11/16/2024 10:55 AM
[2024-11-16 12:10] LABS: Glucose,Whole Blood 131 mg/dL (70-110)
[2024-11-16 16:58] LABS: Glucose,Whole Blood 199 mg/dL (70-110)
--- NOTE | 2024-11-16 18:11 | P.PN ---
Progress Note - Text Progress Note Date: 11/16/24 Chief Complaint: Short of breath Pleasant 83-year-old patient follows with visiting physicians. For 2 weeks patient been having a cough. Little sputum. Not short of breath. No fever no chills. Decreased appetite tired rundown. Patient has visiting [facility] 21/06. Does use a walker. Chronic medical conditions include atrial fibrillation, previous HI, CHF diastolic dysfunction, GERD, osteoarthritis. Patient tested positive for COVID in the ER. Pulse ox was 89% on 4 L. This morning is on Airvo. November 15: Seen earlier this afternoon. On Airvo 60%. Told the patient she would be better off sitting in the chair and use incentive spirometry. Patient dentures not fitting well. Hence we will order a ground diet. No sputum production. Procalcitonin 0.2. DC antibiotics. Continue with oxygen, steroids, November 16: Remains on Airvo 50%. Up in recliner. Breathing a bit better. Eating better ground food. Because of loose dentures. IV Decadron. Active Medications Acetaminophen (Acetaminophen Tab 325 Mg Tab) 650 mg PO Q4HR PRN PRN Reason: Mild Pain or Fever > 100.5 Albuterol Sulfate (Albuterol Hfa Inhaler) 2 puff INHALATION RT-QID [facility] Last Admin: 11/16/24 16:07 Dose: 2 puff Albuterol Sulfate (Albuterol Hfa Inhaler) 2 puff INHALATION RT-Q2H PRN PRN Reason: Shortness Of Breath Last Admin: 11/14/24 00:34 Dose: 2 puff Apixaban (Apixaban 5 Mg Tab) 5 mg PO BID [facility]; Protocol Last Admin: 11/16/24 08:47 Dose: 5 mg Ascorbic Acid (Ascorbic Acid 500 Mg Tab) 500 mg PO BID [facility] Last Admin: 11/16/24 08:47 Dose: 500 mg Aspirin (Aspirin 81 Mg) 81 mg PO DAILY [facility] Last Admin: 11/16/24 08:47 Dose: 81 mg Atorvastatin Calcium (Atorvastatin 20 Mg Tab) 20 mg PO HS [facility] Last Admin: 11/15/24 21:15 Dose: 20 mg Buspirone HCl (Buspirone Hcl 5 Mg Tab) 7.5 mg PO BID [facility] Last Admin: 11/16/24 08:48 Dose: 7.5 mg Cholecalciferol (Cholecalciferol 125 Mcg (5000 Iu) Tablet) 125 mcg PO DAILY [facility] Last Admin: 11/16/24 08:47 Dose: 125 mcg Cyanocobalamin (Cyanocobalamin 500 Mcg Tab) 1,000 mcg PO DAILY [facility] Last Admin: 11/16/24 08:47 Dose: 1,000 mcg Dexamethasone Sodium Phosphate (Dexamethasone Sod Phosphate 10 Mg/Ml 1 Ml Vial) 6 mg IVP BID [facility] Last Admin: 11/16/24 08:47 Dose: 6 mg Dextrose/Water (Dextrose 50% Syringe 50 Ml) 25 ml IVP PER PROTOCOL PRN; Protocol PRN Reason: Hypoglycemia Dextrose/Water (Dextrose 50% Syringe 50 Ml) 50 ml IVP PER PROTOCOL PRN; Protocol PRN Reason: Hypoglycemia Famotidine (Famotidine 20 Mg Tab) 20 mg PO DAILY [facility] Last Admin: 11/16/24 08:47 Dose: 20 mg Furosemide (Furosemide 40 Mg Tab) 40 mg PO BID@0900,1600 [facility] Last Admin: 11/16/24 15:29 Dose: 40 mg Glipizide (Glipizide 5 Mg Tab) 5 mg PO AC-BID [facility] Last Admin: 11/16/24 17:00 Dose: 5 mg Insulin Aspart (Insulin Aspart (Novolog) 100 Unit/Ml Vial) 0 unit SQ [facility]; Protocol Last Admin: 11/16/24 17:00 Dose: 2 unit Insulin Detemir (Insulin Detemir (Levemir) 100 Unit/Ml Syr) 14 unit SQ [facility] Last Admin: 11/15/24 21:16 Dose: 14 unit Multivitamins (Multivitamins, Thera 1 Each Tab) 1 each PO DAILY [facility] Last Admin: 11/16/24 08:47 Dose: 1 each Naloxone HCl (Naloxone 0.4 Mg/Ml 1 Ml Vial) 0.2 mg IVP Q2M PRN PRN Reason: Opioid Reversal Naproxen (Naproxen 250 Mg Tab) 250 mg PO HS [facility] Last Admin: 11/15/24 21:15 Dose: 250 mg Semaglutide [Ozempic (] 1 Mg/0.75 Ml Each) 1 mg SQ MO [facility] Social history: Lives alone. Has / care with visiting Melia. No smoking. Physical examination: VITAL SIGNS: 98, 83, 21, 1 5987, 97% on 50 L Airvo GENERAL: [BMI 58.6, in a recliner, some shortness of breath EYES: Pupils equal. Conjunctiva giovani l. HEENT: External appearance of nose and ears normal, oral cavity grossly normal., Hard of hearing NECK: JVD not raised; masses not palpable. HEART: First and second heart sounds are normal; no edema. LUNGS accessory muscles are working. Not able to speak in full sentences. Diminished breath sounds. Prolonged expiration wheezing]. ABDOMEN: Soft, nontender, liver spleen not palpable, no masses palpable. PSYCH: Alert and oriented x3; mood and affect with anxious l. MUSCULOSKELETAL:No Clubbing/cyanosis;muscles-grossly intact. OA INVESTIGATIONS, reviewed in the clinical context: November 15: Sodium 136 potassium 4.3 procalcitonin 0.2 November 13, 2024: White count 7.7 hemoglobin 11.7 platelets 168 sodium 130 potassium 5 BUN 32 creatinine 1.02 blood glucose 3.2 Lactic acid 3.3, 2.3 TSH 2.4 Free T41.84 Influenza type A, type B, RSV, COVID-19: Detected EKG tracing personally reviewed by me-atrial fibrillation. Rate 84 Chest x-ray film personally reviewed by me-bilateral infiltrates 2D echocardiogram: EF 50%. Severely increased left ventricular mass. Increased left ventricular diastolic diameter. Assessment plan: -Acute COVID-19 pneumonitis causing severe hypoxic respiratory failure: Slow to respond Dexamethasone 6 mg twice daily. Patient is already on Eliquis -Acute hypoxic respiratory failure secondary to COVID-19:: Slow to respond On Airvo 50% -Doubt pneumonia. Procalcitonin 0.2. Hepatics were discontinued -Chronic congestive heart failure from diastolic dysfunction EF 55 to 60% Lasix 40 mg twice daily -Persistent atrial fibrillation, rate controlled Eliquis. Telemetry. -Hyponatremia, possibly some volume deficit due to decreased oral intake IV fluids. -Morbid obesity BMI 58.6 Ozempic. -Primary osteoarthritis multiple joints Aleve for 40 mg nightly -Hyperlipidemia Lipitor 20 mg nightly -Diabetes mellitus type 2, chronically on oral hypoglycemic, uncontrolled with steroids Glipizide. Levemir 14 units SQ nightly. Follow Accu-Cheks sliding scale. -Full code Discussed with patient. Continue current treatment plan. Past Medical History Past Medical History: Hypertension Additional Past Medical History / Comment(s): Short term memory loss, PNA. History of Any Multi-Drug Resistant Organisms: None Reported Past Surgical History: Appendectomy, Section, Cholecystectomy Past Psychological History: No Psychological Hx Reported Smoking Status: Former smoker Past Alcohol Use History: None Reported Past Drug Use History: None Reported
--- NOTE | 2024-11-16 19:02 | P.PN ---
Subjective Progress Note Date: 11/16/24 Patient is a 83-year-old female with past medical history significant for hypertension, hyperlipidemia, diabetes mellitus, heart failure, obesity, among other things. She is currently confused and a poor historian. 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 She is hypoxic. Per the ER documentation, patient has been progressively more short of breath over the last one-two weeks. She has had a congested nonproductive cough. She did test positive for COVID on arrival. Chest x-ray showing diffuse multifocal infiltrates consistent with COVID-pneumonia. Afebrile. CBC: WBC count 7.7, hemoglobin 11.7, hematocrit 35.9, platelets 168. CMP: Sodium 130, potassium 5, chloride 97, serum bicarb 22, BUN 32, creatinine 1.02, glucose 312. Lactic 3.3 and down to 1.8. Troponin less than 0.012. NT proBNP only 700. EKG: Atrial fibrillation with controlled ventricular response, rate 84 bpm, no obvious acute ischemic changes. Patient is currently being evaluated on the medical floor. She is on 15 L high flow. SpO2 ranging from 84 to 88%. Has a persistent congested cough. No significant sputum production. She is currently on Decadron. Chronically anticoagulated on Eliquis. Her oxygen needs have increased markedly over the last 12 to 24 hours. We are going to try this patient on Airvo. On 11/15/2024, the patient is being seen for a follow-up. This morning, she is calm and comfortable. Denies having any significant shortness of breath. Nevertheless, she is still hypoxic and she remains on Airvo with a flow of 60 L with an FiO2 of 90%. The patient remains on Decadron 6 mg IV twice daily. She is on Ventolin HFA 4 times a day and she is also on empiric antibiotic coverage with a combination of Rocephin and Zithromax. She remains on Levemir insulin 14 units at bedtime and NovoLog sliding scale coverage. She remains on long-term anticoagulation with Eliquis 5 mg p.o. twice a day. No altered mentation. No nausea or vomiting. No diarrhea. Sodium levels at 136, BUN 28 with a creatinine of 1.0. Procalcitonin level is at 0.2. D-dimer is at 0.8. Her serum LDH level was 290. On 11/16/2024, the patient is being seen for a follow-up. Patient this morning was on Airvo with 60 L and FiO2 of 90%. Oxygenation was stable with a pulse ox of 98%. Furthermore, the chest x-ray was repeated and the patient has some improvement in the coarse bilateral pulm infiltrates. Based on that, I made recommendations to wean down the Airvo settings and the patient is currently on high flow 45 L with a FiO2 of 85%. She is feeling well. No specific complaints. She remains on Lasix 40 mg p.o. twice a day and she remains on anticoagulation with Eliquis 5 mg p.o. twice a day. She remains on Decadron 6 mg IV every 12 hours. The fluid balance over the past 24 hours has been -1 L. Blood sugars at 199. No other blood work from today. No altered mentation. No nausea or vomiting. She continues to improve. Oxygenation is improving. Objective - Vital Signs Vital signs: Vital Signs Temp 97.8 F 11/16/24 08:45 Pulse 76 11/16/24 08:45 Resp 22 11/16/24 08:45 BP 137/76 11/16/24 08:45 Pulse Ox 96 11/16/24 08:45 FiO2 90 11/16/24 09:01 Intake & Output 11/15/24 11/16/24 11/16/24 18:59 06:59 18:59 Intake Total 110 240 180 Output Total 1200 400 Balance -1090 -160 180 Weight 134 kg Intake: Oral 110 180 Tube Feeding 240 Output: Urine 1200 400 Other: Voiding Method External Catheter External Catheter External Catheter # Voids 1 - Exam GENERAL EXAM: Alert, morbidly obese 83-year-old female, will follow commands, has a harsh congested nonproductive cough, on Airvo at 40 L with an FiO2 of 85% HEAD: Normocephalic and atraumatic EYES: Normal reaction of pupils, equal size. NOSE: Clear with pink turbinates. THROAT: No erythema or exudates. NECK: No masses, no JVD. CHEST: No chest wall deformity. LUNGS: Equal air entry with diffuse rhonchi and crackles,. No conversational dyspnea or accessory muscle use.. CVS: S1 and S2 normal with no audible murmur, irregular rhythm. No extra heart sounds ABDOMEN: No hepatosplenomegaly, active bowel sounds, no guarding or rigidity. SPINE: No scoliosis or deformity SKIN: No rashes CENTRAL NERVOUS SYSTEM: No focal deficits, tone is normal in all 4 extremities. EXTREMITIES: There is bilateral lower extremity 2+ edema. No clubbing, or cyanosis. Peripheral pulses are intact. - Labs CBC & Chem 7: 11/13/24 15:09 11/15/24 06:13 Labs: Abnormal Lab Results - Last 24 Hours (Table) 11/15/24 11/15/24 11/16/24 Range/Units 16:08 20:32 06:18 POC Glucose (mg/dL) 187 H 184 H 163 H (70-110) mg/dL Microbiology - Last 24 Hours (Table) 11/14/24 06:40 Gram Stain - Final Sputum Sputum Culture - Final 11/14/24 07:14 Blood Culture - Preliminary Blood Assessment and Plan Assessment: Acute COVID infection , Acute hypoxemic respiratory failure, oxygenation is improving and the patient is currently on Airvo 40 L with FiO2 of 85% Chronic atrial fibrillation, currently anticoagulated on Eliquis History of heart failure with preserved ejection fraction Hypertension History of hyperlipidemia Diabetes mellitus type 2 Morbid obesity, with a BMI 58.6 kg/m Plan: Continue AIRVO wean down the settings gradually and wean down the FiO2 to maintain saturation above 92% Continue IVP Decadron 6 mg IV every 12 hours Chest x-ray reviewed from today and there is some limited improvement Empirically antibiotic coverage can be discontinued Check procalcitonin level is not elevated Continue Lasix 40 mg BID Obtain echocardiogram was within normal limits Eliquis has been resumed Repeat chest x-ray from today was noted We will continue to follow
[2024-11-16 20:22] LABS: Glucose,Whole Blood 229 mg/dL (70-110)
[2024-11-17 06:10] LABS: Glucose,Whole Blood 171 mg/dL (70-110)
[2024-11-17 11:33] LABS: Glucose,Whole Blood 142 mg/dL (70-110)
--- NOTE | 2024-11-17 15:04 | P.PN ---
Subjective Progress Note Date: 11/17/24 Patient is a 83-year-old female with past medical history significant for hypertension, hyperlipidemia, diabetes mellitus, heart failure, obesity, among other things. She is currently confused and a poor historian. 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 She is hypoxic. Per the ER documentation, patient has been progressively more short of breath over the last one-two weeks. She has had a congested nonproductive cough. She did test positive for COVID on arrival. Chest x-ray showing diffuse multifocal infiltrates consistent with COVID-pneumonia. Afebrile. CBC: WBC count 7.7, hemoglobin 11.7, hematocrit 35.9, platelets 168. CMP: Sodium 130, potassium 5, chloride 97, serum bicarb 22, BUN 32, creatinine 1.02, glucose 312. Lactic 3.3 and down to 1.8. Troponin less than 0.012. NT proBNP only 700. EKG: Atrial fibrillation with controlled ventricular response, rate 84 bpm, no obvious acute ischemic changes. Patient is currently being evaluated on the medical floor. She is on 15 L high flow. SpO2 ranging from 84 to 88%. Has a persistent congested cough. No significant sputum production. She is currently on Decadron. Chronically anticoagulated on Eliquis. Her oxygen needs have increased markedly over the last 12 to 24 hours. We are going to try this patient on Airvo. On 11/15/2024, the patient is being seen for a follow-up. This morning, she is calm and comfortable. Denies having any significant shortness of breath. Nevertheless, she is still hypoxic and she remains on Airvo with a flow of 60 L with an FiO2 of 90%. The patient remains on Decadron 6 mg IV twice daily. She is on Ventolin HFA 4 times a day and she is also on empiric antibiotic coverage with a combination of Rocephin and Zithromax. She remains on Levemir insulin 14 units at bedtime and NovoLog sliding scale coverage. She remains on long-term anticoagulation with Eliquis 5 mg p.o. twice a day. No altered mentation. No nausea or vomiting. No diarrhea. Sodium levels at 136, BUN 28 with a creatinine of 1.0. Procalcitonin level is at 0.2. D-dimer is at 0.8. Her serum LDH level was 290. On 11/16/2024, the patient is being seen for a follow-up. Patient this morning was on Airvo with 60 L and FiO2 of 90%. Oxygenation was stable with a pulse ox of 98%. Furthermore, the chest x-ray was repeated and the patient has some improvement in the coarse bilateral pulm infiltrates. Based on that, I made recommendations to wean down the Airvo settings and the patient is currently on high flow 45 L with a FiO2 of 85%. She is feeling well. No specific complaints. She remains on Lasix 40 mg p.o. twice a day and she remains on anticoagulation with Eliquis 5 mg p.o. twice a day. She remains on Decadron 6 mg IV every 12 hours. The fluid balance over the past 24 hours has been -1 L. Blood sugars at 199. No other blood work from today. No altered mentation. No nausea or vomiting. She continues to improve. Oxygenation is improving. 11/17/2024, the patient is stable and she is improving. Oxygenation is also stable and the patient is currently on Airvo at 45 L with an FiO2 of 70%. Pulse ox is 97%. Will gradually weaning down the FiO2. The patient has no specific complaints. Resting company in bed. No interval worsening shortness of breath. No cough or sputum production. The patient remains on Lasix 40 mg p.o. twice a day. Rest of the medications are unchanged. She remains on multiple anticoagulation with Eliquis. The fluid balance -1.8 L over the past 24 hours. Objective - Vital Signs Vital signs: Vital Signs Temp 97.8 F 11/17/24 03:41 Pulse 68 11/17/24 03:41 Resp 20 11/17/24 03:41 BP 144/89 11/17/24 03:41 Pulse Ox 98 11/17/24 09:18 FiO2 70 11/17/24 09:18 Intake & Output 11/16/24 11/17/24 11/17/24 18:59 06:59 18:59 Intake Total 540 900 358 Output Total 2400 900 Balance -1860 0 358 Weight 131.5 kg Intake: Oral 540 900 358 Output: Urine 2400 900 Other: Voiding Method External Catheter External Catheter # Bowel Movements 0 - Exam GENERAL EXAM: Alert, morbidly obese 83-year-old female, will follow commands, has a harsh congested nonproductive cough, on Airvo at 45 L with an FiO2 of 60% HEAD: Normocephalic and atraumatic EYES: Normal reaction of pupils, equal size. NOSE: Clear with pink turbinates. THROAT: No erythema or exudates. NECK: No masses, no JVD. CHEST: No chest wall deformity. LUNGS: Equal air entry with diffuse rhonchi and crackles,. No conversational dyspnea or accessory muscle use.. CVS: S1 and S2 normal with no audible murmur, irregular rhythm. No extra heart sounds ABDOMEN: No hepatosplenomegaly, active bowel sounds, no guarding or rigidity. SPINE: No scoliosis or deformity SKIN: No rashes CENTRAL NERVOUS SYSTEM: No focal deficits, tone is normal in all 4 extremities. EXTREMITIES: There is bilateral lower extremity 2+ edema. No clubbing, or cyanosis. Peripheral pulses are intact. - Labs CBC & Chem 7: 11/13/24 15:09 11/15/24 06:13 Labs: Abnormal Lab Results - Last 24 Hours (Table) 11/16/24 11/16/24 11/16/24 Range/Units 12:08 16:54 20:21 POC Glucose (mg/dL) 131 H 199 H 229 H (70-110) mg/dL 11/17/24 11/17/24 Range/Units 06:08 11:31 POC Glucose (mg/dL) 171 H 142 H (70-110) mg/dL Microbiology - Last 24 Hours (Table) 11/14/24 07:14 Blood Culture - Preliminary Blood 11/14/24 06:40 Gram Stain - Final Sputum Sputum Culture - Final Assessment and Plan Assessment: Acute COVID infection, clinically stable, improving and there is ongoing improvement the patient's oxygenation. , Acute hypoxemic respiratory failure, oxygenation is improving and the patient is currently on Airvo 40 L with an FiO2 of 60% Chronic atrial fibrillation, currently anticoagulated on Eliquis History of heart failure with preserved ejection fraction, currently on diuretics and the patient receiving Lasix and the patient remains negative fluid balance. Hypertension History of hyperlipidemia Diabetes mellitus type 2 Morbid obesity, with a BMI 58.6 kg/m Plan: Continue AIRVO wean down the settings gradually and wean down the FiO2 to maintain saturation above 92% Continue IVP Decadron 6 mg IV every 12 hours Chest x-ray reviewed from 11/16/2024 and there is some limited improvement Empirically antibiotic coverage can be discontinued Check procalcitonin level is not elevated Continue Lasix 40 mg BID, negative fluid balance Obtain echocardiogram was within normal limits Eliquis to be continued We will continue to follow
--- NOTE | 2024-11-17 15:58 | P.PN ---
Progress Note - Text Progress Note Date: 11/17/24 Chief Complaint: Short of breath Pleasant 83-year-old patient follows with visiting physicians. For 2 weeks patient been having a cough. Little sputum. Not short of breath. No fever no chills. Decreased appetite tired rundown. Patient has visiting [facility] 21/06. Does use a walker. Chronic medical conditions include atrial fibrillation, previous [place], CHF diastolic dysfunction, GERD, osteoarthritis. Patient tested positive for COVID in the ER. Pulse ox was 89% on 4 L. This morning is on Airvo. November 15: Seen earlier this afternoon. On Airvo 60%. Told the patient she would be better off sitting in the chair and use incentive spirometry. Patient dentures not fitting well. Hence we will order a ground diet. No sputum production. Procalcitonin 0.2. DC antibiotics. Continue with oxygen, steroids, November 16: Remains on Airvo 50%. Up in recliner. Breathing a bit better. Eating better ground food. Because of loose dentures. IV Decadron.. November 17: Breathing a bit better. Remains on Airvo. FiO2 45%.Oral intake good. Continue Decadron Active Medications Acetaminophen (Acetaminophen Tab 325 Mg Tab) 650 mg PO Q4HR PRN PRN Reason: Mild Pain or Fever > 100.5 Albuterol Sulfate (Albuterol Hfa Inhaler) 2 puff INHALATION RT-QID [facility] Last Admin: 11/17/24 12:34 Dose: 2 puff Albuterol Sulfate (Albuterol Hfa Inhaler) 2 puff INHALATION RT-Q2H PRN PRN Reason: Shortness Of Breath Last Admin: 11/14/24 00:34 Dose: 2 puff Apixaban (Apixaban 5 Mg Tab) 5 mg PO BID [facility]; Protocol Last Admin: 11/17/24 09:07 Dose: 5 mg Ascorbic Acid (Ascorbic Acid 500 Mg Tab) 500 mg PO BID [facility] Last Admin: 11/17/24 09:06 Dose: 500 mg Aspirin (Aspirin 81 Mg) 81 mg PO DAILY [facility] Last Admin: 11/17/24 09:07 Dose: 81 mg Atorvastatin Calcium (Atorvastatin 20 Mg Tab) 20 mg PO HS [facility] Last Admin: 11/16/24 21:03 Dose: 20 mg Buspirone HCl (Buspirone Hcl 5 Mg Tab) 7.5 mg PO BID [facility] Last Admin: 11/17/24 09:06 Dose: 7.5 mg Cholecalciferol (Cholecalciferol 125 Mcg (5000 Iu) Tablet) 125 mcg PO DAILY [facility] Last Admin: 11/17/24 09:07 Dose: 125 mcg Cyanocobalamin (Cyanocobalamin 500 Mcg Tab) 1,000 mcg PO DAILY [facility] Last Admin: 11/17/24 09:06 Dose: 1,000 mcg Dexamethasone Sodium Phosphate (Dexamethasone Sod Phosphate 10 Mg/Ml 1 Ml Vial) 6 mg IVP BID [facility] Last Admin: 11/17/24 09:06 Dose: 6 mg Dextrose/Water (Dextrose 50% Syringe 50 Ml) 25 ml IVP PER PROTOCOL PRN; Protocol PRN Reason: Hypoglycemia Dextrose/Water (Dextrose 50% Syringe 50 Ml) 50 ml IVP PER PROTOCOL PRN; Protocol PRN Reason: Hypoglycemia Famotidine (Famotidine 20 Mg Tab) 20 mg PO DAILY [facility] Last Admin: 11/17/24 09:07 Dose: 20 mg Furosemide (Furosemide 40 Mg Tab) 40 mg PO BID@0900,1600 [facility] Last Admin: 11/17/24 15:40 Dose: 40 mg Glipizide (Glipizide 5 Mg Tab) 5 mg PO AC-BID [facility] Last Admin: 11/17/24 06:17 Dose: 5 mg Insulin Aspart (Insulin Aspart (Novolog) 100 Unit/Ml Vial) 0 unit SQ [facility]; Protocol Last Admin: 11/17/24 12:01 Dose: Not Given Insulin Detemir (Insulin Detemir (Levemir) 100 Unit/Ml Syr) 14 unit SQ [facility] Last Admin: 11/16/24 21:04 Dose: 14 unit Multivitamins (Multivitamins, Thera 1 Each Tab) 1 each PO DAILY [facility] Last Admin: 11/17/24 09:07 Dose: 1 each Naloxone HCl (Naloxone 0.4 Mg/Ml 1 Ml Vial) 0.2 mg IVP Q2M PRN PRN Reason: Opioid Reversal Naproxen (Naproxen 250 Mg Tab) 250 mg PO HS [facility] Last Admin: 11/16/24 21:03 Dose: 250 mg Semaglutide [Ozempic (] 1 Mg/0.75 Ml Each) 1 mg SQ MO [facility] Social history: Lives alone. Has 24/ care with visiting [place]. No smoking. Physical examination: VITAL SIGNS: 97.8, 65, 19, 1 4580, 96% on Airvo 45% GENERAL: [BMI 58.6, resting in bed some shortness of breath EYES: Pupils equal. Conjunctiva giovani l. HEENT: External appearance of nose and ears normal, oral cavity grossly normal., Hard of hearing NECK: JVD not raised; masses not palpable. HEART: First and second heart sounds are normal; no edema. LUNGS accessory muscles are working. Not able to speak in full sentences. Diminished breath sounds. Prolonged expiration wheezing]. ABDOMEN: Soft, nontender, liver spleen not palpable, no masses palpable. PSYCH: Alert and oriented x3; mood and affect with anxious l. MUSCULOSKELETAL:No Clubbing/cyanosis;muscles-grossly intact. OA INVESTIGATIONS, reviewed in the clinical context: November 15: Sodium 136 potassium 4.3 procalcitonin 0.2 November 13, 2024: White count 7.7 hemoglobin 11.7 platelets 168 sodium 130 potassium 5 BUN 32 creatinine 1.02 blood glucose 3.2 Lactic acid 3.3, 2.3 TSH 2.4 Free T41.84 Influenza type A, type B, RSV, COVID-19: Detected EKG tracing personally reviewed by me-atrial fibrillation. Rate 84 Chest x-ray film personally reviewed by me-bilateral infiltrates 2D echocardiogram: EF 50%. Severely increased left ventricular mass. Increased left ventricular diastolic diameter. Assessment plan: -Acute COVID-19 pneumonitis causing severe hypoxic respiratory failure: Slow to respond Dexamethasone 6 mg twice daily. Continued on home Eliquis -Acute hypoxic respiratory failure secondary to COVID-19:: Slow to respond On Airvo 45% -Doubt pneumonia. Procalcitonin 0.2. Antibiotics discontinued -Chronic congestive heart failure from diastolic dysfunction EF 55 to 60% Lasix 40 mg twice daily -Persistent atrial fibrillation, rate controlled Eliquis. Telemetry. -Hyponatremia, possibly some volume deficit due to decreased oral intake: Better IV fluids. -Morbid obesity BMI 58.6 Ozempic. -Primary osteoarthritis multiple joints Aleve nightly -Hyperlipidemia Lipitor 20 mg nightly -Diabetes mellitus type 2, chronically on oral hypoglycemic, uncontrolled with steroids Glipizide. Levemir 14 units SQ nightly. Follow Accu-Cheks sliding scale. -Full code Discussed. Continue with current treatment plan. Up in chair as tolerated. Incentive spirometry. Past Medical History Past Medical History: Hypertension Additional Past Medical History / Comment(s): Short term memory loss, PNA. History of Any Multi-Drug Resistant Organisms: None Reported Past Surgical History: Appendectomy, Section, Cholecystectomy Past Psychological History: No Psychological Hx Reported Smoking Status: Former smoker Past Alcohol Use History: None Reported Past Drug Use History: None Reported
[2024-11-17 16:47] LABS: Glucose,Whole Blood 286 mg/dL (70-110)
[2024-11-17 20:29] LABS: Glucose,Whole Blood 279 mg/dL (70-110)
[2024-11-18 06:11] LABS: Glucose,Whole Blood 200 mg/dL (70-110)
[2024-11-18 08:13] LABS: African American GFR (CKD) 67 (>60 ml/min/1.73 sqM); Anion Gap 4 mmol/L; Blood Urea Nitrogen 36 mg/dL (7-17); Calcium 9.2 mg/dL (8.4-10.2); Carbon Dioxide 31 mmol/L (22-30); Chloride 96 mmol/L (98-107); Glucose 225 mg/dL (74-99); Non-African American GFR(CKD) 58 (>60 ml/min/1.73 sqM); Potassium 4.1 mmol/L (3.5-5.1); Sodium 131 mmol/L (137-145)
[2024-11-18 11:13] LABS: Glucose,Whole Blood 157 mg/dL (70-110)
--- NOTE | 2024-11-18 13:15 | P.PN ---
Subjective Progress Note Date: 11/18/24 Pleasant 83-year-old patient follows with visiting physicians. For 2 weeks patient been having a cough. Little sputum. Not short of breath. No fever no chills. Decreased appetite tired rundown. Patient has visiting [facility] 21/06. Does use a walker. Chronic medical conditions include atrial fibrillation, previous [place], CHF diastolic dysfunction, GERD, osteoarthritis. Patient tested positive for COVID in the ER. Pulse ox was 89% on 4 L. This morning is on Airvo. November 15: Seen earlier this afternoon. On Airvo 60%. Told the patient she would be better off sitting in the chair and use incentive spirometry. Patient dentures not fitting well. Hence we will order a ground diet. No sputum production. Procalcitonin 0.2. DC antibiotics. Continue with oxygen, steroids, November 16: Remains on Airvo 50%. Up in recliner. Breathing a bit better. Eating better ground food. Because of loose dentures. IV Decadron.. November 17: Breathing a bit better. Remains on Airvo. FiO2 45%.Oral intake good. Continue Decadron 11/18. Patient seen and examined. Continues to be on heated high flow. Gets short of breath on minimum exertion. Denies any chest pain. REVIEW OF SYSTEMS: CONSTITUTIONAL: No fever, no malaise,. CARDIOVASCULAR: No chest pain, no palpitations, no syncope. PULMONARY: As mentioned above GASTROINTESTINAL: No diarrhea, no nausea, no vomiting, no abdominal pain. NEUROLOGICAL: No headaches, no weakness, PHYSICAL EXAMINATION: GENERAL: The patient is alert and oriented x3, not in any acute distress. Ill looking HEENT: Pupils are round and equally reacting to light. EOMI. No scleral icterus. No conjunctival pallor. Normocephalic, atraumatic. No pharyngeal erythema. No thyromegaly. CARDIOVASCULAR: S1 and S2 present. No murmurs, rubs, or gallops. PULMONARY: Diminished breath sound the bases, rhonchi audible, no wheezing or crackles. ABDOMEN: Soft, nontender, nondistended, normoactive bowel sounds. No palpable organomegaly. MUSCULOSKELETAL: No joint swelling or deformity. EXTREMITIES: No cyanosis, clubbing, or pedal edema. NEUROLOGICAL: Gross neurological examination did not reveal any focal deficits. SKIN: No rashes. Assessment and plan -Acute COVID-19 pneumonitis causing severe hypoxic respiratory failure: -Acute hypoxic respiratory failure secondary to COVID-19: Vital signs Monitor CBC Monitor CMP -continue oxygen supplementation aggressive bronchopulmonary hygiene Continue Decadron Pulmonology following -Chronic congestive heart failure from diastolic dysfunction EF 55 to 60% Strict I's and O's, daily weights, Lasix 40 mg twice daily -Persistent atrial fibrillation, rate controlled Eliquis. -Hyponatremia, possibly some volume deficit due to decreased oral intake: Better Monitor BMP -Morbid obesity BMI 58.6 Ozempic. -Primary osteoarthritis multiple joints Aleve nightly -Hyperlipidemia Lipitor 20 mg nightly -Diabetes mellitus type 2, chronically on oral hypoglycemic, uncontrolled with steroids Monitor blood sugar levels, continue current insulin regimen Labs and medication were reviewed.. Continue same treatment. Continue with symptomatic treatment. Resume home medication. Monitor labs and vitals. DVT and GI prophylaxis. Further recommendations as per clinical course of the patient Dictation was produced using [employer] dictation software. please excuse any grammatical, word or spelling errors. Objective - Vital Signs Vital signs: Vital Signs Temp 98 F 11/18/24 04:30 Pulse 88 11/18/24 09:24 Resp 20 11/18/24 09:24 BP 156/90 11/18/24 09:24 Pulse Ox 93 L 11/18/24 09:24 FiO2 55 11/18/24 08:24 Intake & Output 11/17/24 11/18/24 11/18/24 18:59 06:59 18:59 Intake Total 558 240 Output Total 1650 2100 Balance -1092 -2100 240 Weight 130.5 kg Intake: Oral 558 240 Output: Urine 1650 2100 Other: Voiding Method External Catheter External Catheter - Labs CBC & Chem 7: 11/13/24 15:09 11/18/24 07:48 Labs: Abnormal Lab Results - Last 24 Hours (Table) 11/17/24 11/17/24 11/17/24 Range/Units 11:31 16:40 20:26 Sodium (137-145) mmol/L Chloride (98-107) mmol/L Carbon Dioxide (22-30) mmol/L BUN (7-17) mg/dL Glucose (74-99) mg/dL POC Glucose (mg/dL) 142 H 286 H 279 H (70-110) mg/dL 11/18/24 11/18/24 Range/Units 06:10 07:48 Sodium 131 L (137-145) mmol/L Chloride 96 L (98-107) mmol/L Carbon Dioxide 31 H (22-30) mmol/L BUN 36 H (7-17) mg/dL Glucose 225 H (74-99) mg/dL POC Glucose (mg/dL) 200 H (70-110) mg/dL Microbiology - Last 24 Hours (Table) 11/14/24 07:14 Blood Culture - Preliminary Blood
--- NOTE | 2024-11-18 13:28 | P.PN ---
Subjective Progress Note Date: 11/18/24 Patient is a 83-year-old female with past medical history significant for hypertension, hyperlipidemia, diabetes mellitus, heart failure, obesity, among other things. She is currently confused and a poor historian. 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 She is hypoxic. Per the ER documentation, patient has been progressively more short of breath over the last one-two weeks. She has had a congested nonproductive cough. She did test positive for COVID on arrival. Chest x-ray showing diffuse multifocal infiltrates consistent with COVID-pneumonia. Afebrile. CBC: WBC count 7.7, hemoglobin 11.7, hematocrit 35.9, platelets 168. CMP: Sodium 130, potassium 5, chloride 97, serum bicarb 22, BUN 32, creatinine 1.02, glucose 312. Lactic 3.3 and down to 1.8. Troponin less than 0.012. NT proBNP only 700. EKG: Atrial fibrillation with controlled ventricular response, rate 84 bpm, no obvious acute ischemic changes. Patient is currently being evaluated on the medical floor. She is on 15 L high flow. SpO2 ranging from 84 to 88%. Has a persistent congested cough. No significant sputum production. She is currently on Decadron. Chronically anticoagulated on Eliquis. Her oxygen needs have increased markedly over the last 12 to 24 hours. We are going to try this patient on Airvo. On 11/15/2024, the patient is being seen for a follow-up. This morning, she is calm and comfortable. Denies having any significant shortness of breath. Nevertheless, she is still hypoxic and she remains on Airvo with a flow of 60 L with an FiO2 of 90%. The patient remains on Decadron 6 mg IV twice daily. She is on Ventolin HFA 4 times a day and she is also on empiric antibiotic coverage with a combination of Rocephin and Zithromax. She remains on Levemir insulin 14 units at bedtime and NovoLog sliding scale coverage. She remains on long-term anticoagulation with Eliquis 5 mg p.o. twice a day. No altered mentation. No nausea or vomiting. No diarrhea. Sodium levels at 136, BUN 28 with a creatinine of 1.0. Procalcitonin level is at 0.2. D-dimer is at 0.8. Her serum LDH level was 290. On 11/16/2024, the patient is being seen for a follow-up. Patient this morning was on Airvo with 60 L and FiO2 of 90%. Oxygenation was stable with a pulse ox of 98%. Furthermore, the chest x-ray was repeated and the patient has some improvement in the coarse bilateral pulm infiltrates. Based on that, I made recommendations to wean down the Airvo settings and the patient is currently on high flow 45 L with a FiO2 of 85%. She is feeling well. No specific complaints. She remains on Lasix 40 mg p.o. twice a day and she remains on anticoagulation with Eliquis 5 mg p.o. twice a day. She remains on Decadron 6 mg IV every 12 hours. The fluid balance over the past 24 hours has been -1 L. Blood sugars at 199. No other blood work from today. No altered mentation. No nausea or vomiting. She continues to improve. Oxygenation is improving. 11/17/2024, the patient is stable and she is improving. Oxygenation is also stable and the patient is currently on Airvo at 45 L with an FiO2 of 70%. Pulse ox is 97%. Will gradually weaning down the FiO2. The patient has no specific complaints. Resting company in bed. No interval worsening shortness of breath. No cough or sputum production. The patient remains on Lasix 40 mg p.o. twice a day. Rest of the medications are unchanged. She remains on multiple anticoagulation with Eliquis. The fluid balance -1.8 L over the past 24 hours. On 11/18/2024, the patient is stable. She remains on Airvo at 45 L with FiO2 of 50%. No interval worsening respiratory status. She remains afebrile. No worsening shortness of breath. Limited cough and congestion. Sodium levels at 131, potassium level is at 4.1, BUN 36 with a creatinine of 0.9. No other new complaints otherwise for now. She remains on Decadron 6 mg IV every 12 hours. She remains on anticoagulation with Eliquis. No altered mentation. Tolerating her diet. Tolerating the Airvo. Tolerating Lasix 40 mg p.o. twice a day and the patient is -3 L over the past 24 hours. Objective - Vital Signs Vital signs: Vital Signs Temp 98 F 11/18/24 04:30 Pulse 88 12/21/24 09:24 Resp 20 11/18/24 09:24 BP 156/90 11/18/24 09:24 Pulse Ox 93 L 11/18/24 09:24 FiO2 55 11/18/24 08:24 Intake & Output 11/17/24 11/18/24 11/18/24 18:59 06:59 18:59 Intake Total 558 240 Output Total 1650 2100 Balance -1092 -2100 240 Weight 130.5 kg Intake: Oral 558 240 Output: Urine 1650 2100 Other: Voiding Method External Catheter External Catheter - Exam GENERAL EXAM: Alert, morbidly obese 83-year-old female, will follow commands, has a harsh congested nonproductive cough, on Airvo at 45 L with an FiO2 of 50 % HEAD: Normocephalic and atraumatic EYES: Normal reaction of pupils, equal size. NOSE: Clear with pink turbinates. THROAT: No erythema or exudates. NECK: No masses, no JVD. CHEST: No chest wall deformity. LUNGS: Equal air entry with diffuse rhonchi and crackles,. No conversational dyspnea or accessory muscle use.. CVS: S1 and S2 normal with no audible murmur, irregular rhythm. No extra heart sounds ABDOMEN: No hepatosplenomegaly, active bowel sounds, no guarding or rigidity. SPINE: No scoliosis or deformity SKIN: No rashes CENTRAL NERVOUS SYSTEM: No focal deficits, tone is normal in all 4 extremities. EXTREMITIES: There is bilateral lower extremity 2+ edema. No clubbing, or cyanosis. Peripheral pulses are intact. - Labs CBC & Chem 7: 11/13/24 15:09 11/18/24 07:48 Labs: Abnormal Lab Results - Last 24 Hours (Table) 11/17/24 11/17/24 11/17/24 Range/Units 11:31 16:40 20:26 Sodium (137-145) mmol/L Chloride (98-107) mmol/L Carbon Dioxide (22-30) mmol/L BUN (7-17) mg/dL Glucose (74-99) mg/dL POC Glucose (mg/dL) 142 H 286 H 279 H (70-110) mg/dL 11/18/24 11/18/24 Range/Units 06:10 07:48 Sodium 131 L (137-145) mmol/L Chloride 96 L (98-107) mmol/L Carbon Dioxide 31 H (22-30) mmol/L BUN 36 H (7-17) mg/dL Glucose 225 H (74-99) mg/dL POC Glucose (mg/dL) 200 H (70-110) mg/dL Microbiology - Last 24 Hours (Table) 11/14/24 07:14 Blood Culture - Preliminary Blood Assessment and Plan Assessment: Acute COVID infection, clinically stable, improving and there is ongoing improvement the patient's oxygenation. , Acute hypoxemic respiratory failure, oxygenation is improving and the patient is currently on Airvo 40 L with an FiO2 of 50 % Chronic atrial fibrillation, currently anticoagulated on Eliquis History of heart failure with preserved ejection fraction, currently on diuretics and the patient receiving Lasix and the patient remains negative fluid balance. Hypertension History of hyperlipidemia Diabetes mellitus type 2 Morbid obesity, with a BMI 58.6 kg/m Plan: Continue AIRVO wean down the settings gradually and wean down the FiO2 to maintain saturation above 92%, currently on 40 L with an FiO2 of 50% Continue IVP Decadron 6 mg IV every 12 hours Chest x-ray reviewed from 11/16/2024 and there is some limited improvement Empirically antibiotic coverage can be discontinued Check procalcitonin level is not elevated Continue Lasix 40 mg BID, negative fluid balance Obtain echocardiogram was within normal limits Eliquis to be continued We will continue to follow
[2024-11-18 16:08] LABS: Glucose,Whole Blood 271 mg/dL (70-110)
[2024-11-18 20:21] LABS: Glucose,Whole Blood 192 mg/dL (70-110)
[2024-11-19 06:27] LABS: Glucose,Whole Blood 182 mg/dL (70-110)
[2024-11-19 07:42] LABS: ALT 30 U/L (4-34); AST 25 U/L (14-36); African American GFR (CKD) 73 (>60 ml/min/1.73 sqM); Albumin 3.4 g/dL (3.5-5.0); Alkaline Phosphatase 88 U/L (38-126); Anion Gap 4 mmol/L; Blood Urea Nitrogen 37 mg/dL (7-17); Calcium 9.5 mg/dL (8.4-10.2); Carbon Dioxide 34 mmol/L (22-30); Chloride 96 mmol/L (98-107); Glucose 159 mg/dL (74-99); Non-African American GFR(CKD) 63 (>60 ml/min/1.73 sqM); Potassium 4.1 mmol/L (3.5-5.1); Sodium 134 mmol/L (137-145); Total Protein 5.9 g/dL (6.3-8.2)
[2024-11-19 07:45] LABS: Anisocytosis Slight; HCT 41.2 % (34.0-46.0); HGB 13.4 gm/dL (11.4-16.0); MCH 29.5 pg (25.0-35.0); MCHC 32.4 g/dL (31.0-37.0); Mean Platelet Volume 7.4; RBC 4.53 m/uL (3.80-5.40); RDW 16.3 % (11.5-15.5); WBC 18.9 k/uL (3.8-10.6)
[2024-11-19 07:47] LABS: Platelet Count 391 k/uL (150-450)
[2024-11-19 11:16] LABS: Glucose,Whole Blood 134 mg/dL (70-110)
--- NOTE | 2024-11-19 12:29 | P.PN ---
Subjective Progress Note Date: 11/19/24 Patient is a 83-year-old female with past medical history significant for hypertension, hyperlipidemia, diabetes mellitus, heart failure, obesity, among other things. She is currently confused and a poor historian. 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 She is hypoxic. Per the ER documentation, patient has been progressively more short of breath over the last one-two weeks. She has had a congested nonproductive cough. She did test positive for COVID on arrival. Chest x-ray showing diffuse multifocal infiltrates consistent with COVID-pneumonia. Afebrile. CBC: WBC count 7.7, hemoglobin 11.7, hematocrit 35.9, platelets 168. CMP: Sodium 130, potassium 5, chloride 97, serum bicarb 22, BUN 32, creatinine 1.02, glucose 312. Lactic 3.3 and down to 1.8. Troponin less than 0.012. NT proBNP only 700. EKG: Atrial fibrillation with controlled ventricular response, rate 84 bpm, no obvious acute ischemic changes. Patient is currently being evaluated on the medical floor. She is on 15 L high flow. SpO2 ranging from 84 to 88%. Has a persistent congested cough. No significant sputum production. She is currently on Decadron. Chronically anticoagulated on Eliquis. Her oxygen needs have increased markedly over the last 12 to 24 hours. We are going to try this patient on Airvo. On 11/15/2024, the patient is being seen for a follow-up. This morning, she is calm and comfortable. Denies having any significant shortness of breath. Nevertheless, she is still hypoxic and she remains on Airvo with a flow of 60 L with an FiO2 of 90%. The patient remains on Decadron 6 mg IV twice daily. She is on Ventolin HFA 4 times a day and she is also on empiric antibiotic coverage with a combination of Rocephin and Zithromax. She remains on Levemir insulin 14 units at bedtime and NovoLog sliding scale coverage. She remains on long-term anticoagulation with Eliquis 5 mg p.o. twice a day. No altered mentation. No nausea or vomiting. No diarrhea. Sodium levels at 136, BUN 28 with a creatinine of 1.0. Procalcitonin level is at 0.2. D-dimer is at 0.8. Her serum LDH level was 290. On 11/16/2024, the patient is being seen for a follow-up. Patient this morning was on Airvo with 60 L and FiO2 of 90%. Oxygenation was stable with a pulse ox of 98%. Furthermore, the chest x-ray was repeated and the patient has some improvement in the coarse bilateral pulm infiltrates. Based on that, I made recommendations to wean down the Airvo settings and the patient is currently on high flow 45 L with a FiO2 of 85%. She is feeling well. No specific complaints. She remains on Lasix 40 mg p.o. twice a day and she remains on anticoagulation with Eliquis 5 mg p.o. twice a day. She remains on Decadron 6 mg IV every 12 hours. The fluid balance over the past 24 hours has been -1 L. Blood sugars at 199. No other blood work from today. No altered mentation. No nausea or vomiting. She continues to improve. Oxygenation is improving. 11/17/2024, the patient is stable and she is improving. Oxygenation is also stable and the patient is currently on Airvo at 45 L with an FiO2 of 70%. Pulse ox is 97%. Will gradually weaning down the FiO2. The patient has no specific complaints. Resting company in bed. No interval worsening shortness of breath. No cough or sputum production. The patient remains on Lasix 40 mg p.o. twice a day. Rest of the medications are unchanged. She remains on multiple anticoagulation with Eliquis. The fluid balance -1.8 L over the past 24 hours. On 11/18/2024, the patient is stable. She remains on Airvo at 45 L with FiO2 of 50%. No interval worsening respiratory status. She remains afebrile. No worsening shortness of breath. Limited cough and congestion. Sodium levels at 131, potassium level is at 4.1, BUN 36 with a creatinine of 0.9. No other new complaints otherwise for now. She remains on Decadron 6 mg IV every 12 hours. She remains on anticoagulation with Eliquis. No altered mentation. Tolerating her diet. Tolerating the Airvo. Tolerating Lasix 40 mg p.o. twice a day and the patient is -3 L over the past 24 hours. On 11/19/2024, the patient is resting comfortably in bed. She is on Airvo and this has been weaned down to 35 L and FiO2 45%. Pulse ox remains 95% and the patient should be able to transition to nasal cannula today. No new complaints. She remains in negative fluid balance of the patient receiving oral Lasix. Continues to have some limited cough and sputum production. Remains on Decadron. The white cell count is 18.9 with a hemoglobin of 13.8 and a platelet count of 391. BUN 37 with a creatinine of 0.8 and sodium levels at 134 and potassium levels of 4.1. Remains on anticoagulation with Eliquis. No other significant events overnight. Objective - Vital Signs Vital signs: Vital Signs Temp 97.7 F 11/19/24 03:20 Pulse 72 11/19/24 03:20 Resp 22 11/19/24 03:20 BP 146/81 11/19/24 03:20 Pulse Ox 95 11/19/24 08:14 FiO2 45 11/19/24 08:14 Intake & Output 11/18/24 11/19/24 11/19/24 18:59 06:59 18:59 Intake Total 350 30 0 Output Total 200 600 Balance 150 -570 0 Weight 131 kg Intake: IV 30 Invasive Line 2 20 Invasive Line 3 10 Oral 350 0 Output: Urine 200 600 Other: Voiding Method External Catheter External Catheter # Voids 500 # Bowel Movements 0 - Exam GENERAL EXAM: Alert, morbidly obese 83-year-old female, will follow commands, has a harsh congested nonproductive cough, on Airvo at 35 L with an FiO2 of 40 % HEAD: Normocephalic and atraumatic EYES: Normal reaction of pupils, equal size. NOSE: Clear with pink turbinates. THROAT: No erythema or exudates. NECK: No masses, no JVD. CHEST: No chest wall deformity. LUNGS: Equal air entry with diffuse rhonchi and crackles,. No conversational dyspnea or accessory muscle use.. CVS: S1 and S2 normal with no audible murmur, irregular rhythm. No extra heart sounds ABDOMEN: No hepatosplenomegaly, active bowel sounds, no guarding or rigidity. SPINE: No scoliosis or deformity SKIN: No rashes CENTRAL NERVOUS SYSTEM: No focal deficits, tone is normal in all 4 extremities. EXTREMITIES: There is bilateral lower extremity 2+ edema. No clubbing, or cyanosis. Peripheral pulses are intact. - Labs CBC & Chem 7: 11/19/24 07:03 11/19/24 07:03 Labs: Abnormal Lab Results - Last 24 Hours (Table) 11/18/24 11/18/24 11/18/24 Range/Units 11:08 16:06 20:19 WBC (3.8-10.6) k/uL RDW (11.5-15.5) % Sodium (137-145) mmol/L Chloride (98-107) mmol/L Carbon Dioxide (22-30) mmol/L BUN (7-17) mg/dL Glucose (74-99) mg/dL POC Glucose (mg/dL) 157 H 271 H 192 H (70-110) mg/dL Total Protein (6.3-8.2) g/dL Albumin (3.5-5.0) g/dL 11/19/24 11/19/24 11/19/24 Range/Units 06:26 07:03 07:03 WBC 18.9 H (3.8-10.6) k/uL RDW 16.3 H (11.5-15.5) % Sodium 134 L (137-145) mmol/L Chloride 96 L (98-107) mmol/L Carbon Dioxide 34 H (22-30) mmol/L BUN 37 H (7-17) mg/dL Glucose 159 H (74-99) mg/dL POC Glucose (mg/dL) 182 H (70-110) mg/dL Total Protein 5.9 L (6.3-8.2) g/dL Albumin 3.4 L (3.5-5.0) g/dL Assessment and Plan Assessment: Acute COVID infection, clinically stable, improving and there is ongoing improvement the patient's oxygenation. , Acute hypoxemic respiratory failure, oxygenation is improving and the patient is currently on Airvo 35 L with an FiO2 of 40% Chronic atrial fibrillation, currently anticoagulated on Eliquis History of heart failure with preserved ejection fraction, currently on diuretics and the patient receiving Lasix and the patient remains negative fluid balance. Hypertension History of hyperlipidemia Diabetes mellitus type 2 Morbid obesity, with a BMI 58.6 kg/m Plan: Clinically improving Oxygenation is improving Consider weaning this patient to a nasal cannula monitor oxygenation Continue IVP Decadron 6 mg IV every 12 hours Chest x-ray reviewed from 11/16/2024 and there is some limited improvement Empirically antibiotic coverage can be discontinued Check procalcitonin level is not elevated Continue Lasix 40 mg BID, negative fluid balance Obtain echocardiogram was within normal limits Eliquis to be continued We will continue to follow
--- NOTE | 2024-11-19 12:57 | P.PN ---
Subjective Progress Note Date: 11/19/24 Pleasant 83-year-old patient follows with visiting physicians. For 2 weeks patient been having a cough. Little sputum. Not short of breath. No fever no chills. Decreased appetite tired rundown. Patient has visiting [facility] 21/06. Does use a walker. Chronic medical conditions include atrial fibrillation, previous NE, CHF diastolic dysfunction, GERD, osteoarthritis. Patient tested positive for COVID in the ER. Pulse ox was 89% on 4 L. This morning is on Airvo. November 15: Seen earlier this afternoon. On Airvo 60%. Told the patient she would be better off sitting in the chair and use incentive spirometry. Patient dentures not fitting well. Hence we will order a ground diet. No sputum production. Procalcitonin 0.2. DC antibiotics. Continue with oxygen, steroids, November 16: Remains on Airvo 50%. Up in recliner. Breathing a bit better. Eating better ground food. Because of loose dentures. IV Decadron.. November 17: Breathing a bit better. Remains on Airvo. FiO2 45%.Oral intake good. Continue Decadron 11/18. Patient seen and examined. Continues to be on heated high flow. Gets short of breath on minimum exertion. Denies any chest pain. 11/19. Patient seen and examined. Patient was transition from Airvo to high flow oxygen at 8 L. Patient is alert, answering questions. REVIEW OF SYSTEMS: CONSTITUTIONAL: No fever, no malaise,. CARDIOVASCULAR: No chest pain, no palpitations, no syncope. PULMONARY: As mentioned above GASTROINTESTINAL: No diarrhea, no nausea, no vomiting, no abdominal pain. NEUROLOGICAL: No headaches, no weakness, PHYSICAL EXAMINATION: GENERAL: The patient is alert ,. Ill looking HEENT: Pupils are round and equally reacting to light. EOMI. No scleral icterus. No conjunctival pallor. Normocephalic, atraumatic. No pharyngeal erythema. No thyromegaly. CARDIOVASCULAR: S1 and S2 present. No murmurs, rubs, or gallops. PULMONARY: Diminished breath sound the bases, rhonchi audible, no wheezing or crackles. ABDOMEN: Soft, nontender, nondistended, normoactive bowel sounds. No palpable organomegaly. MUSCULOSKELETAL: No joint swelling or deformity. EXTREMITIES: No cyanosis, clubbing, or pedal edema. NEUROLOGICAL: Gross neurological examination did not reveal any focal deficits. SKIN: No rashes. Assessment and plan -Acute COVID-19 pneumonitis causing severe hypoxic respiratory failure: -Acute hypoxic respiratory failure secondary to COVID-19: Vital signs Monitor CBC Monitor CMP -continue oxygen supplementation aggressive bronchopulmonary hygiene Continue Decadron Pulmonology following -Chronic congestive heart failure from diastolic dysfunction EF 55 to 60% Strict I's and O's, daily weights, Lasix 40 mg twice daily -Persistent atrial fibrillation, rate controlled Eliquis. -Hyponatremia, possibly some volume deficit due to decreased oral intake: Better Monitor BMP -Morbid obesity BMI 58.6 Ozempic. -Primary osteoarthritis multiple joints Aleve nightly -Hyperlipidemia Lipitor 20 mg nightly -Diabetes mellitus type 2, chronically on oral hypoglycemic, uncontrolled with steroids Monitor blood sugar levels, continue current insulin regimen Labs and medication were reviewed.. Continue same treatment. Continue with symptomatic treatment. Resume home medication. Monitor labs and vitals. DVT and GI prophylaxis. Further recommendations as per clinical course of the patient Dictation was produced using [employer] dictation software. please excuse any grammatical, word or spelling errors. Objective - Vital Signs Vital signs: Vital Signs Temp 98.0 F 11/19/24 08:00 Pulse 80 11/19/24 08:00 Resp 24 11/19/24 08:00 BP 141/85 11/19/24 08:00 Pulse Ox 95 11/19/24 08:14 FiO2 45 11/19/24 08:14 Intake & Output 11/18/24 11/19/24 11/19/24 18:59 06:59 18:59 Intake Total 350 30 0 Output Total 200 600 250 Balance 150 -570 -250 Weight 131 kg Intake: IV 30 Invasive Line 2 20 Invasive Line 3 10 Oral 350 0 Output: Urine 200 600 250 Other: Voiding Method External Catheter External Catheter External Catheter # Voids 500 # Bowel Movements 0 - Labs CBC & Chem 7: 11/19/24 07:03 11/19/24 07:03 Labs: Abnormal Lab Results - Last 24 Hours (Table) 11/18/24 11/18/24 11/18/24 Range/Units 11:08 16:06 20:19 WBC (3.8-10.6) k/uL RDW (11.5-15.5) % Sodium (137-145) mmol/L Chloride (98-107) mmol/L Carbon Dioxide (22-30) mmol/L BUN (7-17) mg/dL Glucose (74-99) mg/dL POC Glucose (mg/dL) 157 H 271 H 192 H (70-110) mg/dL Total Protein (6.3-8.2) g/dL Albumin (3.5-5.0) g/dL 11/19/24 11/19/24 11/19/24 Range/Units 06:26 07:03 07:03 WBC 18.9 H (3.8-10.6) k/uL RDW 16.3 H (11.5-15.5) % Sodium 134 L (137-145) mmol/L Chloride 96 L (98-107) mmol/L Carbon Dioxide 34 H (22-30) mmol/L BUN 37 H (7-17) mg/dL Glucose 159 H (74-99) mg/dL POC Glucose (mg/dL) 182 H (70-110) mg/dL Total Protein 5.9 L (6.3-8.2) g/dL Albumin 3.4 L (3.5-5.0) g/dL
[2024-11-19 17:09] LABS: Glucose,Whole Blood 313 mg/dL (70-110)
[2024-11-19 20:13] LABS: Glucose,Whole Blood 295 mg/dL (70-110)
[2024-11-20 06:00] LABS: Glucose,Whole Blood 231 mg/dL (70-110)
[2024-11-20 07:22] LABS: ALT 30 U/L (4-34); AST 25 U/L (14-36); African American GFR (CKD) 80 (>60 ml/min/1.73 sqM); Albumin 3.3 g/dL (3.5-5.0); Alkaline Phosphatase 91 U/L (38-126); Anion Gap 4 mmol/L; Blood Urea Nitrogen 38 mg/dL (7-17); Carbon Dioxide 37 mmol/L (22-30); Chloride 94 mmol/L (98-107); Glucose 218 mg/dL (74-99); Non-African American GFR(CKD) 70 (>60 ml/min/1.73 sqM); Potassium 4.3 mmol/L (3.5-5.1); Sodium 135 mmol/L (137-145); Total Bilirubin 0.9 mg/dL (0.2-1.3); Total Protein 5.9 g/dL (6.3-8.2)
[2024-11-20 07:23] LABS: Anisocytosis Slight; HCT 40.6 % (34.0-46.0); HGB 13.3 gm/dL (11.4-16.0); MCH 29.6 pg (25.0-35.0); MCHC 32.7 g/dL (31.0-37.0); MCV 90.3 fL (80.0-100.0); Mean Platelet Volume 8.3; Platelet Count 331 k/uL (150-450); RDW 16.4 % (11.5-15.5); WBC 17.3 k/uL (3.8-10.6)
[2024-11-20 08:08] LABS: Band Neutrophils % 4 %; Eosinophils # (M) 0.17 k/uL (0-0.7); Lymphocytes # (M) 1.73 k/uL (1.0-4.8); Metamyelocytes # (M) 0.17 k/uL (0); Metamyelocytes % 1 %; Monocytes # (M) 0.52 k/uL (0-1.0); Myelocytes # (M) 0.17 k/uL (0); Myelocytes % 1 %; Neutrophils % (M) 83 %; Nucleated Red Blood Cells 0 /100 WBC (0-0); Total Cells Counted 200
[2024-11-20] MEDS: Semaglutide [Ozempic] 1 MG/0.75 ML Each SQ SCH (11:38)
[2024-11-20 11:50] LABS: Glucose,Whole Blood 142 mg/dL (70-110)
[2024-11-20 13:49] VITALS: BMI 55.5
--- NOTE | 2024-11-20 13:54 | P.PN ---
Subjective Progress Note Date: 11/20/24 Pleasant 83-year-old patient follows with visiting physicians. For 2 weeks patient been having a cough. Little sputum. Not short of breath. No fever no chills. Decreased appetite tired rundown. [facility] Does use a walker. Chronic medical conditions include atrial fibrillation, previous [place], CHF diastolic dysfunction, GERD, osteoarthritis. Patient tested positive for COVID in the ER. Pulse ox was 89% on 4 L. This morning is on Airvo. November 15: Seen earlier this afternoon. On Airvo 60%. Told the patient she would be better off sitting in the chair and use incentive spirometry. Patient dentures not fitting well. Hence we will order a ground diet. No sputum production. Procalcitonin 0.2. DC antibiotics. Continue with oxygen, steroids, November 16: Remains on Airvo 50%. Up in recliner. Breathing a bit better. Eating better ground food. Because of loose dentures. IV Decadron.. November 17: Breathing a bit better. Remains on Airvo. FiO2 45%.Oral intake good. Continue Decadron 11/18. Patient seen and examined. Continues to be on heated high flow. Gets short of breath on minimum exertion. Denies any chest pain. 11/19. Patient seen and examined. Patient was transition from Airvo to high flow oxygen at 8 L. Patient is alert, answering questions. 11/20. Patient seen and examinedVital signs on this morning showed temperature 97.9, heart rate 63, blood pressure 136/79, currently on high flow nasal at 6 L blood work done showed sodium related potassium 4.3, BUN 30, creatinine 0.79, glucose 218, WBC 15.3, hemoglobin 13.3. States she feels better. REVIEW OF SYSTEMS: CONSTITUTIONAL: No fever, no malaise,. CARDIOVASCULAR: No chest pain, no palpitations, no syncope. PULMONARY: As mentioned above GASTROINTESTINAL: No diarrhea, no nausea, no vomiting, no abdominal pain. NEUROLOGICAL: No headaches, no weakness, PHYSICAL EXAMINATION: GENERAL: The patient is alert ,. Ill looking HEENT: Pupils are round and equally reacting to light. EOMI. No scleral icterus. No conjunctival pallor. Normocephalic, atraumatic. No pharyngeal erythema. No thyromegaly. CARDIOVASCULAR: S1 and S2 present. No murmurs, rubs, or gallops. PULMONARY: Diminished breath sound the bases, rhonchi audible, no wheezing or crackles. ABDOMEN: Soft, nontender, nondistended, normoactive bowel sounds. No palpable organomegaly. MUSCULOSKELETAL: No joint swelling or deformity. EXTREMITIES: No cyanosis, clubbing, or pedal edema. NEUROLOGICAL: Gross neurological examination did not reveal any focal deficits. SKIN: No rashes. Assessment and plan -Acute COVID-19 pneumonitis causing severe hypoxic respiratory failure: -Acute hypoxic respiratory failure secondary to COVID-19: Vital signs Monitor CBC Monitor CMP -continue oxygen supplementation aggressive bronchopulmonary hygiene Continue Decadron Pulmonology following -Chronic congestive heart failure from diastolic dysfunction EF 55 to 60% Strict I's and O's, daily weights, Lasix 40 mg twice daily -Persistent atrial fibrillation, rate controlled Eliquis. -Hyponatremia, possibly some volume deficit due to decreased oral intake: Better Monitor BMP -Morbid obesity BMI 58.6 Ozempic. -Primary osteoarthritis multiple joints Aleve nightly -Hyperlipidemia Lipitor 20 mg nightly -Diabetes mellitus type 2, chronically on oral hypoglycemic, uncontrolled with steroids Monitor blood sugar levels, continue current insulin regimen Labs and medication were reviewed.. Continue same treatment. Continue with symptomatic treatment. Resume home medication. Monitor labs and vitals. DVT and GI prophylaxis. Further recommendations as per clinical course of the patient Dictation was produced using [employer] dictation software. please excuse any grammatical, word or spelling errors. Objective - Vital Signs Vital signs: Vital Signs Temp 97.9 F 11/20/24 03:55 Pulse 63 11/20/24 03:55 Resp 20 11/20/24 03:55 BP 136/79 11/20/24 03:55 Pulse Ox 99 11/20/24 03:55 FiO2 45 11/19/24 08:14 Intake & Output 11/19/24 11/20/24 11/20/24 18:59 06:59 18:59 Intake Total 236 20 Output Total 1400 1000 Balance -1164 -980 Weight 129 kg Intake: IV 20 Invasive Line 3 20 Oral 236 Output: Urine 1400 1000 Other: Voiding Method External Catheter External Catheter - Labs CBC & Chem 7: 11/20/24 06:18 11/20/24 06:18 Labs: Abnormal Lab Results - Last 24 Hours (Table) 11/19/24 11/19/24 11/19/24 Range/Units 11:14 16:07 20:11 WBC (3.8-10.6) k/uL RDW (11.5-15.5) % Neutrophils # (Manual) (1.3-7.7) k/uL Metamyelocytes # (Man) (0) k/uL Myelocytes # (Manual) (0) k/uL Sodium (137-145) mmol/L Chloride (98-107) mmol/L Carbon Dioxide (22-30) mmol/L BUN (7-17) mg/dL Glucose (74-99) mg/dL POC Glucose (mg/dL) 134 H 313 H 295 H (70-110) mg/dL Total Protein (6.3-8.2) g/dL Albumin (3.5-5.0) g/dL 11/20/24 11/20/24 11/20/24 Range/Units 05:57 06:18 06:18 WBC 17.3 H (3.8-10.6) k/uL RDW 16.4 H (11.5-15.5) % Neutrophils # (Manual) 15.00 H (1.3-7.7) k/uL Metamyelocytes # (Man) 0.17 H (0) k/uL Myelocytes # (Manual) 0.17 H (0) k/uL Sodium 135 L (137-145) mmol/L Chloride 94 L (98-107) mmol/L Carbon Dioxide 37 H (22-30) mmol/L BUN 38 H (7-17) mg/dL Glucose 218 H (74-99) mg/dL POC Glucose (mg/dL) 231 H (70-110) mg/dL Total Protein 5.9 L (6.3-8.2) g/dL Albumin 3.3 L (3.5-5.0) g/dL Microbiology - Last 24 Hours (Table) 11/14/24 07:14 Blood Culture - Final Blood
--- NOTE | 2024-11-20 14:04 | P.PN ---
Subjective Progress Note Date: 11/20/24 Patient is a 83-year-old female with past medical history significant for hypertension, hyperlipidemia, diabetes mellitus, heart failure, obesity, among other things. She is currently confused and a poor historian. 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 She is hypoxic. Per the ER documentation, patient has been progressively more short of breath over the last one-two weeks. She has had a congested nonproductive cough. She did test positive for COVID on arrival. Chest x-ray showing diffuse multifocal infiltrates consistent with COVID-pneumonia. Afebrile. CBC: WBC count 7.7, hemoglobin 11.7, hematocrit 35.9, platelets 168. CMP: Sodium 130, potassium 5, chloride 97, serum bicarb 22, BUN 32, creatinine 1.02, glucose 312. Lactic 3.3 and down to 1.8. Troponin less than 0.012. NT proBNP only 700. EKG: Atrial fibrillation with controlled ventricular response, rate 84 bpm, no obvious acute ischemic changes. Patient is currently being evaluated on the medical floor. She is on 15 L high flow. SpO2 ranging from 84 to 88%. Has a persistent congested cough. No significant sputum production. She is currently on Decadron. Chronically anticoagulated on Eliquis. Her oxygen needs have increased markedly over the last 12 to 24 hours. We are going to try this patient on Airvo. On 11/15/2024, the patient is being seen for a follow-up. This morning, she is calm and comfortable. Denies having any significant shortness of breath. Nevertheless, she is still hypoxic and she remains on Airvo with a flow of 60 L with an FiO2 of 90%. The patient remains on Decadron 6 mg IV twice daily. She is on Ventolin HFA 4 times a day and she is also on empiric antibiotic coverage with a combination of Rocephin and Zithromax. She remains on Levemir insulin 14 units at bedtime and NovoLog sliding scale coverage. She remains on long-term anticoagulation with Eliquis 5 mg p.o. twice a day. No altered mentation. No nausea or vomiting. No diarrhea. Sodium levels at 136, BUN 28 with a creatinine of 1.0. Procalcitonin level is at 0.2. D-dimer is at 0.8. Her serum LDH level was 290. On 11/16/2024, the patient is being seen for a follow-up. Patient this morning was on Airvo with 60 L and FiO2 of 90%. Oxygenation was stable with a pulse ox of 98%. Furthermore, the chest x-ray was repeated and the patient has some improvement in the coarse bilateral pulm infiltrates. Based on that, I made recommendations to wean down the Airvo settings and the patient is currently on high flow 45 L with a FiO2 of 85%. She is feeling well. No specific complaints. She remains on Lasix 40 mg p.o. twice a day and she remains on anticoagulation with Eliquis 5 mg p.o. twice a day. She remains on Decadron 6 mg IV every 12 hours. The fluid balance over the past 24 hours has been -1 L. Blood sugars at 199. No other blood work from today. No altered mentation. No nausea or vomiting. She continues to improve. Oxygenation is improving. 11/17/2024, the patient is stable and she is improving. Oxygenation is also stable and the patient is currently on Airvo at 45 L with an FiO2 of 70%. Pulse ox is 97%. Will gradually weaning down the FiO2. The patient has no specific complaints. Resting company in bed. No interval worsening shortness of breath. No cough or sputum production. The patient remains on Lasix 40 mg p.o. twice a day. Rest of the medications are unchanged. She remains on multiple anticoagulation with Eliquis. The fluid balance -1.8 L over the past 24 hours. On 11/18/2024, the patient is stable. She remains on Airvo at 45 L with FiO2 of 50%. No interval worsening respiratory status. She remains afebrile. No worsening shortness of breath. Limited cough and congestion. Sodium levels at 131, potassium level is at 4.1, BUN 36 with a creatinine of 0.9. No other new complaints otherwise for now. She remains on Decadron 6 mg IV every 12 hours. She remains on anticoagulation with Eliquis. No altered mentation. Tolerating her diet. Tolerating the Airvo. Tolerating Lasix 40 mg p.o. twice a day and the patient is -3 L over the past 24 hours. On 11/19/2024, the patient is resting comfortably in bed. She is on Airvo and this has been weaned down to 35 L and FiO2 45%. Pulse ox remains 95% and the patient should be able to transition to nasal cannula today. No new complaints. She remains in negative fluid balance of the patient receiving oral Lasix. Continues to have some limited cough and sputum production. Remains on Decadron. The white cell count is 18.9 with a hemoglobin of 13.8 and a platelet count of 391. BUN 37 with a creatinine of 0.8 and sodium levels at 134 and potassium levels of 4.1. Remains on anticoagulation with Eliquis. No other significant events overnight. The patient is seen today November 20, 2024 in follow-up on the selective care unit. She is awake and alert in no acute distress. She is maintaining O2 saturations in the 90s on 6 L high flow nasal cannula. She is afebrile. Hemodynamically stable. Sputum culture revealed no growth. Blood culture revealed no growth. White count 17.3. Hemoglobin 13.3. Platelets 331. Sodium 135. Potassium 4.3. Bicarb 37. BUN 38. Creatinine 0.79. Glucose 218. She is continued on Decadron IV. Albuterol inhalations. Remains on oral diuretics. Anticoagulated with Eliquis. Remains on vitamin supplements. Objective - Vital Signs Vital signs: Vital Signs Temp 97.8 F 11/20/24 11:45 Pulse 67 11/20/24 11:45 Resp 20 11/20/24 11:45 BP 135/89 11/20/24 11:45 Pulse Ox 92 L 11/20/24 11:45 FiO2 45 11/19/24 08:14 Intake & Output 11/19/24 11/20/24 11/20/24 18:59 06:59 18:59 Intake Total 236 20 10 Output Total 1400 1000 Balance -116 -980 10 Weight 129 kg 129 kg Intake: IV 20 10 Invasive Line 3 20 10 Oral 236 Output: Urine 1400 1000 Other: Voiding Method External Catheter External Catheter External Catheter - Exam GENERAL EXAM: Alert, pleasant 83-year-old female, on 6 L high flow nasal cannula, comfortable in no apparent distress. HEAD: Normocephalic. EYES: Normal reaction of pupils, equal size. NOSE: Clear with pink turbinates. THROAT: No erythema or exudates. NECK: No masses, no JVD. CHEST: No chest wall deformity. LUNGS: Equal air entry with no crackles, wheeze, rhonchi or dullness. CVS: S1 and S2 normal with no audible murmur, regular rhythm. ABDOMEN: No hepatosplenomegaly, normal bowel sounds, no guarding or rigidity. SPINE: No scoliosis or deformity SKIN: No rashes CENTRAL NERVOUS SYSTEM: No focal deficits, tone is normal in all 4 extremities. EXTREMITIES: There is no peripheral edema. No clubbing, no cyanosis. Peripheral pulses are intact. - Labs CBC & Chem 7: 11/20/24 06:18 11/20/24 06:18 Labs: Abnormal Lab Results - Last 24 Hours (Table) 11/19/24 11/19/24 11/20/24 Range/Units 16:07 20:11 05:57 WBC (3.8-10.6) k/uL RDW (11.5-15.5) % Neutrophils # (Manual) (1.3-7.7) k/uL Metamyelocytes # (Man) (0) k/uL Myelocytes # (Manual) (0) k/uL Sodium (137-145) mmol/L Chloride (98-107) mmol/L Carbon Dioxide (22-30) mmol/L BUN (7-17) mg/dL Glucose (74-99) mg/dL POC Glucose (mg/dL) 313 H 295 H 231 H (70-110) mg/dL Total Protein (6.3-8.2) g/dL Albumin (3.5-5.0) g/dL 11/20/24 11/20/24 11/20/24 Range/Units 06:18 06:18 11:49 WBC 17.3 H (3.8-10.6) k/uL RDW 16.4 H (11.5-15.5) % Neutrophils # (Manual) 15.00 H (1.3-7.7) k/uL Metamyelocytes # (Man) 0.17 H (0) k/uL Myelocytes # (Manual) 0.17 H (0) k/uL Sodium 135 L (137-145) mmol/L Chloride 94 L (98-107) mmol/L Carbon Dioxide 37 H (22-30) mmol/L BUN 38 H (7-17) mg/dL Glucose 218 H (74-99) mg/dL POC Glucose (mg/dL) 142 H (70-110) mg/dL Total Protein 5.9 L (6.3-8.2) g/dL Albumin 3.3 L (3.5-5.0) g/dL Microbiology - Last 24 Hours (Table) 11/14/24 07:14 Blood Culture - Final Blood Assessment and Plan Assessment: Acute COVID infection, clinically stable, improving and there is ongoing improvement the patient's oxygenation , Acute hypoxemic respiratory failure, oxygenation is improving and the patient is currently on 6 L high flow nasal cannula Chronic atrial fibrillation, currently anticoagulated on Eliquis History of heart failure with preserved ejection fraction, currently on diuretics and the patient receiving Lasix and the patient remains negative fluid balance. Hypertension History of hyperlipidemia Diabetes mellitus type 2 Morbid obesity, with a BMI 58.6 kg/m Plan: The patient was seen and evaluated Labs and medications reviewed Currently on 6 L high flow nasal cannula Titrate down the FiO2 as tolerated Continue Decadron, bronchodilators Continue oral diuretics Anticoagulated with Eliquis We will continue to follow I have personally seen and examined the patient, performed the documentation and the assessment and plan as written. Number of minutes spent on the visit: 10 Dictation was produced using [email or web address] dictation software. Please excuse any grammatical, word or spelling errors.
--- NOTE | 2024-11-20 16:41 | XR ---
EXAMINATION TYPE: XR chest 1V portable DATE OF EXAM: 11/20/2024 4:29 PM COMPARISON: Chest radiographs from 11/16/2024 CLINICAL INDICATION: Female, 83 years old with history of CoVID pneumonia; [facility] TECHNIQUE: XR chest 1V portable Frontal view of the chest. FINDINGS: Lungs/Pleura: Similar multifocal airspace opacities. No evidence of pneumothorax or pleural effusion. Pulmonary vascularity: Unremarkable. Heart/mediastinum: Cardiomediastinal silhouette is unremarkable. Musculoskeletal: No acute osseous pathology. IMPRESSION: Similar multifocal airspace opacities. [facility], , 11/20/2024 4:38 PM
[2024-11-20 17:03] LABS: Glucose,Whole Blood 417 mg/dL (70-110)
[2024-11-20] MEDS ORDERED: DOCUSATE 100 MG CAP PO PRN (19:26)
[2024-11-20 20:50] LABS: Glucose,Whole Blood 298 mg/dL (70-110)
[2024-11-20] MEDS: polyethylene glycoL 3350 17 GM POWD.PACK PO SCH (21:20)
[2024-11-21 06:30] LABS: Glucose,Whole Blood 229 mg/dL (70-110)
[2024-11-21 11:51] LABS: Glucose,Whole Blood 222 mg/dL (70-110)
--- NOTE | 2024-11-21 12:13 | P.PN ---
Subjective Progress Note Date: 11/21/24 Patient is a 83-year-old female with past medical history significant for hypertension, hyperlipidemia, diabetes mellitus, heart failure, obesity, among other things. She is currently confused and a poor historian. 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 She is hypoxic. Per the ER documentation, patient has been progressively more short of breath over the last one-two weeks. She has had a congested nonproductive cough. She did test positive for COVID on arrival. Chest x-ray showing diffuse multifocal infiltrates consistent with COVID-pneumonia. Afebrile. CBC: WBC count 7.7, hemoglobin 11.7, hematocrit 35.9, platelets 168. CMP: Sodium 130, potassium 5, chloride 97, serum bicarb 22, BUN 32, creatinine 1.02, glucose 312. Lactic 3.3 and down to 1.8. Troponin less than 0.012. NT proBNP only 700. EKG: Atrial fibrillation with controlled ventricular response, rate 84 bpm, no obvious acute ischemic changes. Patient is currently being evaluated on the medical floor. She is on 15 L high flow. SpO2 ranging from 84 to 88%. Has a persistent congested cough. No significant sputum production. She is currently on Decadron. Chronically anticoagulated on Eliquis. Her oxygen needs have increased markedly over the last 12 to 24 hours. We are going to try this patient on Airvo. On 11/15/2024, the patient is being seen for a follow-up. This morning, she is calm and comfortable. Denies having any significant shortness of breath. Nevertheless, she is still hypoxic and she remains on Airvo with a flow of 60 L with an FiO2 of 90%. The patient remains on Decadron 6 mg IV twice daily. She is on Ventolin HFA 4 times a day and she is also on empiric antibiotic coverage with a combination of Rocephin and Zithromax. She remains on Levemir insulin 14 units at bedtime and NovoLog sliding scale coverage. She remains on long-term anticoagulation with Eliquis 5 mg p.o. twice a day. No altered mentation. No nausea or vomiting. No diarrhea. Sodium levels at 136, BUN 28 with a creatinine of 1.0. Procalcitonin level is at 0.2. D-dimer is at 0.8. Her serum LDH level was 290. On 11/16/2024, the patient is being seen for a follow-up. Patient this morning was on Airvo with 60 L and FiO2 of 90%. Oxygenation was stable with a pulse ox of 98%. Furthermore, the chest x-ray was repeated and the patient has some improvement in the coarse bilateral pulm infiltrates. Based on that, I made recommendations to wean down the Airvo settings and the patient is currently on high flow 45 L with a FiO2 of 85%. She is feeling well. No specific complaints. She remains on Lasix 40 mg p.o. twice a day and she remains on anticoagulation with Eliquis 5 mg p.o. twice a day. She remains on Decadron 6 mg IV every 12 hours. The fluid balance over the past 24 hours has been -1 L. Blood sugars at 199. No other blood work from today. No altered mentation. No nausea or vomiting. She continues to improve. Oxygenation is improving. 11/17/2024, the patient is stable and she is improving. Oxygenation is also stable and the patient is currently on Airvo at 45 L with an FiO2 of 70%. Pulse ox is 97%. Will gradually weaning down the FiO2. The patient has no specific complaints. Resting company in bed. No interval worsening shortness of breath. No cough or sputum production. The patient remains on Lasix 40 mg p.o. twice a day. Rest of the medications are unchanged. She remains on multiple anticoagulation with Eliquis. The fluid balance -1.8 L over the past 24 hours. On 11/18/2024, the patient is stable. She remains on Airvo at 45 L with FiO2 of 50%. No interval worsening respiratory status. She remains afebrile. No worsening shortness of breath. Limited cough and congestion. Sodium levels at 131, potassium level is at 4.1, BUN 36 with a creatinine of 0.9. No other new complaints otherwise for now. She remains on Decadron 6 mg IV every 12 hours. She remains on anticoagulation with Eliquis. No altered mentation. Tolerating her diet. Tolerating the Airvo. Tolerating Lasix 40 mg p.o. twice a day and the patient is -3 L over the past 24 hours. On 11/19/2024, the patient is resting comfortably in bed. She is on Airvo and this has been weaned down to 35 L and FiO2 45%. Pulse ox remains 95% and the patient should be able to transition to nasal cannula today. No new complaints. She remains in negative fluid balance of the patient receiving oral Lasix. Continues to have some limited cough and sputum production. Remains on Decadron. The white cell count is 18.9 with a hemoglobin of 13.8 and a platelet count of 391. BUN 37 with a creatinine of 0.8 and sodium levels at 134 and potassium levels of 4.1. Remains on anticoagulation with Eliquis. No other significant events overnight. The patient is seen today November 20, 2024 in follow-up on the selective care unit. She is awake and alert in no acute distress. She is maintaining O2 saturations in the 90s on 6 L high flow nasal cannula. She is afebrile. Hemodynamically stable. Sputum culture revealed no growth. Blood culture revealed no growth. White count 17.3. Hemoglobin 13.3. Platelets 331. Sodium 135. Potassium 4.3. Bicarb 37. BUN 38. Creatinine 0.79. Glucose 218. She is continued on Decadron IV. Albuterol inhalations. Remains on oral diuretics. Anticoagulated with Eliquis. Remains on vitamin supplements. The patient is seen today November 21, 2024 in follow-up on the selective care unit. She is currently sitting up in bed. Awake and alert in no acute distress. Doing a bit better today compared to yesterday. She is maintaining O2 saturations in the 90s on room air. Chest x-ray did show improvement. Glucose 222. She remains on albuterol, Decadron, Eliquis. She is on oral diuretics. Objective - Vital Signs Vital signs: Vital Signs Temp 97.8 F 11/21/24 08:41 Pulse 67 11/21/24 08:41 Resp 16 11/21/24 08:41 BP 119/75 11/21/24 08:41 Pulse Ox 93 L 11/21/24 08:41 FiO2 45 11/19/24 08:14 Intake & Output 11/20/24 11/21/24 11/21/24 18:59 06:59 18:59 Intake Total 378 10 Output Total 1050 800 Balance -672 -790 Weight 129 kg 124 kg Intake: IV 20 10 Invasive Line 3 20 10 Oral 358 Output: Urine 1050 800 Other: Voiding Method External Catheter External Catheter External Catheter - Exam GENERAL EXAM: Alert, 83-year-old female, on room air, comfortable in no apparent distress. HEAD: Normocephalic. EYES: Normal reaction of pupils, equal size. NOSE: Clear with pink turbinates. THROAT: No erythema or exudates. NECK: No masses, no JVD. CHEST: No chest wall deformity. LUNGS: Equal air entry with no crackles, wheeze, rhonchi or dullness. CVS: S1 and S2 normal with no audible murmur, regular rhythm. ABDOMEN: No hepatosplenomegaly, normal bowel sounds, no guarding or rigidity. SPINE: No scoliosis or deformity SKIN: No rashes CENTRAL NERVOUS SYSTEM: No focal deficits, tone is normal in all 4 extremities. EXTREMITIES: There is no peripheral edema. No clubbing, no cyanosis. Peripheral pulses are intact. - Labs CBC & Chem 7: 11/20/24 06:18 11/20/24 06:18 Labs: Abnormal Lab Results - Last 24 Hours (Table) 11/20/24 11/20/24 11/21/24 Range/Units 17:01 20:48 06:28 POC Glucose (mg/dL) 417 H 298 H 229 H (70-110) mg/dL 11/21/24 Range/Units 11:51 POC Glucose (mg/dL) 222 H (70-110) mg/dL Assessment and Plan Assessment: Acute COVID infection, clinically stable , Acute hypoxemic respiratory failure, secondary to above, oxygenation is proved and on room air Chronic atrial fibrillation, currently anticoagulated on Eliquis History of heart failure with preserved ejection fraction, currently on d iuretics Hypertension History of hyperlipidemia Diabetes mellitus type 2 Morbid obesity, with a BMI 58.6 kg/m Plan: The patient was seen and evaluated Labs and medications reviewed Stable and on room air Cleared for discharge The patient has 24/ caregivers and declines rehab I have personally seen and examined the patient, performed the documentation and the assessment and plan as written. Number of minutes spent on the visit: 10 Dictation was produced using [employer] dictation software. Please excuse any grammatical, word or spelling errors.
--- NOTE | 2024-11-21 12:15 | P.DS ---
Providers Date of admission: 11/13/24 17:03 Expected date of discharge: 11/21/24 Attending physician: Eleno Barahona Consults: 11/13/24 17:02 Consult Physician Routine Consulting Provider: Soniya Ortiz Consult Reason/Comments: covid Do you want consulting provider notified?: Already Contacted Primary care physician: Mckinley [facility] Hospital Course: Discharge diagnoses; -Acute COVID-19 pneumonitis causing severe hypoxic respiratory failure: -Acute hypoxic respiratory failure secondary to COVID-19: Vital signs Monitor CBC Monitor CMP -continue oxygen supplementation aggressive bronchopulmonary hygiene Continue Decadron Pulmonology following 11/21. Being discharged on Decadron for 2 more days -Chronic congestive heart failure from diastolic dysfunction EF 55 to 60% Continue Lasix at home -Persistent atrial fibrillation, rate controlled Eliquis. -Hyponatremia, possibly some volume deficit due to decreased oral intake: Better Monitor BMP -Morbid obesity BMI 58.6 Ozempic. -Primary osteoarthritis multiple joints Aleve nightly -Hyperlipidemia Lipitor 20 mg nightly -Diabetes mellitus type 2, chronically on oral hypoglycemic, uncontrolled with steroids Monitor blood sugar levels, continue current insulin regimen Hospital course; Pleasant 83-year-old patient follows with visiting physicians. For 2 weeks patient been having a cough. Little sputum. Not short of breath. No fever no chills. Decreased appetite tired rundown. Patient has visiting [facility] 21/06. Does use a walker. Chronic medical conditions include atrial fibrillation, previous VT, CHF diastolic dysfunction, GERD, osteoarthritis. Patient tested positive for COVID in the ER. Pulse ox was 89% on 4 L. This morning is on Airvo. November 15: Seen earlier this afternoon. On Airvo 60%. Told the patient she would be better off sitting in the chair and use incentive spirometry. Patient dentures not fitting well. Hence we will order a ground diet. No sputum production. Procalcitonin 0.2. DC antibiotics. Continue with oxygen, steroids, November 16: Remains on Airvo 50%. Up in recliner. Breathing a bit better. Eating better ground food. Because of loose dentures. IV Decadron.. November 17: Breathing a bit better. Remains on Airvo. FiO2 45%.Oral intake good. Continue Decadron 11/18. Patient seen and examined. Continues to be on heated high flow. Gets short of breath on minimum exertion. Denies any chest pain. 11/19. Patient seen and examined. Patient was transition from Airvo to high flow oxygen at 8 L. Patient is alert, answering questions. 11/20. Patient seen and examinedVital signs on this morning showed temperature 97.9, heart rate 63, blood pressure 136/79, currently on high flow nasal at 6 L blood work done showed sodium related potassium 4.3, BUN 30, creatinine 0.79, glucose 218, WBC 15.3, hemoglobin 13.3. States she feels better. 11/21. Patient seen and examined. Patient doing much better, currently not on any oxygen supplementation. Being discharged on Decadron. Sugars have been elevated, continue Lantus at MO. PHYSICAL EXAMINATION: GENERAL: The patient is alert ,. Ill looking HEENT: Pupils are round and equally reacting to light. EOMI. No scleral icterus. No conjunctival pallor. Normocephalic, atraumatic. No pharyngeal erythema. No thyromegaly. CARDIOVASCULAR: S1 and S2 present. No murmurs, rubs, or gallops. PULMONARY: Diminished breath sound the bases, no rhonchi audible, no wheezing or crackles. ABDOMEN: Soft, nontender, nondistended, normoactive bowel sounds. No palpable organomegaly. MUSCULOSKELETAL: No joint swelling or deformity. EXTREMITIES: No cyanosis, clubbing, or pedal edema. NEUROLOGICAL: Gross neurological examination did not reveal any focal deficits. SKIN: No rashes. Dictation was produced using [employer] dictation software. please excuse any grammatical, word or spelling errors. Patient Condition at Discharge: Good Plan - Discharge Summary Discharge Rx Participant: Yes New Discharge Prescriptions: New Apixaban [Eliquis] 5 mg PO BID 30 Days #60 tab Insulin Detemir (Levemir) [Levemir] 14 unit SQ HS 30 Days #1 each Albuterol Inhaler [Ventolin Hfa Inhaler] 2 puff INHALATION RT-QID PRN #1 each PRN Reason: Shortness Of Breath Or Wheezing Continue Aspirin EC [Ecotrin Low Dose] 81 mg PO DAILY Furosemide [Lasix] 40 mg PO BID #60 tablet metOLazone [Zaroxolyn] 2.5 mg PO DIRECTED Atorvastatin [Lipitor] 20 mg PO HS Vitamin E Acetate [Vitamin E] 134 mg PO DAILY Cyanocobalamin (Vitamin B-12) [Vitamin B-12] 1,000 mcg PO DAILY Multivit-Min/Iron/Folic/Lutein [Centrum Silver Women Tablet] 1 tab PO DAILY busPIRone HCL [Buspar] 7.5 mg PO BID Naproxen Sodium [Aleve] 440 mg PO HS Cholecalciferol [Vitamin D3 (25 Mcg = 1000 Iu)] 25 mcg PO DAILY glipiZIDE [glipiZIDE ER] 10 mg PO DAILY Potassium Chloride ER [K-Dur 20] 20 meq PO DAILY Semaglutide [Ozempic] 1 mg SQ MO Discontinued Apixaban [Eliquis] 2.5 mg PO BID tablet Fluconazole [Diflucan] 100 mg PO DAILY Doxycycline Hyclate 100 mg PO BID Discharge Medication List Aspirin EC [Ecotrin Low Dose] 81 mg PO DAILY 03/06/20 [History] Furosemide [Lasix] 40 mg PO BID #60 tablet 03/15/20 [Rx] Atorvastatin [Lipitor] 20 mg PO HS 11/13/24 [History] Cholecalciferol [Vitamin D3 (25 Mcg = 1000 Iu)] 25 mcg PO DAILY 11/13/24 [History] Cyanocobalamin (Vitamin B-12) [Vitamin B-12] 1,000 mcg PO DAILY 11/13/24 [History] Multivit-Min/Iron/Folic/Lutein [Centrum Silver Women Tablet] 1 tab PO DAILY 11/13/24 [History] Naproxen Sodium [Aleve] 440 mg PO HS 11/13/24 [History] Potassium Chloride ER [K-Dur 20] 20 meq PO DAILY 11/13/24 [History] Semaglutide [Ozempic] 1 mg SQ MO 11/13/24 [History] Vitamin E Acetate [Vitamin E] 134 mg PO DAILY 11/13/24 [History] glipiZIDE [glipiZIDE ER] 10 mg PO DAILY 11/13/24 [History] metOLazone [Zaroxolyn] 2.5 mg PO DIRECTED 11/13/24 [History] busPIRone HCL [Buspar] 7.5 mg PO BID 11/15/24 [History] Albuterol Inhaler [Ventolin Hfa Inhaler] 2 puff INHALATION RT-QID PRN #1 each 11/21/24 [Rx] Apixaban [Eliquis] 5 mg PO BID 30 Days #60 tab 11/21/24 [Rx] Insulin Detemir (Levemir) [Levemir] 14 unit SQ HS 30 Days #1 each 11/21/24 [Rx] Follow up Appointment(s)/Referral(s): Home Health,[facility] [NON-STAFF] - Mckinley Sheets MD [Primary Care Provider] - 1-2 days Discharge/Stand Alone Forms: Adult Foster Alf List Discharge Disposition: HOME WITH HOME HEALTH SERVICES
--- NOTE | 2024-11-21 14:12 | P.PN ---
Subjective Progress Note Date: 11/21/24 Pleasant 83-year-old patient follows with visiting physicians. For 2 weeks patient been having a cough. Little sputum. Not short of breath. No fever no chills. Decreased appetite tired rundown. [facility] Does use a walker. Chronic medical conditions include atrial fibrillation, previous CO, CHF diastolic dysfunction, GERD, osteoarthritis. Patient tested positive for COVID in the ER. Pulse ox was 89% on 4 L. This morning is on Airvo. November 15: Seen earlier this afternoon. On Airvo 60%. Told the patient she would be better off sitting in the chair and use incentive spirometry. Patient dentures not fitting well. Hence we will order a ground diet. No sputum production. Procalcitonin 0.2. DC antibiotics. Continue with oxygen, steroids, November 16: Remains on Airvo 50%. Up in recliner. Breathing a bit better. Eating better ground food. Because of loose dentures. IV Decadron.. November 17: Breathing a bit better. Remains on Airvo. FiO2 45%.Oral intake good. Continue Decadron 11/18. Patient seen and examined. Continues to be on heated high flow. Gets short of breath on minimum exertion. Denies any chest pain. 11/19. Patient seen and examined. Patient was transition from Airvo to high flow oxygen at 8 L. Patient is alert, answering questions. 11/20. Patient seen and examinedVital signs on this morning showed temperature 97.9, heart rate 63, blood pressure 136/79, currently on high flow nasal at 6 L blood work done showed sodium related potassium 4.3, BUN 30, creatinine 0.79, glucose 218, WBC 15.3, hemoglobin 13.3. States she feels better. 11/21. Patient seen and examined. Currently on room air. Patient breathing has improved. Patient initially declined rehab but family discussed, patient lives alone and will be at risk of falling at home, will keep on looking at rehab REVIEW OF SYSTEMS: CONSTITUTIONAL: No fever, no malaise,. CARDIOVASCULAR: No chest pain, no palpitations, no syncope. PULMONARY: As mentioned above GASTROINTESTINAL: No diarrhea, no nausea, no vomiting, no abdominal pain. NEUROLOGICAL: No headaches, no weakness, PHYSICAL EXAMINATION: GENERAL: The patient is alert ,. Ill looking HEENT: Pupils are round and equally reacting to light. EOMI. No scleral icterus. No conjunctival pallor. Normocephalic, atraumatic. No pharyngeal erythema. No thyromegaly. CARDIOVASCULAR: S1 and S2 present. No murmurs, rubs, or gallops. PULMONARY: Diminished breath sound the bases, rhonchi audible, no wheezing or crackles. ABDOMEN: Soft, nontender, nondistended, normoactive bowel sounds. No palpable organomegaly. MUSCULOSKELETAL: No joint swelling or deformity. EXTREMITIES: No cyanosis, clubbing, or pedal edema. NEUROLOGICAL: Gross neurological examination did not reveal any focal deficits. SKIN: No rashes. Assessment and plan -Acute COVID-19 pneumonitis causing severe hypoxic respiratory failure: -Acute hypoxic respiratory failure secondary to COVID-19: Vital signs Monitor CBC Monitor CMP -continue oxygen supplementation aggressive bronchopulmonary hygiene Continue Decadron Pulmonology following -Chronic congestive heart failure from diastolic dysfunction EF 55 to 60% Strict I's and O's, daily weights, Lasix 40 mg twice daily -Persistent atrial fibrillation, rate controlled Eliquis. -Hyponatremia, possibly some volume deficit due to decreased oral intake: Better Monitor BMP -Morbid obesity BMI 58.6 Ozempic. -Primary osteoarthritis multiple joints Aleve nightly -Hyperlipidemia Lipitor 20 mg nightly -Diabetes mellitus type 2, chronically on oral hypoglycemic, uncontrolled with steroids Monitor blood sugar levels, continue current insulin regimen Labs and medication were reviewed.. Continue same treatment. Continue with symptomatic treatment. Resume home medication. Monitor labs and vitals. DVT and GI prophylaxis. Further recommendations as per clinical course of the patient Dictation was produced using [employer] dictation software. please excuse any grammatical, word or spelling errors. Objective - Vital Signs Vital signs: Vital Signs Temp 98.1 F 11/21/24 12:07 Pulse 86 11/21/24 12:07 Resp 16 11/21/24 12:07 BP 144/88 11/21/24 12:07 Pulse Ox 92 L 11/21/24 12:07 FiO2 45 11/19/24 08:14 Intake & Output 11/20/24 11/21/24 11/21/24 18:59 06:59 18:59 Intake Total 378 10 Output Total 1050 800 Balance -672 -790 Weight 129 kg 124 kg Intake: IV 20 10 Invasive Line 3 20 10 Oral 358 Output: Urine 1050 800 Other: Voiding Method External Catheter External Catheter External Catheter - Labs CBC & Chem 7: 11/20/24 06:18 11/20/24 06:18 Labs: Abnormal Lab Results - Last 24 Hours (Table) 11/20/24 11/20/24 11/21/24 Range/Units 17:01 20:48 06:28 POC Glucose (mg/dL) 417 H 298 H 229 H (70-110) mg/dL 11/21/24 Range/Units 11:51 POC Glucose (mg/dL) 222 H (70-110) mg/dL
[2024-11-21 16:33] LABS: Glucose,Whole Blood 344 mg/dL (70-110)
[2024-11-21 20:58] LABS: Glucose,Whole Blood 270 mg/dL (70-110)
[2024-11-22 06:37] LABS: Glucose,Whole Blood 105 mg/dL (70-110)
[2024-11-22] MEDS: DEXAMETHASONE SOD PHOSPHATE 10 MG/ML 1 ML VIAL IVP SCH (09:54)
--- NOTE | 2024-11-22 10:53 | P.PN ---
Subjective Progress Note Date: 11/22/24 Patient is a 83-year-old female with past medical history significant for hypertension, hyperlipidemia, diabetes mellitus, heart failure, obesity, among other things. She is currently confused and a poor historian. 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 She is hypoxic. Per the ER documentation, patient has been progressively more short of breath over the last one-two weeks. She has had a congested nonproductive cough. She did test positive for COVID on arrival. Chest x-ray showing diffuse multifocal infiltrates consistent with COVID-pneumonia. Afebrile. CBC: WBC count 7.7, hemoglobin 11.7, hematocrit 35.9, platelets 168. CMP: Sodium 130, potassium 5, chloride 97, serum bicarb 22, BUN 32, creatinine 1.02, glucose 312. Lactic 3.3 and down to 1.8. Troponin less than 0.012. NT proBNP only 700. EKG: Atrial fibrillation with controlled ventricular response, rate 84 bpm, no obvious acute ischemic changes. Patient is currently being evaluated on the medical floor. She is on 15 L high flow. SpO2 ranging from 84 to 88%. Has a persistent congested cough. No significant sputum production. She is currently on Decadron. Chronically anticoagulated on Eliquis. Her oxygen needs have increased markedly over the last 12 to 24 hours. We are going to try this patient on Airvo. On 11/15/2024, the patient is being seen for a follow-up. This morning, she is calm and comfortable. Denies having any significant shortness of breath. Nevertheless, she is still hypoxic and she remains on Airvo with a flow of 60 L with an FiO2 of 90%. The patient remains on Decadron 6 mg IV twice daily. She is on Ventolin HFA 4 times a day and she is also on empiric antibiotic coverage with a combination of Rocephin and Zithromax. She remains on Levemir insulin 14 units at bedtime and NovoLog sliding scale coverage. She remains on long-term anticoagulation with Eliquis 5 mg p.o. twice a day. No altered mentation. No nausea or vomiting. No diarrhea. Sodium levels at 136, BUN 28 with a creatinine of 1.0. Procalcitonin level is at 0.2. D-dimer is at 0.8. Her serum LDH level was 290. On 11/16/2024, the patient is being seen for a follow-up. Patient this morning was on Airvo with 60 L and FiO2 of 90%. Oxygenation was stable with a pulse ox of 98%. Furthermore, the chest x-ray was repeated and the patient has some improvement in the coarse bilateral pulm infiltrates. Based on that, I made recommendations to wean down the Airvo settings and the patient is currently on high flow 45 L with a FiO2 of 85%. She is feeling well. No specific complaints. She remains on Lasix 40 mg p.o. twice a day and she remains on anticoagulation with Eliquis 5 mg p.o. twice a day. She remains on Decadron 6 mg IV every 12 hours. The fluid balance over the past 24 hours has been -1 L. Blood sugars at 199. No other blood work from today. No altered mentation. No nausea or vomiting. She continues to improve. Oxygenation is improving. 11/17/2024, the patient is stable and she is improving. Oxygenation is also stable and the patient is currently on Airvo at 45 L with an FiO2 of 70%. Pulse ox is 97%. Will gradually weaning down the FiO2. The patient has no specific complaints. Resting company in bed. No interval worsening shortness of breath. No cough or sputum production. The patient remains on Lasix 40 mg p.o. twice a day. Rest of the medications are unchanged. She remains on multiple anticoagulation with Eliquis. The fluid balance -1.8 L over the past 24 hours. On 11/18/2024, the patient is stable. She remains on Airvo at 45 L with FiO2 of 50%. No interval worsening respiratory status. She remains afebrile. No worsening shortness of breath. Limited cough and congestion. Sodium levels at 131, potassium level is at 4.1, BUN 36 with a creatinine of 0.9. No other new complaints otherwise for now. She remains on Decadron 6 mg IV every 12 hours. She remains on anticoagulation with Eliquis. No altered mentation. Tolerating her diet. Tolerating the Airvo. Tolerating Lasix 40 mg p.o. twice a day and the patient is -3 L over the past 24 hours. On 11/19/2024, the patient is resting comfortably in bed. She is on Airvo and this has been weaned down to 35 L and FiO2 45%. Pulse ox remains 95% and the patient should be able to transition to nasal cannula today. No new complaints. She remains in negative fluid balance of the patient receiving oral Lasix. Continues to have some limited cough and sputum production. Remains on Decadron. The white cell count is 18.9 with a hemoglobin of 13.8 and a platelet count of 391. BUN 37 with a creatinine of 0.8 and sodium levels at 134 and potassium levels of 4.1. Remains on anticoagulation with Eliquis. No other significant events overnight. The patient is seen today November 20, 2024 in follow-up on the selective care unit. She is awake and alert in no acute distress. She is maintaining O2 saturations in the 90s on 6 L high flow nasal cannula. She is afebrile. Hemodynamically stable. Sputum culture revealed no growth. Blood culture revealed no growth. White count 17.3. Hemoglobin 13.3. Platelets 331. Sodium 135. Potassium 4.3. Bicarb 37. BUN 38. Creatinine 0.79. Glucose 218. She is continued on Decadron IV. Albuterol inhalations. Remains on oral diuretics. Anticoagulated with Eliquis. Remains on vitamin supplements. The patient is seen today November 21, 2024 in follow-up on the selective care unit. She is currently sitting up in bed. Awake and alert in no acute distress. Doing a bit better today compared to yesterday. She is maintaining O2 saturations in the 90s on room air. Chest x-ray did show improvement. Glucose 222. She remains on albuterol, Decadron, Eliquis. She is on oral diuretics. The patient is seen today November 22, 2024 in follow-up on the regular medical floor. She is awake and alert in no acute distress. Denies any worsening shortness of breath, cough or congestion. She continues to maintain good O2 saturation in the low 90s on room air. She has been afebrile. Hemodynamically stable. She is continued on Decadron. Anticoagulated with Eliquis. Remains on vitamin supplements. Glucose 105. Objective - Vital Signs Vital signs: Vital Signs Temp 97.3 F L 11/22/24 08:00 Pulse 71 11/22/24 08:00 Resp 17 11/22/24 08:00 BP 118/78 11/22/24 08:00 Pulse Ox 91 L 11/22/24 08:00 FiO2 45 11/19/24 08:14 Intake & Output 11/21/24 11/22/24 11/22/24 18:59 06:59 18:59 Intake Total 10 Output Total 1300 600 Balance -1290 -600 Weight 57 kg Intake: IV 10 Invasive Line 3 10 Output: Urine 1300 600 Other: Voiding Method External Catheter External Catheter Diaper - Exam GENERAL EXAM: Alert, very pleasant 83-year-old female, resting in bed, on room air, comfortable in no apparent distress. HEAD: Normocephalic. EYES: Normal reaction of pupils, equal size. NOSE: Clear with pink turbinates. THROAT: No erythema or exudates. NECK: No masses, no JVD. CHEST: No chest wall deformity. LUNGS: Equal air entry with no crackles, wheeze, rhonchi or dullness. CVS: S1 and S2 normal with no audible murmur, regular rhythm. ABDOMEN: No hepatosplenomegaly, normal bowel sounds, no guarding or rigidity. SPINE: No scoliosis or deformity SKIN: No rashes CENTRAL NERVOUS SYSTEM: No focal deficits, tone is normal in all 4 extremities. EXTREMITIES: There is no peripheral edema. No clubbing, no cyanosis. Peripheral pulses are intact. - Labs CBC & Chem 7: 11/20/24 06:18 11/20/24 06:18 Labs: Abnormal Lab Results - Last 24 Hours (Table) 11/21/24 11/21/24 11/21/24 Range/Units 11:51 16:32 20:57 POC Glucose (mg/dL) 222 H 344 H 270 H (70-110) mg/dL Assessment and Plan Assessment: Acute COVID infection, clinically stable , Acute hypoxemic respiratory failure, secondary to above, oxygenation is proved and on room air Chronic atrial fibrillation, currently anticoagulated on Eliquis History of heart failure with preserved ejection fraction, currently on diuretics Hypertension History of hyperlipidemia Diabetes mellitus type 2 Morbid obesity, with a BMI 58.6 kg/m Plan: The patient was seen and evaluated Labs and medications reviewed Stable and on room air Remains quite weak and debilitated The patient's family is now requesting subacute rehabilitation versus home with home care I have personally seen and examined the patient, performed the documentation and the assessment and plan as written. Number of minutes spent on the visit: 10 Dictation was produced using Dragon dictation software. Please excuse any grammatical, word or spelling errors.
[2024-11-22 11:50] LABS: Glucose,Whole Blood 106 mg/dL (70-110)
--- NOTE | 2024-11-22 16:04 | P.PN ---
Subjective Progress Note Date: 11/22/24 Pleasant 83-year-old patient follows with visiting physicians. For 2 weeks patient been having a cough. Little sputum. Not short of breath. No fever no chills. Decreased appetite tired rundown. Patient has visiting [facility] 21/06. Does use a walker. Chronic medical conditions include atrial fibrillation, previous [place], CHF diastolic dysfunction, GERD, osteoarthritis. Patient tested positive for COVID in the ER. Pulse ox was 89% on 4 L. This morning is on Airvo. November 15: Seen earlier this afternoon. On Airvo 60%. Told the patient she would be better off sitting in the chair and use incentive spirometry. Patient dentures not fitting well. Hence we will order a ground diet. No sputum production. Procalcitonin 0.2. DC antibiotics. Continue with oxygen, steroids, November 16: Remains on Airvo 50%. Up in recliner. Breathing a bit better. Eating better ground food. Because of loose dentures. IV Decadron.. November 17: Breathing a bit better. Remains on Airvo. FiO2 45%.Oral intake good. Continue Decadron 11/18. Patient seen and examined. Continues to be on heated high flow. Gets short of breath on minimum exertion. Denies any chest pain. 11/19. Patient seen and examined. Patient was transition from Airvo to high flow oxygen at 8 L. Patient is alert, answering questions. 11/20. Patient seen and examinedVital signs on this morning showed temperature 97.9, heart rate 63, blood pressure 136/79, currently on high flow nasal at 6 L blood work done showed sodium related potassium 4.3, BUN 30, creatinine 0.79, glucose 218, WBC 15.3, hemoglobin 13.3. States she feels better. 11/21. Patient seen and examined. Currently on room air. Patient breathing has improved. Patient initially declined rehab but family discussed, patient lives alone and will be at risk of falling at home, will keep on looking at rehab 11/22. Patient seen and examined. Vital signs stable REVIEW OF SYSTEMS: CONSTITUTIONAL: No fever, no malaise,. CARDIOVASCULAR: No chest pain, no palpitations, no syncope. PULMONARY: As mentioned above GASTROINTESTINAL: No diarrhea, no nausea, no vomiting, no abdominal pain. NEUROLOGICAL: No headaches, no weakness, PHYSICAL EXAMINATION: GENERAL: The patient is alert ,. Ill looking HEENT: Pupils are round and equally reacting to light. EOMI. No scleral icterus. No conjunctival pallor. Normocephalic, atraumatic. No pharyngeal erythema. No thyromegaly. CARDIOVASCULAR: S1 and S2 present. No murmurs, rubs, or gallops. PULMONARY: Diminished breath sound the bases, rhonchi audible, no wheezing or crackles. ABDOMEN: Soft, nontender, nondistended, normoactive bowel sounds. No palpable organomegaly. MUSCULOSKELETAL: No joint swelling or deformity. EXTREMITIES: No cyanosis, clubbing, or pedal edema. NEUROLOGICAL: Gross neurological examination did not reveal any focal deficits. SKIN: No rashes. Assessment and plan -Acute COVID-19 pneumonitis causing severe hypoxic respiratory failure: -Acute hypoxic respiratory failure secondary to COVID-19: Vital signs Monitor CBC Monitor CMP -continue oxygen supplementation aggressive bronchopulmonary hygiene Continue Decadron Pulmonology following PT and OT recommend rehab -Chronic congestive heart failure from diastolic dysfunction EF 55 to 60% Strict I's and O's, daily weights, Lasix 40 mg twice daily -Persistent atrial fibrillation, rate controlled Eliquis. -Hyponatremia, possibly some volume deficit due to decreased oral intake: Better Monitor BMP -Morbid obesity BMI 58.6 Ozempic. -Primary osteoarthritis multiple joints Aleve nightly -Hyperlipidemia Lipitor 20 mg nightly -Diabetes mellitus type 2, chronically on oral hypoglycemic, uncontrolled with steroids Monitor blood sugar levels, continue current insulin regimen Labs and medication were reviewed.. Continue same treatment. Continue with symptomatic treatment. Resume home medication. Monitor labs and vitals. DVT and GI prophylaxis. Further recommendations as per clinical course of the patient Dictation was produced using [employer] dictation software. please excuse any grammatical, word or spelling errors. Objective - Vital Signs Vital signs: Vital Signs Temp 97.7 F 11/22/24 12:00 Pulse 98 11/22/24 12:00 Resp 18 11/22/24 12:00 BP 120/62 11/22/24 12:00 Pulse Ox 98 11/22/24 12:00 FiO2 45 11/19/24 08:14 Intake & Output 11/21/24 11/22/24 11/22/24 18:59 06:59 18:59 Intake Total 10 Output Total 1300 600 Balance -1290 -600 Weight 57 kg Intake: IV 10 Invasive Line 3 10 Output: Urine 1300 600 Other: Voiding Method External Catheter External Catheter Diaper # Voids 2 - Labs CBC & Chem 7: 11/20/24 06:18 11/20/24 06:18 Labs: Abnormal Lab Results - Last 24 Hours (Table) 11/21/24 11/21/24 Range/Units 16:32 20:57 POC Glucose (mg/dL) 344 H 270 H (70-110) mg/dL
[2024-11-22 16:39] LABS: Glucose,Whole Blood 395 mg/dL (70-110)
[2024-11-22 21:00] LABS: Glucose,Whole Blood 238 mg/dL (70-110)
[2024-11-23 06:26] LABS: Glucose,Whole Blood 138 mg/dL (70-110)
[2024-11-23 11:36] LABS: Glucose,Whole Blood 142 mg/dL (70-110)
--- NOTE | 2024-11-23 12:48 | P.PN ---
Subjective Progress Note Date: 11/23/24 Patient is a 83-year-old female with past medical history significant for hypertension, hyperlipidemia, diabetes mellitus, heart failure, obesity, among other things. She is currently confused and a poor historian. 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 She is hypoxic. Per the ER documentation, patient has been progressively more short of breath over the last one-two weeks. She has had a congested nonproductive cough. She did test positive for COVID on arrival. Chest x-ray showing diffuse multifocal infiltrates consistent with COVID-pneumonia. Afebrile. CBC: WBC count 7.7, hemoglobin 11.7, hematocrit 35.9, platelets 168. CMP: Sodium 130, potassium 5, chloride 97, serum bicarb 22, BUN 32, creatinine 1.02, glucose 312. Lactic 3.3 and down to 1.8. Troponin less than 0.012. NT proBNP only 700. EKG: Atrial fibrillation with controlled ventricular response, rate 84 bpm, no obvious acute ischemic changes. Patient is currently being evaluated on the medical floor. She is on 15 L high flow. SpO2 ranging from 84 to 88%. Has a persistent congested cough. No significant sputum production. She is currently on Decadron. Chronically anticoagulated on Eliquis. Her oxygen needs have increased markedly over the last 12 to 24 hours. We are going to try this patient on Airvo. On 11/15/2024, the patient is being seen for a follow-up. This morning, she is calm and comfortable. Denies having any significant shortness of breath. Nevertheless, she is still hypoxic and she remains on Airvo with a flow of 60 L with an FiO2 of 90%. The patient remains on Decadron 6 mg IV twice daily. She is on Ventolin HFA 4 times a day and she is also on empiric antibiotic coverage with a combination of Rocephin and Zithromax. She remains on Levemir insulin 14 units at bedtime and NovoLog sliding scale coverage. She remains on long-term anticoagulation with Eliquis 5 mg p.o. twice a day. No altered mentation. No nausea or vomiting. No diarrhea. Sodium levels at 136, BUN 28 with a creatinine of 1.0. Procalcitonin level is at 0.2. D-dimer is at 0.8. Her serum LDH level was 290. On 11/16/2024, the patient is being seen for a follow-up. Patient this morning was on Airvo with 60 L and FiO2 of 90%. Oxygenation was stable with a pulse ox of 98%. Furthermore, the chest x-ray was repeated and the patient has some improvement in the coarse bilateral pulm infiltrates. Based on that, I made recommendations to wean down the Airvo settings and the patient is currently on high flow 45 L with a FiO2 of 85%. She is feeling well. No specific complaints. She remains on Lasix 40 mg p.o. twice a day and she remains on anticoagulation with Eliquis 5 mg p.o. twice a day. She remains on Decadron 6 mg IV every 12 hours. The fluid balance over the past 24 hours has been -1 L. Blood sugars at 199. No other blood work from today. No altered mentation. No nausea or vomiting. She continues to improve. Oxygenation is improving. 11/17/2024, the patient is stable and she is improving. Oxygenation is also stable and the patient is currently on Airvo at 45 L with an FiO2 of 70%. Pulse ox is 97%. Will gradually weaning down the FiO2. The patient has no specific complaints. Resting company in bed. No interval worsening shortness of breath. No cough or sputum production. The patient remains on Lasix 40 mg p.o. twice a day. Rest of the medications are unchanged. She remains on multiple anticoagulation with Eliquis. The fluid balance -1.8 L over the past 24 hours. On 11/18/2024, the patient is stable. She remains on Airvo at 45 L with FiO2 of 50%. No interval worsening respiratory status. She remains afebrile. No worsening shortness of breath. Limited cough and congestion. Sodium levels at 131, potassium level is at 4.1, BUN 36 with a creatinine of 0.9. No other new complaints otherwise for now. She remains on Decadron 6 mg IV every 12 hours. She remains on anticoagulation with Eliquis. No altered mentation. Tolerating her diet. Tolerating the Airvo. Tolerating Lasix 40 mg p.o. twice a day and the patient is -3 L over the past 24 hours. On 11/19/2024, the patient is resting comfortably in bed. She is on Airvo and this has been weaned down to 35 L and FiO2 45%. Pulse ox remains 95% and the patient should be able to transition to nasal cannula today. No new complaints. She remains in negative fluid balance of the patient receiving oral Lasix. Continues to have some limited cough and sputum production. Remains on Decadron. The white cell count is 18.9 with a hemoglobin of 13.8 and a platelet count of 391. BUN 37 with a creatinine of 0.8 and sodium levels at 134 and potassium levels of 4.1. Remains on anticoagulation with Eliquis. No other significant events overnight. The patient is seen today November 20, 2024 in follow-up on the selective care unit. She is awake and alert in no acute distress. She is maintaining O2 saturations in the 90s on 6 L high flow nasal cannula. She is afebrile. Hemodynamically stable. Sputum culture revealed no growth. Blood culture revealed no growth. White count 17.3. Hemoglobin 13.3. Platelets 331. Sodium 135. Potassium 4.3. Bicarb 37. BUN 38. Creatinine 0.79. Glucose 218. She is continued on Decadron IV. Albuterol inhalations. Remains on oral diuretics. Anticoagulated with Eliquis. Remains on vitamin supplements. The patient is seen today November 21, 2024 in follow-up on the selective care unit. She is currently sitting up in bed. Awake and alert in no acute distress. Doing a bit better today compared to yesterday. She is maintaining O2 saturations in the 90s on room air. Chest x-ray did show improvement. Glucose 222. She remains on albuterol, Decadron, Eliquis. She is on oral diuretics. The patient is seen today November 22, 2024 in follow-up on the regular medical floor. She is awake and alert in no acute distress. Denies any worsening shortness of breath, cough or congestion. She continues to maintain good O2 saturation in the low 90s on room air. She has been afebrile. Hemodynamically stable. She is continued on Decadron. Anticoagulated with Eliquis. Remains on vitamin supplements. Glucose 105. The patient is seen today November 23, 2024 in follow-up on the regular medical floor. She is currently resting comfortably in bed. Awake and alert in no acute distress. Blood and sputum cultures revealed no growth. Glucose 142. She remains afebrile. Hemodynamically stable. Maintaining good O2 saturations in the upper 90s on room air. Continued on bronchodilators. Anticoagulated with Eliquis. Remains on oral diuretics. Objective - Vital Signs Vital signs: Vital Signs Temp 98.3 F 11/23/24 07:08 Pulse 80 11/23/24 09:20 Resp 18 11/23/24 09:20 BP 135/83 11/23/24 07:08 Pulse Ox 96 11/23/24 08:44 FiO2 45 11/19/24 08:14 Intake & Output 11/22/24 11/23/24 11/23/24 18:59 06:59 18:59 Output Total 400 Balance -400 Output: Urine 400 Other: Voiding Method Diaper Diaper Diaper External Catheter External Catheter # Voids 2 - Exam GENERAL EXAM: Alert, 83-year-old female, resting in bed, on room air, in no apparent distress. HEAD: Normocephalic. EYES: Normal reaction of pupils, equal size. NOSE: Clear with pink turbinates. THROAT: No erythema or exudates. NECK: No masses, no JVD. CHEST: No chest wall deformity. LUNGS: Equal air entry with no crackles, wheeze, rhonchi or dullness. CVS: S1 and S2 normal with no audible murmur, regular rhythm. ABDOMEN: No hepatosplenomegaly, normal bowel sounds, no guarding or rigidity. SPINE: No scoliosis or deformity SKIN: No rashes CENTRAL NERVOUS SYSTEM: No focal deficits, tone is normal in all 4 extremities. EXTREMITIES: There is no peripheral edema. No clubbing, no cyanosis. Periphera l pulses are intact. - Labs CBC & Chem 7: 11/20/24 06:18 11/20/24 06:18 Labs: Abnormal Lab Results - Last 24 Hours (Table) 11/22/24 11/22/24 11/23/24 Range/Units 16:37 20:58 06:24 POC Glucose (mg/dL) 395 H 238 H 138 H (70-110) mg/dL 11/23/24 Range/Units 11:34 POC Glucose (mg/dL) 142 H (70-110) mg/dL Assessment and Plan Assessment: Acute COVID infection, clinically stable , Acute hypoxemic respiratory failure, secondary to above, improved and on room air Chronic atrial fibrillation, currently anticoagulated on Eliquis History of heart failure with preserved ejection fraction, currently on diuretics Hypertension History of hyperlipidemia Diabetes mellitus type 2 Morbid obesity, with a BMI 58.6 kg/m Plan: The patient was seen and evaluated Labs and medications reviewed Stable and on room air Remains quite weak and debilitated Plan is for subacute rehabilitation I have personally seen and examined the patient, performed the documentation and the assessment and plan as written. Number of minutes spent on the visit: 10 Dictation was produced using [employer] dictation software. Please excuse any grammatical, word or spelling errors.
--- NOTE | 2024-11-23 14:11 | P.PN ---
Subjective Progress Note Date: 11/23/24 Pleasant 83-year-old patient follows with visiting physicians. For 2 weeks patient been having a cough. Little sputum. Not short of breath. No fever no chills. Decreased appetite tired rundown. Patient has visiting [facility] 21/06. Does use a walker. Chronic medical conditions include atrial fibrillation, previous OR, CHF diastolic dysfunction, GERD, osteoarthritis. Patient tested positive for COVID in the ER. Pulse ox was 89% on 4 L. This morning is on Airvo. November 15: Seen earlier this afternoon. On Airvo 60%. Told the patient she would be better off sitting in the chair and use incentive spirometry. Patient dentures not fitting well. Hence we will order a ground diet. No sputum production. Procalcitonin 0.2. DC antibiotics. Continue with oxygen, steroids, November 16: Remains on Airvo 50%. Up in recliner. Breathing a bit better. Eating better ground food. Because of loose dentures. IV Decadron.. November 17: Breathing a bit better. Remains on Airvo. FiO2 45%.Oral intake good. Continue Decadron 11/18. Patient seen and examined. Continues to be on heated high flow. Gets short of breath on minimum exertion. Denies any chest pain. 11/19. Patient seen and examined. Patient was transition from Airvo to high flow oxygen at 8 L. Patient is alert, answering questions. 11/20. Patient seen and examinedVital signs on this morning showed temperature 97.9, heart rate 63, blood pressure 136/79, currently on high flow nasal at 6 L blood work done showed sodium related potassium 4.3, BUN 30, creatinine 0.79, glucose 218, WBC 15.3, hemoglobin 13.3. States she feels better. 11/21. Patient seen and examined. Currently on room air. Patient breathing has improved. Patient initially declined rehab but family discussed, patient lives alone and will be at risk of falling at home, will keep on looking at rehab 11/22. Patient seen and examined. Vital signs stable . Patient seen and examined. Continues to state that she is doing better. Not short of breath on rest or on exertion. Still has cough. REVIEW OF SYSTEMS: CONSTITUTIONAL: No fever, no malaise,. CARDIOVASCULAR: No chest pain, no palpitations, no syncope. PULMONARY: As mentioned above GASTROINTESTINAL: No diarrhea, no nausea, no vomiting, no abdominal pain. NEUROLOGICAL: No headaches, no weakness, PHYSICAL EXAMINATION: GENERAL: The patient is alert ,. Ill looking HEENT: Pupils are round and equally reacting to light. EOMI. No scleral icterus. No conjunctival pallor. Normocephalic, atraumatic. No pharyngeal erythema. No thyromegaly. CARDIOVASCULAR: S1 and S2 present. No murmurs, rubs, or gallops. PULMONARY: Coarse breath sounds bilaterally, no wheezing or crackles. ABDOMEN: Soft, nontender, nondistended, normoactive bowel sounds. No palpable organomegaly. MUSCULOSKELETAL: No joint swelling or deformity. EXTREMITIES: No cyanosis, clubbing, or pedal edema. NEUROLOGICAL: Gross neurological examination did not reveal any focal deficits. SKIN: No rashes. Assessment and plan -Acute COVID-19 pneumonitis causing severe hypoxic respiratory failure: -Acute hypoxic respiratory failure secondary to COVID-19: Vital signs Monitor CBC Monitor CMP -continue oxygen supplementation aggressive bronchopulmonary hygiene Completed Decadron course Pulmonology following PT and OT recommend rehab -Chronic congestive heart failure from diastolic dysfunction EF 55 to 60% Strict I's and O's, daily weights, Lasix 40 mg twice daily -Persistent atrial fibrillation, rate controlled Eliquis. -Hyponatremia, possibly some volume deficit due to decreased oral intake: Better Monitor BMP -Morbid obesity BMI 58.6 Ozempic. -Primary osteoarthritis multiple joints Aleve nightly -Hyperlipidemia Lipitor 20 mg nightly -Diabetes mellitus type 2, chronically on oral hypoglycemic, uncontrolled with steroids Monitor blood sugar levels, continue current insulin regimen Labs and medication were reviewed.. Continue same treatment. Continue with symptomatic treatment. Resume home medication. Monitor labs and vitals. DVT and GI prophylaxis. Further recommendations as per clinical course of the pat ient Dictation was produced using [employer] dictation software. please excuse any grammatical, word or spelling errors. Objective - Vital Signs Vital signs: Vital Signs Temp 97.2 F L 11/23/24 13:14 Pulse 103 H 11/23/24 13:14 Resp 18 11/23/24 13:14 BP 112/44 11/23/24 13:14 Pulse Ox 97 11/23/24 13:14 FiO2 45 11/19/24 08:14 Intake & Output 11/22/24 11/23/2424 18:59 06:59 18:59 Output Total 400 Balance -400 Output: Urine 400 Other: Voiding Method Diaper Diaper Diaper External Catheter External Catheter # Voids 2 - Labs CBC & Chem 7: 11/20/24 06:18 11/20/24 06:18 Labs: Abnormal Lab Results - Last 24 Hours (Table) 11/22/24 11/22/24 11/23/24 Range/Units 16:37 20:58 06:24 POC Glucose (mg/dL) 395 H 238 H 138 H (70-110) mg/dL 11/23/24 Range/Units 11:34 POC Glucose (mg/dL) 142 H (70-110) mg/dL
[2024-11-23 16:34] LABS: Glucose,Whole Blood 345 mg/dL (70-110)
[2024-11-23 20:12] LABS: Glucose,Whole Blood 381 mg/dL (70-110)
[2024-11-24 06:43] LABS: Glucose,Whole Blood 136 mg/dL (70-110)
[2024-11-24 06:58] LABS: Glucose,Whole Blood 144 mg/dL (70-110)
[2024-11-24 07:35] VITALS: BP 127/61; PULSE 77; RESP 19; TEMP 97.3
[2024-11-24 11:18] LABS: Glucose,Whole Blood 204 mg/dL (70-110)
--- NOTE | 2024-11-24 14:00 | P.PN ---
Subjective Progress Note Date: 11/24/24 Patient is a 83-year-old female with past medical history significant for hypertension, hyperlipidemia, diabetes mellitus, heart failure, obesity, among other things. She is currently confused and a poor historian. 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 She is hypoxic. Per the ER documentation, patient has been progressively more short of breath over the last one-two weeks. She has had a congested nonproductive cough. She did test positive for COVID on arrival. Chest x-ray showing diffuse multifocal infiltrates consistent with COVID-pneumonia. Afebrile. CBC: WBC count 7.7, hemoglobin 11.7, hematocrit 35.9, platelets 168. CMP: Sodium 130, potassium 5, chloride 97, serum bicarb 22, BUN 32, creatinine 1.02, glucose 312. Lactic 3.3 and down to 1.8. Troponin less than 0.012. NT proBNP only 700. EKG: Atrial fibrillation with controlled ventricular response, rate 84 bpm, no obvious acute ischemic changes. Patient is currently being evaluated on the medical floor. She is on 15 L high flow. SpO2 ranging from 84 to 88%. Has a persistent congested cough. No significant sputum production. She is currently on Decadron. Chronically anticoagulated on Eliquis. Her oxygen needs have increased markedly over the last 12 to 24 hours. We are going to try this patient on Airvo. On 11/15/2024, the patient is being seen for a follow-up. This morning, she is calm and comfortable. Denies having any significant shortness of breath. Nevertheless, she is still hypoxic and she remains on Airvo with a flow of 60 L with an FiO2 of 90%. The patient remains on Decadron 6 mg IV twice daily. She is on Ventolin HFA 4 times a day and she is also on empiric antibiotic coverage with a combination of Rocephin and Zithromax. She remains on Levemir insulin 14 units at bedtime and NovoLog sliding scale coverage. She remains on long-term anticoagulation with Eliquis 5 mg p.o. twice a day. No altered mentation. No nausea or vomiting. No diarrhea. Sodium levels at 136, BUN 28 with a creatinine of 1.0. Procalcitonin level is at 0.2. D-dimer is at 0.8. Her serum LDH level was 290. On 11/16/2024, the patient is being seen for a follow-up. Patient this morning was on Airvo with 60 L and FiO2 of 90%. Oxygenation was stable with a pulse ox of 98%. Furthermore, the chest x-ray was repeated and the patient has some improvement in the coarse bilateral pulm infiltrates. Based on that, I made recommendations to wean down the Airvo settings and the patient is currently on high flow 45 L with a FiO2 of 85%. She is feeling well. No specific complaints. She remains on Lasix 40 mg p.o. twice a day and she remains on anticoagulation with Eliquis 5 mg p.o. twice a day. She remains on Decadron 6 mg IV every 12 hours. The fluid balance over the past 24 hours has been -1 L. Blood sugars at 199. No other blood work from today. No altered mentation. No nausea or vomiting. She continues to improve. Oxygenation is improving. 11/17/2024, the patient is stable and she is improving. Oxygenation is also stable and the patient is currently on Airvo at 45 L with an FiO2 of 70%. Pulse ox is 97%. Will gradually weaning down the FiO2. The patient has no specific complaints. Resting company in bed. No interval worsening shortness of breath. No cough or sputum production. The patient remains on Lasix 40 mg p.o. twice a day. Rest of the medications are unchanged. She remains on multiple anticoagulation with Eliquis. The fluid balance -1.8 L over the past 24 hours. On 11/18/2024, the patient is stable. She remains on Airvo at 45 L with FiO2 of 50%. No interval worsening respiratory status. She remains afebrile. No worsening shortness of breath. Limited cough and congestion. Sodium levels at 131, potassium level is at 4.1, BUN 36 with a creatinine of 0.9. No other new complaints otherwise for now. She remains on Decadron 6 mg IV every 12 hours. She remains on anticoagulation with Eliquis. No altered mentation. Tolerating her diet. Tolerating the Airvo. Tolerating Lasix 40 mg p.o. twice a day and the patient is -3 L over the past 24 hours. On 11/19/2024, the patient is resting comfortably in bed. She is on Airvo and this has been weaned down to 35 L and FiO2 45%. Pulse ox remains 95% and the patient should be able to transition to nasal cannula today. No new complaints. She remains in negative fluid balance of the patient receiving oral Lasix. Continues to have some limited cough and sputum production. Remains on Decadron. The white cell count is 18.9 with a hemoglobin of 13.8 and a platelet count of 391. BUN 37 with a creatinine of 0.8 and sodium levels at 134 and potassium levels of 4.1. Remains on anticoagulation with Eliquis. No other significant events overnight. The patient is seen today November 20, 2024 in follow-up on the selective care unit. She is awake and alert in no acute distress. She is maintaining O2 saturations in the 90s on 6 L high flow nasal cannula. She is afebrile. Hemodynamically stable. Sputum culture revealed no growth. Blood culture revealed no growth. White count 17.3. Hemoglobin 13.3. Platelets 331. Sodium 135. Potassium 4.3. Bicarb 37. BUN 38. Creatinine 0.79. Glucose 218. She is continued on Decadron IV. Albuterol inhalations. Remains on oral diuretics. Anticoagulated with Eliquis. Remains on vitamin supplements. The patient is seen today November 21, 2024 in follow-up on the selective care unit. She is currently sitting up in bed. Awake and alert in no acute distress. Doing a bit better today compared to yesterday. She is maintaining O2 saturations in the 90s on room air. Chest x-ray did show improvement. Glucose 222. She remains on albuterol, Decadron, Eliquis. She is on oral diuretics. The patient is seen today November 22, 2024 in follow-up on the regular medical floor. She is awake and alert in no acute distress. Denies any worsening shortness of breath, cough or congestion. She continues to maintain good O2 saturation in the low 90s on room air. She has been afebrile. Hemodynamically stable. She is continued on Decadron. Anticoagulated with Eliquis. Remains on vitamin supplements. Glucose 105. The patient is seen today November 23, 2024 in follow-up on the regular medical floor. She is currently resting comfortably in bed. Awake and alert in no acute distress. Blood and sputum cultures revealed no growth. Glucose 142. She remains afebrile. Hemodynamically stable. Maintaining good O2 saturations in the upper 90s on room air. Continued on bronchodilators. Anticoagulated with Eliquis. Remains on oral diuretics. The patient is seen today November 24, 2024 in follow-up on the regular medical floor. She is currently sitting up in bed. Awake and alert in no acute distress. Maintaining O2 saturations in the 90s on room air. She is afebrile. Hemodynamically stable. Blood cultures revealed no growth. Sputum culture revealed no growth. Glucose 204. She remains on bronchodilators. Ant icoagulated with Eliquis. Continued on vitamin supplements. Remains on oral diuretics. Objective - Vital Signs Vital signs: Vital Signs Temp 97.3 F L 11/24/24 07:12 Pulse 77 11/24/24 07:12 Resp 19 11/24/24 07:12 BP 127/61 11/24/24 07:12 Pulse Ox 96 11/24/24 07:40 FiO2 45 11/19/24 08:14 Intake & Output 11/23/24 11/24/24 11/24/24 18:59 06:59 18:59 Intake Total 1080 Output Total 450 1200 Balance -450 -120 Weight 83.5 kg Intake: Oral 1080 Output: Urine 450 1200 Other: Voiding Method Diaper Diaper External Catheter External Catheter External Catheter # Bowel Movements 0 - Exam GENERAL EXAM: Alert, pleasant 83-year-old female, sitting up in bed, on room air, comfortable in no apparent distress. HEAD: Normocephalic. EYES: Normal reaction of pupils, equal size. NOSE: Clear with pink turbinates. THROAT: No erythema or exudates. NECK: No masses, no JVD. CHEST: No chest wall deformity. LUNGS: Equal air entry with no crackles, wheeze, rhonchi or dullness. CVS: S1 and S2 normal with no audible murmur, regular rhythm. ABDOMEN: No hepatosplenomegaly, normal bowel sounds, no guarding or rigidity. SPINE: No scoliosis or deformity SKIN: No rashes CENTRAL NERVOUS SYSTEM: No focal deficits, tone is normal in all 4 extremities. EXTREMITIES: There is no peripheral edema. No clubbing, no cyanosis. Peripheral pulses are intact. - Labs CBC & Chem 7: 11/20/24 06:18 11/20/24 06:18 Labs: Abnormal Lab Results - Last 24 Hours (Table) 11/23/24 11/23/24 11/24/24 Range/Units 16:32 20:09 06:41 POC Glucose (mg/dL) 345 H 381 H 136 H (70-110) mg/dL 11/24/24 11/24/24 Range/Units 06:57 11:15 POC Glucose (mg/dL) 144 H 204 H (70-110) mg/dL Assessment and Plan Assessment: Acute COVID infection, clinically stable , Acute hypoxemic respiratory failure, secondary to above, improved and on room air Chronic atrial fibrillation, currently anticoagulated on Eliquis History of heart failure with preserved ejection fraction, currently on diuretics Hypertension History of hyperlipidemia Diabetes mellitus type 2 Morbid obesity, with a BMI 58.6 kg/m Plan: The patient was seen and evaluated Labs and medications reviewed Stable and on room air Plan is for subacute rehabilitation possibly today I have personally seen and examined the patient, performed the documentation and the assessment and plan as written. Number of minutes spent on the visit: 10 Dictation was produced using [employer] dictation software. Please excuse any grammatical, word or spelling errors.
--- NOTE | 2024-11-24 14:06 | P.DS ---
Providers Date of admission: 11/13/24 17:03 Expected date of discharge: 11/24/24 Attending physician: Eleno Barahona Consults: 11/13/24 17:02 Consult Physician Routine Consulting Provider: Soniya Ortiz Consult Reason/Comments: covid Do you want consulting provider notified?: Already Contacted Primary care physician: [facility] Hospital Course: Discharge diagnoses; -Acute COVID-19 pneumonitis causing severe hypoxic respiratory failure: -Acute hypoxic respiratory failure secondary to COVID-19: Completed course of Decadron -Chronic congestive heart failure from diastolic dysfunction EF 55 to 60% Continue Lasix at home -Persistent atrial fibrillation, rate controlled Eliquis. -Hyponatremia, possibly some volume deficit due to decreased oral intake: Better Monitor BMP -Morbid obesity BMI 58.6 Ozempic. -Primary osteoarthritis multiple joints Aleve nightly -Hyperlipidemia Lipitor 20 mg nightly -Diabetes mellitus type 2, chronically on oral hypoglycemic, uncontrolled with steroids Monitor blood sugar levels, continue current insulin regimen Hospital course; Pleasant 83-year-old patient follows with visiting physicians. For 2 weeks patient been having a cough. Little sputum. Not short of breath. No fever no chills. Decreased appetite tired rundown. Patient has visiting [facility] 21/06. Does use a walker. Chronic medical conditions include atrial fibrillation, previous NH, CHF diastolic dysfunction, GERD, osteoarthritis. Patient tested positive for COVID in the ER. Pulse ox was 89% on 4 L. This morning is on Airvo. November 15: Seen earlier this afternoon. On Airvo 60%. Told the patient she would be better off sitting in the chair and use incentive spirometry. Patient dentures not fitting well. Hence we will order a ground diet. No sputum production. Procalcitonin 0.2. DC antibiotics. Continue with oxygen, steroids, November 16: Remains on Airvo 50%. Up in recliner. Breathing a bit better. Eating better ground food. Because of loose dentures. IV Decadron.. November 17: Breathing a bit better. Remains on Airvo. FiO2 45%.Oral intake good. Continue Decadron 11/18. Patient seen and examined. Continues to be on heated high flow. Gets short of breath on minimum exertion. Denies any chest pain. 11/19. Patient seen and examined. Patient was transition from Airvo to high fl ow oxygen at 8 L. Patient is alert, answering questions. 11/20. Patient seen and examinedVital signs on this morning showed temperature 97.9, heart rate 63, blood pressure 136/79, currently on high flow nasal at 6 L blood work done showed sodium related potassium 4.3, BUN 30, creatinine 0.79, glucose 218, WBC 15.3, hemoglobin 13.3. States she feels better. 11/21. Patient seen and examined. Currently on room air. Patient breathing has improved. Patient initially declined rehab but family discussed, patient lives alone and will be at risk of falling at home, will keep on looking at rehab 11/22. Patient seen and examined. Vital signs stable /. Patient seen and examined. Continues to state that she is doing better. Not short of breath on rest or on exertion. Still has cough. 11/24. Patient seen and examined. Patient is being discharged to rehab in stable condition. Patient completed course of Decadron. PHYSICAL EXAMINATION: GENERAL: The patient is alert ,. Ill looking HEENT: Pupils are round and equally reacting to light. EOMI. No scleral icterus. No conjunctival pallor. Normocephalic, atraumatic. No pharyngeal erythema. No thyromegaly. CARDIOVASCULAR: S1 and S2 present. No murmurs, rubs, or gallops. PULMONARY: Diminished breath sound the bases, no rhonchi audible, no wheezing or crackles. ABDOMEN: Soft, nontender, nondistended, normoactive bowel sounds. No palpable organomegaly. MUSCULOSKELETAL: No joint swelling or deformity. EXTREMITIES: No cyanosis, clubbing, or pedal edema. NEUROLOGICAL: Gross neurological examination did not reveal any focal deficits. SKIN: No rashes. Dictation was produced using [employer] dictation software. please excuse any grammatical, word or spelling errors. Patient Condition at Discharge: Good Plan - Discharge Summary Discharge Rx Participant: Yes New Discharge Prescriptions: New Apixaban [Eliquis] 5 mg PO BID 30 Days #60 tab Insulin Detemir (Levemir) [Levemir] 14 unit SQ HS 30 Days #1 each Albuterol Inhaler [Ventolin Hfa Inhaler] 2 puff INHALATION RT-QID PRN #1 each PRN Reason: Shortness Of Breath Or Wheezing Continue Aspirin EC [Ecotrin Low Dose] 81 mg PO DAILY Furosemide [Lasix] 40 mg PO BID #60 tablet metOLazone [Zaroxolyn] 2.5 mg PO DIRECTED Atorvastatin [Lipitor] 20 mg PO HS Vitamin E Acetate [Vitamin E] 134 mg PO DAILY Cyanocobalamin (Vitamin B-12) [Vitamin B-12] 1,000 mcg PO DAILY Multivit-Min/Iron/Folic/Lutein [Centrum Silver Women Tablet] 1 tab PO DAILY busPIRone HCL [Buspar] 7.5 mg PO BID Naproxen Sodium [Aleve] 440 mg PO HS Cholecalciferol [Vitamin D3 (25 Mcg = 1000 Iu)] 25 mcg PO DAILY glipiZIDE [glipiZIDE ER] 10 mg PO DAILY Potassium Chloride ER [K-Dur 20] 20 meq PO DAILY Semaglutide [Ozempic] 1 mg SQ MO Discontinued Apixaban [Eliquis] 2.5 mg PO BID tablet Fluconazole [Diflucan] 100 mg PO DAILY Doxycycline Hyclate 100 mg PO BID Discharge Medication List Aspirin EC [Ecotrin Low Dose] 81 mg PO DAILY 03/06/20 [History] Furosemide [Lasix] 40 mg PO BID #60 tablet 03/15/20 [Rx] Atorvastatin [Lipitor] 20 mg PO HS 11/13/24 [History] Cholecalciferol [Vitamin D3 (25 Mcg = 1000 Iu)] 25 mcg PO DAILY 11/13/24 [History] Cyanocobalamin (Vitamin B-12) [Vitamin B-12] 1,000 mcg PO DAILY 11/13/24 [History] Multivit-Min/Iron/Folic/Lutein [Centrum Silver Women Tablet] 1 tab PO DAILY 11/13/24 [History] Naproxen Sodium [Aleve] 440 mg PO HS 11/13/24 [History] Potassium Chloride ER [K-Dur 20] 20 meq PO DAILY 11/13/24 [History] Semaglutide [Ozempic] 1 mg SQ MO 11/13/24 [History] Vitamin E Acetate [Vitamin E] 134 mg PO DAILY 11/13/24 [History] glipiZIDE [glipiZIDE ER] 10 mg PO DAILY 11/13/24 [History] metOLazone [Zaroxolyn] 2.5 mg PO DIRECTED 11/13/24 [History] busPIRone HCL [Buspar] 7.5 mg PO BID 11/15/24 [History] Albuterol Inhaler [Ventolin Hfa Inhaler] 2 puff INHALATION RT-QID PRN #1 each 11/21/24 [Rx] Apixaban [Eliquis] 5 mg PO BID 30 Days #60 tab 11/21/24 [Rx] Insulin Detemir (Levemir) [Levemir] 14 unit SQ HS 30 Days #1 each 11/21/24 [Rx] Follow up Appointment(s)/Referral(s): Home Health,[facility] [NON-STAFF] - Mckinley Sheets MD [Primary Care Provider] - 1-2 days Patient Instructions/Handouts: Hypoxia (GEN), COVID-19 (Coronavirus Disease 2019) (DC) Discharge/Stand Alone Forms: Adult Foster Custodial List Discharge Disposition: HOME WITH HOME HEALTH SERVICES
== END 2024-11-24 16:25 | disposition home health service (06) | DRG 177 ==
LOC: EC 14:28 → 4SSUR 17:03 → 3SCARD 11-14 05:35 → 4SSUR 11-21 18:23
PROVIDERS: ADMIT Hospitalist; ATTEND Hospitalist
DX: U07.1 COVID-19 (principal); J12.82 Pneumonia due to coronavirus disease 2019; J96.01 Acute respiratory failure with hypoxia; I50.32 Chronic diastolic (congestive) heart failure; I48.19 Other persistent atrial fibrillation; E87.1 Hypo-osmolality and hyponatremia; Z68.43 Body mass index [BMI] 50.0-59.9, adult; I11.0 Hypertensive heart disease with heart failure; E66.01 Morbid (severe) obesity due to excess calories; E11.9 Type 2 diabetes mellitus without complications; Z79.4 Long term (current) use of insulin; M15.9 Polyosteoarthritis, unspecified; E78.5 Hyperlipidemia, unspecified; K21.9 Gastro-esophageal reflux disease without esophagitis; I25.2 Old myocardial infarction; Z91.81 History of falling; Z79.84 Long term (current) use of oral hypoglycemic drugs; Z79.01 Long term (current) use of anticoagulants; Z79.82 Long term (current) use of aspirin; Z79.85 Long-term (current) use of injectable non-insulin antidiabetic drugs; Z79.899 Other long term (current) drug therapy; Z87.891 Personal history of nicotine dependence; Z88.0 Allergy status to penicillin
CPT/HCPCS: 36415; 71045; 71046; 80048; 80053; 83605; 83615; 83735; 83880; 84145; 84439; 84443; 84481; 84484; 85025; 85027; 85379; 85610; 85730; 86140; 87040; 87070; 87205; 87636; 93005; 93306; 94640; 94760; 96374; 99291

== ENCOUNTER 2025-02-11 12:42 | Emergency (ER) | payer MEDICARE, BC ==
--- NOTE | 2025-02-11 13:22 | ED ---
General Adult HPI - General Chief complaint: Skin/Abscess/Foreign Body Stated complaint: possible infection Time Seen by Provider: 02/11/25 12:48 Source: patient - History of Present Illness Initial comments: Dictation was produced using [employer] dictation software. please excuse any grammatical, word or spelling errors. Chief Complaint: 84-year-old female presents to the emergency department from [facility] for concern of sepsis secondary to a skin wound History of Present Illness: Patient is 84-year-old female she is brought in by EMS. She currently resides at the [facility] she was evaluated by someone at the [facility] states that she was sent here for concerns of sepsis. According to nurse received report from EMS there was maybe some sort of brief lapse of altered mentation. There was no detailed description of what that altered mentation was. Patient states she does not need to be in the emergency department. States that she was sent here for practice. Denies any fever, c hills or night sweats. No complaints. She reports chronic wounds to her abdominal pannus The ROS documented in this emergency department record has been reviewed and confirmed by me. Those systems with pertinent positive or negative responses have been documented in the HPI. All other systems are other negative and/or noncontributory. - Related Data Previous Rx's Medication Instructions Recorded Albuterol Inhaler [Ventolin Hfa 2 puff INHALATION QID 30 Days #8 gm 11/24/24 Inhaler] Apixaban [Eliquis] 5 mg PO BID #60 tab 11/24/24 Ascorbic Acid [Vitamin C] 500 mg PO DAILY #30 tab 11/24/24 Aspirin EC [Ecotrin Low Dose] 81 mg PO DAILY #30 tab 11/24/24 Atorvastatin [Lipitor] 20 mg PO HS #30 tab 11/24/24 Cholecalciferol [Vitamin D3 (25 25 mcg PO DAILY #30 tab 11/24/24 Mcg = 1000 Iu)] Cyanocobalamin (Vitamin B-12) 1,000 mcg PO DAILY #30 tab 11/24/24 [Vitamin B-12] Docusate [Colace] 100 mg PO BID PRN #60 cap 11/24/24 Famotidine [Pepcid] 20 mg PO DAILY #30 tab 11/24/24 Furosemide [Lasix] 40 mg PO 09,1600 30 Days #60 tablet 12/27/24 Insulin Detemir (Levemir) [Levemir] 14 unit SQ HS #10 each 11/24/24 Multivit-Min/Iron/Folic/Lutein 1 tab PO DAILY #30 tab 11/24/24 [Centrum Silver Women Tablet] Naproxen [Naprosyn] 250 mg PO HS #30 tab 11/24/24 Potassium Chloride ER [K-Dur 20] 20 meq PO DAILY #30 tab 11/24/24 Semaglutide [Ozempic] 1 mg SQ MO #4 each 11/24/24 busPIRone HCL [Buspar] 7.5 mg PO BID #60 tab 11/24/24 glipiZIDE [glipiZIDE ER] 10 mg PO DAILY #30 tab 11/24/24 polyethylene glycoL 3350 [Miralax] 17 gm PO DAILY #30 packet 11/24/24 Cephalexin [Keflex] 500 mg PO Q6HR 5 Days #20 cap 02/11/25 Allergies Allergy/AdvReac Type Severity Reaction Status Date / Time Penicillins AdvReac Rash/Hives Verified 11/13/24 17:48 Review of Systems ROS Statement: Those systems with pertinent positive or pertinent negative responses have been documented in the HPI. ROS Other: All systems not noted in ROS Statement are negative. Past Medical History Past Medical History: Hypertension Additional Past Medical History / Comment(s): Short term memory loss, PNA. History of Any Multi-Drug Resistant Organisms: None Reported Past Surgical History: Appendectomy, Section, Cholecystectomy Past Psychological History: No Psychological Hx Reported Smoking Status: Former smoker Past Alcohol Use History: None Reported Past Drug Use History: None Reported General Exam - General Exam Comments Initial Comments: PHYSICAL EXAM: General Impression: Alert and oriented x3, not in acute distress HEENT: Normocephalic atraumatic, extra-ocular movements intact, pupils equal and reactive to light bilaterally, mucous membranes moist. Cardiovascular: Heart regular rate and rhythm Chest: Able to complete full sentences, no retractions, no tachypnea Abdomen: abdomen soft, non-tender, non-distended, no organomegaly Musculoskeletal: Pulses present and equal in all extremities, no peripheral edema Motor: no focal deficits noted Neurological: CN II-XII grossly intact, no focal motor or sensory deficits noted Skin: 2 chronic wounds to the lower right abdomen over the skin without any induration or erythema. No drainage. Wounds appear to be dry and ulcerated Psych: Normal affect and mood Course Vital Signs 02/11/25 02/11/25 13:09 13:16 Temperature 97.8 F Pulse Rate 75 Respiratory 18 Rate Blood Pressure 107/61 O2 Sat by Pulse 97 Oximetry Medical Decision Making - Medical Decision Making Was pt. sent in by a medical professional or institution (, PA, ENVIRONMENTAL TEST TECHNICIAN, urgent care, hospital, or [place] [facility]...) When possible be specific @ -No Did you speak to anyone other than the patient for history (EMS, parent, family, police, friend...)? What history was obtained from this source @ -No Did you review nursing and triage notes (agree or disagree)? Why? @ -I reviewed and agree with nursing and triage notes Were old charts reviewed (outside hosp., previous admission, EMS record, old EKG, old radiological studies, urgent care reports/EKG's, [facility] records)? Report findings @ -No old charts were reviewed Differential Diagnosis (chest pain, altered mental status, abdominal pain women, abdominal pain men, vaginal bleeding, musculoskeletal, weakness, fever, dyspnea, syncope, headache, dizziness, GI bleed, back pain, seizure, CVA, palpatations, mental health)? @ -Differential Fever: Pneumonia, viral URI, endocarditis, myocarditis, pericarditis, otitis, sinusitis, peritonsillar Abscess, retropharyngeal Abscess, epiglottitis, peritonitis, appendicitis, [place] cystitis, diverticulitis, hepatitis, colitis, UTI, PID, TOA, pyelonephritis, prostatitis, epididymitis, meningitis, encephalitis, pulmonary embolism, CVA, thyroid storm, pancreatitis, adrenal crisis, cavernous sinus thrombosis, this is not meant to be an all-inclusive list. EKG interpreted by me (3pts min.). @ -None done X-rays interpreted by me (1pt min.). @ -None done CT interpreted by me (1pt min.). @ -None done U/S interpreted by me (1pt. min.). @ -None done What testing was considered but not performed or refused? (CT, X-rays, U/S, labs)? Why? @ -None What meds were considered but not given or refused? Why? @ -None Was smoking cessation discussed for >3mins.? @ -No Were there social determinants of health that impacted care today? How? (Homelessness, low income, unemployed, alcoholism, drug addiction, transportation, low edu. Level, literacy, decrease access to med. care, longterm, rehab)? @ -No Was there de-escalation of care discussed even if they declined (Discuss DNR or withdrawal of care, Hospice)? DNR status @ -No What co-morbidities impacted this encounter? (DM, HTN, Smoking, COPD, CAD, Cancer, CVA, ARF, Chemo, Hep., AIDS, mental health diagnosis, sleep apnea, morbid obesity)? @ -None Was patient admitted / discharged? Hospital course, mention meds given and route, prescriptions, significant lab abnormalities, going to OR and other pertinent info. @ -84-year-old female from living facility presents to the ER for concerns of sepsis. Patient feels well. She is mentating appropriately she has no complaints. Vital signs are stable. Patient has chronic wounds to her abdominal pannus. Laboratory evaluation obtained. No lactic acidosis. White blood cell count 13.6. Lactic acid is normal. No concern for sepsis. Patient slightly hyponatremic will be given IV fluids discharged with instruction to follow-up with primary care doctor for hyponatremia Did you discuss the management of the patient with other professionals (professionals i.e. , PA, ENVIRONMENTAL TEST TECHNICIAN, lab, RT, psych nurse, rn social services, business services sales representative, teacher, credit risk review officer, correctional counselor/case manager)? Give summary @ -No Was critical care preformed (if so, how long)? @ -No Undiagnosed new problem with uncertain prognosis? @ -No Drug Therapy requiring intensive monitoring for toxicity (Heparin, Nitro, Insulin, Cardizem)? @ -No Were any procedures done? @ -No Diagnosis/symptom? Acute, or Chronic, or Acute on Chronic? Uncomplicated (without systemic symptoms) or Complicated (systemic symptoms)? @ -Chronic superficial soft tissue wound, hyponatremia Side effects of treatment? @ -No Exacerbation, Progression, or Severe Exacerbation? @ -No Poses a threat to life or bodily function? How? (Chest pain, USA, IA, pneumonia, PE, COPD, DKA, ARF, appy, cholecystitis, CVA, Diverticulitis, Homicidal, Suicidal, threat to staff... and all critical care pts) @ -No - Lab Data Result diagrams: 02/11/25 13:49 02/11/25 13:49 Lab Results 02/11/25 02/11/25 02/11/25 Range/Units 13:49 13:49 13:49 WBC 13.6 H (3.8-10.6) k/uL RBC 4.70 (3.80-5.40) m/uL Hgb 13.9 (11.4-16.0) gm/dL Hct 43.9 (34.0-46.0) % MCV 93.4 (80.0-100.0) fL MCH 29.7 (25.0-35.0) pg MCHC 31.7 (31.0-37.0) g/dL RDW 16.9 H (11.5-15.5) % Plt Count 361 (150-450) k/uL MPV 7.6 Neutrophils % 81 % Lymphocytes % 10 % Monocytes % 4 % Eosinophils % 2 % Basophils % 0 % Neutrophils # 11.0 H (1.3-7.7) k/uL Lymphocytes # 1.3 (1.0-4.8) k/uL Monocytes # 0.6 (0-1.0) k/uL Eosinophils # 0.3 (0-0.7) k/uL Basophils # 0.1 (0-0.2) k/uL Anisocytosis Slight Sodium 126 L (137-145) mmol/L Potassium 4.6 (3.5-5.1) mmol/L Chloride 89 L (98-107) mmol/L Carbon Dioxide 29 (22-30) mmol/L Anion Gap 8 mmol/L BUN 72 H (7-17) mg/dL Creatinine 1.70 H (0.52-1.04) mg/dL Est GFR (CKD-EPI)AfAm 31 (>60 ml/min/1.73 sqM) Est GFR (CKD-EPI)NonAf 27 (>60 ml/min/1.73 sqM) Glucose 128 H (74-99) mg/dL Plasma Lactic Acid Guido 1.7 (0.7-2.0) mmol/L Calcium 9.2 (8.4-10.2) mg/dL Disposition Clinical Impression: Hyponatremia Disposition: HOME SELF-CARE Condition: Fair Instructions (If sedation given, give patient instructions): Cellulitis (ED) Prescriptions: Cephalexin [Keflex] 500 mg PO Q6HR 5 Days #20 cap Is patient prescribed a controlled substance at d/c from ED?: No Referrals: Dion Lopez MD [Primary Care Provider] - 1-2 days Time of Disposition: 14:21
[2025-02-11 14:06] LABS: Anisocytosis Slight; Basophils # (A) 0.1 k/uL (0-0.2); Basophils % (A) 0 %; Eosinophils # (A) 0.3 k/uL (0-0.7); Eosinophils % (A) 2 %; HCT 43.9 % (34.0-46.0); HGB 13.9 gm/dL (11.4-16.0); Lymphocytes # (A) 1.3 k/uL (1.0-4.8); Lymphocytes % (A) 10 %; MCH 29.7 pg (25.0-35.0); MCHC 31.7 g/dL (31.0-37.0); MCV 93.4 fL (80.0-100.0); Mean Platelet Volume 7.6; Monocytes # (A) 0.6 k/uL (0-1.0); Monocytes % (A) 4 %; Neutrophils % (A) 81 %; Platelet Count 361 k/uL (150-450); RDW 16.9 % (11.5-15.5); WBC 13.6 k/uL (3.8-10.6)
[2025-02-11 14:17] LABS: African American GFR (CKD) 31 (>60 ml/min/1.73 sqM); Anion Gap 8 mmol/L; Blood Urea Nitrogen 72 mg/dL (7-17); Calcium 9.2 mg/dL (8.4-10.2); Carbon Dioxide 29 mmol/L (22-30); Chloride 89 mmol/L (98-107); Glucose 128 mg/dL (74-99); Non-African American GFR(CKD) 27 (>60 ml/min/1.73 sqM); Potassium 4.6 mmol/L (3.5-5.1); Sodium 126 mmol/L (137-145)
[2025-02-11] MEDS: SODIUM CHLORIDE 0.9% 1,000 ML IV STA (14:33)
[2025-02-11 16:24] VITALS: TEMP 97.6
[2025-02-11 17:28] VITALS: BP 102/63; PULSE 78; RESP 20
== END 2025-02-11 17:28 | disposition home or self-care (01) ==
LOC: EC 12:42
DX: E87.1 Hypo-osmolality and hyponatremia (principal); Z87.891 Personal history of nicotine dependence; Z88.0 Allergy status to penicillin
CPT/HCPCS: 36415; 80048; 83605; 85025; 96360; 99283

== ENCOUNTER 2025-06-14 01:42 | Inpatient (IN) | payer MEDICARE, BC ==
--- NOTE | 2025-06-14 01:49 | ED ---
Altered Mental Status HPI - General Stated Complaint: Tremors Time Seen by Provider: 06/14/25 01:44 Source: RN notes reviewed, old records reviewed Mode of arrival: EMS Limitations: altered mental status, physical limitation - History of Present Illness Initial Comments: This is a 84-year-old female suffering from severe dementia daughter at bedside who was called as well as our facility was called secondary to patient having low blood pressure concern for fevers sepsis and source of infection, tremors with low blood pressure, patient has dementia unable to give history MD Complaint: altered mental status, confusion, decreased responsiveness, weak ness -: unknown Severity: severe Consistency of Symptoms: getting worse Associated Symptoms: denies other symptoms Treatments Prior to Arrival: other pre-hospital medication (0) - Related Data Home Medications Medication Instructions Recorded Confirmed Albuterol Inhaler [Ventolin Hfa 2 puff INHALATION QID@08,,16,06/14/25 06/14/25 Inhaler] Apixaban [Eliquis] 5 mg PO BID@0800,199906/14/25 06/14/25 Aspirin EC [Ecotrin Low Dose] 81 mg PO DAILY@0806/14/25 06/14/25 Atorvastatin [Lipitor] 20 mg PO HS@199906/14/25 06/14/25 Cholecalciferol [Vitamin D3 (25 25 mcg PO DAILY@79906/14/25 06/14/25 Mcg = 1000 Iu)] Cranberry Fruit Extract [Cranberry] 500 mg PO BID@0800,199906/14/25 06/14/25 Famotidine [Pepcid] 20 mg PO BID@0800,199906/14/25 06/14/25 Furosemide [Lasix] 40 mg PO BID@0800,159906/14/25 06/14/25 Hydrophilic Cream [Triad (Kerodex 1 applic TOPICAL MOFR@79906/14/25 06/14/25 geq)] Insulin Glargine,Hum.rec.anlog 14 units SQ HS@199906/14/25 06/14/25 [Lantus Solostar Pen] Multivit-Min/Iron/Folic/Lutein 1 tab PO DAILY@79906/14/25 06/14/25 [Centrum Silver Women Tablet] Nystatin 100,000 Unit/gm Powd 1 applic TOPICAL BID@0800,199906/14/25 06/14/25 [Mycostatin Powder] Potassium Chloride ER [K-Dur 10] 20 meq PO BID@799,199906/14/25 06/14/25 Vitamin B Complex 1 cap PO DAILY@79906/14/25 06/14/25 busPIRone HCL [Buspar] 7.5 mg PO BID@799,199906/14/25 06/14/25 guaiFENesin SYRUP 100MG/5ML 200 mg PO Q4H PRN 06/14/25 06/14/25 [Robitussin] polyethylene glycoL 3350 [Miralax] 17 gm PO DAILY@79906/14/25 06/14/25 Previous Rx's Medication Instructions Recorded Cefuroxime [Ceftin] 250 mg PO BID 3 Days #6 tab 06/16/25 Allergies Allergy/AdvReac Type Severity Reaction Status Date / Time Penicillins AdvReac Rash/Hives Verified 06/14/25 06:53 Review of Systems ROS Statement: Those systems with pertinent positive or pertinent negative responses have been documented in the HPI. ROS Other: All systems not noted in ROS Statement are negative. Past Medical History Past Medical History: Hypertension Additional Past Medical History / Comment(s): Short term memory loss, PNA. History of Any Multi-Drug Resistant Organisms: None Reported Past Surgical History: Appendectomy, Section, Cholecystectomy Past Psychological History: No Psychological Hx Reported Smoking Status: Former smoker Past Alcohol Use History: None Reported Past Drug Use History: None Reported General Exam General appearance: alert, in no apparent distress Head exam: Present: atraumatic, normocephalic, normal inspection Eye exam: Present: normal appearance, PERRL, EOMI. Absent: scleral icterus, conjunctival injection, periorbital swelling ENT exam: Present: normal exam, mucous membranes moist Neck exam: Present: normal inspection. Absent: tenderness, meningismus, lymphadenopathy Respiratory exam: Present: normal lung sounds bilaterally. Absent: respiratory distress, wheezes, rales, rhonchi, stridor Cardiovascular Exam: Present: regular rate, normal rhythm, normal heart sounds. Absent: systolic murmur, diastolic murmur, rubs, gallop, clicks GI/Abdominal exam: Present: soft, normal bowel sounds. Absent: distended, tenderness, guarding, rebound, rigid Extremities exam: Present: normal inspection, full ROM, normal capillary refill. Absent: tenderness, pedal edema, joint swelling, calf tenderness Back exam: Present: normal inspection Neurological exam: Present: alert, oriented X3, CN II-XII intact Psychiatric exam: Present: normal affect, normal mood Skin exam: Present: warm, dry, intact, normal color. Absent: rash Course Vital Signs 06/14/25 06/14/25 06/14/25 01:46 04:59 05:02 Temperature 97.5 F L Pulse Rate 91 64 67 Respiratory 17 18 17 Rate Blood Pressure 92/62 87/72 106/61 O2 Sat by Pulse 99 Oximetry 06/14/25 06:34 Temperature 97.7 F Pulse Rate 64 Respiratory 18 Rate Blood Pressure 110/86 O2 Sat by Pulse 97 Oximetry - Reevaluation(s) Reevaluation #1: 06/14/25 02:46 Medical records reviewed Reevaluation #2: 06/14/25 04:30 Mild improvement in vital signs Reevaluation #3: 06/14/25 04:30 Patient informed of results questions answered Reevaluation #4: Was pt. sent in by a medical professional or institution (, PA, DIRECTOR OF PATIENT FINANCIAL SERVICES, urgent care, hospital, or [facility]...) When possible be specific @ -no Did you speak to anyone other than the patient for history (EMS, parent, family, police, friend...)? What history was obtained from this source @ -no Did you review nursing and triage notes (agree or disagree)? Why? @ -agree Are old charts reviewed (outside hosp., previous admission, EMS record, old EKG, old radiological studies, urgent care reports/EKG's, [facility] records)? Report findings @ -yes Differential Diagnosis (chest pain, altered mental status, abdominal pain women, abdominal pain men, vaginal bleeding, weakness, fever, dyspnea, syncope, headache, dizziness, GI bleed, back pain, seizure, CVA, palpatations, mental health, musculoskeletal)? @ -prior EKG interpreted by me (3pts min.). @ -yes X-rays interpreted by me (1pt min.). @ -yes negative for acute disease CT interpreted by me (1pt min.). @ -yes negative for acute disease U/S interpreted by me (1pt. min.). @ -no What testing was considered but not performed or refused? (CT, X-rays, U/S, labs)? Why? @ -none What meds were considered but not given or refused? Why? @ -none Did you discuss the management of the patient with other professionals (professionals i.e. , PA, DIRECTOR OF PATIENT FINANCIAL SERVICES, lab, RT, psych nurse, neonatal social worker, loop puller, teacher, protection officer, case work aide)? Give summary @ -no Was smoking cessation discussed for >3mins.? @ -no Was critical care preformed (if so, how long)? @ -no Were there social determinants of health that impacted care today? How? (Homelessness, low income, unemployed, alcoholism, drug addiction, transportati on, low edu. Level, literacy, decrease access to med. care, custodial, rehab)? @ -none Was there de-escalation of care discussed even if they declined (Discuss DNR or withdrawal of care, Hospice)? DNR status @ -no What co-morbidities impacted this encounter? (DM, HTN, Smoking, COPD, CAD, Cancer, CVA, ARF, Chemo, Hep., AIDS, mental health diagnosis, sleep apnea, morbid obesity)? @ -none Was patient admitted / discharged? Hospital course, mention meds given and route, prescriptions, significant lab abnormalities, going to OR and other pertinent info. @ - 84 female to be admitted for fever sepsis likely UTI Admitted Undiagnosed new problem with uncertain prognosis? @ -no Drug Therapy requiring intensive monitoring for toxicity (Heparin, Nitro, Insulin, Cardizem)? @ -no Were any procedures done? @ -no Diagnosis/symptom? @ -Altered mental status fever sepsis UTI Acute, or Chronic, or Acute on Chronic? @ -Acute Uncomplicated (without systemic symptoms) or Complicated (systemic symptoms)? @ -Complicated Side effects of treatment? @ -no Exacerbation, Progression, or Severe Exacerbation? @ -exacerbation Poses a threat to life or bodily function? How? (Chest pain, [place], DE, pneumonia, PE, COPD, DKA, ARF, appy, cholecystitis, CVA, Diverticulitis, Homicidal, Suicidal, threat to staff... and all critical care pts) @ -yes extremes of age Reevaluation #5: Differential Fever: Pneumonia, viral URI, endocarditis, myocarditis, pericarditis, otitis, sinusitis, peritonsillar Abscess, retropharyngeal Abscess, epiglottitis, peritonitis, appendicitis, [place] cystitis, diverticulitis, hepatitis, colitis, UTI, PID, TOA, pyelonephritis, prostatitis, epididymitis, meningitis, encephalitis, pulmonary embolism, CVA, thyroid storm, pancreatitis, adrenal crisis, cavernous sinus thrombosis, this is not meant to be an all-inclusive list. Differential Weakness: Hypoglycemia, shock, sepsis, hyponatremia, anemia, infection, DE, ETOH, adverse medicine reaction, overdose, stroke, this is not meant to be an all-inclusive list. - Consultations Consultation #1: Spoke with [facility] who agrees to admit this patient Medical Decision Making - Medical Decision Making 84 female to be admitted for fever sepsis likely UTI - Lab Data Result diagrams: 06/15/25 06:31 06/15/25 06:31 Lab Results 06/14/25 06/14/25 06/14/25 Range/Units 02:06 02:06 02:06 WBC 11.75 H (4.50-10.00) 10*3/uL RBC 4.24 (4.10-5.20) 10*6/uL Hgb 13.1 (12.0-15.0) g/dL Hct 38.0 (37.2-46.3) % MCV 89.6 (80.0-97.0) fL MCH 30.9 (27.0-32.0) pg MCHC 34.5 (32.0-37.0) g/dL Plt Count 262 (140-440) 10*3/uL MPV 9.3 L (9.5-12.2) fL Immature Gran % (Auto) 1.4 % Neutrophils % 69.7 % Lymphocytes % 17.2 % Monocytes % 8.8 % Eosinophils % 2.2 % Basophils % 0.7 % Immature Gran # 0.16 H (0.00-0.04) 10*3/uL Neutrophils # 8.20 H (1.80-7.70) 10*3/uL Lymphocytes # 2.02 (0.90-5.00) 10*3/uL Monocytes # 1.03 H (0.20-1.00) 10*3/uL Eosinophils # 0.26 (0.04-0.35) 10*3/uL Basophils # 0.08 (0.00-0.10) 10*3/uL PT 12.0 (10.0-12.5) sec INR 1.1 (<1.2) APTT 22.3 (22.0-30.0) sec Sodium 124 L (137-145) mmol/L Potassium 3.5 (3.5-5.1) mmol/L Chloride 90 L (98-107) mmol/L Carbon Dioxide 24 (22-30) mmol/L Anion Gap 10 mmol/L BUN 34 H (7-17) mg/dL Creatinine 1.44 H (0.52-1.04) mg/dL Est GFR (CKD-EPI)AfAm 38 (>60 ml/min/1.73 sqM) Est GFR (CKD-EPI)NonAf 33 (>60 ml/min/1.73 sqM) Glucose 97 (74-99) mg/dL Calcium 9.8 (8.4-10.2) mg/dL Phosphorus 3.7 (2.5-4.5) mg/dL Magnesium 1.9 (1.6-2.3) mg/dL Total Bilirubin 0.7 (0.2-1.3) mg/dL AST 68 H (14-36) U/L ALT 42 H (4-34) U/L Alkaline Phosphatase 200 H (38-126) U/L Troponin I (0.000-0.034) ng/mL Total Protein 5.8 L (6.3-8.2) g/dL Albumin 3.3 L (3.5-5.0) g/dL 06/14/25 Range/Units 02:06 WBC (4.50-10.00) 10*3/uL RBC (4.10-5.20) 10*6/uL Hgb (12.0-15.0) g/dL Hct (37.2-46.3) % MCV (80.0-97.0) fL MCH (27.0-32.0) pg MCHC (32.0-37.0) g/dL Plt Count (140-440) 10*3/uL MPV (9.5-12.2) fL Immature Gran % (Auto) % Neutrophils % % Lymphocytes % % Monocytes % % Eosinophils % % Basophils % % Immature Gran # (0.00-0.04) 10*3/uL Neutrophils # (1.80-7.70) 10*3/uL Lymphocytes # (0.90-5.00) 10*3/uL Monocytes # (0.20-1.00) 10*3/uL Eosinophils # (0.04-0.35) 10*3/uL Basophils # (0.00-0.10) 10*3/uL PT (10.0-12.5) sec INR (<1.2) APTT (22.0-30.0) sec Sodium (137-145) mmol/L Potassium (3.5-5.1) mmol/L Chloride (98-107) mmol/L Carbon Dioxide (22-30) mmol/L Anion Gap mmol/L BUN (7-17) mg/dL Creatinine (0.52-1.04) mg/dL Est GFR (CKD-EPI)AfAm (>60 ml/min/1.73 sqM) Est GFR (CKD-EPI)NonAf (>60 ml/min/1.73 sqM) Glucose (74-99) mg/dL Calcium (8.4-10.2) mg/dL Phosphorus (2.5-4.5) mg/dL Magnesium (1.6-2.3) mg/dL Total Bilirubin (0.2-1.3) mg/dL AST (14-36) U/L ALT (4-34) U/L Alkaline Phosphatase (38-126) U/L Troponin I <0.012 (0.000-0.034) ng/mL Total Protein (6.3-8.2) g/dL Albumin (3.5-5.0) g/dL - EKG Data -: EKG Interpreted by Me (EKG is A-fib 79 QRS 94 QTc 426) - Radiology Data Radiology results: report reviewed (Chest x-ray is negative for acute disease, CT brain negative for acute disease), image reviewed Disposition Clinical Impression: Altered mental status, Fever, Hyponatremia, Weakness, UTI (urinary tract infection) Disposition: ADMITTED IP TO THIS HOSP Is patient prescribed a controlled substance at d/c from ED?: No Time of Disposition: 04:30
[2025-06-14] MEDS: SODIUM CHLORIDE 0.9% 1,000 ML IV ONE ×2 (02:21→03:56)
[2025-06-14 02:42] LABS: Basophils # (A) 0.08 10*3/uL (0.00-0.10); Basophils % (A) 0.7 %; Eosinophils # (A) 0.26 10*3/uL (0.04-0.35); Eosinophils % (A) 2.2 %; HCT 38.0 % (37.2-46.3); HGB 13.1 g/dL (12.0-15.0); Lymphocytes # (A) 2.02 10*3/uL (0.90-5.00); Lymphocytes % (A) 17.2 %; MCH 30.9 pg (27.0-32.0); MCHC 34.5 g/dL (32.0-37.0); MCV 89.6 fL (80.0-97.0); Monocytes # (A) 1.03 10*3/uL (0.20-1.00); Monocytes % (A) 8.8 %; Neutrophils # (A) 8.20 10*3/uL (1.80-7.70); Neutrophils % (A) 69.7 %; Platelet Count 262 10*3/uL (140-440); RBC 4.24 10*6/uL (4.10-5.20); RDW 14.6 % (11.5-14.5); WBC 11.75 10*3/uL (4.50-10.00)
[2025-06-14 03:00] LABS: INR 1.1 (<1.2); Prothrombin Time 12.0 sec (10.0-12.5)
[2025-06-14 03:06] LABS: ALT 42 U/L (4-34); AST 68 U/L (14-36); African American GFR (CKD) 38 (>60 ml/min/1.73 sqM); Albumin 3.3 g/dL (3.5-5.0); Alkaline Phosphatase 200 U/L (38-126); Anion Gap 10 mmol/L; Blood Urea Nitrogen 34 mg/dL (7-17); Calcium 9.8 mg/dL (8.4-10.2); Carbon Dioxide 24 mmol/L (22-30); Chloride 90 mmol/L (98-107); Glucose 97 mg/dL (74-99); Magnesium 1.9 mg/dL (1.6-2.3); Non-African American GFR(CKD) 33 (>60 ml/min/1.73 sqM); Potassium 3.5 mmol/L (3.5-5.1); Sodium 124 mmol/L (137-145); Total Protein 5.8 g/dL (6.3-8.2)
[2025-06-14 03:08] LABS: Partial Thromboplastin Time 22.3 sec (22.0-30.0)
--- NOTE | 2025-06-14 03:15 | CT ---
EXAM: CT Head Without Intravenous Contrast CLINICAL HISTORY: ITS.REASON CT Reason: weakness TECHNIQUE: Axial computed tomography images of the head/brain without intravenous contrast. CTDI is 49.1 mGy and DLP is 1141.4 mGy-cm. This CT exam was performed using one or more of the following dose reduction techniques: automated exposure control, adjustment of the mA and/or kV according to patient size, and/or use of iterative reconstruction technique. COMPARISON: No relevant prior studies available. FINDINGS: No acute intracranial hemorrhage. No midline shift or mass effect. The territorial chavarria-white matter differentiation is maintained throughout. Age-related cerebral volume loss. Periventricular and subcortical white matter hypoattenuation, consistent with chronic microangiopathy. The visualized orbits appear grossly unremarkable. The calvarium is intact. The visualized paranasal sinuses and mastoid air cells are grossly clear. IMPRESSION: No acute intracranial hemorrhage, midline shift, or mass effect.
--- NOTE | 2025-06-14 04:35 | XR ---
EXAM: XR Chest, 2 Views CLINICAL HISTORY: ITS.REASON XR Reason: Weakness TECHNIQUE: Frontal and lateral views of the chest. COMPARISON: No relevant prior studies available. FINDINGS: Lungs: Unremarkable. No consolidation. Pleural space: Small right pleural effusion. No pneumothorax. Heart: Cardiomegaly. Mediastinum: Unremarkable. Bones/joints: Unremarkable. IMPRESSION: Small right pleural effusion.
[2025-06-14] MEDS: ACETAMINOPHEN TAB 500 MG TAB PO STA (04:49)
[2025-06-14] MEDS: LACTATED RINGERS 1,000 ML IV SCH ×2 (04:53→04:58)
[2025-06-14] MEDS ORDERED: NALOXONE 0.4 MG/ML 1 ML VIAL IV PRN (05:49)
[2025-06-14] MEDS ORDERED: MORPHINE SULFATE 4 MG/ML SYRINGE IV PRN (05:49)
[2025-06-14] MEDS ORDERED: ONDANSETRON 4 MG/2 ML VIAL IVP PRN (05:49)
[2025-06-14] MEDS: SODIUM CHLORIDE 0.9% 1,000 ML IV SCH (05:55)
[2025-06-14 08:40] LABS: African American GFR (CKD) 39 (>60 ml/min/1.73 sqM); Anion Gap 6 mmol/L; Blood Urea Nitrogen 27 mg/dL (7-17); Calcium 8.5 mg/dL (8.4-10.2); Carbon Dioxide 26 mmol/L (22-30); Chloride 97 mmol/L (98-107); Glucose 54 mg/dL (74-99); Magnesium 1.6 mg/dL (1.6-2.3); Non-African American GFR(CKD) 33 (>60 ml/min/1.73 sqM); Potassium 2.9 mmol/L (3.5-5.1); Sodium 129 mmol/L (137-145)
[2025-06-14] MEDS: POTASSIUM CHLORIDE ER 20 MEQ TAB.ER PO STA (09:35)
[2025-06-14] MEDS: MAGNESIUM OXIDE 400 MG TAB PO ONE (09:35)
[2025-06-14] MEDS: POTASSIUM CHLORIDE ER 20 MEQ TAB.ER PO ONE (11:20)
--- NOTE | 2025-06-14 11:48 | P.NPCON ---
History of Present Illness - Reason for Consult hyponatremia - History of Present Illness Reason for consultation: Hyponatremia History of present illness: Patient is a 84-year-old female seen in renal consultation for hyponatremia. Sodium level on admission was 124 and is improved to 129 this morning. Patient does have history of dementia but does respond appropriately to questions. Denies chest pain or shortness of breath. States oral intake has been fair. Denies vomiting or diarrhea. Denies personal history of malignancy. I do see Myke hayes on her home medication list. She did receive 3 L of IV fluids in the ER and is currently maintained on LR at 130 cc an hour. Patient was no zoila to be hypotensive and was sent to the hospital due to concern for infection. She is currently receiving IV antibiotics. Cultures are pending. Has been voiding. No fever this admission. Vital signs are stable. General: No acute distress. HEENT: Head exam is unremarkable. LUNGS: No audible rhonchi or wheezes. HEART: Rate and Rhythm are regular. ABDOMEN: Nontender. EXTREMITITES: Right lower extremity erythema noted. Trace edema. Past Medical History Past Medical History: Hypertension Additional Past Medical History / Comment(s): Short term memory loss, PNA. History of Any Multi-Drug Resistant Organisms: None Reported Past Surgical History: Appendectomy, Section, Cholecystectomy Past Psychological History: Depression Additional Psychological History / Comment(s): Depression in mid-thirties Smoking Status: Former smoker Past Alcohol Use History: None Reported Past Drug Use History: None Reported Medications and Allergies Home Medications Medication Instructions Recorded Confirmed Type Docusate [Colace] 100 mg PO BID PRN #60 cap 11/24/24 06/14/25 Rx Albuterol Inhaler [Ventolin Hfa 2 puff INHALATION QID@08,12,16,20 06/14/25 06/14/25 History Inhaler] Apixaban [Eliquis] 5 mg PO BID@799,199906/14/25 06/14/25 History Aspirin EC [Ecotrin Low Dose] 81 mg PO DAILY@79906/14/25 06/14/25 History Atorvastatin [Lipitor] 20 mg PO HS@199906/14/25 06/14/25 History Cholecalciferol [Vitamin D3 (25 25 mcg PO DAILY@79906/14/25 06/14/25 History Mcg = 1000 Iu)] Cranberry Fruit Extract [Cranberry] 500 mg PO BID@0800,199906/14/25 06/14/25 History Famotidine [Pepcid] 20 mg PO BID@0800,199906/14/25 06/14/25 History Furosemide [Lasix] 40 mg PO BID@0800,1600 06/14/25 06/14/25 History Hydrophilic Cream [Triad (Kerodex 1 applic TOPICAL MOFR@0806/14/25 06/14/25 History geq)] Insulin Glargine,Hum.rec.anlog 14 units SQ HS@199906/14/25 06/14/25 History [Lantus Solostar Pen] Multivit-Min/Iron/Folic/Lutein 1 tab PO DAILY@79906/14/25 06/14/25 History [Centrum Silver Women Tablet] Nitrofurantoin Monohyd/M-Cryst 100 mg PO HS@199906/14/25 06/14/25 History [Macrobid] Nystatin 100,000 Unit/gm Powd 1 applic TOPICAL BID@08,199906/14/25 06/14/25 History [Mycostatin Powder] Potassium Chloride ER [K-Dur 10] 20 meq PO BID@0800,199906/14/25 06/14/25 History Vitamin B Complex 1 cap PO DAILY@0806/14/25 06/14/25 History busPIRone HCL [Buspar] 7.5 mg PO BID@0800,199906/14/25 06/14/25 History glipiZIDE [glipiZIDE ER] 10 mg PO DAILY@0806/14/25 06/14/25 History guaiFENesin SYRUP 100MG/5ML 200 mg PO Q4H PRN 06/14/25 06/14/25 History [Robitussin] metOLazone [Zaroxolyn] 2.5 mg PO DAILY@0806/14/25 06/14/25 History polyethylene glycoL 3350 [Miralax] 17 gm PO DAILY@0800 06/14/25 06/14/25 History Allergies Allergy/AdvReac Type Severity Reaction Status Date / Time Penicillins AdvReac Rash/Hives Verified 06/14/25 06:53 Physical Exam Vitals: Vital Signs Temp Pulse Pulse Resp BP BP Pulse Ox 06/14/25 08:05 71 16 104/68 98 06/14/25 06:34 97.7 F 64 18 110/86 97 06/14/25 05:02 67 17 106/61 06/14/25 04:59 64 18 87/72 06/14/25 01:46 97.5 F L 91 17 92/62 99 Intake and Output 06/13/25 06/14/25 06/14/25 22:59 06:59 14:59 Other: Voiding Method External Catheter Weight 136.078 kg 136.078 kg Results - Lab Results Most recent lab results Calcium 8.5 mg/dL (8.4-10.2) 06/14/25 06:55 Phosphorus 3.7 mg/dL (2.5-4.5) 06/14/25 02:06 Magnesium 1.6 mg/dL (1.6-2.3) 06/14/25 06:55 06/14/25 02:06 06/14/25 06:55 Assessment and Plan Plan: Assessment: 1. Hypovolemic hyponatremia improved with IV fluids. 2. Hypokalemia from poor intake and diuretic use. 3. Hypomagnesemia from poor intake and diuretic use. 4. Acute kidney injury versus progression of underlying chronic kidney disease. Creatinine in October 2024 was 0.79 but was noted to be high at 1.7 in January 2025. Creatinine stable at 1.4 this admission. 5. History of dementia. 6. Hypotension related to hypovolemia with questionable sepsis. Better with fluids. Plan: Decrease rate of LR to 50 cc an hour. Replace potassium and magnesium. Repeat BMP this evening. Hold diuretics. Follow-up cultures. Check UA. Continue to monitor renal function and urine output. Check renal ultrasound. Thank you for the consultation. I will continue to follow the patient with you during her hospital stay.
[2025-06-14 12:34] LABS: Glucose,Whole Blood 142 mg/dL (70-110)
--- NOTE | 2025-06-14 12:41 | P.CONS ---
History of Present Illness - Reason for Consult Consult date: 06/14/25 wound care - History of Present Illness This is an 84-year-old patient being seen on [address] for a nonhealing ulceration to the left lower quadrant. Patient is a poor historian she is a resident of [facility]. Patient states that the ulceration has been there for a while and being treated with begin wound care. Ulceration measures approximately 3 x 3 x 0.2 cm with granulation seen to the wound bed fat layer exposed. Minimal slough and nonviable tissue present. Review Of Systems: Constitutional: No fever, no chills, no night sweats. No weight change. No weakness, fatigue or lethargy. No daytime sleepiness. Integumentary:reports wounds, no lesions. No rash or pruritus. No unusual bruising. No change in hair or nails. Physical exam: General Appearance: Alert, cooperative, no distress, appears stated age. Skin: See HPI all other Skin color, texture, tugor normal, no rashes or lesions. Neurologic: Alert oriented x3 Assessment: 1. Nonhealing ulceration with fat layer exposed other site Plan: 1. Apply absorptive silver and bordered foam. Thank you for the consultation any questions please contact the wound care center DNP note has been reviewed and discussed with Dr. Verduzco and the impression and plan of care has been directed as dictated. Past Medical History Past Medical History: Hypertension Additional Past Medical History / Comment(s): Short term memory loss, PNA. History of Any Multi-Drug Resistant Organisms: None Reported Past Surgical History: Appendectomy, Section, Cholecystectomy Past Psychological History: Depression Additional Psychological History / Comment(s): Depression in mid-thirties Smoking Status: Former smoker Past Alcohol Use History: None Reported Past Drug Use History: None Reported Medications and Allergies Home Medications Medication Instructions Recorded Confirmed Type Docusate [Colace] 100 mg PO BID PRN #60 cap 11/24/24 06/14/25 Rx Albuterol Inhaler [Ventolin Hfa 2 puff INHALATION QID@08,12,16,20 06/14/25 06/14/25 History Inhaler] Apixaban [Eliquis] 5 mg PO BID@0800,2000 06/14/25 06/14/25 History Aspirin EC [Ecotrin Low Dose] 81 mg PO DAILY@0800 06/14/25 06/14/25 History Atorvastatin [Lipitor] 20 mg PO HS@199906/14/25 06/14/25 History Cholecalciferol [Vitamin D3 (25 25 mcg PO DAILY@79906/14/25 06/14/25 History Mcg = 1000 Iu)] Cranberry Fruit Extract [Cranberry] 500 mg PO BID@0800,199906/14/25 06/14/25 History Famotidine [Pepcid] 20 mg PO BID@0800,199906/14/25 06/14/25 History Furosemide [Lasix] 40 mg PO BID@0800,159906/14/25 06/14/25 History Hydrophilic Cream [Triad (Kerodex 1 applic TOPICAL MOFR@79906/14/25 06/14/25 History geq)] Insulin Glargine,Hum.rec.anlog 14 units SQ HS@199906/14/25 06/14/25 History [Lantus Solostar Pen] Multivit-Min/Iron/Folic/Lutein 1 tab PO DAILY@79906/14/25 06/14/25 History [Centrum Silver Women Tablet] Nitrofurantoin Monohyd/M-Cryst 100 mg PO HS@199906/14/25 06/14/25 History [Macrobid] Nystatin 100,000 Unit/gm Powd 1 applic TOPICAL BID@799,199906/14/25 06/14/25 History [Mycostatin Powder] Potassium Chloride ER [K-Dur 10] 20 meq PO BID@08,199906/14/25 06/14/25 History Vitamin B Complex 1 cap PO DAILY@79906/14/25 06/14/25 History busPIRone HCL [Buspar] 7.5 mg PO BID@08,199906/14/25 06/14/25 History glipiZIDE [glipiZIDE ER] 10 mg PO DAILY@79906/14/25 06/14/25 History guaiFENesin SYRUP 100MG/5ML 200 mg PO Q4H PRN 06/14/25 06/14/25 History [Robitussin] metOLazone [Zaroxolyn] 2.5 mg PO DAILY@79906/14/25 06/14/25 History polyethylene glycoL 3350 [Miralax] 17 gm PO DAILY@0800 06/14/25 06/14/25 History Allergies Allergy/AdvReac Type Severity Reaction Status Date / Time Penicillins AdvReac Rash/Hives Verified 06/14/25 06:53 Physical Exam Vitals: Vital Signs Temp Pulse Pulse Resp BP BP Pulse Ox 06/14/25 08:05 71 16 104/68 98 06/14/25 06:34 97.7 F 64 18 110/86 97 06/14/25 05:02 67 17 106/61 06/14/25 04:59 64 18 87/72 06/14/25 01:46 97.5 F L 91 17 92/62 99 Intake and Output 06/13/25 06/14/25 06/14/25 22:59 06:59 14:59 Other: Voiding Method External Catheter Weight 136.078 kg 136.078 kg Results CBC & Chem 7: 06/14/25 02:06 06/14/25 06:55 Labs: Abnormal Lab Results - Last 24 Hours (Table) 06/14/25 06/14/25 06/14/25 Range/Units 02:06 02:06 06:55 WBC 11.75 H (4.50-10.00) 10*3/uL MPV 9.3 L (9.5-12.2) fL Immature Gran # 0.16 H (0.00-0.04) 10*3/uL Neutrophils # 8.20 H (1.80-7.70) 10*3/uL Monocytes # 1.03 H (0.20-1.00) 10*3/uL Sodium 124 L 129 L (137-145) mmol/L Potassium 2.9 L (3.5-5.1) mmol/L Chloride 90 L 97 L (98-107) mmol/L BUN 34 H 27 H (7-17) mg/dL Creatinine 1.44 H 1.43 H (0.52-1.04) mg/dL Glucose 54 L (74-99) mg/dL POC Glucose (mg/dL) (70-110) mg/dL AST 68 H (14-36) U/L ALT 42 H (4-34) U/L Alkaline Phosphatase 200 H (38-126) U/L Total Protein 5.8 L (6.3-8.2) g/dL Albumin 3.3 L (3.5-5.0) g/dL 06/14/25 Range/Units 12:33 WBC (4.50-10.00) 10*3/uL MPV (9.5-12.2) fL Immature Gran # (0.00-0.04) 10*3/uL Neutrophils # (1.80-7.70) 10*3/uL Monocytes # (0.20-1.00) 10*3/uL Sodium (137-145) mmol/L Potassium (3.5-5.1) mmol/L Chloride (98-107) mmol/L BUN (7-17) mg/dL Creatinine (0.52-1.04) mg/dL Glucose (74-99) mg/dL POC Glucose (mg/dL) 142 H (70-110) mg/dL AST (14-36) U/L ALT (4-34) U/L Alkaline Phosphatase (38-126) U/L Total Protein (6.3-8.2) g/dL Albumin (3.5-5.0) g/dL Assessment and Plan (1) Non-pressure chronic ulcer of skin of other sites with fat layer exposed Current Visit: Yes Status: Acute Code(s): L98.492 - NON-PRS CHRONIC ULCER OF SKIN OF SITES W FAT LAYER EXPOSED SNOMED Code(s): 12177591
--- NOTE | 2025-06-14 12:46 | US ---
EXAMINATION TYPE: US kidneys/renal and bladder DATE OF EXAM: 06/14/2025 COMPARISON: NONE CLINICAL INDICATION: Female, 84 years old with history of KATHRYN TECHNIQUE: Grayscale imaging of the bilateral kidneys and urinary bladder: FINDINGS: EXAM MEASUREMENTS: Right Kidney: obscured by bowel and liver attenuation Left Kidney: 9.5 x 4.9 x4.9 cm Right Kidney: Obscured by overlying bowel gas Left Kidney: Cortical thinning and perinephric edema noted. There is a 1.3 x 1.4 x 1.[address] at the lateral mid pole. No hydronephrosis. Bladder: obscured by bowel and bandages Manager Functional notes: Exams very limited by large body habitus, bowel gas and patient cooperation IMPRESSION: 1. Technically very limited exam as above. Attenuation from the liver suggests severe hepatic steatos is. Appropriate clinical management recommended. 2. Unable to visualize the right kidney for assessment. 3. No hydronephrosis on the left. Changes of chronic medical renal disease on the left. [facility], , 06/14/2025 12:43 PM
[2025-06-14 13:03] LABS: Bacteria,Urine Many /hpf; Bilirubin,Urine Negative (Negative); Blood,Urine Trace (Negative); Color,Urine Yellow; Glucose,Urine (UA) Negative (Negative); Ketones,Urine Negative (Negative); Leukocyte Esterase,Urine Large (Negative); Mucus,Urine Many /hpf; Nitrite,Urine Negative (Negative); PH, Urine 7.0 (5.0-8.0); Protein,Urine Negative (Negative); RBC,Urine 5 /hpf (0-5); Specific Gravity,Urine 1.009 (1.001-1.035); Squamous Epithelial Cell,Urine 3 /hpf (0-4); Urobilinogen,Urine <2.0 mg/dL (<2.0); WBC,Urine 61 /hpf (0-5)
[2025-06-14] MEDS ORDERED: DEXTROSE 50% SYRINGE 50 ML IVP PRN ×2 (15:47)
--- NOTE | 2025-06-14 16:00 | P.HPIM ---
History of Present Illness H&P Date: 06/14/25 Chief Complaint: Not well 84-year-old patient. Patient brought in by the EMS from [facility] which assisted living. Per the EMS report patient had been shaking on and off for an hour. Oxygen saturation 88% and patient appeared to have some difficulty breathing. Daughter requested the patient to be transferred for further evaluation. No obvious fevers reported. Patient herself is not a very good historian. In bed. Awake. Not in distress. But she thinks her physician is . Denies any pain. She feels her breathing is fine. Review of systems: GEN.: Tired, rigors reported EYES: None HEENT: None NECK: None RESPIRATORY: None CARDIOVASCULAR: None GASTROINTESTINAL: None GENITOURINARY: None MUSCULOSKELETAL: Pain in some joints LYMPHATICS: None HEMATOLOGICAL: None PSYCHIATRY: Forget referral NEUROLOGICAL: None Social history: Lives at [facility] day[facility] onwards. Former smoker. Does use a walker Physical examination: VITAL SIGNS: [97.7, 64, 18, 110 x 86, 97% room air GENERAL: BMI 51.5, lying bed awake not in distress. EYES: Pupils equal. Conjunctiva giovani l. HEENT: External appearance of nose and ears normal, oral cavity grossly normal. NECK: JVD not raised; masses not palpable. HEART: First and second heart sounds are normal; no edema. LUNGS:[ Respiratory rate normal; decreased breath sound. ABDOMEN: Soft, nontender, liver spleen not palpable, no masses palpable. PSYCH: She knows her name. She knows she is in the hospital. Does not know the year or why she is here. l. MUSCULOSKELETAL:No Clubbing/cyanosis;muscles-grossly intact. 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 LYMPHATICS: No lymph nodes palpable in the axilla and neck INVESTIGATIONS, reviewed in the clinical context: June 14, 2025: Sodium 124 potassium 2.9 BUN 27 creatinine 1.43 Blood glucose 54 AST 68 ALT 42 albumin 3.3 UA: Large leukoesterase WBC [address] scan of the brain: Unremarkable chronic changes Chest x-ray film personally reviewed by me-possible right small pleural effusion EKG tracing personally reviewed by me-atrial fibrillation. Assessment plan: - Patient reported to having chills some shaking at the assisted living. Patient not a good historian. Leukocytosis possible UTI IV ceftriaxone - Hyponatremia with admission sodium 124. Encourage oral intake. 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 Continue Lantus. Accu-Cheks with sliding scale. 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 Eliquis. - COPD no prior smoker Ventolin as needed - Hyperlipidemia Lipitor 20 mg nightly - Depression BuSpar Currently no family at the bedside. Past Medical History Past Medical History: Hypertension Additional Past Medical History / Comment(s): Short term memory loss, PNA. History of Any Multi-Drug Resistant Organisms: None Reported Past Surgical History: Appendectomy, Section, Cholecystectomy Past Psychological History: No Psychological Hx Reported Smoking Status: Former smoker Past Alcohol Use History: None Reported Past Drug Use History: None Reported Medications and Allergies Home Medications Medication Instructions Recorded Confirmed Type Docusate [Colace] 100 mg PO BID PRN #60 cap 11/24/24 06/14/25 Rx Albuterol Inhaler [Ventolin Hfa 2 puff INHALATION QID@08,12,16,20 06/14/25 06/14/25 History Inhaler] Apixaban [Eliquis] 5 mg PO BID@0800,199906/14/25 06/14/25 History Aspirin EC [Ecotrin Low Dose] 81 mg PO DAILY@0800 06/14/25 06/14/25 History Atorvastatin [Lipitor] 20 mg PO HS@199906/14/25 06/14/25 History Cholecalciferol [Vitamin D3 (25 25 mcg PO DAILY@0800 06/14/25 06/14/25 History Mcg = 1000 Iu)] Cranberry Fruit Extract [Cranberry] 500 mg PO BID@0800,199906/14/25 06/14/25 History Famotidine [Pepcid] 20 mg PO BID@0800,199906/14/25 06/14/25 History Furosemide [Lasix] 40 mg PO BID@0800,1600 06/14/25 06/14/25 History Hydrophilic Cream [Triad (Kerodex 1 applic TOPICAL MOFR@0800 06/14/25 06/14/25 History geq)] Insulin Glargine,Hum.rec.anlog 14 units SQ HS@199906/14/25 06/14/25 History [Lantus Solostar Pen] Multivit-Min/Iron/Folic/Lutein 1 tab PO DAILY@0806/14/25 06/14/25 History [Centrum Silver Women Tablet] Nitrofurantoin Monohyd/M-Cryst 100 mg PO HS@199906/14/25 06/14/25 History [Macrobid] Nystatin 100,000 Unit/gm Powd 1 applic TOPICAL BID@08,199906/14/25 06/14/25 History [Mycostatin Powder] Potassium Chloride ER [K-Dur 10] 20 meq PO BID@08,199906/14/25 06/14/25 History Vitamin B Complex 1 cap PO DAILY@0806/14/25 06/14/25 History busPIRone HCL [Buspar] 7.5 mg PO BID@08,199906/14/25 06/14/25 History glipiZIDE [glipiZIDE ER] 10 mg PO DAILY@0806/14/25 06/14/25 History guaiFENesin SYRUP 100MG/5ML 200 mg PO Q4H PRN 06/14/25 06/14/25 History [Robitussin] metOLazone [Zaroxolyn] 2.5 mg PO DAILY@0806/14/25 06/14/25 History polyethylene glycoL 3350 [Miralax] 17 gm PO DAILY@0806/14/25 06/14/25 History Allergies Allergy/AdvReac Type Severity Reaction Status Date / Time Penicillins AdvReac Rash/Hives Verified 06/14/25 06:53 Physical Exam Vitals: Vital Signs Temp Pulse Pulse Resp BP BP Pulse Ox 06/14/25 08:05 71 16 104/68 98 06/14/25 06:34 97.7 F 64 18 110/86 97 06/14/25 05:02 67 17 106/61 06/14/25 04:59 64 18 87/72 06/14/25 01:46 97.5 F L 91 17 92/62 99 Intake and Output 06/13/25 06/14/25 06/14/25 22:59 06:59 14:59 Other: Voiding Method External Catheter Weight 136.078 kg Results CBC & Chem 7: 06/14/25 02:06 06/14/25 06:55 Labs: Abnormal Lab Results - Last 24 Hours (Table) 06/14/25 06/14/25 06/14/25 Range/Units 02:06 02:06 06:55 WBC 11.75 H (4.50-10.00) 10*3/uL MPV 9.3 L (9.5-12.2) fL Immature Gran # 0.16 H (0.00-0.04) 10*3/uL Neutrophils # 8.20 H (1.80-7.70) 10*3/uL Monocytes # 1.03 H (0.20-1.00) 10*3/uL Sodium 124 L 129 L (137-145) mmol/L Potassium 2.9 L (3.5-5.1) mmol/L Chloride 90 L 97 L (98-107) mmol/L BUN 34 H 27 H (7-17) mg/dL Creatinine 1.44 H 1.43 H (0.52-1.04) mg/dL Glucose 54 L (74-99) mg/dL AST 68 H (14-36) U/L ALT 42 H (4-34) U/L Alkaline Phosphatase 200 H (38-126) U/L Total Protein 5.8 L (6.3-8.2) g/dL Albumin 3.3 L (3.5-5.0) g/dL
[2025-06-14] MEDS: ASPIRIN 81 MG PO SCH (16:11)
[2025-06-14] MEDS: FUROSEMIDE 40 MG TAB PO SCH (16:11)
[2025-06-14 17:12] LABS: Glucose,Whole Blood 168 mg/dL (70-110)
[2025-06-14] MEDS: ALBUTEROL NEBULIZED 2.5 MG/3 ML INHALATION SCH (17:34)
[2025-06-14 17:35] LABS: African American GFR (CKD) 48 (>60 ml/min/1.73 sqM); Anion Gap 6 mmol/L; Blood Urea Nitrogen 27 mg/dL (7-17); Calcium 8.7 mg/dL (8.4-10.2); Carbon Dioxide 24 mmol/L (22-30); Chloride 98 mmol/L (98-107); Glucose 142 mg/dL (74-99); Non-African American GFR(CKD) 41 (>60 ml/min/1.73 sqM); Potassium 3.6 mmol/L (3.5-5.1); Sodium 128 mmol/L (137-145)
[2025-06-14] MEDS: INSULIN LISPRO (HumaLOG) 100 UNIT/ML 10 mL VL SQ SCH (17:44)
[2025-06-14 19:51] LABS: Glucose,Whole Blood 165 mg/dL (70-110)
[2025-06-14] MEDS: NYSTATIN 100,000 UNIT/GM POWD 15 GM TOPICAL SCH (20:18)
[2025-06-14] MEDS: ATORVASTATIN 20 MG TAB PO SCH (20:18)
[2025-06-14] MEDS: FAMOTIDINE 20 MG TAB PO SCH (20:18)
[2025-06-14] MEDS: APIXABAN 5 MG TAB PO SCH (20:18)
[2025-06-14] MEDS: INSULIN GLARGINE (LANTUS) 100 UNIT/ML SYR SQ SCH (20:18)
[2025-06-15 05:45] LABS: Glucose,Whole Blood 90 mg/dL (70-110)
[2025-06-15 07:34] VITALS: BP 94/61; PULSE 71; RESP 17; TEMP 98.1
[2025-06-15] MEDS ORDERED: HYDROPHILIC TOPICAL SCH (08:00)
[2025-06-15] MEDS: CHOLECALCIFEROL 25 MCG (1000 IU) TABLET PO SCH (09:01)
[2025-06-15] MEDS: MULTIVITAMINS, THERA 1 EACH TAB PO SCH (09:01)
[2025-06-15 10:20] LABS: Basophils # (A) 0.06 X 10*3/uL (0.00-0.10); Basophils % (A) 0.8 %; Eosinophils # (A) 0.23 X 10*3/uL (0.04-0.35); Eosinophils % (A) 3.3 %; HCT 33.5 % (37.2-46.3); HGB 11.0 g/dL (12.0-15.0); Immature Grans, Automated 1.10 %; Lymphocytes # (A) 1.25 X 10*3/uL (0.90-5.00); Lymphocytes % (A) 17.7 %; MCH 30.0 pg (27.0-32.0); MCHC 32.8 g/dL (32.0-37.0); MCV 91.3 FL (80.0-97.0); Monocytes # (A) 0.61 X 10*3/uL (0.20-1.00); Monocytes % (A) 8.6 %; NRBC Per 100 WBC 0 X 10*3/uL (0.00-0.01); Neutrophils # (A) 4.84 X 10*3/uL (1.80-7.70); Neutrophils % (A) 68.5 %; Platelet Count 249 X 10*3/uL (140-440); RBC 3.67 X 10*6/uL (4.10-5.20); RDW 15.0 % (11.5-14.5); WBC 7.07 X 10*3/uL (4.50-10.00)
[2025-06-15 10:43] LABS: ALT 38 U/L (8-44); AST 58 U/L (13-35); Albumin 2.8 g/dL (3.8-4.9); Albumin/Globulin Ratio 1.65 Ratio (1.60-3.17); Alkaline Phosphatase 150 U/L (41-126); Anion Gap 11.20 mmol/L (4.00-12.00); BUN/Creat Ratio 19.75 Ratio (12.00-20.00); Blood Urea Nitrogen 23.7 mg/dL (9.0-27.0); Calcium 8.5 mg/dL (8.7-10.3); Carbon Dioxide 23.8 mmol/L (21.6-31.8); Chloride 101 mmol/L (96-109); Globulin 1.7 g/dL (1.6-3.3); Glucose 82 mg/dL (70-110); Magnesium 1.7 mg/dL (1.5-2.4); Potassium 3.3 mmol/L (3.5-5.5); Sodium 136 mmol/L (135-145); Total Protein 4.5 g/dL (6.2-8.2)
--- NOTE | 2025-06-15 11:09 | P.PN ---
Subjective Patient is seen in follow-up for hyponatremia. Sodium level 136 today. Renal function stable. No active complaints. Vital signs are stable. General: No acute distress. HEENT: Head exam is unremarkable. LUNGS: No audible rhonchi or wheezes. HEART: Rate and Rhythm are regular. ABDOMEN: Non-tender. EXTREMITITES: 1+ edema. Objective - Vital Signs Vital signs: Vital Signs Temp 98.1 F 06/15/25 07:00 Pulse 71 06/15/25 07:00 Resp 17 06/15/25 07:00 BP 94/61 06/15/25 07:00 Pulse Ox 97 06/15/25 07:00 FiO2 Intake & Output 06/14/25 06/15/25 06/15/25 18:59 06:59 18:59 Intake Total 476 120 Output Total 400 900 Balance 76 -900 120 Weight 136.078 kg Intake: Oral 476 120 Output: Urine 400 900 Other: Voiding Method External Catheter External Catheter External Catheter # Voids 0 - Labs CBC & Chem 7: 06/15/25 06:31 06/15/25 06:31 Labs: Abnormal Lab Results - Last 24 Hours (Table) 06/14/25 06/14/25 06/14/25 Range/Units 12:33 12:37 17:03 RBC (4.10-5.20) X 10*6/uL Hgb (12.0-15.0) g/dL Hct (37.2-46.3) % RDW (11.5-14.5) % Immature Gran # (0.00-0.04) X 10*3/uL Sodium 128 L (137-145) mmol/L Potassium (3.5-5.5) mmol/L BUN 27 H (7-17) mg/dL Creatinine 1.20 H (0.52-1.04) mg/dL Est GFR (CKD-EPI) (>=60) Glucose 142 H (74-99) mg/dL POC Glucose (mg/dL) 142 H (70-110) mg/dL Calcium (8.7-10.3) mg/dL AST (13-35) U/L Alkaline Phosphatase (41-126) U/L Total Protein (6.2-8.2) g/dL Albumin (3.8-4.9) g/dL Urine Appearance Cloudy H (Clear) Urine Blood Trace H (Negative) Ur Leukocyte Esterase Large H (Negative) Urine WBC 61 H (0-5) /hpf Urine Bacteria Many H (None) /hpf Urine Mucus Many H (None) /hpf 06/14/25 06/14/25 06/15/25 Range/Units 17:10 19:49 06:31 RBC 3.67 L (4.10-5.20) X 10*6/uL Hgb 11.0 L (12.0-15.0) g/dL Hct 33.5 L (37.2-46.3) % RDW 15.0 H (11.5-14.5) % Immature Gran # 0.08 H (0.00-0.04) X 10*3/uL Sodium (137-145) mmol/L Potassium (3.5-5.5) mmol/L BUN (7-17) mg/dL Creatinine (0.52-1.04) mg/dL Est GFR (CKD-EPI) (>=60) Glucose (74-99) mg/dL POC Glucose (mg/dL) 168 H 165 H (70-110) mg/dL Calcium (8.7-10.3) mg/dL AST (13-35) U/L Alkaline Phosphatase (41-126) U/L Total Protein (6.2-8.2) g/dL Albumin (3.8-4.9) g/dL Urine Appearance (Clear) Urine Blood (Negative) Ur Leukocyte Esterase (Negative) Urine WBC (0-5) /hpf Urine Bacteria (None) /hpf Urine Mucus (None) /hpf 06/15/25 Range/Units 06:31 RBC (4.10-5.20) X 10*6/uL Hgb (12.0-15.0) g/dL Hct (37.2-46.3) % RDW (11.5-14.5) % Immature Gran # (0.00-0.04) X 10*3/uL Sodium (137-145) mmol/L Potassium 3.3 L (3.5-5.5) mmol/L BUN (7-17) mg/dL Creatinine (0.52-1.04) mg/dL Est GFR (CKD-EPI) 44 L (>=60) Glucose (74-99) mg/dL POC Glucose (mg/dL) (70-110) mg/dL Calcium 8.5 L (8.7-10.3) mg/dL AST 58 H (13-35) U/L Alkaline Phosphatase 150 H (41-126) U/L Total Protein 4.5 L (6.2-8.2) g/dL Albumin 2.8 L (3.8-4.9) g/dL Urine Appearance (Clear) Urine Blood (Negative) Ur Leukocyte Esterase (Negative) Urine WBC (0-5) /hpf Urine Bacteria (None) /hpf Urine Mucus (None) /hpf Assessment and Plan Plan: Assessment: 1. Hypovolemic hyponatremia improved with IV fluids. TSH normal. 2. Hypokalemia from poor intake and diuretic use. 3. Hypomagnesemia from poor intake and diuretic use. 4. Acute kidney injury versus progression of underlying chronic kidney disease. Creatinine in October 2024 was 0.79 but was noted to be high at 1.7 in January 2025. Creatinine improved to 1.2. 5. History of dementia. 6. Hypotension related to hypovolemia with questionable sepsis. Better with fluids. 7. ESBL E. coli UTI on antibiotics. 8. Metabolic acidosis secondary to acute kidney injury maintained on oral bicarb. Better. Plan: Maintain gentle IV hydration. Replace potassium. Add oral magnesium oxide. Continue to hold diuretics. Continue to monitor renal function and urine output. Follow-up renal ultrasound.
[2025-06-15] MEDS: POTASSIUM CHLORIDE ER 20 MEQ TAB.ER PO STA (11:16)
[2025-06-15] MEDS: MAGNESIUM OXIDE 400 MG TAB PO SCH (11:16)
[2025-06-15 12:25] LABS: Glucose,Whole Blood 100 mg/dL (70-110)
[2025-06-16] MEDS ORDERED: FAMOTIDINE 20 MG TAB PO SCH (09:00)
--- NOTE | 2025-06-16 19:46 | P.DS ---
Providers Date of admission: 06/14/25 05:49 Expected date of discharge: 06/16/25 Attending physician: Eleno Barahona Consults: 06/14/25 06:29 Consult Physician Routine Consulting Provider: Zain Cha Consult Reason/Comments: hypoNa Do you want consulting provider notified?: Yes Primary care physician: Dion Lopez MD Hospital Course: Chief Complaint: Not well 84-year-old patient. Patient brought in by the EMS from [facility] which assisted living. Per the EMS report patient had been shaking on and off for an hour. Oxygen saturation 88% and patient appeared to have some difficulty breathing. Daughter requested the patient to be transferred for further evaluation. No obvious fevers reported. Patient herself is not a very good historian. In bed. Awake. Not in distress. But she thinks her physician is . Denies any pain. She feels her breathing is fine. June 15: Doing well. Comfortable. No fever.Normal white count. Patient will be discharged with a short course of Ceftin. Eating fairly well. Appears comfortable. Social history: Lives at assisted living daycare onwards. Former smoker. Does use a walker Physical examination: VITAL SIGNS: 98.1, 71, 17, 94.61, 97% room GENERAL: BMI 51.5, lying bed awake comfortable EYES: Pupils equal. Conjunctiva giovani l. HEENT: External appearance of nose and ears normal, oral cavity grossly normal. NECK: JVD not raised; masses not palpable. HEART: First and second heart sounds are normal; no edema. LUNGS:[ Respiratory rate normal; decreased breath sound. ABDOMEN: Soft, nontender, liver spleen not palpable, no masses palpable. PSYCH: She knows her name. She knows she is in the hospital. Does not know the year or why she is here. l. MUSCULOSKELETAL:No Clubbing/cyanosis;muscles-grossly intact. 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 Assessment plan: - Patient reported to having chills some shaking at the assisted living. Patient not a good historian. Leukocytosis possible UTI: Improved IV ceftriaxone Discharged on Ceftin 250 mg twice daily. For 3 days - Hyponatremia with admission sodium 124.: Improved Encourage oral intake. 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 Continue Lantus. Accu-Cheks with sliding scale. 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 Eliquis. - COPD no prior smoker Ventolin as needed - Hyperlipidemia Lipitor 20 mg nightly - Depression BuSpar Disposition: Assisted living Past Medical History Past Medical History: Hypertension Additional Past Medical History / Comment(s): Short term memory loss, PNA. History of Any Multi-Drug Resistant Organisms: None Reported Past Surgical History: Appendectomy, Section, Cholecystectomy Past Psychological History: No Psychological Hx Reported Smoking Status: Former smoker Past Alcohol Use History: None Reported Past Drug Use History: None Reported Plan - Discharge Summary Discharge Rx Participant: No New Discharge Prescriptions: New Cefuroxime [Ceftin] 250 mg PO BID 3 Days #6 tab Continue guaiFENesin SYRUP 100MG/5ML [Robitussin] 200 mg PO Q4H PRN PRN Reason: Cough Potassium Chloride ER [K-Dur 10] 20 meq PO BID@0800,1999 Nystatin 100,000 Unit/gm Powd [Mycostatin Powder] 1 applic TOPICAL BID@799,1999 Multivit-Min/Iron/Folic/Lutein [Centrum Silver Women Tablet] 1 tab PO DAILY@0800 Famotidine [Pepcid] 20 mg PO BID@799,1999 busPIRone HCL [Buspar] 7.5 mg PO BID@799,1999 Vitamin B Complex 1 cap PO DAILY@0800 Cranberry Fruit Extract [Cranberry] 500 mg PO BID@799,1999 Apixaban [Eliquis] 5 mg PO BID@00,1999 Hydrophilic Cream [Triad (Kerodex geq)] 1 applic TOPICAL MOFR@0800 Cholecalciferol [Vitamin D3 (25 Mcg = 1000 Iu)] 25 mcg PO DAILY@0800 polyethylene glycoL 3350 [Miralax] 17 gm PO DAILY@0800 Insulin Glargine,Hum.rec.anlog [Lantus Solostar Pen] 14 units SQ HS@1999 Furosemide [Lasix] 40 mg PO BID@0800,1600 Atorvastatin [Lipitor] 20 mg PO HS@1999 Aspirin EC [Ecotrin Low Dose] 81 mg PO DAILY@0800 Albuterol Inhaler [Ventolin Hfa Inhaler] 2 puff INHALATION QID@08,12,16,20 Discontinued metOLazone [Zaroxolyn] 2.5 mg PO DAILY@0800 glipiZIDE [glipiZIDE ER] 10 mg PO DAILY@0800 Nitrofurantoin Monohyd/M-Cryst [Macrobid] 100 mg PO HS@1999 Docusate [Colace] 100 mg PO BID PRN #60 cap PRN Reason: Constipation Discharge Medication List Albuterol Inhaler [Ventolin Hfa Inhaler] 2 puff INHALATION QID@08,12,16,20 06/14/25 [History] Apixaban [Eliquis] 5 mg PO BID@0800,199906/14/25 [History] Aspirin EC [Ecotrin Low Dose] 81 mg PO DAILY@0800 06/14/25 [History] Atorvastatin [Lipitor] 20 mg PO HS@199906/14/25 [History] Cholecalciferol [Vitamin D3 (25 Mcg = 1000 Iu)] 25 mcg PO DAILY@0800 06/14/25 [History] Cranberry Fruit Extract [Cranberry] 500 mg PO BID@0800,199906/14/25 [History] Famotidine [Pepcid] 20 mg PO BID@0800,199906/14/25 [History] Furosemide [Lasix] 40 mg PO BID@0800,1600 06/14/25 [History] Hydrophilic Cream [Triad (Kerodex geq)] 1 applic TOPICAL MOFR@0806/14/25 [History] Insulin Glargine,Hum.rec.anlog [Lantus Solostar Pen] 14 units SQ HS@199906/14/25 [History] Multivit-Min/Iron/Folic/Lutein [Centrum Silver Women Tablet] 1 tab PO DAILY@0800 06/14/25 [History] Nystatin 100,000 Unit/gm Powd [Mycostatin Powder] 1 applic TOPICAL BID@799,199906/14/25 [History] Potassium Chloride ER [K-Dur 10] 20 meq PO BID@799,199906/14/25 [History] Vitamin B Complex 1 cap PO DAILY@79906/14/25 [History] busPIRone HCL [Buspar] 7.5 mg PO BID@799,199906/14/25 [History] guaiFENesin SYRUP 100MG/5ML [Robitussin] 200 mg PO Q4H PRN 06/14/25 [History] polyethylene glycoL 3350 [Miralax] 17 gm PO DAILY@79906/14/25 [History] Cefuroxime [Ceftin] 250 mg PO BID 3 Days #6 tab 06/16/25 [Rx] Follow up Appointment(s)/Referral(s): Dion Lopez MD [Primary Care Provider] - 1-2 days Patient Instructions/Handouts: Urinary Tract Infection in Women (DC), Hyponatremia (DC) Discharge Disposition: TRANSFER TO SNF/ECF
--- NOTE | 2025-06-18 21:59 | CDI ---
Documentation Clarification Form Date: 06/18/2025 09:44:18 PM From: Freya Laws Phone: Admit Date: 06/14/2025 05:49:00 AM Patient Name: Aria Carrillo Visit Number: [id number] Discharge Date: 06/15/2025 01:30:00 PM ATTENTION: The Clinical Documentation Specialists (CDI) and [facility] Coding Staff appreciate your assistance in clarifying documentation. Please respond to the clarification below the line at the bottom and electronically sign. The CDI & [facility] Coding staff will review the response and follow-up if needed. Please note: Queries are made part of the Legal Health Record. If you have any questions, please contact the author of this message via ITS. Doctor/Provider: Eleno Barahona The patient has questionablesepsis per Notes. Based on this information and the findings below, is there an additional diagnosis that is clinically appropriate for this patient? History/Risk Factors: 84yo F, hypovolemic,hyponatremia, hypokalemiad/t diuretic use, hypomagnesemia, KATHRYN, CKD III, dementia, hypotensiond/thypovolemia, ESBLE. coli UTI, metabolic acidosis Clinical Indicators: WBC: 11.75 Urine WBC: 61 Vitas signs: 06/14/2507/ 01:46 04:59 05:02 T 97.5 NJ 91 64 67 RR 17 18 17 BP92/62 87/72 106/61 O2 Sat 99 06/14/25 06:34 T 97.7 NJ 64 RR 18 BP110/86 O2 Sat 97 Treatment: on antibiotics Is there an additional diagnosis that is clinically appropriate for this patient? [ ] Sepsis, present on admission [ ] Severe Sepsis with organ failure [ ] Septic Shock [ ] SIRS, without underlying infectious process [ ] No additional diagnosis/not clinically significant [ ] Other, please specify [ + ] Unable to determine SIRS Criteria: 2 or more of the following may indicate SIRS Temperature < 96.8F (36C) or > 101.0F (38.3C) Heart Rate > 90 bpm RR Rate > 20 breaths/min or PaCO2 < 32 mmHg White Blood Cell Count > 12,000 or < 4,000 cells/mm3 or > 10% bands (Template Last Reviewed: November 2022) MTDD
== END 2025-06-15 13:30 | DRG 690 ==
LOC: EC 01:42 → 6NMEDSUR 05:49
PROVIDERS: ADMIT Hospitalist; ATTEND Hospitalist
DX: N39.0 Urinary tract infection, site not specified (principal); E87.20 Acidosis, unspecified; I48.92 Unspecified atrial flutter; E87.1 Hypo-osmolality and hyponatremia; I48.19 Other persistent atrial fibrillation; E86.1 Hypovolemia; E11.22 Type 2 diabetes mellitus with diabetic chronic kidney disease; B96.20 Unspecified Escherichia coli [E. coli] as the cause of diseases classified elsewhere; Z68.43 Body mass index [BMI] 50.0-59.9, adult; N18.30 Chronic kidney disease, stage 3 unspecified; J44.9 Chronic obstructive pulmonary disease, unspecified; F03.C0 Unspecified dementia, severe, without behavioral disturbance, psychotic disturbance, mood disturbance, and anxiety; I12.9 Hypertensive chronic kidney disease with stage 1 through stage 4 chronic kidney disease, or unspecified chronic kidney disease; F32.A Depression, unspecified; N17.9 Acute kidney failure, unspecified; Z16.12 Extended spectrum beta lactamase (ESBL) resistance; E11.65 Type 2 diabetes mellitus with hyperglycemia; E66.01 Morbid (severe) obesity due to excess calories; Z79.4 Long term (current) use of insulin; L98.492 Non-pressure chronic ulcer of skin of other sites with fat layer exposed; Z79.01 Long term (current) use of anticoagulants; Z79.82 Long term (current) use of aspirin; Z79.899 Other long term (current) drug therapy; Z87.891 Personal history of nicotine dependence; E78.5 Hyperlipidemia, unspecified; Z79.84 Long term (current) use of oral hypoglycemic drugs; E87.6 Hypokalemia; E83.42 Hypomagnesemia; T50.2X5A Adverse effect of carbonic-anhydrase inhibitors, benzothiadiazides and other diuretics, initial encounter; I95.9 Hypotension, unspecified; R68.83 Chills (without fever); R26.89 Other abnormalities of gait and mobility
CPT/HCPCS: 36415; 70450; 71046; 76770; 80048; 80053; 81001; 83735; 84100; 84443; 84484; 85025; 85610; 85730; 87040; 93005; 94640; 96361; 96365; 99285